=== PATIENT | male | born 1940 | race Caucasian/White ===

== ENCOUNTER → 2017-07-30 17:02 | Outpatient (CLI) | payer MEDICARE, OTHER, SELFPAY ==
--- NOTE | 2017-07-30 17:05 | RAD_ITS ---
STUDY: X-RAY CHEST REASON FOR EXAM: Male, 77 years old. Shortness of breath TECHNIQUE: Frontal and lateral views of the chest COMPARISON: None. FINDINGS: There are small bilateral pleural effusions with overlying atelectasis. There are no focal infiltrates. There are calcified granulomata noted in the left lower lobe. The heart is normal in size. The patient is status post sternotomy. RAD/Chest PA and Lateral IMPRESSION: Small bilateral pleural effusions with overlying atelectasis. Electronically Signed: Oj Frost, at 17:26 EDT Tel , Service support ,
== END ==
PROVIDERS: Family Provider Family Medicine; PCP Family Medicine; Visit Provider Physician Assistant Surgical
DX: R06.02 Shortness of breath (principal)
CPT/HCPCS: 71046

== ENCOUNTER → 2017-10-02 07:01 | Outpatient (CLI) | payer MEDICARE, OTHER, SELFPAY ==
[2017-10-02 07:55] LABS: Alanine Aminotransfer ALT/SGPT 25 U/L (16-61); Cholesterol 131 mg/dL (200); High Density Lipoprotein 37 mg/dL; Triglycerides 56 mg/dL; Very Low Density Lipoprotein 11 mg/dL (5-40)
== END ==
PROVIDERS: Family Provider Family Medicine; PCP Family Medicine; Visit Provider Family Medicine
DX: E78.00 Pure hypercholesterolemia, unspecified (principal)
CPT/HCPCS: 36415; 80061; 84460

== ENCOUNTER → 2018-03-17 13:54 | Outpatient (CLI) | payer MEDICARE, OTHER, SELFPAY ==
--- NOTE | 2018-03-17 14:00 | ECHOD_ITS ---
Reason For Study: Aortic Stenosis Procedure This was a 2D Doppler, Color Flow transthoracic echocardiogram. Exam performed in department. Left Ventricle Normal LV size. Left ventricular systolic function is normal. The estimated ejection fraction is 55 %. No regional wall motion abnormalities noted. Right Ventricle Normal RV size. Normal systolic function. Atria The left atrium is mildly enlarged. Normal right atrium. Mitral Valve Normal mitral valve. Tricuspid Valve Normal tricuspid valve. Mild (1+) tricuspid valve insufficiency. Mild pulmonary hypertension. Pulmonary artery systolic pressure is 44 mmHg. Aortic Valve Trisinus/trileaflet aortic valve. Moderate focal aortic valve calcification. Peak aortic valve gradient 47 mmHg. Mean aortic valve gradient 24 mmHg. Mild aortic stenosis. Calculated aortic valve area (continuity equation) is 1.5 cm2. Pulmonic Valve Normal pulmonic valve. Great Vessels Normal aortic root. The pulmonary artery is normal size. Normal inferior vena cava. Pericardium/Pleural No pericardial effusion. MMode/2D Measurements & Calculations LVIDd: 4.2 cm IVSd: 1.7 cm LVOT diam: 2.2 cm LVIDs: 2.4 cm LVPWd: 1.0 cm LVOT area: 3.7 cm2 RVDd: 3.7 cm FS: 42.7 % Ao root diam: 3.7 cm LAV(MOD-bp): 59.1 ml LA A4 area: 23.2 cm2 LAV(MOD-bp) Indexed: 31.4 ml/m2 LAV(MOD-sp2): 40.0 ml LAV(MOD-sp4): 78.4 ml LA dimension(2D): 4.3 cm RA A4 area: 13.3 cm2 Doppler Measurements & Calculations MV E max mick: 99.5 cm/sec Lat Peak E' Mick: 6.5 cm/sec Med Peak E' Mick: 5.0 cm/sec MV A max mick: 113.1 cm/sec E/E' lat: 15.2 E/E' med: 19.7 MV E/A: 0.88 Ao V2 max: 345.1 cm/sec LV V1 max: 136.9 cm/sec SV(LVOT): 109.1 ml Ao max P.6 mmHg LV V1 max P.5 mmHg Ao V2 mean: 233.8 cm/sec LV V1 mean P.3 mmHg Ao mean P.7 mmHg LV V1 mean: 98.2 cm/sec Ao V2 VTI: 71.4 cm LV V1 VTI: 29.1 cm AMIE(I,D): 1.5 cm2 AMIE(V,D): 1.5 cm2 PA V2 max: 152.8 cm/sec TR max mick: 316.5 cm/sec TR max P.1 mmHg Interpretation Summary Normal LV size. Left ventricular systolic function is normal. The estimated ejection fraction is 55 %. Moderate focal aortic valve calcification. Mild aortic stenosis. Calculated aortic valve area (continuity equation) is 1.5 cm2. Pulmonary artery systolic pressure is 44 mmHg. Mild pulmonary hypertension. Ordering Physician: ABHILASH Gomez Referring Physician: ABHILASH Gomez Performed By: Lizz Kaur RDCS
== END ==
PROVIDERS: Family Provider Family Medicine; PCP Family Medicine; Referring Provider Nurse Practitioner Family; Visit Provider Nurse Practitioner Family
DX: I35.0 Nonrheumatic aortic (valve) stenosis (principal); I25.10 Atherosclerotic heart disease of native coronary artery without angina pectoris; I10 Essential (primary) hypertension; G47.33 Obstructive sleep apnea (adult) (pediatric); Z95.1 Presence of aortocoronary bypass graft
CPT/HCPCS: 93306

== ENCOUNTER → 2018-04-05 07:13 | Outpatient (CLI) | payer MEDICARE, OTHER, SELFPAY ==
[2018-04-05 08:20] LABS: Glucose 98 mg/dL (74-106); PSA,Total - Annual Screen 1.89 ng/mL (0.00-4.00)
== END ==
PROVIDERS: Family Provider Family Medicine; PCP Family Medicine; Referring Provider Family Medicine; Visit Provider Family Medicine
DX: Z13.1 Encounter for screening for diabetes mellitus (principal); Z12.5 Encounter for screening for malignant neoplasm of prostate
CPT/HCPCS: 36415; 82947; 84153; G0103

== ENCOUNTER 2018-04-28 06:51 | Day surgery (SDC) | payer MEDICARE, OTHER, SELFPAY ==
[2018-04-17 14:13] VITALS: BMI 27.9
[2018-04-28] VITALS (7 sets, daily range): BP systolic 124–152; BP diastolic 65–75; PULSE 51–63; RESP 16; TEMP 36.3–36.7; O2SAT 96–99; BMI 27.3
--- NOTE | 2018-04-28 08:30 | COLBX_PTH ---
PATIENT: TRAVON BINGHAM LOC: EN U#:[id number] AGE/SX: 78/M ROOM: RE04/28/[address]: Dr. Abe Cabral MD : [id number] BED: DIS: 04/28/2018 SPEC #: [id number] RECD: 04/28/18 10:30 STATUS: JEAN PIERRE AMIE #: [id number] DEANNA: 04/28/18 08:[address]: Abe Cabral DEPT: SURGICAL PATHOLOGY RECD BY: Man Avalos ENTERED: 04/28/18 14:56 SP TYPE: COLON BX OTHR DR: Dr. Christiano Reich DO Tissues: A - COLON BIOPSY B - Descending colon C - Rectum, NOS Procedures: Surgery Specimen Level IV HEADER OPERATION: Colonoscopy (MAC) PRE-OP DIAGNOSIS: Diarrhea TISSUE SUBMITTED: A - Random colon biopsies, B - Descending colon polyp, C - Rectal polyp MICROSCOPIC DIAGNOSIS A. Colon, random biopsy: Fragments of colonic mucosa, no pathologic diagnosis. B. Descending colon polyp, biopsy: Tubular adenoma. C. Rectal polyp, biopsy: Fragments of tubular adenoma. MARIANO:lew 04/29/18 MICROSCOPIC DESCRIPTION Slides are reviewed. GROSS DESCRIPTION A - Received in fixative is one container labeled with the patient's name and designated random colon biopsy. The specimen consists of multiple irregular fragments of light khanna soft tissue that in aggregate measure 1 x 1 x 0.1 cm. The specimen is totally submitted in one cassette. B - Received in fixative is one container labeled with the patient's name and designated descending colon polyp. The specimen consists of a piece of khanna-pink polyp measuring 0.5 x 0.4 x 0.3 cm. The specimen is totally submitted in one cassette. C - Received in fixative is one container labeled with the patient's name and designated rectal polyp. The specimen consists of two irregular fragments of light khanna soft tissue that in aggregate measure 0.4 x 0.3 x 0.1 cm. The specimen is totally submitted in one cassette. / MARIANO:lew 04/28/18 TC:1 CPT: 45419 x3
--- NOTE | 2018-04-28 08:44 | OP.ENDO_ITS ---
04/28/2018 Christiano Reich [address] [place] [address] Re : Colonoscopy procedure for Jonathan Miles Dear Dr. Reich This procedure was performed on Saturday, April 28, 2018. My impressions and recommendations are as follows: Impressions : - Two 5 to 8 mm polyps in the rectum and in the descending colon, removed with a hot snare. Resected and retrieved. - Diverticulosis in the sigmoid colon. - The entire examined colon is normal. Biopsied. Recommendations : - Discharge patient to home. - Resume previous diet. - Continue present medications. - Await pathology results. - Repeat colonoscopy in 3 years for surveillance. - Return to my office in 1 week. My findings are described in the full procedure note, which is enclosed. If I can be of further assistance, please feel free to contact me at Doctor phone number(s): , Fax: [phone], Work: . Sincerely, MD Abe Paul MD 04/28/2018 8:43:47 AM This report has been signed electronically.
== END 2018-04-28 09:27 | disposition home or self-care (01) ==
LOC: EN 06:53 → AC 06:53
PROVIDERS: Family Provider Family Medicine; PCP Family Medicine; Referring Provider Surgery; Visit Provider Surgery
PROC: 0DJD8ZZ Inspection of Lower Intestinal Tract, Via Natural or Artificial Opening Endoscopic (ICD-10-PCS; CPT 45378; principal; 2018-04-28 08:25)
DX: D12.7 Benign neoplasm of rectosigmoid junction (principal); D12.4 Benign neoplasm of descending colon; K57.30 Diverticulosis of large intestine without perforation or abscess without bleeding; J44.9 Chronic obstructive pulmonary disease, unspecified; I10 Essential (primary) hypertension; E07.9 Disorder of thyroid, unspecified; E78.00 Pure hypercholesterolemia, unspecified; M10.9 Gout, unspecified; M19.90 Unspecified osteoarthritis, unspecified site; G47.33 Obstructive sleep apnea (adult) (pediatric); Z79.02 Long term (current) use of antithrombotics/antiplatelets; Z79.82 Long term (current) use of aspirin; Z79.899 Other long term (current) drug therapy; Z86.73 Personal history of transient ischemic attack (TIA), and cerebral infarction without residual deficits; Z95.1 Presence of aortocoronary bypass graft
CPT/HCPCS: 45385; 88305; J7120

== ENCOUNTER 2018-05-11 23:11 | Emergency (ER) | payer MEDICARE, OTHER, SELFPAY ==
[2018-05-05 09:16] VITALS: BMI 27.3
[2018-05-11 23:12] VITALS: BP 166/72; PULSE 80; RESP 32; TEMP 37.1; O2SAT 95; BMI 28.0
[2018-05-11 23:19] VITALS: O2SAT 92
--- NOTE | 2018-05-11 23:34 | EKG12_ITS ---
Test Reason : SOB Blood Pressure : / mmHG Vent. Rate : 077 BPM Atrial Rate : 077 BPM P-R Int : 246 ms QRS Dur : 170 ms QT Int : 422 ms P-R-T Axes : 043 -16 120 degrees QTc Int : 477 ms Sinus rhythm with 1st degree A-V block Left bundle branch block Abnormal ECG Confirmed by SHELDON OCHOA, MIGUEL ([id number]), production editor REGINA AHUMADA ([id number]) on 05/16/2018 9:21:17 AM Referred By: Christiano Reich Confirmed By:MIGUEL CHUNG MD
--- NOTE | 2018-05-11 23:37 | ED.DCSUM_ITS ---
- ER Visit Summary Date of Service: 05/11/18 Chief Complaint: Shortness of breath History of Present Illness: The patient is a 78 M who presents with shortness of breath that has gotten worse over the past 2 hours. Patient states it has been constant. Patient states is worse with laying flat. Patient states he is having a cough with some sputum production. Patient admits to a sore throat and rhinorrhea. Patient admits to some pain in his chest with coughing. Patient denies any fevers or chills. Patient denies any nausea or vomiting. Patient denies any diaphoresis. Physical Examination: Vital signs are stable except for tachypnea of 32. Patient is afebrile. Patient is in no acute distress. Oral mucosa is pink and moist. Neck is supple. Trachea is midline. Heart was regular rate and rhythm. Lung sounds were clear bilaterally. There is adequate respiratory effort noted. Abdomen is soft and nontender. Cranial nerves II through XII are intact. There are no focal motor or sensory deficits noted. The remaining physical exam is within normal limits. Test Results: EKG showed normal sinus rhythm with a first-degree AV block. There is a left bundle branch block pattern noted. There are no acute ST or T wave changes. This is unchanged compared to previous EKG dated 11/16/2010. PA and lateral chest x-ray shows a mild left pleural effusion. There is no acute infiltrate. CBC showed a mild leukocytosis of 15.5. Basic metabolic profile was essentially within normal limits. Emergency Department Course and Treatment: Patient was given a DuoNeb aerosol here. Patient felt better on reevaluation. Patient wants to go home. Patient was instructed to follow-up with his primary care physician in 5-7 days. Patient and family understood and were agreeable with the plan. All questions were answered. Disposition: Discharge home Impression: Dyspnea This note was generated with [employer] dictation software. It may contain incorrect words, spelling, and punctuation that were not noted in review of the chart prior to signing ED Disposition - Plan for ED Patient: Disposition: Home or Assisted Living Diagnosis: SOB (shortness of breath) Instructions: ED COPD Flare Referrals: Christiano Reich DO [Primary Care Provider] - 5-7 Days
[2018-05-11 23:40] VITALS: PULSE 86; RESP 20
[2018-05-11] MEDS: Ipratropium/Albuterol Sulfate 3 ML AMPUL.NEB INHALATION (23:40)
[2018-05-12] VITALS: BP 153/61; PULSE 86; RESP 16; O2SAT 93
--- NOTE | 2018-05-12 | RAD_ITS ---
STUDY: X-RAY CHEST REASON FOR EXAM: Male, 78 years old. Dyspnea TECHNIQUE: Frontal and lateral views of the chest. COMPARISON: 07/30/2017 FINDINGS: Subsegmental atelectases are noted in the right and left lung bases. There is a small left pleural effusion. Sternal cerclage wires and vascular clips are present from a prior sternotomy and coronary artery bypass graft procedure (CABG). Normal mediastinum and kacy. Normal visualized pulmonary arteries. Normal visualized aortic arch and descending thoracic aorta. Normal visualized thoracic spine. There is degenerative osteoarthritis of the bilateral shoulders. There is no demonstrated abnormality of the visualized soft tissue structures of the upper abdomen. RAD/Chest PA and Lateral IMPRESSION: Small left pleural effusion. Electronically Signed: Chinedu Riggins, at 0:45 EDT Tel , Service support ,
[2018-05-12 00:13] LABS: Absolute Lymphocyte Count 1.29 X10^3/ul (0.83-4.51); Absolute Neutrophil Count 12.8 X10^3/uL (2.0-7.7); Basophil# 0.04 X10^3/uL; Basophil% 0.3 % (0-1); Eosinophil# 0.22 X10^3/uL; Eosinophils% 1.4 % (0-5); Hematocrit 40.7 % (40-54); Hemoglobin 12.9 g/dl (13.0-16.5); Lymphocyte # 1.29 X10^3/ul (4.0); Lymphocyte % 8.3 % (19-41); Mean Corp Hgb Conc 31.7 g/gl (32-36); Mean Corpuscular Hgb 27.4 pg (27.0-32.0); Mean Corpuscular Volume 86.4 fL (80-94); Mean Platelet Vol. 9.8 fl (6.2-12.0); Monocyte% 7.1 % (0-10); Neutrophil # 12.83 X10^3/uL (2.7-7.7); Neutrophil % 82.7 % (47-70); POSITIVE COUNT NO; POSITIVE DIFFERENTIAL NO; POSITIVE MORPHOLOGY NO; Platelet Count 248 K/mm3 (150-450); RBC Distribution Width CV 15.2 % (11.6-14.6); RBC Distribution Width SD 46.9 fl (35.1-43.9); Red Blood Count 4.71 M/mm3 (4.6-6.2); White Blood Count 15.5 K/mm3 (4.4-11.0)
[2018-05-12 00:23] LABS: Anion Gap 5 (5-15); BUN 21 mg/dL (7-18); BUN/Creat Ratio 24.7 RATIO (10-20); Calcium,Total 8.3 mg/dL (8.5-10.1); Chloride 110 mmol/L (98-107); Creatinine, Serum 0.85 mg/dL (0.70-1.30); EST Glomerular Filtration Rate 93 mL/min (>60); Est Glom Filt Rate - Afr Amer 113 mL/min (>60); Estimated Creatinine Clearance 66.72 ml/min; Glucose 108 mg/dL (74-106); Potassium 4.1 mmol/L (3.5-5.1); Sodium Level 141 mmol/L (136-145)
[2018-05-12 00:57] VITALS: BP 158/67; PULSE 77; RESP 21; O2SAT 95
[2018-05-12 01:23] VITALS: BP 163/68; PULSE 77; RESP 18; O2SAT 95
== END 2018-05-12 01:24 | disposition home or self-care (01) ==
PROVIDERS: Emergency Provider Emergency Medicine; Family Provider Family Medicine; PCP Family Medicine
DX: R06.00 Dyspnea, unspecified (principal); J44.9 Chronic obstructive pulmonary disease, unspecified; I10 Essential (primary) hypertension; I44.0 Atrioventricular block, first degree; I44.7 Left bundle-branch block, unspecified; J90 Pleural effusion, not elsewhere classified; J02.9 Acute pharyngitis, unspecified; R07.9 Chest pain, unspecified; R51 Headache; Z79.02 Long term (current) use of antithrombotics/antiplatelets; Z79.899 Other long term (current) drug therapy; Z95.1 Presence of aortocoronary bypass graft
CPT/HCPCS: 71046; 80048; 85025; 93005; 94640; 99284; A4216

== ENCOUNTER 2018-05-14 13:05 | Inpatient (IN) | payer MEDICARE, OTHER, SELFPAY ==
[2018-05-14] VITALS (20 sets, daily range): BP systolic 85–137; BP diastolic 7–72; PULSE 65–121; RESP 12–30; TEMP 36.4–37.3; O2SAT 85–97; BMI 28.8; BMI 26.9
--- NOTE | 2018-05-14 13:18 | EKG12_ITS ---
Test Reason : Blood Pressure : / mmHG Vent. Rate : 092 BPM Atrial Rate : 133 BPM P-R Int : 000 ms QRS Dur : 164 ms QT Int : 390 ms P-R-T Axes : 000 -23 128 degrees QTc Int : 482 ms Atrial fibrillation Left bundle branch block Abnormal ECG Confirmed by SHELDON OCHOA, MIGUEL ([id number]), department editor LORETTA GREEN ([id number]) on 05/16/2018 8:03:10 AM Referred By: Christiano Reich Confirmed By:MIGUEL CHUNG MD
--- NOTE | 2018-05-14 13:21 | RAD_ITS ---
STUDY: X-RAY CHEST REASON FOR EXAM: Male, 78 years old. Wheezing and hypoxia. Respiratory failure. TECHNIQUE: Single AP portable view of the chest. COMPARISON: Comparison is made with prior study May 12, 2018. FINDINGS: EKG electrode are seen. Since prior study, there has been progressive atelectasis and/or infiltrates at the lung bases slightly worse on the left side. Blunting of both costophrenic angles. Sternal cerclage wires and vascular clips are present from a prior sternotomy and coronary artery bypass graft procedure (CABG). Normal mediastinum and kacy. Normal visualized pulmonary arteries. There is atherosclerotic calcification of the aortic arch with tortuosity. There are diffuse degenerative changes of the visualized thoracic spine. Normal visualized ribs, clavicles, and shoulders. There is no demonstrated abnormality of the visualized soft tissue structures of the upper abdomen. RAD/Chest 1 View (Portable) IMPRESSION: Increased atelectasis and/or infiltrates at the lung bases with small bilateral pleural effusions. This is worse on the left side. Electronically Signed: Chase Ruff, at 14:20 EDT , Service support ,
[2018-05-14 14:01] LABS: Absolute Lymphocyte Count 0.46 X10^3/ul (0.83-4.51); Absolute Neutrophil Count 5.9 X10^3/uL (2.0-7.7); Hematocrit 42.8 % (40-54); Hemoglobin 13.5 g/dl (13.0-16.5); Lymphocyte # 0.46 X10^3/ul (4.0); Lymphocyte % 6.4 % (19-41); Mean Corp Hgb Conc 31.5 g/gl (32-36); Mean Corpuscular Hgb 26.9 pg (27.0-32.0); Mean Corpuscular Volume 85.4 fL (80-94); Mean Platelet Vol. 10.6 fl (6.2-12.0); Monocyte% 11.2 % (0-10); Neutrophil # 5.89 X10^3/uL (2.7-7.7); Neutrophil % 82.3 % (47-70); Platelet Count 170 K/mm3 (150-450); RBC Distribution Width CV 15.4 % (11.6-14.6); RBC Distribution Width SD 48.2 fl (35.1-43.9); Red Blood Count 5.01 M/mm3 (4.6-6.2); White Blood Count 7.2 K/mm3 (4.4-11.0)
[2018-05-14 14:03] LABS: Anion Gap 9 (5-15); BUN 34 mg/dL (7-18); BUN/Creat Ratio 26.4 RATIO (10-20); Calcium,Total 8.3 mg/dL (8.5-10.1); Chloride 103 mmol/L (98-107); Creatinine, Serum 1.29 mg/dL (0.70-1.30); EST Glomerular Filtration Rate 58 mL/min (>60); Est Glom Filt Rate - Afr Amer 70 mL/min (>60); Estimated Creatinine Clearance 43.96 ml/min; Glucose 100 mg/dL (74-106); Potassium 3.5 mmol/L (3.5-5.1); Sodium Level 138 mmol/L (136-145)
[2018-05-14 14:04] LABS: Differential Indicated SCAN CRITERIA MET; POSITIVE COUNT NO; POSITIVE DIFFERENTIAL YES; POSITIVE MORPHOLOGY NO
[2018-05-14 14:05] LABS: Allen Test POS; Base Excess 0 mmol/L (-2 to +2); Bicarbonate 25.6 mmol/L (22-26); Blood Gas Specimen Type ART; O2 Delivery Device Nasal Can; PO2 59 mmHG (75-100); SITE L Radial; SO2 89 % (95-99); Time Given 1400; Total Carbon Dioxide 27 mmol/L; pCO2 45.3 mmHg (35-45); pH 7.36 (7.35-7.45)
[2018-05-14] MEDS: Ipratropium/Albuterol Sulfate 3 ML AMPUL.NEB INHALATION ×2 (14:05→20:00)
[2018-05-14] MEDS: Albuterol 2.5 MG/3 ML VIAL.NEB. INHALATION ×3 (14:13)
[2018-05-14 14:18] LABS: Lactic Acid 1.6 mmol/L (0.4-2.0)
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
--- NOTE | 2018-05-14 14:22 | ED.DCSUM_ITS ---
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 Onset possibly 2 days ago. Possible fever. Patient is not a good informant secondary to disorientation most likely secondary to hypoxia and combination of infectious encephalopathy. While driving car please helps her note he was driving erratically. He was stopped. Squad was called. Pulse ox was 85% room air. Apparently, he is not on chronic oxygen. 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 Denies: Sweats Eyes: Denies: Visual changes - bilaterally, Blurred Vision - bilaterally, Diplopia ENT: Denies: Bilateral ear pain, Rhinorrhea, Sore throat Cardiovascular: Reports: Palpitations. Denies: Chest pain Respiratory: Reports: Dyspnea, Cough, Sputum, Dyspnea on exertion Gastrointestinal: Denies: Abdominal pain, Nausea, Vomiting, Diarrhea, Melena, Hematochezia Genitourinary: Denies: Dysuria, Frequency Musculoskeletal: Reports: Myalgias, Arthralgias. Denies: Neck pain, Back pain, Extremity Pain Skin: Denies: Rash, Wounds Neurological: Reports: Weakness. Denies: Headache, Numbness Physical Exam Vital Signs/Narrative: Vital Signs Temp Pulse Resp BP Pulse Ox 05/14/18 14:13 101 H 24 H 05/14/18 14:08 95 29 H 114/64 93 05/14/18 14:05 93 24 H 05/14/18 13:51 98.6 F 87 28 H 116/66 90 05/14/18 13:09 98.6 F 92 30 H 104/61 85 Inital Vital Signs reviewed: Yes General: Well nourished, Well developed, Acute Distress Head: Normocephalic, Atraumatic Eyes: Perrl, EOMI. Negative for: Pale conjunctiva, Scleral icterus ENT: TM's clear, Dry mucous membranes, Nasal congestion Neck: Supple, Nontender, No lymphadenopathy, No JVD Cardiovascular: Regular rate, Regular rhythm, No murmurs, Normal S1, Normal S2 Respiratory: Chest nontender, Wheezing, Diminished, Decreased Air Movement, Retractions, - - Paradoxical breathing Abdomen: Soft, Nontender, Nondistended, Normal bowel sounds. Negative for: Hepatomegaly, Splenomegaly, Pulsatile mass Back: Nontender, Normal Inspection Extremities: Nontender, No edema. Negative for: Calf Tenderness Neurological: Cranial nerves II-XII grossly intact, Normal Strength, Normal Sensation, Normal DTR, Normal Gait - Gait was not tested. Negative for: Alert, Oriented x3 Psychological: Normal Mood Diagnostic/Tx/Re-eval Chest X-Ray - ED: 1 View, Read by ED Physician, Read by Radiologist, Normal, Heart, Mediastinum, Bony Structures, Left Infiltrate - Possible infiltrate on left compared to prior., - - Atelectasis noted right lower lobe, chronic. Impressions Chest X-Ray 05/14/18 13:21 IMPRESSION: Increased atelectasis and/or infiltrates at the lung bases with small bilateral pleural effusions. This is worse on the left side. Electronically Signed: Chase Ruff, at 14:20 EDT , Service support , 05/14/18 13:21 Chest 1 View (Portable) [RAD] Stat Laboratory Results 05/14/18 05/14/18 05/14/18 13:30 13:30 13:30 WBC 7.2 RBC 5.01 Hgb 13.5 Hct 42.8 MCV 85.4 MCH 26.9 L MCHC 31.5 L RDW 15.4 H RDW Differential 48.2 H Plt Count 170 MPV 10.6 Immature Gran % (Auto) 0.100 Neut % (Auto) 82.3 H Lymph % (Auto) 6.4 L [place] % (Auto) 11.2 H Eos % (Auto) 0.0 Baso % (Auto) 0.0 Absolute Neuts (auto) 5.9 Absolute Lymphs (auto) 0.46 L Total Counted Not Reportable Differential Comment COMMENT Specimen Type Sample Site pH Bicarbonate Actual POC Total CO2 Base Excess O2 Saturation ABG pCO2 ABG pO2 Diomedes Test O2 Delivery Device Liter Flow Blood Gas Notified Whom Blood Gas Notified Time Sodium 138 Potassium 3.5 Chloride 103 Carbon Dioxide 26.0 Anion Gap 9 BUN 34 H Creatinine 1.29 Estim Creat Clear Calc 43.96 Est GFR (MDRD) Af Amer 70 Est GFR (MDRD) Non-Af 58 L BUN/Creatinine Ratio 26.4 H Glucose 100 Lactic Acid 1.6 Calcium 8.3 L Troponin I 0.510 H 05/14/18 14:01 WBC RBC Hgb Hct MCV MCH MCHC RDW RDW Differential Plt Count MPV Immature Gran % (Auto) Neut % (Auto) Lymph % (Auto) [place] % (Auto) Eos % (Auto) Baso % (Auto) Absolute Neuts (auto) Absolute Lymphs (auto) Total Counted Differential Comment Specimen Type ART Sample Site L Radial pH 7.36 Bicarbonate Actual 25.6 POC Total CO2 27 Base Excess 0 O2 Saturation 89 L ABG pCO2 45.3 H ABG pO2 59 L Diomedes Test POS O2 Delivery Device Nasal Can Liter Flow 3.0 Blood Gas Notified Whom ED MD Blood Gas Notified Time 1400 Sodium Potassium Chloride Carbon Dioxide Anion Gap BUN Creatinine Estim Creat Clear Calc Est GFR (MDRD) Af Amer Est GFR (MDRD) Non-Af BUN/Creatinine Ratio Glucose Lactic Acid Calcium Troponin I CT of the chest is suboptimal secondary to poor timing of the contrast injection. There is evidence of bilateral lower lobe pneumonia and pleural plaques. - Rhythm Strip Rhythm Strip: A-fib Rate: 103 - Wide-complex Ectopy: None - EKG Initial EKG Interpretation: Atrial Fibrillation - Ventricular rate 92. QRS duration 164 ms. QT intervals 42. [place] to the left., LBBB - Medical Decision Making Patient feels warm. With disorientation and history of cough hypoxia need to evaluate for pneumonia, exacerbation COPD with CO2 retention, pulmonary embolus. Sepsis workup was initiated. ABG was obtained which reveals increased AA gradient. CO2 is elevated for respiratory rate. Since there appears to be an infiltrate left lower lobe levofloxacin was ordered. Since he is still wheezing after aerosol treatments he received Solu- Medrol. Troponins elevated at 0.51. BNP was ordered since rales noted right base. This may be secondary to the atelectasis. Since there is no significant abnormality on the chest x-ray to explain his hypoxia and the troponin is elevated will perform CTA to evaluate for pulmonary embolus. - Critical Care Time Critical care time (excluding procedures): 30-74 minutes, 75-104 minutes, Discussing w/Patient &/or Family/Access Developer, Discussing w/Consultants, Arranging Admission or Transfer ED Disposition - Plan for ED Patient: Disposition: Acute Care Hospital [facility] Diagnosis: Acute respiratory failure with hypoxia, Aspiration pneumonia of both lower lobes, Elevated troponin I level, Infectious encephalopathy, COPD (chronic obstructive pulmonary disease), Coronary atherosclerosis of wiyot coronary vessel, Personal history of transient ischemic attack (TIA) and cerebral infarction without residual deficit, Status post aorto-coronary artery bypass graft Referrals: Christiano Reich DO [Primary Care Provider] -
--- NOTE | 2018-05-14 14:30 | CT_ITS ---
STUDY: CTA CHEST REASON FOR EXAM: Male, 78 years old. Hypoxia. Confusion and shortness of breath. RADIATION DOSAGE (If Supplied By Facility): CTDIvol = ( 10.91 ) mGy, DLP = ( 394.49 ) mGycm TECHNIQUE: The examination was performed with the intravenous administration of Isovue 370 100mL IV. Post-processing of the angiographic images was performed, with multiplanar reformation and 3D reconstruction. Individualized dose optimization techniques were used for this CT. COMPARISON: None. FINDINGS: Small bilateral axillary lymph nodes. Normal enhancement of the main pulmonary artery and right and left pulmonary arteries. Normal enhancement of the bilateral peripheral pulmonary arteries. There is no demonstrated pulmonary embolism. There is atherosclerotic calcification of the aortic arch with tortuosity. There is no demonstrated aortic dissection. There are calcifications of the coronary arteries. Cardiomegaly. Prior CABG. There is evidence of enlarged subcarinal lymph node measuring 1.7 cm x 3.8 cm. Several smaller mediastinal nodes are seen. Calcified right hilar and right infrahilar lymph nodes. Normal visualized trachea and bronchi. The lungs are well expanded. Patchy airspace disease in both lower lobes worse on the left side superimposed on scarring. Left calcified pleural plaques. Normal chest wall structures. There are degenerative changes of thoracic spine. Multiple calcified splenic granulomas. There is a 2.9 cm x 3.1 cm hypodense nodule in the right adrenal gland. This may represent an adrenal adenoma. The patient is status post cholecystectomy. CT/CTA Chest W/WO Contrast IMPRESSION: No evidence of pulmonary embolism. Patchy bibasilar infiltrates slightly worse on the left side with the calcified pleural plaques on the left side. Mildly enlarged subcarinal lymph nodes. Right adrenal hypodense nodule. Electronically Signed: Chase Ruff, at 15:44 EDT , Service support ,
[2018-05-14] MEDS: levoFLOXacin IV 750 MG/150 ML BAG 100 MG IV (14:46)
[2018-05-14] MEDS: MethylPREDNISolone 125 MG/2 ML Vial 60 MG IV (14:46)
[2018-05-14 15:25] LABS: BNP,B-Type NATRIURETIC PEPTIDE 217.2 pg/mL (0-100)
--- NOTE | 2018-05-14 15:28 | NURSING ---
DR ROSEMARIE PAVON
--- NOTE | 2018-05-14 15:31 | NURSING ---
PCU RESP FAILURE WITH HYPOXIA, HERMES PNEUMONIA, ELEVATED TROP ROSEMARIE
--- NOTE | 2018-05-14 16:18 | HP.PCM_ITS ---
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 He was pulled over driving erratically and was found to be confused and hypoxic, brought to the ER by squad. He has been progressively more SOB for at least a week. He has a nonproductive cough. He has felt chills at home. He normally does not use O2 - was 85% on RA on arrival here. He underwent a CTA that showed BL pna. He was in the ER about 5 days ago with the same, was given an albuterol treatment and sent home, he worsened at home. He has no hx of afib. EKG here shows Afib with RVR. He has conversational dyspnea and frequent coughing. He is agreeable to bipap and, if needed, intubation. He never smoked. [] Past Medical History Past Medical History (Chronic Problems): Chronic Problems (Last Reviewed 05/05/18 @ 09:56 by Abe Cabral MD) Acute respiratory failure with hypoxia (Chronic) CAD (coronary artery disease) (Chronic) Hypothyroidism (Chronic) 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) History of peptic ulcer disease (Chronic) Mixed hyperlipidemia (Chronic) Hypertension (Chronic) Hyperlipidemia (Chronic) Coronary atherosclerosis of [place] coronary vessel (Chronic) Benign hypertension (Chronic) Status post aorto-coronary artery bypass graft (Chronic) Medical History: Medical History (Last Reviewed 05/05/18 @ 09:56 by Abe Cabral MD) Cancer C80.1 Diarrhea R19.7 Heart disease I51.9 Hemorrhoids K64.9 Stroke I63.9 Thyroid disease E07.9 HTN (hypertension) I10 Allergies caffeine Allergy (Mild, Verified 05/14/18 13:07) Unknown bee venom protein (honey bee) Allergy (Verified 05/14/18 13:07) Swelling Penicillins Allergy (Verified 05/14/18 13:07) Hives Home Medications: Ambulatory Orders Medication Instructions Recorded amlodipine 5 mg-valsartan 160 mg 1 tab PO DAILY 90 Days #90 05/13/17 tablet atenolol 50 mg tablet 50 mg PO BID 90 Days #180 05/13/17 doxazosin 4 mg tablet 2 mg PO BID 90 Days #90 05/13/17 levothyroxine 175 mcg tablet 175 mcg PO DAILY 90 Days #90 05/13/17 nitroglycerin 0.4 mg sublingual 0.4 mg SUBLINGUAL PRN PRN 8 Days 05/13/17 tablet #25 pravastatin 40 mg tablet 40 mg PO DAILY 90 Days #90 05/13/17 isosorbide mononitrate ER 60 mg 60 mg PO DAILY 04/17/18 tablet,extended release 24 hr Acetaminophen [Tylenol Extra 1,000 mg PO Q4H PRN PRN 05/14/18 Strength] Albuterol IH (ProAir) [Proair Hfa] 1 puff INHALATION Q4H PRN PRN 05/14/18 Cholecalciferol (VIT D3) [Vitamin 1,000 unit PO DAILY 05/14/18 D] Clopidogrel Bisulfate [Clopidogrel] 75 mg PO DAILY 05/14/18 Guaifenesin/Dextromethorphan 20 ml PO Q6H PRN PRN 05/14/18 [Tussin Dm Liquid] Surgical History: Surgical History (Last Reviewed 05/05/18 @ 09:56 by Abe Cabral MD) H/O heart bypass surgery Z95.1 History of cholecystectomy Z90.49 History of colonoscopy Onset Date: ~04/2018 Z98.890 History of thyroidectomy E89.0 Surgical History: coronary bypass surgery Psychiatric History: No pertinent psych hx Lives: Alone Smoking Status: Never smoker Alcohol: None Drugs: None - *Family History Maternal Family History: Family History (Last Reviewed 05/05/18 @ 09:56 by Abe Cabral MD) Other Heart disease History Items: No pertinent history Paternal Family History: Family History (Last Reviewed 05/05/18 @ 09:56 by Abe Cabral MD) Other Heart disease History Items: No pertinent history Review of Systems Constitutional: Reports: Chills, Malaise. Denies: Fever, Weight Change HEENT: Denies: Head Aches, Sinus Congestion, Sinus Drainage Cardiovascular: Denies: Chest Pain, Edema, Palpitations, Syncope Respiratory: Reports: Cough, Shortness of Breath, Shortness of breath at rest, Shortness of breath upon exertion, Wheezing. Denies: Sputum production Gastrointestinal: Denies: Abdominal Pain, Diarrhea, Nausea, Vomiting Genitourinary: Denies: Dysuria Musculoskeletal: Denies: Joint Pain, Joint Tenderness Skin: Denies: Rash, Wounds Neurological: Denies: Numbness, Tingling, Focal weakness Psychiatric: Denies: Anxiety, Depression, Homicidal Ideations, Suicidal Ideations Hematologic/ Lymphatic: Denies: Easy Bruising, Easy Bleeding VTE Information - Inpt Only VTE Present on Admission: No VTE Mechan Device Prophylaxis: None VTE Pharm Prophylaxis ordered?: Yes Patient Problems: Active and Suspected Problems (Last Reviewed 05/05/18 @ 09:56 by Abe Cabral MD) COPD (chronic obstructive pulmonary disease) (Acute) Aspiration pneumonia of both lower lobes (Acute) Elevated troponin I level (Acute) Infectious encephalopathy (Acute) Atrial fibrillation with RVR (Acute) Sepsis (Acute) Pneumonia (Acute) COPD exacerbation (Acute) - Physical Exam General: Alert, Oriented x3, Cooperative HEENT: Atraumatic, PERRLA, EOMI, Normocephalic Neck: Supple, No JVD, Negative Carotid Bruits Lungs: Rales, Rhonchi, Wheezes Cardiovascular: Irregular Rate, Tachycardic Abdomen: Bowel Sounds Present, Soft, Non Tender Extremities: No edema, Capillary Refill Less than 3 Seconds Skin: No rashes, No breakdown Musculoskeletal: No Tenderness to Palpation of Joints or Extremities Neurological: Cranial nerves II-XII grossly intact Psych/Mental Status: Normal Affect, Appropriate, Alert and oriented to time, place, person, mood and affect Vital Signs Temp Pulse Resp BP Pulse Ox 99.1 F 121 H 26 H 137/57 H 92 05/14/18 15:19 05/14/18 15:19 05/14/18 15:19 05/14/18 15:19 05/14/18 15:19 Oxygen Flow Rate (L/min) 4 Oxygen Delivery Method Nasal Cannula Weight: 178 lb 5.663 oz Body Mass Index (BMI) 28.8 Laboratory Tests Past 24 Hrs 05/14/18 05/14/18 05/14/18 13:30 13:30 13:30 WBC 7.2 RBC 5.01 Hgb 13.5 Hct 42.8 MCV 85.4 MCH 26.9 L MCHC 31.5 L RDW 15.4 H RDW Differential 48.2 H Plt Count 170 MPV 10.6 Immature Gran % (Auto) 0.100 Neut % (Auto) 82.3 H Lymph % (Auto) 6.4 L Victoria % (Auto) 11.2 H Eos % (Auto) 0.0 Baso % (Auto) 0.0 Absolute Neuts (auto) 5.9 Absolute Lymphs (auto) 0.46 L Total Counted Not Reportable Differential Comment COMMENT Specimen Type Sample Site pH Bicarbonate Actual POC Total CO2 Base Excess O2 Saturation ABG pCO2 ABG pO2 Diomedes Test O2 Delivery Device Liter Flow Blood Gas Notified Whom Blood Gas Notified Time Sodium 138 Potassium 3.5 Chloride 103 Carbon Dioxide 26.0 Anion Gap 9 BUN 34 H Creatinine 1.29 Estim Creat Clear Calc 43.96 Est GFR (MDRD) Af Amer 70 Est GFR (MDRD) Non-Af 58 L BUN/Creatinine Ratio 26.4 H Glucose 100 Lactic Acid 1.6 Calcium 8.3 L Troponin I 0.510 H B-Natriuretic Peptide 05/14/18 05/14/18 13:30 14:01 WBC RBC Hgb Hct MCV MCH MCHC RDW RDW Differential Plt Count MPV Immature Gran % (Auto) Neut % (Auto) Lymph % (Auto) Victoria % (Auto) Eos % (Auto) Baso % (Auto) Absolute Neuts (auto) Absolute Lymphs (auto) Total Counted Differential Comment Specimen Type ART Sample Site L Radial pH 7.36 Bicarbonate Actual 25.6 POC Total CO2 27 Base Excess 0 O2 Saturation 89 L ABG pCO2 45.3 H ABG pO2 59 L Diomedes Test POS O2 Delivery Device Nasal Can Liter Flow 3.0 Blood Gas Notified Whom ED MD Blood Gas Notified Time 1400 Sodium Potassium Chloride Carbon Dioxide Anion Gap BUN Creatinine Estim Creat Clear Calc Est GFR (MDRD) Af Amer Est GFR (MDRD) Non-Af BUN/Creatinine Ratio Glucose Lactic Acid Calcium Troponin I B-Natriuretic Peptide 217.2 H Assessment/Plan All Active Problems (Last Reviewed 05/05/18 @ 09:56 by Abe Cabral MD) COPD (chronic obstructive pulmonary disease) (Acute) Aspiration pneumonia of both lower lobes (Acute) Elevated troponin I level (Acute) Infectious encephalopathy (Acute) Atrial fibrillation with RVR (Acute) Sepsis (Acute) Pneumonia (Acute) COPD exacerbation (Acute) Acute bronchitis (Resolved) Atelectasis of both lungs (Acute) SOB (shortness of breath) (Acute) Sinusitis, acute (Acute) 1. Acute sepsis with acute hypoxic respiratory failure 2/2 COPD exacerbation and BL community acquired pnuemonia - Given aerosols, O2, levaquin, steroids in ER. Will continue with solumedrol, azithromycin, rocephin, duonebs. Start Bipap now. Check urine antigens, obtain viral penal, blood cultures, sputum cultures. IS/PEP therapy. Flu screen neg. CTA no PE, BL infiltrates, enlarged subcarinal lymph nodes, adrenal nodule, calcified plaques ABG with pCO2 45, pO259, pH 7.36 BNP somewhat elevated 2. Afib with RVR - new onset likely 2/2 sepsis - IV fluids, recheck with treatm ent of the above. Repeat EKG in AM. start eliquis. Recent echocardiogram in March, preserved EF, mild pulmonary hypertension, mild aortic stenosis. 3. Elevated troponin - possibly demand ischemia given sepsis, respiratory failure and afib, will cycle. Consider cardiology consult. Repeat EKG. Maintain tele. 4. Hx CAD - prior cabg >10 years ago. continue asa/statin/plavix, atenolol, imdur 5. Hypothyroidism - check tsh, continue synthroid 6. HLD - statin DVT ppx: eliquis This patient was seen by Yo Hewitt PA-C under the supervision of Dr. Stokes <Jong Stokes - Last Filed: 05/14/18 17:35> History of Present Illness The patient is a 78 year old M with multiple comorbidities including COPD, coronary artery disease status post CABG came to ED with progressive shortness of breath, cough, chills. [] Patient was in the ER on 06/01/2018 for shortness of breath probably COPD exacerbation and was sent home. In ED, patient was found hypoxic, 85% on room air tachypneic, A. fib with RVR and objectively very short of breath. CT chest was done which shows no evidence of pulmonary embolism but bilateral infiltrate consistent with bilateral lower lobes pneumonia. Past Medical History Medical History: Medical History (Last Reviewed 05/05/18 @ 09:56 by Abe Cabral MD) Cancer C80.1 Diarrhea R19.7 Heart disease I51.9 Hemorrhoids K64.9 Stroke I63.9 Thyroid disease E07.9 HTN (hypertension) I10 Allergies caffeine Allergy (Mild, Verified 05/14/18 13:07) Unknown bee venom protein (honey bee) Allergy (Verified 05/14/18 13:07) Swelling Penicillins Allergy (Verified 05/14/18 13:07) Hives Surgical History: Surgical History (Last Reviewed 05/05/18 @ 09:56 by Abe Cabral MD) H/O heart bypass surgery Z95.1 History of cholecystectomy Z90.49 History of colonoscopy Onset Date: ~04/2018 Z98.890 History of thyroidectomy E89.0 - *Family History Maternal Family History: Family History (Last Reviewed 05/05/18 @ 09:56 by Abe Cabral MD) Other Heart disease Paternal Family History: Family History (Last Reviewed 05/05/18 @ 09:56 by Abe Cabral MD) Other Heart disease - Physical Exam Vital Signs Temp Pulse Resp BP Pulse Ox 97.6 F L 93 26 H 101/59 L 95 05/14/18 17:00 05/14/18 17:00 05/14/18 17:00 05/14/18 17:00 05/14/18 17:00 Oxygen Flow Rate (L/min) 4 Oxygen Delivery Method Bi-pap Weight: 167 lb 5.294 oz Body Mass Index (BMI) 26.9 Laboratory Tests Past 24 Hrs 05/14/18 05/14/18 05/14/18 13:30 13:30 13:30 WBC 7.2 RBC 5.01 Hgb 13.5 Hct 42.8 MCV 85.4 MCH 26.9 L MCHC 31.5 L RDW 15.4 H RDW Differential 48.2 H Plt Count 170 MPV 10.6 Immature Gran % (Auto) 0.100 Neut % (Auto) 82.3 H Lymph % (Auto) 6.4 L Victoria % (Auto) 11.2 H Eos % (Auto) 0.0 Baso % (Auto) 0.0 Absolute Neuts (auto) 5.9 Absolute Lymphs (auto) 0.46 L Total Counted Not Reportable Differential Comment COMMENT Specimen Type Sample Site pH Bicarbonate Actual POC Total CO2 Base Excess O2 Saturation ABG pCO2 ABG pO2 Diomedes Test O2 Delivery Device Liter Flow Blood Gas Notified Whom Blood Gas Notified Time Sodium 138 Potassium 3.5 Chloride 103 Carbon Dioxide 26.0 Anion Gap 9 BUN 34 H Creatinine 1.29 Estim Creat Clear Calc 43.96 Est GFR (MDRD) Af Amer 70 Est GFR (MDRD) Non-Af 58 L BUN/Creatinine Ratio 26.4 H Glucose 100 Lactic Acid 1.6 Calcium 8.3 L Troponin I 0.510 H B-Natriuretic Peptide 05/14/18 05/14/18 13:30 14:01 WBC RBC Hgb Hct MCV MCH MCHC RDW RDW Differential Plt Count MPV Immature Gran % (Auto) Neut % (Auto) Lymph % (Auto) Victoria % (Auto) Eos % (Auto) Baso % (Auto) Absolute Neuts (auto) Absolute Lymphs (auto) Total Counted Differential Comment Specimen Type ART Sample Site L Radial pH 7.36 Bicarbonate Actual 25.6 POC Total CO2 27 Base Excess 0 O2 Saturation 89 L ABG pCO2 45.3 H ABG pO2 59 L Diomedes Test POS O2 Delivery Device Nasal Can Liter Flow 3.0 Blood Gas Notified Whom ED MD Blood Gas Notified Time 1400 Sodium Potassium Chloride Carbon Dioxide Anion Gap BUN Creatinine Estim Creat Clear Calc Est GFR (MDRD) Af Amer Est GFR (MDRD) Non-Af BUN/Creatinine Ratio Glucose Lactic Acid Calcium Troponin I B-Natriuretic Peptide 217.2 H Assessment/Plan The patient is a 78 year old M with multiple comorbidities including COPD, coronary artery disease status post CABG came to ED with This patient was seen in conjunction with Yo WILLARD. I have independently interviewed and examined the patient and reviewed pertinent history, examination findings, laboratory and plan of management. I have reviewed the note and agree with the documented findings with the few additional points. In brief, patient is admitted for progressive shortness of breath, cough, chills, Severe hypoxia 85% on room air, tachypneic and A. fib with RVR. EKG shows A. fib with left bundle branch block at 92 bpm. Previous EKG showed normal sinus rhythm [address] chest was done which shows no evidence of pulmonary embolism but bilateral infiltrate consistent with bilateral lower lobes pneumonia. Patient is being admitted to stepdown unit on BiPAP support. ABG shows 7.36/40 5/59 on 3 L of oxygen. Troponin mildly elevated. Lactic acid normal cycle troponins. Patient denies chest pain. Troponin probably secondary to hypoxic respiratory failure and pneumonia. Overall diagnosis consistent with acute hypoxic failure secondary to bilateral lower lobes community-acquired pneumonia along with COPD exacerbation. A. fib new onset probably preceded by sepsis. Started on apixaban and continue atenolol, beta-chris for rate control I have discussed my assessment with Yo WILLARD and orders have been reviewed. Clinical Impression(s) from Imaging Studies Chest X-Ray 05/14/18 13:21 IMPRESSION: Increased atelectasis and/or infiltrates at the lung bases with small bilateral pleural effusions. This is worse on the left side. Chest CTA 05/14/18 14:30 IMPRESSION: No evidence of pulmonary embolism. Patchy bibasilar infiltrates slightly worse on the left side with the calcified pleural plaques on the left side. Mildly enlarged subcarinal lymph nodes. Right adrenal hypodense nodule. Code Visit Inpatient E&M: 28692 Init Hosp L3
[2018-05-14] MEDS: Ceftriaxone 1 GM/50 ML BAG IV ×2 (17:30→21:01)
[2018-05-14] MEDS: 0.9% Normal Saline 1,000 ML 100 ML IV (17:30)
[2018-05-14] MEDS: Azithromycin 250 MG Tablet 500 MG PO (17:55)
[2018-05-14] MEDS: APIXABAN 5 MG TABLET PO (17:55)
[2018-05-14] MEDS: 0.9% NaCl Peripheral Flush Adult/Peds IV ×4 (21:59→22:06)
[2018-05-14] MEDS: Furosemide 40 MG/4 ML Vial IV (21:59)
[2018-05-14] MEDS: Doxazosin 1 MG Tablet 2 MG PO (22:01)
[2018-05-14] MEDS: guaiFENesin 1,200 MG Tablet 1200 MG PO (22:01)
[2018-05-14] MEDS: Pravastatin 40 MG Tablet PO (22:01)
[2018-05-14] MEDS: Atenolol 50 MG Tablet PO (22:02)
[2018-05-15] VITALS (22 sets, daily range): BP systolic 87–138; BP diastolic 54–85; PULSE 55–81; RESP 12–24; TEMP 35.9–37; O2SAT 92–98
[2018-05-15 05:26] LABS: Absolute Lymphocyte Count 0.29 X10^3/ul (0.83-4.51); Absolute Neutrophil Count 5.1 X10^3/uL (2.0-7.7); Differential Indicated SCAN CRITERIA MET; Hematocrit 39.7 % (40-54); Hemoglobin 12.5 g/dl (13.0-16.5); International Normalized Ratio 1.1; Lymphocyte # 0.29 X10^3/ul (4.0); Lymphocyte % 5.2 % (19-41); Mean Corp Hgb Conc 31.5 g/gl (32-36); Mean Corpuscular Hgb 27.2 pg (27.0-32.0); Mean Corpuscular Volume 86.3 fL (80-94); Mean Platelet Vol. 10.7 fl (6.2-12.0); Monocyte# 0.25 X10^3/uL; Monocyte% 4.4 % (0-10); Neutrophil # 5.08 X10^3/uL (2.7-7.7); Neutrophil % 90.2 % (47-70); POSITIVE COUNT NO; POSITIVE DIFFERENTIAL YES; POSITIVE MORPHOLOGY NO; Partial Thromboplast Time 33.7 Seconds (24.1-36.2); Platelet Count 154 K/mm3 (150-450); Prothrombin Time (Protime)PT. 13.8 SECONDS (11.7-14.9); RBC Distribution Width CV 15.6 % (11.6-14.6); RBC Distribution Width SD 48.8 fl (35.1-43.9); White Blood Count 5.6 K/mm3 (4.4-11.0)
[2018-05-15 05:51] LABS: Anion Gap 7 (5-15); BUN 39 mg/dL (7-18); BUN/Creat Ratio 29.8 RATIO (10-20); Calcium,Total 8.1 mg/dL (8.5-10.1); Chloride 107 mmol/L (98-107); Cholesterol 105 mg/dL (200); Creatinine, Serum 1.31 mg/dL (0.70-1.30); EST Glomerular Filtration Rate 57 mL/min (>60); Est Glom Filt Rate - Afr Amer 68 mL/min (>60); Estimated Creatinine Clearance 43.29 ml/min; Glucose 146 mg/dL (74-106); High Density Lipoprotein 38 mg/dL; Potassium 3.9 mmol/L (3.5-5.1); Sodium Level 141 mmol/L (136-145); Thyroid Stim Hormone (TSH) 0.68 uIU/mL (0.358-3.74); Triglycerides 75 mg/dL; Very Low Density Lipoprotein 15 mg/dL (5-40)
--- NOTE | 2018-05-15 05:55 | EKG12_ITS ---
Test Reason : AM EKG Blood Pressure : / mmHG Vent. Rate : 063 BPM Atrial Rate : 043 BPM P-R Int : 000 ms QRS Dur : 168 ms QT Int : 444 ms P-R-T Axes : 000 -20 141 degrees QTc Int : 454 ms Atrial fibrillation Left bundle branch block Abnormal ECG When compared with ECG of 14-MAY-2018 13:27, MANUAL COMPARISON REQUIRED, DATA IS UNCONFIRMED Confirmed by ELENA GUTIERREZ ([id number]), supervising film or videotape editor TYRONE OATES ([id number]) on 05/19/2018 5:15:29 PM Referred By: DR HOUSTON Confirmed By:ELENA GUTIERREZ
[2018-05-15] MEDS: Ipratropium/Albuterol Sulfate 3 ML AMPUL.NEB INHALATION ×4 (07:29→20:09)
[2018-05-15] MEDS: Levothyroxine 175 MCG Tablet PO (07:31)
[2018-05-15] MEDS: 0.9% NaCl Peripheral Flush Adult/Peds IV ×4 (07:32→22:36)
[2018-05-15] MEDS: Azithromycin 250 MG Tablet 500 MG PO (09:02)
[2018-05-15] MEDS: APIXABAN 5 MG TABLET PO (09:02)
[2018-05-15] MEDS: Doxazosin 1 MG Tablet 2 MG PO ×2 (09:03→22:36)
[2018-05-15] MEDS: Losartan Potassium 50 MG Tablet PO (09:03)
[2018-05-15] MEDS: Atenolol 50 MG Tablet PO ×2 (09:03→22:35)
[2018-05-15] MEDS: Clopidogrel Bisulfate 75 MG Tablet PO (09:03)
[2018-05-15] MEDS: amLODIPine 5 MG Tablet PO (09:03)
[2018-05-15] MEDS: Isosorbide Mononitrate 60 MG Tablet PO (09:03)
[2018-05-15] MEDS: guaiFENesin 1,200 MG Tablet 1200 MG PO ×2 (09:03→22:35)
--- NOTE | 2018-05-15 12:06 | PCM.PROGNOTE ---
Patient Problems: Active and Suspected Problems (Last Reviewed 05/05/18 @ 09:56 by Abe Cabral MD) COPD (chronic obstructive pulmonary disease) (Acute) Aspiration pneumonia of both lower lobes (Acute) Elevated troponin I level (Acute) Infectious encephalopathy (Acute) Atrial fibrillation with RVR (Acute) Sepsis (Acute) Pneumonia (Acute) COPD exacerbation (Acute) Subjective: Patient seen and examined. Reports improvement in breathing. Complains of productive cough. Denies fever, chills overnight. - Physical Exam General: Alert, Oriented x3, Cooperative HEENT: Atraumatic, PERRLA, EOMI, Normocephalic Neck: Supple, No JVD, Negative Carotid Bruits Lungs: Normal air movement, Rhonchi, Wheezes Cardiovascular: Regular rate, Regular Rhythm, Normal S1, Normal S2, No murmurs Abdomen: Bowel Sounds Present, Soft, Non Tender, Non-Distended Extremities: No clubbing, No cyanosis, No edema, Capillary Refill Less than 3 Seconds Skin: No rashes, No breakdown Musculoskeletal: No Tenderness to Palpation of Joints or Extremities Neurological: Cranial nerves II-XII grossly intact, Neuro grossly intact Psych/Mental Status: Normal Affect, Appropriate Vital Signs Temp Pulse Resp BP Pulse Ox 97.9 F 67 20 H 126/62 H 94 05/15/18 09:00 05/15/18 11:01 05/15/18 09:00 05/15/18 09:00 05/15/18 09:00 Oxygen Flow Rate (L/min) 2 Oxygen Delivery Method Nasal Cannula Weight: 167 lb 5.294 oz Body Mass Index (BMI) 26.9 Intake and Output for Last 24 Hours 05/13/18 05/14/18 05/15/18 23:59 23:59 23:59 Intake Total 1160.4 / 1160.4 360 / 360 Output Total 275 / 275 Balance 1160.4 / 1160.4 85 / 85 Microbiology Past 72 Hours 05/14/18 13:42 Respiratory Panel (PCR) - Final Mucosa - Nose Influenza A (Subtype H1) 05/14/18 19:58 Legionella Antigen - Final Urine, Clean Catch 05/14/18 19:58 Streptococcus pneumoniae Antigen (M - Final Urine, Clean Catch Laboratory Tests Past 24 Hrs 05/14/18 05/14/18 05/14/18 13:30 13:30 13:30 WBC 7.2 RBC 5.01 Hgb 13.5 Hct 42.8 MCV 85.4 MCH 26.9 L MCHC 31.5 L RDW 15.4 H RDW Differential 48.2 H Plt Count 170 MPV 10.6 Immature Gran % (Auto) 0.100 Neut % (Auto) 82.3 H Lymph % (Auto) 6.4 L [place] % (Auto) 11.2 H Eos % (Auto) 0.0 Baso % (Auto) 0.0 Absolute Neuts (auto) 5.9 Absolute Lymphs (auto) 0.46 L Total Counted Not Reportable Differential Comment COMMENT PT INR APTT Specimen Type Sample Site pH Bicarbonate Actual POC Total CO2 Base Excess O2 Saturation ABG pCO2 ABG pO2 Diomedes Test O2 Delivery Device Liter Flow Blood Gas Notified Whom Blood Gas Notified Time Sodium 138 Potassium 3.5 Chloride 103 Carbon Dioxide 26.0 Anion Gap 9 BUN 34 H Creatinine 1.29 Estim Creat Clear Calc 43.96 Est GFR (MDRD) Af Amer 70 Est GFR (MDRD) Non-Af 58 L BUN/Creatinine Ratio 26.4 H Glucose 100 Lactic Acid 1.6 Calcium 8.3 L Magnesium Troponin I 0.510 H B-Natriuretic Peptide Triglycerides Cholesterol LDL Cholesterol VLDL Cholesterol HDL Cholesterol TSH 05/14/18 05/14/18 05/14/18 13:30 14:01 17:08 WBC RBC Hgb Hct MCV MCH MCHC RDW RDW Differential Plt Count MPV Immature Gran % (Auto) Neut % (Auto) Lymph % (Auto) [place] % (Auto) Eos % (Auto) Baso % (Auto) Absolute Neuts (auto) Absolute Lymphs (auto) Total Counted Differential Comment PT INR APTT Specimen Type ART Sample Site L Radial pH 7.36 Bicarbonate Actual 25.6 POC Total CO2 27 Base Excess 0 O2 Saturation 89 L ABG pCO2 45.3 H ABG pO2 59 L Diomedes Test POS O2 Delivery Device Nasal Can Liter Flow 3.0 Blood Gas Notified Whom ED Blood Gas Notified Time 1400 Sodium Potassium Chloride Carbon Dioxide Anion Gap BUN Creatinine Estim Creat Clear Calc Est GFR (MDRD) Af Amer Est GFR (MDRD) Non-Af BUN/Creatinine Ratio Glucose Lactic Acid Calcium Magnesium Troponin I 0.534 H B-Natriuretic Peptide 217.2 H Triglycerides Cholesterol LDL Cholesterol VLDL Cholesterol HDL Cholesterol TSH 05/14/18 05/14/18 05/14/18 17:08 19:40 23:10 WBC RBC Hgb Hct MCV MCH MCHC RDW RDW Differential Plt Count MPV Immature Gran % (Auto) Neut % (Auto) Lymph % (Auto) [place] % (Auto) Eos % (Auto) Baso % (Auto) Absolute Neuts (auto) Absolute Lymphs (auto) Total Counted Differential Comment PT INR APTT Specimen Type Sample Site pH Bicarbonate Actual POC Total CO2 Base Excess O2 Saturation ABG pCO2 ABG pO2 Diomedes Test O2 Delivery Device Liter Flow Blood Gas Notified Whom Blood Gas Notified Time Sodium Potassium Chloride Carbon Dioxide Anion Gap BUN Creatinine Estim Creat Clear Calc Est GFR (MDRD) Af Amer Est GFR (MDRD) Non-Af BUN/Creatinine Ratio Glucose Lactic Acid Calcium Magnesium 2.0 Troponin I 0.704 H* 1.130 H* B-Natriuretic Peptide Triglycerides Cholesterol LDL Cholesterol VLDL Cholesterol HDL Cholesterol TSH 05/15/18 05/15/18 05/15/18 01:36 05:04 05:04 WBC 5.6 RBC 4.60 Hgb 12.5 L Hct 39.7 L MCV 86.3 MCH 27.2 MCHC 31.5 L RDW 15.6 H RDW Differential 48.8 H Plt Count 154 MPV 10.7 Immature Gran % (Auto) 0.200 Neut % (Auto) 90.2 H Lymph % (Auto) 5.2 L [place] % (Auto) 4.4 Eos % (Auto) 0.0 Baso % (Auto) 0.0 Absolute Neuts (auto) 5.1 Absolute Lymphs (auto) 0.29 L Total Counted Not Reportable Differential Comment PT INR APTT Specimen Type Sample Site pH Bicarbonate Actual POC Total CO2 Base Excess O2 Saturation ABG pCO2 ABG pO2 Diomedes Test O2 Delivery Device Liter Flow Blood Gas Notified Whom Blood Gas Notified Time Sodium Potassium Chloride Carbon Dioxide Anion Gap BUN Creatinine Estim Creat Clear Calc Est GFR (MDRD) Af Amer Est GFR (MDRD) Non-Af BUN/Creatinine Ratio Glucose Lactic Acid Calcium Magnesium Troponin I 1.480 H* 1.330 H* B-Natriuretic Peptide Triglycerides Cholesterol LDL Cholesterol VLDL Cholesterol HDL Cholesterol TSH 05/15/18 05/15/18 05:04 05:05 WBC RBC Hgb Hct MCV MCH MCHC RDW RDW Differential Plt Count MPV Immature Gran % (Auto) Neut % (Auto) Lymph % (Auto) [place] % (Auto) Eos % (Auto) Baso % (Auto) Absolute Neuts (auto) Absolute Lymphs (auto) Total Counted Differential Comment PT 13.8 INR 1.1 APTT 33.7 Specimen Type Sample Site pH Bicarbonate Actual POC Total CO2 Base Excess O2 Saturation ABG pCO2 ABG pO2 Diomedes Test O2 Delivery Device Liter Flow Blood Gas Notified Whom Blood Gas Notified Time Sodium 141 Potassium 3.9 Chloride 107 Carbon Dioxide 27.0 Anion Gap 7 BUN 39 H Creatinine 1.31 H Estim Creat Clear Calc 43.29 Est GFR (MDRD) Af Amer 68 Est GFR (MDRD) Non-Af 57 L BUN/Creatinine Ratio 29.8 H Glucose 146 H Lactic Acid Calcium 8.1 L Magnesium Troponin I B-Natriuretic Peptide Triglycerides 75 Cholesterol 105 LDL Cholesterol 52 VLDL Cholesterol 15 HDL Cholesterol 38 L TSH 0.68 Medical Necessity - Tobacco Use Smoking Status: Never smoker Tobacco Use: Non-smoker Assessment/Plan All Active Problems (Last Reviewed 05/05/18 @ 09:56 by Abe Cabral MD) COPD (chronic obstructive pulmonary disease) (Acute) Aspiration pneumonia of both lower lobes (Acute) Elevated troponin I level (Acute) Infectious encephalopathy (Acute) Atrial fibrillation with RVR (Acute) Sepsis (Acute) Pneumonia (Acute) COPD exacerbation (Acute) Acute bronchitis (Resolved) Atelectasis of both lungs (Acute) SOB (shortness of breath) (Acute) Sinusitis, acute (Acute) 1. Acute sepsis with acute hypoxic respiratory failure secondary to COPD exacerbation as a result of acute influenza A and bilateral community-acquired pneumonia-CTA on admission with bilateral infiltrates. Continue IV azithromycin/IV Rocephin, IV Solu-Medrol and renal dose Tamiflu regimen 30 mg p.o. twice daily times 5 days. Albuterol and DuoNeb aerosols. BiPAP nightly and as needed. Viral panel positive for influenza A. Continue supplement oxygen to maintain O2 at or above 90%. IS/PEP. Walking pulse ox prior to discharge. 2. New onset atrial fibrillation with RVR-suspect secondary to #1. Initiated on Eliquis. Remains in atrial fibrillation, rate controlled. Continue atenolol regimen. Echocardiogram March 2018 with EF 55%, mild aortic stenosis, mild pulmonary hypertension. Patient follows with Dr. Galindo as outpatient. 3. NSTEMI-possibly demand ischemia secondary to #1. However, given hx CAD/CABG, cardiology consult placed. 4. CAD status post CABG-continue statin, Plavix, beta-chris, Imdur. Initiated on Eliquis due to atrial fibrillation. 5. Hypothyroidism-continue Synthroid regimen. TSH WNL. 6. Hyperlipidemia-continue statin. 7. Hypertension-stable, continue home amlodipine, atenolol, isosorbide. DVT prophylaxis- eiquis. This patient was seen by ABHILASH Green under the supervision of Dr. Bynum.
--- NOTE | 2018-05-15 12:10 | CPS ---
PT WILL DO PEP AND SMI ON OWN LATER THIS AFTERNOON
--- NOTE | 2018-05-15 12:26 | CASEMGMT ---
MIKEY ANNE assessment: Face to Face with patient for initial transition planning/care coordination assessment. MIKEY ANNE introduced self and role at [facility], pt voices understanding and consents to assessment at this time. Pt is sitting up in bed in no distress at this time. Pt is A/Ox4 at this time and answers all questions appropriately at this time. Care providers, pharmacy, and demographics verified at this time. PCP: Rachana Specialists: Shyla Ash, cardiology [facility] [employer] [facility] in [place] Preferred [facility]acy: [facility]: [facility] Prescription Benefit: [facility] Living Will/HPOA: Pt states does not have LW/HPOA but is interested in info on AD's at this time. LNOK: Kelly Miles, ; Ness Quevedo, daughter Living Arrangements: Pt states lives with in 1 story home with 3 steps in and states no concerns at home at this time. Pt states is normally independent with ADL's. Transportation: Pt states drives self and states no transportation concerns at this time. DME/HHC: Pt states no current DME or need for any at this time. Pt states no hx of HHC or SNF in the past. Pt states no concerns with going home at time of discharge. 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 Pt states that she does not smoke but does drink wine occasionally. Pt states no further concerns/needs at this time. Advised pt to ask for CM if any further questions/concerns/needs arise, voices understanding. Plan: [place] MIKEY ANNE
[2018-05-15] MEDS: Oseltamivir Phosphate 30 MG Capsule PO ×2 (13:03→22:59)
--- NOTE | 2018-05-15 15:46 | CHAPLAIN ---
Type of Pastoral Visit _x__ Initial Visit ___ Follow-up Visit ___ On-call Visit ___ General Patient Visit ___ Spiritual Assessment ___ Family Conference ___ Bereavement ___ Rapid Response ___ Code Blue ___ Other (describe below) Pastoral Care Referral From _x__ Patient ___ Family ___ Nurse ___ Physician ___ Provider Scribe ___ Clerical Transcriber ___ Other (describe below) Sacrament/Intervention _x__ Active listening ___ Anointing ___ Taoism ___ Bereavement ___ Communion _x__ Jessy exploration ___ _x__ Life review _x__ Prayer ___ Reconciliation ___ Sacrament of Sick _x__ Supportive presence ___ Wedding ___ Other (describe below) Pastoral Comments
--- NOTE | 2018-05-15 17:37 | PCM.CONS.C ---
Reason for Consult Date of Consultation: 05/15/18 History of Present Illness: The patient is a 78 year old M with a history of coronary artery disease status post coronary artery bypass surgery, hypertension, obstructive lung disease who presented to the emergency room because he was confused and while driving had to be pulled over. He denied any chest pain or palpitations or paroxysmal nocturnal dyspnea but he was noted to be markedly short of breath. In the emergency room he was evaluated he had a CAT scan done which demonstrated evidence of bilateral pneumonia. He was wheezing significantly. His EKG did not demonstrate any acute changes and he was admitted to the telemetry unit. Serial cardiac enzymes demonstrated elevation of the above to the abnormal range denoting a non-ST elevation myocardial infarction. Cardiology was called to evaluate. At this time he denies any chest pain but he remains short of breath with wheezing. [] Past Medical History Allergies/Adverse Reactions: Allergies caffeine Allergy (Mild, Verified 05/14/18 13:07) Unknown bee venom protein (honey bee) Allergy (Verified 05/14/18 13:07) Swelling Penicillins Allergy (Verified 05/14/18 13:07) Hives Home Medications: Ambulatory Orders Medication Instructions Recorded amlodipine 5 mg-valsartan 160 mg 1 tab PO DAILY 90 Days #90 05/13/17 tablet atenolol 50 mg tablet 50 mg PO BID 90 Days #180 05/13/17 doxazosin 4 mg tablet 2 mg PO BID 90 Days #90 05/13/17 levothyroxine 175 mcg tablet 175 mcg PO DAILY 90 Days #90 05/13/17 nitroglycerin 0.4 mg sublingual 0.4 mg SUBLINGUAL PRN PRN 8 Days 05/13/17 tablet #25 pravastatin 40 mg tablet 40 mg PO DAILY 90 Days #90 05/13/17 isosorbide mononitrate ER 60 mg 60 mg PO DAILY 04/17/18 tablet,extended release 24 hr Acetaminophen [Tylenol Extra 1,000 mg PO Q4H PRN PRN 05/14/18 Strength] Albuterol IH (ProAir) [Proair Hfa] 1 puff INHALATION Q4H PRN PRN 05/14/18 Cholecalciferol (VIT D3) [Vitamin 1,000 unit PO DAILY 05/14/18 D] Clopidogrel Bisulfate [Clopidogrel] 75 mg PO DAILY 05/14/18 Guaifenesin/Dextromethorphan 20 ml PO Q6H PRN PRN 05/14/18 [Tussin Dm Liquid] Past Medical History (Chronic Problems): Chronic Problems (Last Reviewed 05/05/18 @ 09:56 by Abe Cabral MD) Acute respiratory failure with hypoxia (Chronic) CAD (coronary artery disease) (Chronic) Hypothyroidism (Chronic) 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) History of peptic ulcer disease (Chronic) Mixed hyperlipidemia (Chronic) Hypertension (Chronic) Hyperlipidemia (Chronic) Coronary atherosclerosis of [place] coronary vessel (Chronic) Benign hypertension (Chronic) Status post aorto-coronary artery bypass graft (Chronic) Surgical History: coronary bypass surgery Psychiatric History: No pertinent psych hx - *Family History Maternal Family History: Family History (Last Reviewed 05/05/18 @ 09:56 by Abe Cabral MD) Other Heart disease History Items: No pertinent history Paternal Family History: Family History (Last Reviewed 05/05/18 @ 09:56 by Abe Cabral MD) Other Heart disease History Items: No pertinent history Lives: Alone Smoking Status: Never smoker Tobacco Use: Non-smoker Alcohol: None Drugs: None Review of Systems - Review of Systems General: Denies: Fever, Night Sweats, Fatigue HEENT: Denies: Vision Change Cardiovascular: Reports: Shortness of Breath, Shortness of Breath at Rest. Denies: Chest Discomfort, Orthopnea, PND, Peripheral Edema, Palpitations, Lightheadedness, Dizziness, Near Syncope, Syncope Respiratory: Denies: Cough, Sputum Production, Hemoptysis Gastrointestinal: Denies: Hematemesis, Hematochezia, Melena Genitourinary: Denies: Dysuria, Hematuria Muscoloskeletal: Denies: Myalgias Skin: Denies: Rash Neurological: Denies: Dizziness Psychiatric: Denies: Anxiety Endocrine: Denies: Unexplained Weight Loss Hematologic/ Lymphatic: Denies: Anemia Subjectve: Pleasant gentleman in no apparent distress on the BiPAP mask Objective: Vital Signs Temp Pulse Resp BP Pulse Ox 97.8 F 75 18 113/60 92 05/15/18 15:00 05/15/18 15:19 05/15/18 15:19 05/15/18 15:00 05/15/18 15:00 Oxygen Flow Rate (L/min) 2 Oxygen Delivery Method Nasal Cannula Weight: 167 lb 5.294 oz Body Mass Index (BMI) 26.9 Intake and Output for Last 24 Hours 05/13/18 05/14/18 05/15/18 23:59 23:59 23:59 Intake Total 1160.4 / 1160.4 360 / 360 Output Total 275 / 275 Balance 1160.4 / 1160.4 85 / 85 General: Awake, Alert, Oriented x 3 HEENT: PERRL, EOMI, Sclera Non Icteric Neck: Supple, Good ROM, No Lymph Node Enlargement Lungs: Expiratory Wheezes-Charly Cardiovascular: Regular Rhythm, Normal S1, Normal S2, No Rubs, No Gallops Murmur Murmur: Grade 2/6, Early Systolic, LLSB Vascular: No Carotid Bruits, Normal Femoral Pulses, Normal Radial Pulses, Normal Dorsalis Pedal Pulse, Normal Posterior Tibial Pulses Abdomen: Bowel Sounds Present, Soft, Non Tender, No HSM, No Organomegaly Extremities: No Cyanosis, No Clubbing, No edema Musculoskeletal: No Erythema Skin: No Rashes Lymphatic: No Lymph Node Enlargement Neurological: No Focal Motor or Sensory Deficit Psych/Mental Status: Appropriate 05/14/18 17:08: Troponin I 0.534 H 05/14/18 17:08: Magnesium 2.0 05/14/18 19:40: Troponin I 0.704 H* 05/14/18 23:10: Troponin I 1.130 H* 05/15/18 01:36: Troponin I 1.480 H* 05/15/18 05:04: WBC 5.6, RBC 4.60, Hgb 12.5 L, Hct 39.7 L, MCV 86.3, MCH 27.2, MCHC 31.5 L, RDW 15.6 H, RDW Differential 48.8 H, Plt Count 154, MPV 10.7, Immature Gran % (Auto) 0.200, Neut % (Auto) 90.2 H, Lymph % (Auto) 5.2 L, [place] % (Auto) 4.4, Eos % (Auto) 0.0, Baso % (Auto) 0.0, Absolute Neuts (auto) 5.1, Total Counted Not Reportable 05/15/18 05:04: Troponin I 1.330 H* 05/15/18 05:04: PT 13.8, INR 1.1, APTT 33.7 05/15/18 05:05: Sodium 141, Potassium 3.9, Chloride 107, Carbon Dioxide 27.0, Anion Gap 7, BUN 39 H, Creatinine 1.31 H, Est GFR (MDRD) Af Amer 68, Est GFR (MDRD) Non-Af 57 L, BUN/Creatinine Ratio 29.8 H, Glucose 146 H, Calcium 8.1 L, Triglycerides 75, Cholesterol 105, LDL Cholesterol 52, VLDL Cholesterol 15, HDL Cholesterol 38 L Rhythm: EKG: ECHO: Stress Test: Cardiac Cath: PCI: CT Surgery: Holter monitor: EPS: PPM: CXR: Chest CT Scan: Assessment/Plan 1. Non-ST elevation myocardial infarction Patient presents with confusion and is noted to have an acute infectious etiology with a pneumonia and has a non-ST elevation myocardial infarction. Recommendation at this time would be to institute beta-chris Continue aspirin Echocardiogram to assess left ventricular function Clopidogrel loading and maintenance He will eventually need a left heart catheterization after his pneumonia process is improved. 2. Atrial fibrillation The duration of the above is unclear at this particular time. It is likely secondary to his acute illness. I would recommend that he be treated with Lovenox at this time and hold off on Eliquis as he may need an invasive procedure. Rate control at this particular time. 3. Hypertension To new current medical therapy without making any changes 4. Coronary artery bypass surgery He has a record of previous coronary artery bypass surgery and the plan will be to continue his medications and obtain his surgical records with a view to possibly pursuing a left heart catheterization 5. Valvular heart disease He does have a murmur suggestive of aortic valve disease which appears to be moderate. It was previously documented to have a mean gradient of 24 mmHg and a peak gradient of 47 mmHg with a valve area of 1.5 cm?. His echocardiogram does not need to be repeated at this time. Thank you for allowing me to participate in the care of your patient. Please don't hesitate to call if any issues arise
--- NOTE | 2018-05-15 17:42 | CON.PCM_ITS ---
Reason for Consult Date of Consultation: 05/15/18 History of Present Illness: The patient is a 78 year old M with a history of coronary artery disease status post coronary artery bypass surgery, hypertension, obstructive lung disease who presented to the emergency room because he was confused and while driving had to be pulled over. He denied any chest pain or palpitations or paroxysmal nocturnal dyspnea but he was noted to be markedly short of breath. In the emergency room he was evaluated he had a CAT scan done which demonstrated evidence of bilateral pneumonia. He was wheezing significantly. His EKG did not demonstrate any acute changes and he was admitted to the telemetry unit. Serial cardiac enzymes demonstrated elevation of the above to the abnormal range denoting a non-ST elevation myocardial infarction. Cardiology was called to evaluate. At this time he denies any chest pain but he remains short of breath with wheezing. [] Past Medical History Allergies/Adverse Reactions: Allergies caffeine Allergy (Mild, Verified 05/14/18 13:07) Unknown bee venom protein (honey bee) Allergy (Verified 05/14/18 13:07) Swelling Penicillins Allergy (Verified 05/14/18 13:07) Hives Home Medications: Ambulatory Orders Medication Instructions Recorded amlodipine 5 mg-valsartan 160 mg 1 tab PO DAILY 90 Days #90 05/13/17 tablet atenolol 50 mg tablet 50 mg PO BID 90 Days #180 05/13/17 doxazosin 4 mg tablet 2 mg PO BID 90 Days #90 05/13/17 levothyroxine 175 mcg tablet 175 mcg PO DAILY 90 Days #90 05/13/17 nitroglycerin 0.4 mg sublingual 0.4 mg SUBLINGUAL PRN PRN 8 Days 05/13/17 tablet #25 pravastatin 40 mg tablet 40 mg PO DAILY 90 Days #90 05/13/17 isosorbide mononitrate ER 60 mg 60 mg PO DAILY 04/17/18 tablet,extended release 24 hr Acetaminophen [Tylenol Extra 1,000 mg PO Q4H PRN PRN 05/14/18 Strength] Albuterol IH (ProAir) [Proair Hfa] 1 puff INHALATION Q4H PRN PRN 05/14/18 Cholecalciferol (VIT D3) [Vitamin 1,000 unit PO DAILY 05/14/18 D] Clopidogrel Bisulfate [Clopidogrel] 75 mg PO DAILY 05/14/18 Guaifenesin/Dextromethorphan 20 ml PO Q6H PRN PRN 05/14/18 [Tussin Dm Liquid] Past Medical History (Chronic Problems): Chronic Problems (Last Reviewed 05/05/18 @ 09:56 by Abe Cabral MD) Acute respiratory failure with hypoxia (Chronic) CAD (coronary artery disease) (Chronic) Hypothyroidism (Chronic) 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) History of peptic ulcer disease (Chronic) Mixed hyperlipidemia (Chronic) Hypertension (Chronic) Hyperlipidemia (Chronic) Coronary atherosclerosis of [place] coronary vessel (Chronic) Benign hypertension (Chronic) Status post aorto-coronary artery bypass graft (Chronic) Surgical History: coronary bypass surgery Psychiatric History: No pertinent psych hx - *Family History Maternal Family History: Family History (Last Reviewed 05/05/18 @ 09:56 by Abe Cabral MD) Other Heart disease History Items: No pertinent history Paternal Family History: Family History (Last Reviewed 05/05/18 @ 09:56 by Abe Cabral MD) Other Heart disease History Items: No pertinent history Lives: Alone Smoking Status: Never smoker Tobacco Use: Non-smoker Alcohol: None Drugs: None Review of Systems - Review of Systems General: Denies: Fever, Night Sweats, Fatigue HEENT: Denies: Vision Change Cardiovascular: Reports: Shortness of Breath, Shortness of Breath at Rest. Denies: Chest Discomfort, Orthopnea, PND, Peripheral Edema, Palpitations, Lightheadedness, Dizziness, Near Syncope, Syncope Respiratory: Denies: Cough, Sputum Production, Hemoptysis Gastrointestinal: Denies: Hematemesis, Hematochezia, Melena Genitourinary: Denies: Dysuria, Hematuria Muscoloskeletal: Denies: Myalgias Skin: Denies: Rash Neurological: Denies: Dizziness Psychiatric: Denies: Anxiety Endocrine: Denies: Unexplained Weight Loss Hematologic/ Lymphatic: Denies: Anemia Subjectve: Pleasant gentleman in no apparent distress on the BiPAP mask Objective: Vital Signs Temp Pulse Resp BP Pulse Ox 97.8 F 75 18 113/60 92 05/15/18 15:00 05/15/18 15:19 05/15/18 15:19 05/15/18 15:00 05/15/18 15:00 Oxygen Flow Rate (L/min) 2 Oxygen Delivery Method Nasal Cannula Weight: 167 lb 5.294 oz Body Mass Index (BMI) 26.9 Intake and Output for Last 24 Hours 05/13/18 05/14/18 05/15/18 23:59 23:59 23:59 Intake Total 1160.4 / 1160.4 360 / 360 Output Total 275 / 275 Balance 1160.4 / 1160.4 85 / 85 General: Awake, Alert, Oriented x 3 HEENT: PERRL, EOMI, Sclera Non Icteric Neck: Supple, Good ROM, No Lymph Node Enlargement Lungs: Expiratory Wheezes-Charly Cardiovascular: Regular Rhythm, Normal S1, Normal S2, No Rubs, No Gallops Murmur Murmur: Grade 2/6, Early Systolic, LLSB Vascular: No Carotid Bruits, Normal Femoral Pulses, Normal Radial Pulses, Normal Dorsalis Pedal Pulse, Normal Posterior Tibial Pulses Abdomen: Bowel Sounds Present, Soft, Non Tender, No HSM, No Organomegaly Extremities: No Cyanosis, No Clubbing, No edema Musculoskeletal: No Erythema Skin: No Rashes Lymphatic: No Lymph Node Enlargement Neurological: No Focal Motor or Sensory Deficit Psych/Mental Status: Appropriate 05/14/18 17:08: Troponin I 0.534 H 05/14/18 17:08: Magnesium 2.0 05/14/18 19:40: Troponin I 0.704 H* 05/14/18 23:10: Troponin I 1.130 H* 05/15/18 01:36: Troponin I 1.480 H* 05/15/18 05:04: WBC 5.6, RBC 4.60, Hgb 12.5 L, Hct 39.7 L, MCV 86.3, MCH 27.2, MCHC 31.5 L, RDW 15.6 H, RDW Differential 48.8 H, Plt Count 154, MPV 10.7, Immature Gran % (Auto) 0.200, Neut % (Auto) 90.2 H, Lymph % (Auto) 5.2 L, [place] % (Auto) 4.4, Eos % (Auto) 0.0, Baso % (Auto) 0.0, Absolute Neuts (auto) 5.1, Total Counted Not Reportable 05/15/18 05:04: Troponin I 1.330 H* 05/15/18 05:04: PT 13.8, INR 1.1, APTT 33.7 05/15/18 05:05: Sodium 141, Potassium 3.9, Chloride 107, Carbon Dioxide 27.0, Anion Gap 7, BUN 39 H, Creatinine 1.31 H, Est GFR (MDRD) Af Amer 68, Est GFR (MDRD) Non-Af 57 L, BUN/Creatinine Ratio 29.8 H, Glucose 146 H, Calcium 8.1 L, Triglycerides 75, Cholesterol 105, LDL Cholesterol 52, VLDL Cholesterol 15, HDL Cholesterol 38 L Rhythm: EKG: ECHO: Stress Test: Cardiac Cath: PCI: CT Surgery: Holter monitor: EPS: PPM: CXR: Chest CT Scan: Assessment/Plan 1. Non-ST elevation myocardial infarction * Patient presents with confusion and is noted to have an acute infectious etiology with a pneumonia and has a non-ST elevation myocardial infarction. * Recommendation at this time would be to institute beta-chris * Continue aspirin * Echocardiogram to assess left ventricular function * Clopidogrel loading and maintenance * He will eventually need a left heart catheterization after his pneumonia process is improved. * 2. Atrial fibrillation * The duration of the above is unclear at this particular time. * It is likely secondary to his acute illness. I would recommend that he be treated with Lovenox at this time and hold off on Eliquis as he may need an invasive procedure. * Rate control at this particular time. * 3. Hypertension * To new current medical therapy without making any changes * 4. Coronary artery bypass surgery * He has a record of previous coronary artery bypass surgery and the plan will be to continue his medications and obtain his surgical records with a view to possibly pursuing a left heart catheterization * * 5. Valvular heart disease * He does have a murmur suggestive of aortic valve disease which appears to be moderate. It was previously documented to have a mean gradient of 24 mmHg and a peak gradient of 47 mmHg with a valve area of 1.5 cm?. His echocardiogram does not need to be repeated at this time. * Thank you for allowing me to participate in the care of your patient. Please don't hesitate to call if any issues arise
[2018-05-15] MEDS: Enoxaparin 80 MG/0.8 ML Syringe SC (18:25)
[2018-05-15] MEDS: Pravastatin 40 MG Tablet PO (22:35)
[2018-05-16] VITALS (16 sets, daily range): BP systolic 110–125; BP diastolic 58–77; PULSE 60–81; RESP 12–24; TEMP 36.1–36.6; O2SAT 92–96
--- NOTE | 2018-05-16 05:55 | RAD_ITS ---
STUDY: X-RAY CHEST REASON FOR EXAM: Male, 78 years old. Shortness of breath/dyspnea. TECHNIQUE: Single AP portable view of the chest. COMPARISON: Comparison is made with prior study dated May 14, 2018. FINDINGS: EKG electrodes are seen. Stable elevation of the right hemidiaphragm. Since prior study, there has been improved aeration of both lung bases. Residual blunting of both costophrenic angles. Sternal cerclage wires and vascular clips are present from a prior sternotomy and coronary artery bypass graft procedure (CABG). Normal mediastinum and kacy. Normal visualized pulmonary arteries. There is atherosclerotic calcification of the aortic arch with tortuosity. There are diffuse degenerative changes of the visualized thoracic spine. Normal visualized ribs, clavicles, and shoulders. There is no demonstrated abnormality of the visualized soft tissue structures of the upper abdomen. RAD/Chest 1 View (Portable) IMPRESSION: Since prior study, there has been improved aeration of both lung bases. Residual blunting of both costophrenic angles. Electronically Signed: Chase Ruff, at 10:15 EDT , Service support ,
[2018-05-16] MEDS: Enoxaparin 80 MG/0.8 ML Syringe SC ×2 (06:16→17:29)
[2018-05-16] MEDS: Levothyroxine 175 MCG Tablet PO (06:16)
[2018-05-16 06:23] LABS: Hematocrit 40.5 % (40-54); Hemoglobin 13.1 g/dl (13.0-16.5); Mean Corp Hgb Conc 32.3 g/gl (32-36); Mean Corpuscular Hgb 27.5 pg (27.0-32.0); Mean Corpuscular Volume 85.1 fL (80-94); Mean Platelet Vol. 11.1 fl (6.2-12.0); Platelet Count 195 K/mm3 (150-450); RBC Distribution Width CV 15.6 % (11.6-14.6); RBC Distribution Width SD 48.2 fl (35.1-43.9); Red Blood Count 4.76 M/mm3 (4.6-6.2); White Blood Count 15.1 K/mm3 (4.4-11.0)
[2018-05-16] MEDS: 0.9% NaCl Peripheral Flush Adult/Peds IV ×2 (06:23→13:05)
[2018-05-16 06:24] LABS: Anion Gap 8 (5-15); BUN 55 mg/dL (7-18); BUN/Creat Ratio 40.1 RATIO (10-20); Calcium,Total 8.2 mg/dL (8.5-10.1); Chloride 107 mmol/L (98-107); Creatinine, Serum 1.37 mg/dL (0.70-1.30); EST Glomerular Filtration Rate 54 mL/min (>60); Est Glom Filt Rate - Afr Amer 65 mL/min (>60); Estimated Creatinine Clearance 41.39 ml/min; Glucose 129 mg/dL (74-106); Potassium 3.8 mmol/L (3.5-5.1); Sodium Level 141 mmol/L (136-145)
[2018-05-16 06:25] LABS: Scan Indicated on CBC? Y/N NO
[2018-05-16] MEDS: Ipratropium/Albuterol Sulfate 3 ML AMPUL.NEB INHALATION ×3 (07:09→20:00)
--- NOTE | 2018-05-16 07:12 | PCM.PN.CARD ---
Subjectve: Patient seen and evaluated. Appears to be breathing better at this time. Still using BiPAP at night Objective: Vital Signs Temp Pulse Resp BP Pulse Ox 97.0 F L 68 20 H 110/77 96 05/16/18 03:00 05/16/18 03:09 05/16/18 03:00 05/16/18 03:00 05/16/18 04:05 Oxygen Flow Rate (L/min) 3 Oxygen Delivery Method Bi-pap Weight: 167 lb 5.294 oz Body Mass Index (BMI) 26.9 Intake and Output for Last 24 Hours 05/14/18 05/15/18 05/16/18 23:59 23:59 23:59 Intake Total 1160.4 / 1160.4 960 / 960 120 / 120 Output Total 275 / 275 Balance 1160.4 / 1160.4 685 / 685 120 / 120 General: Awake, Alert, Oriented x 3 HEENT: PERRL, EOMI, Sclera Non Icteric Neck: Supple, Good ROM, No Lymph Node Enlargement Lungs: Clear to auscultation Cardiovascular: Regular Rhythm, Normal S1, Normal S2, No Murmurs, No Rubs, No Gallops Murmur Murmur: Grade 2/6, Early Systolic, LLSB Vascular: No Carotid Bruits, Normal Femoral Pulses, Normal Radial Pulses, Normal Dorsalis Pedal Pulse, Normal Posterior Tibial Pulses Abdomen: Bowel Sounds Present, Soft, Non Tender, No HSM, No Organomegaly Extremities: No Cyanosis, No Clubbing, No edema Neurological: No Focal Motor or Sensory Deficit Psych/Mental Status: Appropriate 05/16/18 05:40: WBC 15.1 H, RBC 4.76, Hgb 13.1, Hct 40.5, MCV 85.1, MCH 27.5, MCHC 32.3, RDW 15.6 H, RDW Differential 48.2 H, Plt Count 195, MPV 11.1 05/16/18 05:40: Sodium 141, Potassium 3.8, Chloride 107, Carbon Dioxide 26.0, Anion Gap 8, BUN 55 H, Creatinine 1.37 H, Est GFR (MDRD) Af Amer 65, Est GFR (MDRD) Non-Af 54 L, BUN/Creatinine Ratio 40.1 H, Glucose 129 H, Calcium 8.2 L Rhythm: EKG: ECHO: Stress Test: Cardiac Cath: PCI: CT Surgery: Holter monitor: EPS: PPM: CXR: Chest CT Scan: Medical Necessity - Tobacco Use Smoking Status: Never smoker Tobacco Use: Non-smoker Assessment/Plan 1. Non-ST elevation myocardial infarction Patient presents with confusion and is noted to have an acute infectious etiology with a pneumonia and has a non-ST elevation myocardial infarction. Recommendation at this time would be to institute beta-chris Continue aspirin Echocardiogram to assess left ventricular function Clopidogrel loading and maintenance He will eventually need a left heart catheterization after his pneumonia process is improved. This will probably be performed he Saturday. I have discussed the above with him the risk benefits alternatives he understands and agrees to proceed. 2. Atrial fibrillation The duration of the above is unclear at this particular time. It is likely secondary to his acute illness. I would recommend that he be treated with Lovenox at this time and hold off on Eliquis as he may need an invasive procedure. Rate control at this particular time. 3. Hypertension To new current medical therapy without making any changes 4. Coronary artery bypass surgery He has a record of previous coronary artery bypass surgery and the plan will be to continue his medications and obtain his surgical records with a view to possibly pursuing a left heart catheterization 5. Valvular heart disease He does have a murmur suggestive of aortic valve disease which appears to be moderate. It was previously documented to have a mean gradient of 24 mmHg and a peak gradient of 47 mmHg with a valve area of 1.5 cm?. His echocardiogram does not need to be repeated at this time. Thank you for allowing me to participate in the care of your patient. Please don't hesitate to call if any issues arise
--- NOTE | 2018-05-16 07:23 | PN.CARD_ITS ---
Subjectve: Patient seen and evaluated. Appears to be breathing better at this time. Still using BiPAP at night Objective: Vital Signs Temp Pulse Resp BP Pulse Ox 97.0 F L 68 20 H 110/77 96 05/16/18 03:00 05/16/18 03:09 05/16/18 03:00 05/16/18 03:00 05/16/18 04:05 Oxygen Flow Rate (L/min) 3 Oxygen Delivery Method Bi-pap Weight: 167 lb 5.294 oz Body Mass Index (BMI) 26.9 Intake and Output for Last 24 Hours 05/14/18 05/15/18 05/16/18 23:59 23:59 23:59 Intake Total 1160.4 / 1160.4 960 / 960 120 / 120 Output Total 275 / 275 Balance 1160.4 / 1160.4 685 / 685 120 / 120 General: Awake, Alert, Oriented x 3 HEENT: PERRL, EOMI, Sclera Non Icteric Neck: Supple, Good ROM, No Lymph Node Enlargement Lungs: Clear to auscultation Cardiovascular: Regular Rhythm, Normal S1, Normal S2, No Murmurs, No Rubs, No Gallops Murmur Murmur: Grade 2/6, Early Systolic, LLSB Vascular: No Carotid Bruits, Normal Femoral Pulses, Normal Radial Pulses, Normal Dorsalis Pedal Pulse, Normal Posterior Tibial Pulses Abdomen: Bowel Sounds Present, Soft, Non Tender, No HSM, No Organomegaly Extremities: No Cyanosis, No Clubbing, No edema Neurological: No Focal Motor or Sensory Deficit Psych/Mental Status: Appropriate 05/16/18 05:40: WBC 15.1 H, RBC 4.76, Hgb 13.1, Hct 40.5, MCV 85.1, MCH 27.5, MCHC 32.3, RDW 15.6 H, RDW Differential 48.2 H, Plt Count 195, MPV 11.1 05/16/18 05:40: Sodium 141, Potassium 3.8, Chloride 107, Carbon Dioxide 26.0, Anion Gap 8, BUN 55 H, Creatinine 1.37 H, Est GFR (MDRD) Af Amer 65, Est GFR (MDRD) Non-Af 54 L, BUN/Creatinine Ratio 40.1 H, Glucose 129 H, Calcium 8.2 L Rhythm: EKG: ECHO: Stress Test: Cardiac Cath: PCI: CT Surgery: Holter monitor: EPS: PPM: CXR: Chest CT Scan: Medical Necessity - Tobacco Use Smoking Status: Never smoker Tobacco Use: Non-smoker Assessment/Plan 1. Non-ST elevation myocardial infarction * Patient presents with confusion and is noted to have an acute infectious etiology with a pneumonia and has a non-ST elevation myocardial infarction. * Recommendation at this time would be to institute beta-chris * Continue aspirin * Echocardiogram to assess left ventricular function * Clopidogrel loading and maintenance * He will eventually need a left heart catheterization after his pneumonia process is improved. This will probably be performed he Saturday. I have discussed the above with him the risk benefits alternatives he understands and agrees to proceed. * 2. Atrial fibrillation * The duration of the above is unclear at this particular time. * It is likely secondary to his acute illness. I would recommend that he be treated with Lovenox at this time and hold off on Eliquis as he may need an invasive procedure. * Rate control at this particular time. * 3. Hypertension * To new current medical therapy without making any changes * 4. Coronary artery bypass surgery * He has a record of previous coronary artery bypass surgery and the plan will be to continue his medications and obtain his surgical records with a view to possibly pursuing a left heart catheterization * * 5. Valvular heart disease * He does have a murmur suggestive of aortic valve disease which appears to be moderate. It was previously documented to have a mean gradient of 24 mmHg and a peak gradient of 47 mmHg with a valve area of 1.5 cm?. His echocardiogram does not need to be repeated at this time. * Thank you for allowing me to participate in the care of your patient. Please don't hesitate to call if any issues arise
[2018-05-16] MEDS: Ceftriaxone 1 GM/50 ML BAG IV (09:05)
[2018-05-16] MEDS: Clopidogrel Bisulfate 75 MG Tablet PO (09:08)
[2018-05-16] MEDS: Losartan Potassium 50 MG Tablet PO (09:08)
[2018-05-16] MEDS: amLODIPine 5 MG Tablet PO (09:08)
[2018-05-16] MEDS: Isosorbide Mononitrate 60 MG Tablet PO (09:08)
[2018-05-16] MEDS: Doxazosin 1 MG Tablet 2 MG PO ×2 (09:08→22:16)
[2018-05-16] MEDS: Atenolol 50 MG Tablet PO ×2 (09:08→22:16)
[2018-05-16] MEDS: Azithromycin 250 MG Tablet 500 MG PO (09:08)
[2018-05-16] MEDS: guaiFENesin 1,200 MG Tablet 1200 MG PO ×2 (09:08→22:15)
[2018-05-16] MEDS: Oseltamivir Phosphate 30 MG Capsule PO ×2 (09:08→22:16)
[2018-05-16] MEDS: Acetaminophen 325 MG Tablet 650 MG PO (11:45)
--- NOTE | 2018-05-16 14:03 | PN_ITS ---
Patient Problems: Active and Suspected Problems (Last Reviewed 05/05/18 @ 09:56 by Abe Cabral MD) COPD (chronic obstructive pulmonary disease) (Acute) Aspiration pneumonia of both lower lobes (Acute) Elevated troponin I level (Acute) Infectious encephalopathy (Acute) Atrial fibrillation with RVR (Acute) Sepsis (Acute) Pneumonia (Acute) COPD exacerbation (Acute) Subjective: Patient seen and examined. Shortness of breath improved. Denies chest pain. - Physical Exam General: Alert, Oriented x3, Cooperative HEENT: Atraumatic, PERRLA, EOMI, Normocephalic Neck: Supple, No JVD, Negative Carotid Bruits Lungs: Normal air movement, Rhonchi Cardiovascular: Regular rate, Regular Rhythm, Normal S1, Normal S2, No murmurs Abdomen: Bowel Sounds Present, Soft, Non Tender, Non-Distended Extremities: No clubbing, No cyanosis, No edema, Capillary Refill Less than 3 Seconds Skin: No rashes, No breakdown Musculoskeletal: No Tenderness to Palpation of Joints or Extremities Neurological: Cranial nerves II-XII grossly intact, Neuro grossly intact Psych/Mental Status: Normal Affect, Appropriate Vital Signs Temp Pulse Resp BP Pulse Ox 97.8 F 73 20 H 111/63 92 05/16/18 09:02 05/16/18 11:07 05/16/18 11:07 05/16/18 09:02 05/16/18 09:02 Oxygen Flow Rate (L/min) 3 Oxygen Delivery Method Nasal Cannula Weight: 167 lb 5.294 oz Body Mass Index (BMI) 26.9 Intake and Output for Last 24 Hours 05/14/18 05/15/18 05/16/18 23:59 23:59 23:59 Intake Total 1160.4 / 1160.4 960 / 960 510 / 510 Output Total 275 / 275 Balance 1160.4 / 1160.4 685 / 685 510 / 510 Microbiology Past 72 Hours 05/15/18 11:30 Gram Stain - Final Sputum, Expectorated/Coughed Respiratory Culture - Preliminary Appears to be normal respiratory bandar. Further studies to follow. 05/14/18 13:42 Respiratory Panel (PCR) - Final Mucosa - Nose Influenza A (Subtype H1) 05/14/18 19:58 Legionella Antigen - Final Urine, Clean Catch 05/14/18 19:58 Streptococcus pneumoniae Antigen (M - Final Urine, Clean Catch Laboratory Tests Past 24 Hrs 05/16/18 05/16/18 05:40 05:40 WBC 15.1 H RBC 4.76 Hgb 13.1 Hct 40.5 MCV 85.1 MCH 27.5 MCHC 32.3 RDW 15.6 H RDW Differential 48.2 H Plt Count 195 MPV 11.1 Sodium 141 Potassium 3.8 Chloride 107 Carbon Dioxide 26.0 Anion Gap 8 BUN 55 H Creatinine 1.37 H Estim Creat Clear Calc 41.39 Est GFR (MDRD) Af Amer 65 Est GFR (MDRD) Non-Af 54 L BUN/Creatinine Ratio 40.1 H Glucose 129 H Calcium 8.2 L Medical Necessity - Tobacco Use Smoking Status: Never smoker Tobacco Use: Non-smoker Assessment/Plan All Active Problems (Last Reviewed 05/05/18 @ 09:56 by Abe Cabral MD) COPD (chronic obstructive pulmonary disease) (Acute) Aspiration pneumonia of both lower lobes (Acute) Elevated troponin I level (Acute) Infectious encephalopathy (Acute) Atrial fibrillation with RVR (Acute) Sepsis (Acute) Pneumonia (Acute) COPD exacerbation (Acute) Acute bronchitis (Resolved) Atelectasis of both lungs (Acute) SOB (shortness of breath) (Acute) Sinusitis, acute (Acute) 1. Acute sepsis with acute hypoxic respiratory failure secondary to COPD exacerbation as a result of acute influenza A and bilateral community-acquired pneumonia-CTA on admission with bilateral infiltrates. Continue IV azithromycin/IV Rocephin, IV Solu-Medrol and renal dose Tamiflu regimen 30 mg p.o. twice daily times 5 days. Albuterol and DuoNeb aerosols. BiPAP nightly and as needed. Viral panel positive for influenza A. Continue supplement oxygen to maintain O2 at or above 90%. IS/PEP. Walking pulse ox prior to discharge. Repeat chest x-ray this morning shows improved aeration of both lung bases compared to prior study with residual blunting of both costophrenic angles . 2. New onset atrial fibrillation with RVR-suspect secondary to #1. Remains in atrial fibrillation, rate controlled. Continue atenolol regimen. Echocardiogram March 2018 with EF 55%, mild aortic stenosis, mild pulmonary hypertension. Patient follows with Dr. Galindo as outpatient. Initially started on Eliquis which will be held pending plan for cath. Therapeutic Lovenox. 3. NSTEMI-possibly demand ischemia secondary to #1. However, given hx CAD/CABG, cardiology consult placed. Plan for cardiac catheterization on Saturday. 4. CAD status post CABG-continue statin, Plavix, beta-chris, Imdur. 5. Hypothyroidism-continue Synthroid regimen. TSH WNL. 6. Hyperlipidemia-continue statin. 7. Hypertension-stable, continue home amlodipine, atenolol, isosorbide. DVT prophylaxis-therapeutic Lovenox. This patient was seen by ABHILASH Green under the supervision of Dr. Bynum.
--- NOTE | 2018-05-16 15:04 | CASEMGMT ---
AD paperwork provided to pt at this time as well as social service rac card at this time. Pt voices no further questions/concerns/needs at this time. SStcodie JENSEN CM
[2018-05-16] MEDS: Pravastatin 40 MG Tablet PO (22:17)
[2018-05-17] VITALS (22 sets, daily range): BP systolic 101–125; BP diastolic 53–78; PULSE 59–88; RESP 12–32; TEMP 35.8–36.9; O2SAT 92–97
[2018-05-17] MEDS: Ipratropium/Albuterol Sulfate 3 ML AMPUL.NEB INHALATION ×3 (01:12→19:15)
[2018-05-17] MEDS: Levothyroxine 175 MCG Tablet PO (05:18)
[2018-05-17] MEDS: Enoxaparin 80 MG/0.8 ML Syringe SC ×2 (05:18→19:01)
[2018-05-17 06:48] LABS: BUN 60 mg/dL (7-18); Creatinine, Serum 1.28 mg/dL (0.70-1.30); EST Glomerular Filtration Rate 58 mL/min (>60); Estimated Creatinine Clearance 44.31 ml/min; Glucose 112 mg/dL (74-106)
[2018-05-17 06:49] LABS: Anion Gap 5 (5-15); BUN/Creat Ratio 46.9 RATIO (10-20); Calcium,Total 8.4 mg/dL (8.5-10.1); Chloride 108 mmol/L (98-107); Est Glom Filt Rate - Afr Amer 70 mL/min (>60); Potassium 4.4 mmol/L (3.5-5.1); Sodium Level 143 mmol/L (136-145)
[2018-05-17] MEDS: Isosorbide Mononitrate 60 MG Tablet PO (10:38)
[2018-05-17] MEDS: Losartan Potassium 50 MG Tablet PO (10:38)
[2018-05-17] MEDS: Doxazosin 1 MG Tablet 2 MG PO ×2 (10:38→20:54)
[2018-05-17] MEDS: Oseltamivir Phosphate 30 MG Capsule PO ×2 (10:39→20:55)
[2018-05-17] MEDS: amLODIPine 5 MG Tablet PO (10:39)
[2018-05-17] MEDS: Clopidogrel Bisulfate 75 MG Tablet PO (10:39)
[2018-05-17] MEDS: Atenolol 50 MG Tablet PO ×2 (10:39→20:55)
[2018-05-17] MEDS: guaiFENesin 1,200 MG Tablet 1200 MG PO ×2 (10:39→20:55)
[2018-05-17] MEDS: 0.9% NaCl Peripheral Flush Adult/Peds IV (10:40)
--- NOTE | 2018-05-17 10:50 | PCM.PN.CARD ---
Subjectve: Patient appears to be slowly improving. Sitting on the edge of the bed. Still with productive cough. No fevers or chills. No chest pain. Telemetry showed atrial fibrillation with controlled ventricular response. Objective: Vital Signs Temp Pulse Resp BP Pulse Ox 97.6 F L 73 16 119/64 94 05/17/18 10:35 05/17/18 10:35 05/17/18 10:35 05/17/18 10:35 05/17/18 10:35 Oxygen Flow Rate (L/min) 3 Oxygen Delivery Method Nasal Cannula Weight: 167 lb 5.294 oz Body Mass Index (BMI) 26.9 Intake and Output for Last 24 Hours 05/15/18 05/16/18 05/17/18 23:59 23:59 23:59 Intake Total 960 / 960 1380 / 1380 100 / 100 Output Total 275 / 275 Balance 685 / 685 1380 / 1380 100 / 100 General: Awake, Alert, Oriented x 3 HEENT: PERRL, EOMI, Sclera Non Icteric Neck: Supple, Good ROM, No Lymph Node Enlargement Lungs: Rales - Charly Bases Cardiovascular: Irregular Rhythm, Normal S2, No Rubs, No Gallops Murmur Murmur: Grade 2/6, Early Systolic, LLSB Vascular: No Carotid Bruits, Normal Femoral Pulses, Normal Radial Pulses, Normal Dorsalis Pedal Pulse, Normal Posterior Tibial Pulses Abdomen: Bowel Sounds Present, Soft, Non Tender, No HSM, No Organomegaly Extremities: No Cyanosis, No Clubbing, No edema Neurological: No Focal Motor or Sensory Deficit 05/17/18 05:55: Sodium 143, Potassium 4.4, Chloride 108 H, Carbon Dioxide 30.0, Anion Gap 5, BUN 60 H, Creatinine 1.28, Est GFR (MDRD) Af Amer 70, Est GFR (MDRD) Non-Af 58 L, BUN/Creatinine Ratio 46.9 H, Glucose 112 H, Calcium 8.4 L Rhythm: EKG: ECHO: Stress Test: Cardiac Cath: PCI: CT Surgery: Holter monitor: EPS: PPM: CXR: Chest CT Scan: Medical Necessity - Tobacco Use Smoking Status: Never smoker Tobacco Use: Non-smoker Assessment/Plan 1. Non-ST elevation myocardial infarction Patient presents with confusion and is noted to have an acute infectious etiology with a pneumonia and has a non-ST elevation myocardial infarction with a peak troponin of 1.4, now trending down to 1.3. Recommendation at this time would be to institute beta-chris with atenolol 50 mg p.o. twice daily Continue aspirin Echocardiogram done in March 2018 showed the following: Interpretation Summary Normal LV size. Left ventricular systolic function is normal. The estimated ejection fraction is 55 %. Moderate focal aortic valve calcification. Mild aortic stenosis. Calculated aortic valve area (continuity equation) is 1.5 cm2. Pulmonary artery systolic pressure is 44 mmHg. Mild pulmonary hypertension. Clopidogrel loading and maintenance He will eventually need a left heart catheterization after his pneumonia process is improved, probably on Saturday. 2. Atrial fibrillation The duration of the above is unclear at this particular time. It is likely secondary to his acute illness. I would recommend that he be treated with Lovenox at this time and hold off on Eliquis as he may need an invasive procedure. Rate control at this particular time is in effect. 3. Hypertension To new current medical therapy without making any changes 4. Coronary artery bypass surgery He has a record of previous coronary artery bypass surgery and the plan will be to continue his medications and obtain his surgical records with a view to possibly pursuing a left heart catheterization 5. Valvular heart disease He does have a murmur suggestive of aortic valve disease which appears to be moderate. It was previously documented to have a mean gradient of 24 mmHg and a peak gradient of 47 mmHg with a valve area of 1.5 cm?. His echocardiogram does not need to be repeated at this time. 6. Hyperlipidemia: His LDL is 52 and his HDL is 38. Continue Pravachol. 7. Thank you very much for the opportunity to participate in the cardiac care of your patient. Code Visit Inpatient E&M: 02064 Subs Hosp L2
--- NOTE | 2018-05-17 10:55 | PN.CARD_ITS ---
Subjectve: Patient appears to be slowly improving. Sitting on the edge of the bed. Still with productive cough. No fevers or chills. No chest pain. Telemetry showed atrial fibrillation with controlled ventricular response. Objective: Vital Signs Temp Pulse Resp BP Pulse Ox 97.6 F L 73 16 119/64 94 05/17/18 10:35 05/17/18 10:35 05/17/18 10:35 05/17/18 10:35 05/17/18 10:35 Oxygen Flow Rate (L/min) 3 Oxygen Delivery Method Nasal Cannula Weight: 167 lb 5.294 oz Body Mass Index (BMI) 26.9 Intake and Output for Last 24 Hours 05/15/18 05/16/18 05/17/18 23:59 23:59 23:59 Intake Total 960 / 960 1380 / 1380 100 / 100 Output Total 275 / 275 Balance 685 / 685 1380 / 1380 100 / 100 General: Awake, Alert, Oriented x 3 HEENT: PERRL, EOMI, Sclera Non Icteric Neck: Supple, Good ROM, No Lymph Node Enlargement Lungs: Rales - Charly Bases Cardiovascular: Irregular Rhythm, Normal S2, No Rubs, No Gallops Murmur Murmur: Grade 2/6, Early Systolic, LLSB Vascular: No Carotid Bruits, Normal Femoral Pulses, Normal Radial Pulses, Normal Dorsalis Pedal Pulse, Normal Posterior Tibial Pulses Abdomen: Bowel Sounds Present, Soft, Non Tender, No HSM, No Organomegaly Extremities: No Cyanosis, No Clubbing, No edema Neurological: No Focal Motor or Sensory Deficit 05/17/18 05:55: Sodium 143, Potassium 4.4, Chloride 108 H, Carbon Dioxide 30.0, Anion Gap 5, BUN 60 H, Creatinine 1.28, Est GFR (MDRD) Af Amer 70, Est GFR (MDRD) Non-Af 58 L, BUN/Creatinine Ratio 46.9 H, Glucose 112 H, Calcium 8.4 L Rhythm: EKG: ECHO: Stress Test: Cardiac Cath: PCI: CT Surgery: Holter monitor: EPS: PPM: CXR: Chest CT Scan: Medical Necessity - Tobacco Use Smoking Status: Never smoker Tobacco Use: Non-smoker Assessment/Plan 1. Non-ST elevation myocardial infarction * Patient presents with confusion and is noted to have an acute infectious etiology with a pneumonia and has a non-ST elevation myocardial infarction with a peak troponin of 1.4, now trending down to 1.3. * Recommendation at this time would be to institute beta-chris with atenolol 50 mg p.o. twice daily * Continue aspirin * Echocardiogram done in March 2018 showed the following: * Interpretation Summary Normal LV size. Left ventricular systolic function is normal. The estimated ejection fraction is 55 %. Moderate focal aortic valve calcification. Mild aortic stenosis. Calculated aortic valve area (continuity equation) is 1.5 cm2. Pulmonary artery systolic pressure is 44 mmHg. Mild pulmonary hypertension. * Clopidogrel loading and maintenance * He will eventually need a left heart catheterization after his pneumonia process is improved, probably on Saturday. 2. Atrial fibrillation * The duration of the above is unclear at this particular time. * It is likely secondary to his acute illness. I would recommend that he be treated with Lovenox at this time and hold off on Eliquis as he may need an invasive procedure. * Rate control at this particular time is in effect. * 3. Hypertension * To new current medical therapy without making any changes * 4. Coronary artery bypass surgery * He has a record of previous coronary artery bypass surgery and the plan will be to continue his medications and obtain his surgical records with a view to possibly pursuing a left heart catheterization 5. Valvular heart disease * He does have a murmur suggestive of aortic valve disease which appears to be moderate. It was previously documented to have a mean gradient of 24 mmHg and a peak gradient of 47 mmHg with a valve area of 1.5 cm?. His echocardiogram does not need to be repeated at this time. 6. Hyperlipidemia: His LDL is 52 and his HDL is 38. Continue Pravachol. 7. Thank you very much for the opportunity to participate in the cardiac care of your patient. Code Visit Inpatient E&M: 33233 Subs Hosp L2
--- NOTE | 2018-05-17 12:34 | PN_ITS ---
<Rosalind Billingsley - Last Filed: 05/17/18 12:41> Patient Problems: Active and Suspected Problems (Last Reviewed 05/05/18 @ 09:56 by Abe Cabral MD) COPD (chronic obstructive pulmonary disease) (Acute) Aspiration pneumonia of both lower lobes (Acute) Elevated troponin I level (Acute) Infectious encephalopathy (Acute) Atrial fibrillation with RVR (Acute) Sepsis (Acute) Pneumonia (Acute) COPD exacerbation (Acute) Subjective: Patient seen and examined. Reading improved. Denies current complaints. Plan for cardiac catheterization on Saturday. - Physical Exam General: Alert, Oriented x3, Cooperative HEENT: Atraumatic, PERRLA, EOMI, Normocephalic Neck: Supple, No JVD, Negative Carotid Bruits Lungs: Diminished, Rhonchi Cardiovascular: Regular rate, Regular Rhythm, Normal S1, Normal S2, Murmur Abdomen: Bowel Sounds Present, Soft, Non Tender, Non-Distended Extremities: No clubbing, No cyanosis, No edema, Capillary Refill Less than 3 Seconds Skin: No rashes, No breakdown Musculoskeletal: No Tenderness to Palpation of Joints or Extremities Neurological: Cranial nerves II-XII grossly intact, Neuro grossly intact Psych/Mental Status: Normal Affect, Appropriate Vital Signs Temp Pulse Resp BP Pulse Ox 97.6 F L 78 16 119/64 94 05/17/18 10:35 05/17/18 10:59 05/17/18 10:35 05/17/18 10:35 05/17/18 10:35 Oxygen Flow Rate (L/min) 3 Oxygen Delivery Method Nasal Cannula Weight: 167 lb 5.294 oz Body Mass Index (BMI) 26.9 Intake and Output for Last 24 Hours 05/15/18 05/16/18 05/17/18 23:59 23:59 23:59 Intake Total 960 / 960 1380 / 1380 100 / 100 Output Total 275 / 275 Balance 685 / 685 1380 / 1380 100 / 100 Microbiology Past 72 Hours 05/15/18 11:30 Gram Stain - Final Sputum, Expectorated/Coughed Respiratory Culture - Final Mixed normal respiratory bandar. No Haemophilus, Streptococcus pneumoniae, beta-hemolytic Streptococcus or Staphylococcus aureus isolated. 05/14/18 13:42 Respiratory Panel (PCR) - Final Mucosa - Nose Influenza A (Subtype H1) 05/14/18 19:58 Legionella Antigen - Final Urine, Clean Catch 05/14/18 19:58 Streptococcus pneumoniae Antigen (M - Final Urine, Clean Catch Laboratory Tests Past 24 Hrs 05/17/18 05:55 Sodium 143 Potassium 4.4 Chloride 108 H Carbon Dioxide 30.0 Anion Gap 5 BUN 60 H Creatinine 1.28 Estim Creat Clear Calc 44.31 Est GFR (MDRD) Af Amer 70 Est GFR (MDRD) Non-Af 58 L BUN/Creatinine Ratio 46.9 H Glucose 112 H Calcium 8.4 L Medical Necessity - Tobacco Use Smoking Status: Never smoker Tobacco Use: Non-smoker Assessment/Plan All Active Problems (Last Reviewed 05/05/18 @ 09:56 by Abe Cabral MD) COPD (chronic obstructive pulmonary disease) (Acute) Aspiration pneumonia of both lower lobes (Acute) Elevated troponin I level (Acute) Infectious encephalopathy (Acute) Atrial fibrillation with RVR (Acute) Sepsis (Acute) Pneumonia (Acute) COPD exacerbation (Acute) Acute bronchitis (Resolved) Atelectasis of both lungs (Acute) SOB (shortness of breath) (Acute) Sinusitis, acute (Acute) 1. Acute sepsis with acute hypoxic respiratory failure secondary to COPD exacerbation as a result of acute influenza A and bilateral community-acquired pneumonia-CTA on admission with bilateral infiltrates. Patient received IV azithromycin/IV Rocephin which has since been discontinued. Transition IV Solu- Medrol to prednisone taper. Renal dose Tamiflu regimen 30 mg p.o. twice daily times 5 days. Albuterol and DuoNeb aerosols. BiPAP nightly and as needed. Viral panel positive for influenza A. Continue supplement oxygen to maintain O2 at or above 90%. IS/PEP. Walking pulse ox prior to discharge. Repeat chest x- ray this morning shows improved aeration of both lung bases compared to prior study with residual blunting of both costophrenic angles. 2. New onset atrial fibrillation with RVR-suspect secondary to #1. Remains in atrial fibrillation, rate controlled. Continue atenolol regimen. Echocardiogram March 2018 with EF 55%, mild aortic stenosis, mild pulmonary hypertension. Patient follows with Dr. Galindo as outpatient. Initially started on Eliquis which will be held pending plan for cath. Therapeutic Lovenox. 3. NSTEMI-possibly demand ischemia secondary to #1. However, given hx CAD/CABG, cardiology consult placed. Plan for cardiac catheterization on Saturday. 4. CAD status post CABG-continue statin, Plavix, beta-chris, Imdur. 5. Hypothyroidism-continue Synthroid regimen. TSH WNL. 6. Hyperlipidemia-continue statin. 7. Hypertension-stable, continue home amlodipine, atenolol, isosorbide. DVT prophylaxis-therapeutic Lovenox. This patient was seen by [facility] under the supervision of Dr. Atkinson. <Gladis Atkinson - Last Filed: 05/17/18 17:01> - Physical Exam Vital Signs Temp Pulse Resp BP Pulse Ox 98.1 F 60 16 101/53 L 92 05/17/18 15:38 05/17/18 15:38 05/17/18 15:38 05/17/18 15:38 05/17/18 15:38 Oxygen Flow Rate (L/min) 3 Oxygen Delivery Method Nasal Cannula Weight: 75.9 kg Body Mass Index (BMI) 26.9 Intake and Output for Last 24 Hours 05/15/18 05/16/18 05/17/18 23:59 23:59 23:59 Intake Total 960 / 960 1380 / 1380 500 / 500 Output Total 275 / 275 Balance 685 / 685 1380 / 1380 500 / 500 Microbiology Past 72 Hours 05/15/18 11:30 Gram Stain - Final Sputum, Expectorated/Coughed Respiratory Culture - Final Mixed normal respiratory bandar. No Haemophilus, Streptococcus pneumoniae, beta-hemolytic Streptococcus or Staphylococcus aureus isolated. 05/14/18 13:42 Respiratory Panel (PCR) - Final Mucosa - Nose Influenza A (Subtype H1) 05/14/18 19:58 Legionella Antigen - Final Urine, Clean Catch 05/14/18 19:58 Streptococcus pneumoniae Antigen (M - Final Urine, Clean Catch Laboratory Tests Past 24 Hrs 05/17/18 05:55 Sodium 143 Potassium 4.4 Chloride 108 H Carbon Dioxide 30.0 Anion Gap 5 BUN 60 H Creatinine 1.28 Estim Creat Clear Calc 44.31 Est GFR (MDRD) Af Amer 70 Est GFR (MDRD) Non-Af 58 L BUN/Creatinine Ratio 46.9 H Glucose 112 H Calcium 8.4 L Assessment/Plan This patient was seen in conjunction with Rosalind Billingsley NP. I have independently interviewed and examined the patient and reviewed pertinent historical, laboratory, and other data. Please refer to her note for patient's presentation, findings, and recommendations. Patient was seen and examined. He denied any new complaints. He feels much improved. Going for cardiac cath on Saturday morning. Vitals were reviewed -stable Physical Exam: Gen: Comfortable, not pale, not jaundiced, alert oriented x3 CVS:HS I +II, regular, no murmurs RESP: Diminished at lung bases GI: Soft, BS present and normal, nontender, no ballotable organs EXT:No edema Labs reviewed ASSESSMENT: 1. Sepsis secondary to acute influenza A bronchitis 2. Acute hypoxic respiratory failure second to COPD exacerbation/CAP 3. Acute influenza A 4. Bilateral community-acquired pneumonia, suspected gram-positive and negative 5. NSTEMI 6. CAD s/p CABG 7. Hypothyroidism 8. Hypertension 9. Hyperlipidemia Meds reviewed Plan: Labs in am Follow-up on cardiology recommendations Code Visit Inpatient E&M: 86179 Subs Hosp L2
--- NOTE | 2018-05-17 13:24 | NURSING ---
student nurse charting reviewed
[2018-05-17] MEDS: Acetaminophen 325 MG Tablet 650 MG PO (20:55)
[2018-05-17] MEDS: Pravastatin 40 MG Tablet PO (20:55)
[2018-05-18] VITALS (18 sets, daily range): BP systolic 113–159; BP diastolic 57–74; PULSE 40–84; RESP 16–24; TEMP 35.9–36.1; O2SAT 82–96
[2018-05-18] MEDS: Ipratropium/Albuterol Sulfate 3 ML AMPUL.NEB INHALATION ×4 (01:55→20:16)
[2018-05-18] MEDS: Levothyroxine 175 MCG Tablet PO (06:27)
[2018-05-18] MEDS: Enoxaparin 80 MG/0.8 ML Syringe SC ×2 (06:27→18:04)
[2018-05-18] MEDS: amLODIPine 5 MG Tablet PO (09:28)
[2018-05-18] MEDS: Clopidogrel Bisulfate 75 MG Tablet PO (09:28)
[2018-05-18] MEDS: predniSONE 10 MG Tablet 40 MG PO (09:28)
[2018-05-18] MEDS: Isosorbide Mononitrate 60 MG Tablet PO (09:28)
[2018-05-18] MEDS: Atenolol 50 MG Tablet PO ×2 (09:28→22:31)
[2018-05-18] MEDS: Doxazosin 1 MG Tablet 2 MG PO ×2 (09:29→22:31)
[2018-05-18] MEDS: guaiFENesin 1,200 MG Tablet 1200 MG PO ×2 (09:29→22:31)
[2018-05-18] MEDS: Losartan Potassium 50 MG Tablet PO (09:29)
[2018-05-18] MEDS: Oseltamivir Phosphate 30 MG Capsule PO ×2 (09:29→22:31)
--- NOTE | 2018-05-18 09:43 | PCM.PN.CARD ---
Subjectve: Patient doing much better today, continues to improve. No chest pain. Lungs sound clear today. Awaiting left heart catheterization tomorrow morning. Objective: Vital Signs Temp Pulse Resp BP Pulse Ox 96.7 F L 84 18 113/60 95 05/18/18 09:20 05/18/18 09:20 05/18/18 09:20 05/18/18 09:20 05/18/18 09:20 Oxygen Flow Rate (L/min) 3 Oxygen Delivery Method Nasal Cannula Weight: 167 lb 5.294 oz Body Mass Index (BMI) 26.9 Intake and Output for Last 24 Hours 05/16/18 05/17/18 05/18/18 23:59 23:59 23:59 Intake Total 1380 / 1380 800 / 800 240 / 240 Balance 1380 / 1380 800 / 800 240 / 240 General: Awake, Alert, Oriented x 3 HEENT: PERRL, EOMI, Sclera Non Icteric Neck: Supple, Good ROM, No Lymph Node Enlargement Lungs: Clear to auscultation Cardiovascular: Regular Rhythm, Normal S2, No Rubs, No Gallops Murmur Murmur: Grade 2/6, Early Systolic, LLSB Vascular: No Carotid Bruits, Normal Femoral Pulses, Normal Radial Pulses, Normal Dorsalis Pedal Pulse, Normal Posterior Tibial Pulses Abdomen: Bowel Sounds Present, Soft, Non Tender, No HSM, No Organomegaly Extremities: No Cyanosis, No Clubbing, No edema Neurological: No Focal Motor or Sensory Deficit Rhythm: EKG: ECHO: Stress Test: Cardiac Cath: PCI: CT Surgery: Holter monitor: EPS: PPM: CXR: Chest CT Scan: Medical Necessity - Tobacco Use Smoking Status: Never smoker Tobacco Use: Non-smoker Assessment/Plan 1. Non-ST elevation myocardial infarction Patient presents with confusion and is noted to have an acute infectious etiology with a pneumonia and has a non-ST elevation myocardial infarction with a peak troponin of 1.4, now trending down to 1.3. Recommendation at this time would be to institute beta-chris with atenolol 50 mg p.o. twice daily Continue aspirin and Plavix in case the patient requires intervention. Continue his Plavix and continue anticoagulation therapy for his paroxysmal atrial fibrillation. Echocardiogram done in March 2018 showed the following: Interpretation Summary Normal LV size. Left ventricular systolic function is normal. The estimated ejection fraction is 55 %. Moderate focal aortic valve calcification. Mild aortic stenosis. Calculated aortic valve area (continuity equation) is 1.5 cm2. Pulmonary artery systolic pressure is 44 mmHg. Mild pulmonary hypertension. Clopidogrel loading and maintenance He will eventually need a left heart catheterization after his pneumonia process is improved, probably on Saturday. 2. Atrial fibrillation The duration of the above is unclear at this particular time. It is likely secondary to his acute illness. I would recommend that he be treated with Lovenox at this time and hold off on Eliquis as he will need an invasive procedure. Rate control at this particular time is in effect. 3. Hypertension To new current medical therapy without making any changes 4. Coronary artery bypass surgery He has a record of previous coronary artery bypass surgery and the plan will be to continue his medications and obtain his surgical records with a view to possibly pursuing a left heart catheterization 5. Valvular heart disease He does have a murmur suggestive of aortic valve disease which appears to be moderate. It was previously documented to have a mean gradient of 24 mmHg and a peak gradient of 47 mmHg with a valve area of 1.5 cm?. His echocardiogram does not need to be repeated at this time. 6. Hyperlipidemia: His LDL is 52 and his HDL is 38. Continue Pravachol. 7. Thank you very much for the opportunity to participate in the cardiac care of your patient. Left heart catheterization to follow tomorrow morning. Code Visit Inpatient E&M: 44293 Subs Hosp L2
--- NOTE | 2018-05-18 09:46 | PN.CARD_ITS ---
Subjectve: Patient doing much better today, continues to improve. No chest pain. Lungs sound clear today. Awaiting left heart catheterization tomorrow morning. Objective: Vital Signs Temp Pulse Resp BP Pulse Ox 96.7 F L 84 18 113/60 95 05/18/18 09:20 05/18/18 09:20 05/18/18 09:20 05/18/18 09:20 05/18/18 09:20 Oxygen Flow Rate (L/min) 3 Oxygen Delivery Method Nasal Cannula Weight: 167 lb 5.294 oz Body Mass Index (BMI) 26.9 Intake and Output for Last 24 Hours 05/16/18 05/17/18 05/18/18 23:59 23:59 23:59 Intake Total 1380 / 1380 800 / 800 240 / 240 Balance 1380 / 1380 800 / 800 240 / 240 General: Awake, Alert, Oriented x 3 HEENT: PERRL, EOMI, Sclera Non Icteric Neck: Supple, Good ROM, No Lymph Node Enlargement Lungs: Clear to auscultation Cardiovascular: Regular Rhythm, Normal S2, No Rubs, No Gallops Murmur Murmur: Grade 2/6, Early Systolic, LLSB Vascular: No Carotid Bruits, Normal Femoral Pulses, Normal Radial Pulses, Normal Dorsalis Pedal Pulse, Normal Posterior Tibial Pulses Abdomen: Bowel Sounds Present, Soft, Non Tender, No HSM, No Organomegaly Extremities: No Cyanosis, No Clubbing, No edema Neurological: No Focal Motor or Sensory Deficit Rhythm: EKG: ECHO: Stress Test: Cardiac Cath: PCI: CT Surgery: Holter monitor: EPS: PPM: CXR: Chest CT Scan: Medical Necessity - Tobacco Use Smoking Status: Never smoker Tobacco Use: Non-smoker Assessment/Plan 1. Non-ST elevation myocardial infarction * Patient presents with confusion and is noted to have an acute infectious etiology with a pneumonia and has a non-ST elevation myocardial infarction with a peak troponin of 1.4, now trending down to 1.3. * Recommendation at this time would be to institute beta-chris with atenolol 50 mg p.o. twice daily * Continue aspirin and Plavix in case the patient requires intervention. Continue his Plavix and continue anticoagulation therapy for his paroxysmal atrial fibrillation. * Echocardiogram done in March 2018 showed the following: * Interpretation Summary Normal LV size. Left ventricular systolic function is normal. The estimated ejection fraction is 55 %. Moderate focal aortic valve calcification. Mild aortic stenosis. Calculated aortic valve area (continuity equation) is 1.5 cm2. Pulmonary artery systolic pressure is 44 mmHg. Mild pulmonary hypertension. * Clopidogrel loading and maintenance * He will eventually need a left heart catheterization after his pneumonia process is improved, probably on Saturday. 2. Atrial fibrillation * The duration of the above is unclear at this particular time. * It is likely secondary to his acute illness. I would recommend that he be treated with Lovenox at this time and hold off on Eliquis as he will need an invasive procedure. * Rate control at this particular time is in effect. * 3. Hypertension * To new current medical therapy without making any changes * 4. Coronary artery bypass surgery * He has a record of previous coronary artery bypass surgery and the plan will be to continue his medications and obtain his surgical records with a view to possibly pursuing a left heart catheterization 5. Valvular heart disease * He does have a murmur suggestive of aortic valve disease which appears to be moderate. It was previously documented to have a mean gradient of 24 mmHg and a peak gradient of 47 mmHg with a valve area of 1.5 cm?. His echocardiogram does not need to be repeated at this time. 6. Hyperlipidemia: His LDL is 52 and his HDL is 38. Continue Pravachol. 7. Thank you very much for the opportunity to participate in the cardiac care of your patient. Left heart catheterization to follow tomorrow morning. Code Visit Inpatient E&M: 44957 Subs Hosp L2
--- NOTE | 2018-05-18 11:29 | PCM.PROGNOTE ---
<Rosalind Billingsley - Last Filed: 05/18/18 11:42> Patient Problems: Active and Suspected Problems (Last Reviewed 05/05/18 @ 09:56 by Abe Cabral MD) COPD (chronic obstructive pulmonary disease) (Acute) Aspiration pneumonia of both lower lobes (Acute) Elevated troponin I level (Acute) Infectious encephalopathy (Acute) Atrial fibrillation with RVR (Acute) Sepsis (Acute) Pneumonia (Acute) COPD exacerbation (Acute) Subjective: Patient seen and examined. Reports continued improvement in breathing. He was taken off of supplemental oxygen this morning and O2 dropped to 82%. Anticipate patient may need supplemental oxygen at discharge. - Physical Exam General: Alert, Oriented x3, Cooperative HEENT: Atraumatic, PERRLA, EOMI, Normocephalic Neck: Supple, No JVD, Negative Carotid Bruits Lungs: Clear to auscultation, Diminished Cardiovascular: Regular rate, Regular Rhythm, Normal S1, Normal S2, Murmur Abdomen: Bowel Sounds Present, Soft, Non Tender, Non-Distended Extremities: No clubbing, No cyanosis, No edema, Capillary Refill Less than 3 Seconds Skin: No rashes, No breakdown Musculoskeletal: No Tenderness to Palpation of Joints or Extremities Neurological: Cranial nerves II-XII grossly intact, Neuro grossly intact Psych/Mental Status: Normal Affect, Appropriate Vital Signs Temp Pulse Resp BP Pulse Ox 96.7 F L 84 18 113/60 95 05/18/18 09:20 05/18/18 09:20 05/18/18 09:20 05/18/18 09:20 05/18/18 09:20 Oxygen Flow Rate (L/min) 3 Oxygen Delivery Method Nasal Cannula Weight: 167 lb 5.294 oz Body Mass Index (BMI) 26.9 Intake and Output for Last 24 Hours 05/16/18 05/17/18 05/18/18 23:59 23:59 23:59 Intake Total 1380 / 1380 800 / 800 240 / 240 Balance 1380 / 1380 800 / 800 240 / 240 Microbiology Past 72 Hours 05/15/18 11:30 Gram Stain - Final Sputum, Expectorated/Coughed Respiratory Culture - Final Mixed normal respiratory bandar. No Haemophilus, Streptococcus pneumoniae, beta-hemolytic Streptococcus or Staphylococcus aureus isolated. Medical Necessity - Tobacco Use Smoking Status: Never smoker Tobacco Use: Non-smoker Assessment/Plan All Active Problems (Last Reviewed 05/05/18 @ 09:56 by Abe Cabral MD) COPD (chronic obstructive pulmonary disease) (Acute) Aspiration pneumonia of both lower lobes (Acute) Elevated troponin I level (Acute) Infectious encephalopathy (Acute) Atrial fibrillation with RVR (Acute) Sepsis (Acute) Pneumonia (Acute) COPD exacerbation (Acute) Acute bronchitis (Resolved) Atelectasis of both lungs (Acute) SOB (shortness of breath) (Acute) Sinusitis, acute (Acute) 1. Acute sepsis with acute hypoxic respiratory failure secondary to COPD exacerbation as a result of acute influenza A and bilateral community-acquired pneumonia-CTA on admission with bilateral infiltrates. Patient received IV azithromycin/IV Rocephin which has since been discontinued. Transitioned IV Solu-Medrol to prednisone taper. Renal dose Tamiflu regimen 30 mg p.o. twice daily times 5 days. Albuterol and DuoNeb aerosols. BiPAP nightly and as needed. Viral panel positive for influenza A. Continue supplement oxygen to maintain O2 at or above 90%. IS/PEP. Walking pulse ox prior to discharge. Repeat chest x-ray showed improved aeration of both lung bases compared to prior study with residual blunting of both costophrenic angles. 2. New onset atrial fibrillation with RVR-suspect secondary to #1. Remains in atrial fibrillation, rate controlled. Continue atenolol regimen. Echocardiogram March 2018 with EF 55%, mild aortic stenosis, mild pulmonary hypertension. Patient follows with Dr. Galindo as outpatient. Initially started on Eliquis which will be held pending plan for cath. Therapeutic Lovenox. 3. NSTEMI-possibly demand ischemia secondary to #1. However, given hx CAD/CABG, cardiology consult placed. Plan for cardiac catheterization on Saturday. 4. CAD status post CABG-continue statin, Plavix, beta-chris, Imdur. 5. Hypothyroidism-continue Synthroid regimen. TSH WNL. 6. Hyperlipidemia-continue statin. 7. Hypertension-stable, continue home amlodipine, atenolol, isosorbide. DVT prophylaxis-therapeutic Lovenox. This patient was seen by ABHILASH Green under the supervision of Dr. Atkinson. <Gladis Atkinson - Last Filed: 05/18/18 17:13> - Physical Exam Vital Signs Temp Pulse Resp BP Pulse Ox 97.0 F L 62 16 114/57 L 94 05/18/18 15:20 05/18/18 15:20 05/18/18 15:20 05/18/18 15:20 05/18/18 15:20 Oxygen Flow Rate (L/min) 3 Oxygen Delivery Method Nasal Cannula Weight: 75.9 kg Body Mass Index (BMI) 26.9 Intake and Output for Last 24 Hours 05/16/18 05/17/18 05/18/18 23:59 23:59 23:59 Intake Total 1380 / 1380 800 / 800 640 / 640 Balance 1380 / 1380 800 / 800 640 / 640 Microbiology Past 72 Hours 05/15/18 11:30 Gram Stain - Final Sputum, Expectorated/Coughed Respiratory Culture - Final Mixed normal respiratory bandar. No Haemophilus, Streptococcus pneumoniae, beta-hemolytic Streptococcus or Staphylococcus aureus isolated. Assessment/Plan This patient was seen in conjunction with Rosalind Billingsley NP. I have independently interviewed and examined the patient and reviewed pertinent historical, laboratory, and other data. Please refer to her note for patient's presentation, findings, and recommendations. Patient was seen and examined. He denied any new complaints. He feels much improved. Had an episode of severe hypoxia was been taking of his oxygen. Denies any chest pain.Going for cardiac cath on Saturday morning. Vitals were reviewed -stable Physical Exam: Gen: Comfortable, not pale, not jaundiced, alert oriented x3 CVS:HS I +II, regular, no murmurs RESP: Diminished at lung bases GI: Soft, BS present and normal, nontender, no ballotable organs EXT:No edema Labs reviewed ASSESSMENT: 1. Sepsis secondary to acute influenza A bronchitis 2. Acute hypoxic respiratory failure second to COPD exacerbation/CAP 3. Acute influenza A 4. Bilateral community-acquired pneumonia, suspected gram-positive and negative 5. NSTEMI 6. CAD s/p CABG 7. Hypothyroidism 8. Hypertension 9. Hyperlipidemia Meds reviewed Plan: Labs in am Follow-up on cardiology recommendations Code Visit Inpatient E&M: [id number] Subs Hosp L2
--- NOTE | 2018-05-18 16:00 | NURSING ---
JOAN rosario placed on the patient
[2018-05-18 21:27] LABS: Bacteria 0 SEEN /hpf (None Seen); Mucous, Urine 0 SEEN /hpf (<or=2+); Red Blood Cells-Urine 0 SEEN /hpf (0-5); Squamous Epithelial Cells - UA 0 SEEN /hpf (0-5)
[2018-05-18 21:32] LABS: Color, Urine Yellow (Yellow); Glucose, Dipstick Normal (Normal); Ketone-Dipstick Negative (Negative); Leukocyte Esterase-Dipstick 25 /ul (Negative); Nitrite-Dipstick Negative (Negative); Occult Blood-Urine 10 /ul (Negative); Protein-Dipstick 30 mg/dl (Negative); Urine Bilirubin Dipstick Negative (Negative); Urine Clarity Clear (Clear); Urine Urobilinogen Normal (Normal)
[2018-05-18 21:40] LABS: White Blood Cells 0-5 SEEN /hpf (0-5)
[2018-05-18] MEDS: Pravastatin 40 MG Tablet PO (22:31)
[2018-05-19] VITALS (22 sets, daily range): BP systolic 102–154; BP diastolic 59–82; PULSE 52–70; RESP 14–24; TEMP 36.7–36.9; O2SAT 87–99
[2018-05-19] MEDS: Ipratropium/Albuterol Sulfate 3 ML AMPUL.NEB INHALATION ×2 (01:28→13:22)
--- NOTE | 2018-05-19 05:00 | EKG12_ITS ---
Test Reason : AM EKG Blood Pressure : / mmHG Vent. Rate : 056 BPM Atrial Rate : 258 BPM P-R Int : 000 ms QRS Dur : 172 ms QT Int : 448 ms P-R-T Axes : 000 -31 104 degrees QTc Int : 432 ms Atrial fibrillation with slow ventricular response with premature ventricular or aberrantly conducted complexes Left axis deviation Left bundle branch block Abnormal ECG Confirmed by SHELDON OCHOA, MIGUEL ([id number]), department editor TYRONE OATES ([id number] on 05/21/2018 1:18:02 PM Referred By: DR RAMIREZ Confirmed By:MIGUEL CHUNG MD
[2018-05-19] MEDS: Atenolol 50 MG Tablet PO (05:21)
[2018-05-19] MEDS: Clopidogrel Bisulfate 75 MG Tablet PO (05:21)
[2018-05-19] MEDS: Losartan Potassium 50 MG Tablet PO (05:21)
[2018-05-19] MEDS: Levothyroxine 175 MCG Tablet PO (05:21)
[2018-05-19] MEDS: amLODIPine 5 MG Tablet PO (05:21)
[2018-05-19] MEDS: Isosorbide Mononitrate 60 MG Tablet PO (05:21)
[2018-05-19 06:02] LABS: Anion Gap 3 (5-15); BUN 34 mg/dL (7-18); BUN/Creat Ratio 38.5 RATIO (10-20); Chloride 111 mmol/L (98-107); Creatinine, Serum 0.88 mg/dL (0.70-1.30); EST Glomerular Filtration Rate 89 mL/min (>60); Est Glom Filt Rate - Afr Amer 108 mL/min (>60); Estimated Creatinine Clearance 64.44 ml/min; Glucose 102 mg/dL (74-106); Sodium Level 145 mmol/L (136-145)
[2018-05-19 06:12] LABS: Prothrombin Time (Protime)PT. 12.5 SECONDS (11.7-14.9)
[2018-05-19 06:13] LABS: Partial Thromboplast Time 31.2 Seconds (24.1-36.2)
[2018-05-19 06:26] LABS: Hematocrit 37.6 % (40-54); Hemoglobin 11.7 g/dl (13.0-16.5); Mean Corp Hgb Conc 31.1 g/gl (32-36); Mean Corpuscular Hgb 26.9 pg (27.0-32.0); Mean Corpuscular Volume 86.4 fL (80-94); Mean Platelet Vol. 11.1 fl (6.2-12.0); Platelet Count 155 K/mm3 (150-450); RBC Distribution Width CV 15.5 % (11.6-14.6); RBC Distribution Width SD 48.6 fl (35.1-43.9); Red Blood Count 4.35 M/mm3 (4.6-6.2); White Blood Count 8.5 K/mm3 (4.4-11.0)
[2018-05-19 06:29] LABS: Scan Indicated on CBC? Y/N NO
[2018-05-19] MEDS: DiphenhydrAMINE 25 MG Capsule 50 MG PO (07:03)
[2018-05-19] MEDS: Aspirin 325 MG Tablet PO (07:15)
--- NOTE | 2018-05-19 09:10 | PCM.PN.CARD ---
Subjectve: Patient seen and evaluated. Cardiac catheterization today Objective: Vital Signs Temp Pulse Resp BP Pulse Ox 98.1 F 61 20 H 154/82 H 95 05/19/18 05:24 05/19/18 07:00 05/19/18 05:24 05/19/18 05:24 05/19/18 05:24 Oxygen Flow Rate (L/min) 3 Oxygen Delivery Method Nasal Cannula Weight: 167 lb 5.294 oz Body Mass Index (BMI) 26.9 Intake and Output for Last 24 Hours 05/17/18 05/18/18 05/19/18 23:59 23:59 23:59 Intake Total 800 / 800 1840 / 1840 360 / 360 Balance 800 / 800 1840 / 1840 360 / 360 General: Awake, Alert, Oriented x 3 HEENT: PERRL, EOMI, Sclera Non Icteric Neck: Supple, Good ROM, No Lymph Node Enlargement Lungs: Clear to auscultation Cardiovascular: Regular Rhythm, Normal S1, Normal S2, No Murmurs, No Rubs, No Gallops Vascular: No Carotid Bruits, Normal Femoral Pulses, Normal Radial Pulses, Normal Dorsalis Pedal Pulse, Normal Posterior Tibial Pulses Abdomen: Bowel Sounds Present, Soft, Non Tender, No HSM, No Organomegaly Extremities: No Cyanosis, No Clubbing, No edema Lymphatic: No Lymph Node Enlargement Neurological: No Focal Motor or Sensory Deficit Psych/Mental Status: Appropriate 05/18/18 21:10: Urine Color Yellow, Urine Clarity Clear, Urine pH 6.0, Ur Specific [place] 1.020, Urine Protein 30 H, Urine Glucose (UA) Normal, Urine Ketones Negative, Urine Occult Blood 10 H, Urine Nitrite Negative, Urine Bilirubin Negative, Urine Urobilinogen Normal, Ur Leukocyte Esterase 25 H, Urine RBC 0 SEEN, Urine WBC 0-5 SEEN 05/19/18 05:30: WBC 8.5, RBC 4.35 L, Hgb 11.7 L, Hct 37.6 L, MCV 86.4, MCH 26.9 L, MCHC 31.1 L, RDW 15.5 H, RDW Differential 48.6 H, Plt Count 155, MPV 11.1 05/19/18 05:30: PT 12.5, INR 1.0, APTT 31.2 05/19/18 05:30: Sodium 145, Potassium 4.0, Chloride 111 H, Carbon Dioxide 31.0, Anion Gap 3 L, BUN 34 H, Creatinine 0.88, Est GFR (MDRD) Af Amer 108, Est GFR (MDRD) Non-Af 89, BUN/Creatinine Ratio 38.5 H, Glucose 102, Calcium 8.0 L Rhythm: EKG: ECHO: Stress Test: Cardiac Cath: PCI: CT Surgery: Holter monitor: EPS: PPM: CXR: Chest CT Scan: Medical Necessity - Tobacco Use Smoking Status: Never smoker Tobacco Use: Non-smoker Assessment/Plan 1. Non-ST elevation myocardial infarction Patient presents with confusion and is noted to have an acute infectious etiology with a pneumonia and has a non-ST elevation myocardial infarction. Recommendation at this time would be to institute beta-chris Continue aspirin Echocardiogram to assess left ventricular function His cardiac catheterization today demonstrated the following: Moderately diseased left main coronary artery. Left anterior descending artery totally occluded. Left circumflex artery which is totally occluded proximally. Right coronary artery which is dominant with acute marginal branch with 80% stenosis. Saphenous vein graft to the distal right coronary artery which is patent. Free right internal mammary artery graft to the circumflex artery which is patent with proximal 70% stenosis. Left internal mammary artery to the left anterior descending artery which is patent. Preserved left ventricular systolic function with mild aortic stenosis and moderate mitral regurgitation This was reviewed with interventionalist and it was felt at this time that medical therapy should be pursued. 2. Atrial fibrillation The duration of the above is unclear at this particular time. It is likely secondary to his acute illness. I would recommend that he be treated with Lovenox at this time and hold off on Eliquis as he may need an invasive procedure. Rate control at this particular time. 3. Hypertension To new current medical therapy without making any changes 4. Coronary artery bypass surgery He has a record of previous coronary artery bypass surgery 5. Valvular heart disease He does have a murmur suggestive of aortic valve disease which appears to be moderate. It was previously documented to have a mean gradient of 24 mmHg and a peak gradient of 47 mmHg with a valve area of 1.5 cm?. Will recommend a transesophageal echocardiogram as an outpatient to assess his aortic valve as well as his mitral valve Would recommend outpatient follow-up.
--- NOTE | 2018-05-19 09:15 | PN.CARD_ITS ---
Subjectve: Patient seen and evaluated. Cardiac catheterization today Objective: Vital Signs Temp Pulse Resp BP Pulse Ox 98.1 F 61 20 H 154/82 H 95 05/19/18 05:24 05/19/18 07:00 05/19/18 05:24 05/19/18 05:24 05/19/18 05:24 Oxygen Flow Rate (L/min) 3 Oxygen Delivery Method Nasal Cannula Weight: 167 lb 5.294 oz Body Mass Index (BMI) 26.9 Intake and Output for Last 24 Hours 05/17/18 05/18/18 05/19/18 23:59 23:59 23:59 Intake Total 800 / 800 1840 / 1840 360 / 360 Balance 800 / 800 1840 / 1840 360 / 360 General: Awake, Alert, Oriented x 3 HEENT: PERRL, EOMI, Sclera Non Icteric Neck: Supple, Good ROM, No Lymph Node Enlargement Lungs: Clear to auscultation Cardiovascular: Regular Rhythm, Normal S1, Normal S2, No Murmurs, No Rubs, No Gallops Vascular: No Carotid Bruits, Normal Femoral Pulses, Normal Radial Pulses, Normal Dorsalis Pedal Pulse, Normal Posterior Tibial Pulses Abdomen: Bowel Sounds Present, Soft, Non Tender, No HSM, No Organomegaly Extremities: No Cyanosis, No Clubbing, No edema Lymphatic: No Lymph Node Enlargement Neurological: No Focal Motor or Sensory Deficit Psych/Mental Status: Appropriate 05/18/18 21:10: Urine Color Yellow, Urine Clarity Clear, Urine pH 6.0, Ur Specific [place] 1.020, Urine Protein 30 H, Urine Glucose (UA) Normal, Urine Ketones Negative, Urine Occult Blood 10 H, Urine Nitrite Negative, Urine Bilirubin Negative, Urine Urobilinogen Normal, Ur Leukocyte Esterase 25 H, Urine RBC 0 SEEN, Urine WBC 0-5 SEEN 05/19/18 05:30: WBC 8.5, RBC 4.35 L, Hgb 11.7 L, Hct 37.6 L, MCV 86.4, MCH 26.9 L, MCHC 31.1 L, RDW 15.5 H, RDW Differential 48.6 H, Plt Count 155, MPV 11.1 05/19/18 05:30: PT 12.5, INR 1.0, APTT 31.2 05/19/18 05:30: Sodium 145, Potassium 4.0, Chloride 111 H, Carbon Dioxide 31.0, Anion Gap 3 L, BUN 34 H, Creatinine 0.88, Est GFR (MDRD) Af Amer 108, Est GFR (MDRD) Non-Af 89, BUN/Creatinine Ratio 38.5 H, Glucose 102, Calcium 8.0 L Rhythm: EKG: ECHO: Stress Test: Cardiac Cath: PCI: CT Surgery: Holter monitor: EPS: PPM: CXR: Chest CT Scan: Medical Necessity - Tobacco Use Smoking Status: Never smoker Tobacco Use: Non-smoker Assessment/Plan 1. Non-ST elevation myocardial infarction * Patient presents with confusion and is noted to have an acute infectious etiology with a pneumonia and has a non-ST elevation myocardial infarction. * Recommendation at this time would be to institute beta-chris * Continue aspirin * Echocardiogram to assess left ventricular function * His cardiac catheterization today demonstrated the following: Moderately diseased left main coronary artery. Left anterior descending artery totally occluded. Left circumflex artery which is totally occluded proximally. Right coronary artery which is dominant with acute marginal branch with 80% stenosis. Saphenous vein graft to the distal right coronary artery which is patent. Free right internal mammary artery graft to the circumflex artery which is patent with proximal 70% stenosis. Left internal mammary artery to the left anterior descending artery which is patent. Preserved left ventricular systolic function with mild aortic stenosis and moderate mitral regurgitation This was reviewed with interventionalist and it was felt at this time that medical therapy should be pursued. 2. Atrial fibrillation * The duration of the above is unclear at this particular time. * It is likely secondary to his acute illness. I would recommend that he be treated with Lovenox at this time and hold off on Eliquis as he may need an invasive procedure. * Rate control at this particular time. * 3. Hypertension * To new current medical therapy without making any changes * 4. Coronary artery bypass surgery * He has a record of previous coronary artery bypass surgery * * 5. Valvular heart disease * He does have a murmur suggestive of aortic valve disease which appears to be moderate. It was previously documented to have a mean gradient of 24 mmHg and a peak gradient of 47 mmHg with a valve area of 1.5 cm?. * Will recommend a transesophageal echocardiogram as an outpatient to assess his aortic valve as well as his mitral valve * * Would recommend outpatient follow-up.
--- NOTE | 2018-05-19 09:23 | CL.D_ITS ---
Patient Name: TRAVON BINGHAM Study Date: 05/19/2018 Performing: Abhishek Galindo MD Ht: 66 inches 168 cm : 1940 Wt: 167.8 lbs 76 kg Age: 78 Gender: male BSA: 1.86 PROCEDURE(S) PERFORMED LL31-AOS/COR/LV/CABG CLINICAL PROFILE AND INDICATIONS Indications: Suspected CAD Heart Failure: NYHA Class: 2, Newly Diagnosed: Yes, Heart Failure Type: Diastolic Stress/Imaging Stress/Image Study Performed: No CONCLUSIONS Patient appears to have coronary artery disease primarily involving the free right internal mammary a rtery to the obtuse marginal branch. In addition there is valvular heart disease with mild aortic st enosis and mild to moderate mitral regurgitation. RECOMMENDATIONS Due to the above findings would recommend outpatient stress testing as well as a ELIZABET to assess the si gnificance of the aortic valve as well as the mitral valve. Depending on the findings further recomm endations will be made. DESCRIPTION OF PROCEDURE The patient arrived to the procedure lab. The risks and benefits of the procedure as well as a full d escription of our services here and current unavailability of surgical backup were fully explained to the patient and/or their significant other prior to the catheterization. The Timeout was completed, verifying the correct patient and procedure. The patient's procedural site was prepped and draped in the usual fashion. Local anesthetic was given subcutaneously to right groin region with Lidocaine 2%. Using a modified Seldinger technique, arterial access was obtained via the right femoral artery, a 5 Fr sheath was inserted. Left Coronary Artery selective angiography was performed in multiple views u sing a 5 Fr. JL4 catheter. Right Coronary Artery selective angiography was then performed in multiple views using a 5 Fr. 3DRC (Celestine) catheter. Free Right internal mammary artery graft to the Obtuse Marginal selective angiography was performed in multiple views using a 5 Fr. 3DRC (Celestine) catheter. Saphenous Vein graft to the Distal Circumflex with a sequental to the Diag 1 frances ective angiography was performed in multiple views using a 5 Fr. 3DRC (Celestine) catheter. Left inter nal mammary artery graft to the LAD selective angiography was performed in multiple views using a 5 F r. 3DRC (Celestine) catheter. Left Ventriculography was performed in ROUSE projection using a 5 Fr. Pigt ail catheter. LV to AO pullback pressures were then recorded.Contrast was injected through the sheath and the Right Iliac and Femoral artery were assessed for possible closure device.The arterial sheath was pulled and a Mynx closure device was deployed for hemostasis CORONARY ANGIOGRAPHY DOMINANCE: Right Dominant LEFT HEART ASSESSMENT Left Ventricular Ejection Fraction: by LV Gram 55 % Normal Left Ventricular systolic function LEFT MAIN: Moderate disease LEFT ANTERIOR DECENDING ARTERY: PROX LAD: is occluded CIRCUMFLEX ARTERY: PROX CIRC: is occluded RIGHT CORONARY ARTERY: Proximal right coronary artery is patent and a small vessel with an acute jimmy inal branch which has a 70-80% stenosis noted GRAFTS: SPARKS graft to the Mid LAD is patent Saphenous Vein graft to the RPDA is patent ANAY graft to the Acute Marginal has a proximal lesion of 70 % VALVE FINDINGS: Aortic Valve Stenosis - mild Mitral Valve Insufficiency - Grade 2 COMPLICATIONS No Complications PROCEDURE MEDICATIONS Oxygen: 4 L/min via nasal cannula Lasix 40 mg IV 05/19/2018 09:00:38 SUMMARY OF HEMODYNAMIC DATA Time AIR REST ECG 08:04:20 AO 126/63 (88) SA 08:25:43 LV 131/6, 16 08:40:43 LV 130/7, 15 08:40:49 LV 129/4, 18 08:42:00 LV 130/2, 17 08:42:06 LVp 130/2, 18 08:42:10 AOp 115/52 (74) 08:42:15 Signed By Abhishek Galindo MD On 05/19/2018 09:22:43 Abhishek Galindo MD
[2018-05-19] MEDS: predniSONE 10 MG Tablet 40 MG PO (13:21)
[2018-05-19] MEDS: Furosemide 40 MG Tablet PO (13:21)
[2018-05-19] MEDS: guaiFENesin 1,200 MG Tablet 1200 MG PO (13:21)
[2018-05-19] MEDS: Doxazosin 1 MG Tablet 2 MG PO (13:21)
[2018-05-19] MEDS: Oseltamivir Phosphate 30 MG Capsule PO ×2 (13:22→17:09)
--- NOTE | 2018-05-19 15:48 | DCINST_ITS ---
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 Call your doctor if you observe: Fever of 101 or Higher, Shortness of breath, Dizziness, Fainting spells, Chest pain Allergies/Adverse Reactions: Allergies caffeine Allergy (Mild, Verified 05/14/18 13:07) Unknown bee venom protein (honey bee) Allergy (Verified 05/14/18 13:07) Swelling Penicillins Allergy (Verified 05/14/18 13:07) Hives Medications to take at Discharge amlodipine 5 mg-valsartan 160 mg tablet 1 tab PO DAILY 90 Days #90 05/13/17 atenolol 50 mg tablet 50 mg PO BID 90 Days #180 05/13/17 doxazosin 4 mg tablet 2 mg PO BID 90 Days #90 05/13/17 levothyroxine 175 mcg tablet 175 mcg PO DAILY 90 Days #90 05/13/17 nitroglycerin 0.4 mg sublingual tablet 0.4 mg SUBLINGUAL PRN PRN 8 Days #25 05/13/17 pravastatin 40 mg tablet 40 mg PO DAILY 90 Days #90 05/13/17 isosorbide mononitrate ER 60 mg tablet,extended release 24 hr 60 mg PO DAILY 04/17/18 Acetaminophen [Tylenol] 1,000 mg PO Q4H PRN PRN 05/14/18 Albuterol IH (ProAir) [Proair Hfa] 1 puff INHALATION Q4H PRN PRN 05/14/18 Cholecalciferol (VIT D3) [Vitamin D3] 1,000 unit PO DAILY 05/14/18 Guaifenesin/Dextromethorphan [Tussin Dm Liquid] 20 ml PO Q6H PRN PRN 05/14/18 Apixaban [Eliquis] 5 mg PO BID #60 tablet 05/19/18 Aspirin E.C. [Ecotrin] 81 mg PO DAILY@0800 #30 tablet 05/19/18 Furosemide [Lasix] 40 mg PO DAILY #30 tablet 05/19/18 Prednisone See Taper PO DAILY #30 tablet 05/19/18 The following prescriptions were given: Aspirin E.C. [Ecotrin] 81 mg PO DAILY@0800 #30 tablet Furosemide [Lasix] 40 mg PO DAILY #30 tablet Prednisone See Taper PO DAILY #30 tablet Apixaban [Eliquis] 5 mg PO BID #60 tablet Primary Care Physician: Christiano Reich DO [Primary Care Provider] - Please follow up with your Primary Care Physician in: 1 Week Test Results: Test results from this visit will be discussed in further detail at your follow- up appointment, if applicable. Please Follow Up With: Abhishek Galindo MD When: 1 Week Proposed Discharge Date: 05/19/18
--- NOTE | 2018-05-19 15:49 | PCM.DC.SUM ---
<Rosalind Billingsley - Last Filed: 05/19/18 16:07> Discharge Date and Diagnosis Date of Admission: 05/14/18 Date of Discharge: 05/19/18 - Primary Discharge Diagnosis Active and Suspected Problems (Last Reviewed 05/05/18 @ 09:56 by Abe Cabral MD) 1. Acute sepsis with acute hypoxic respiratory failure secondary to COPD exacerbation as a result of acute influenza A- Pneumonia ruled out 2. New onset atrial fibrillation with RVR 3. NSTEMI 4. CAD status post CABG 5. Hypothyroidism 6. Hyperlipidemia 7. 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 Patchy bibasilar infiltrates slightly worse on the left side with the calcified pleural plaques on the left side. Mildly enlarged subcarinal lymph nodes. Right adrenal hypodense nodule. Electronically Signed: Chsae Ruff, at 15:44 EDT , Service support , Chest X-Ray 05/16/18 05:55 IMPRESSION: Since prior study, there has been improved aeration of both lung bases. Residual blunting of both costophrenic angles. Electronically Signed: Chase Ruff, at 10:15 EDT , Service support , Dr. Lyon/Dr. Galindo- Cardiology Operations: None Procedures: Cardiac catheterization Summary of Care Provided: The patient is a 78 year old M admitted 05/14/2018 due to shortness of breath. 1. Acute sepsis with acute hypoxic respiratory failure secondary to COPD exacerbation as a result of acute influenza A-CTA on admission with bilateral infiltrates. Patient received IV azithromycin/IV Rocephin which has since been discontinued. Pneumonia ruled out. Prednisone taper at discharge. Renal dose Tamiflu regimen 30 mg p.o. twice daily times 5 days. Viral panel positive for influenza A. Patient's oxygen 87% on room air. Patient will require continuous supplemental oxygen at discharge to maintain O2 at or above 90%. He is ambulatory in the home. Repeat chest x-ray showed improved aeration of both lung bases compared to prior study with residual blunting of both costophrenic angles. 2. New onset atrial fibrillation with RVR-suspect secondary to #1. Remains in atrial fibrillation, rate controlled. Continue atenolol regimen. Echocardiogram March 2018 with EF 55%, mild aortic stenosis, mild pulmonary hypertension. Patient follows with Dr. Galindo as outpatient. Eliquis 5 mg p.o. twice daily at discharge. Follow-up with cardiology in 1 week. 3. NSTEMI-possibly demand ischemia secondary to #1. However, given hx CAD/CABG, cardiology consult placed. Patient underwent cardiac catheterization 05/19/2018, no intervention was pursued. Continue medical therapy with aspirin, statin, Eliquis, atenolol, arb. Plan for outpatient ELIZABET to assess aortic valve and mitral valve. Follow-up with cardiology in 1 week. 4. CAD status post CABG-continue statin, beta-chris, Imdur. 5. Hypothyroidism-continue Synthroid regimen. TSH WNL. 6. Hyperlipidemia-continue statin. 7. Hypertension-stable, continue home amlodipine/losartan, atenolol, isosorbide. General: Alert, Oriented x3, Cooperative HEENT: Atraumatic, PERRLA, EOMI, Normocephalic Neck: Supple, No JVD, Negative Carotid Bruits Lungs: Clear to auscultation, Diminished Cardiovascular: Regular rate, Regular Rhythm, Normal S1, Normal S2, Murmur Abdomen: Bowel Sounds Present, Soft, Non Tender, Non-Distended Extremities: No clubbing, No cyanosis, No edema, Capillary Refill Less than 3 Seconds Skin: No rashes, No breakdown Musculoskeletal: No Tenderness to Palpation of Joints or Extremities Neurological: Cranial nerves II-XII grossly intact, Neuro grossly intact Psych/Mental Status: Normal Affect, Appropriate Patient seen and examined prior to discharge. Physical assessment as noted above. Patient is stable for discharge with follow up recommendations as noted above. This patient was seen by ABHILASH Green under the supervision of Dr. Atkinson. - Physical Exam Vital Signs Temp Pulse Resp BP Pulse Ox 98.2 F 52 L 16 108/66 94 05/19/18 14:15 05/19/18 15:00 05/19/18 14:15 05/19/18 14:15 05/19/18 14:15 Oxygen Flow Rate (L/min) 3 Oxygen Delivery Method Nasal Cannula Weight: 167 lb 5.294 oz Body Mass Index (BMI) 26.9 Intake and Output for Last 24 Hours 05/17/18 05/18/18 05/19/18 23:59 23:59 23:59 Intake Total 800 / 800 1840 / 1840 360 / 360 Output Total 1225 / 1225 Balance 800 / 800 1840 / 1840 -865 / -865 Microbiology Past 72 Hours 05/14/18 13:48 Blood Culture - Final Blood Culture (Wb) - Right Hand No growth in 5 days. 05/14/18 13:30 Blood Culture - Final Blood Culture (Wb) - Anticubital Left No growth in 5 days. 05/15/18 11:30 Gram Stain - Final Sputum, Expectorated/Coughed Respiratory Culture - Final Mixed normal respiratory bandar. No Haemophilus, Streptococcus pneumoniae, beta-hemolytic Streptococcus or Staphylococcus aureus isolated. Laboratory Tests Past 24 Hrs 05/18/18 05/19/18 05/19/18 21:10 05:30 05:30 WBC 8.5 RBC 4.35 L Hgb 11.7 L Hct 37.6 L MCV 86.4 MCH 26.9 L MCHC 31.1 L RDW 15.5 H RDW Differential 48.6 H Plt Count 155 MPV 11.1 PT 12.5 INR 1.0 APTT 31.2 Sodium Potassium Chloride Carbon Dioxide Anion Gap BUN Creatinine Estim Creat Clear Calc Est GFR (MDRD) Af Amer Est GFR (MDRD) Non-Af BUN/Creatinine Ratio Glucose Calcium Urine Color Yellow Urine Clarity Clear Urine pH 6.0 Ur Specific [place] 1.020 Urine Protein 30 H Urine Glucose (UA) Normal Urine Ketones Negative Urine Occult Blood 10 H Urine Nitrite Negative Urine Bilirubin Negative Urine Urobilinogen Normal Ur Leukocyte Esterase 25 H Urine RBC 0 SEEN Urine WBC 0-5 SEEN Ur Squamous Epith Cells 0 SEEN Urine Bacteria 0 SEEN Urine Mucus 0 SEEN 05/19/18 05:30 WBC RBC Hgb Hct MCV MCH MCHC RDW RDW Differential Plt Count MPV PT INR APTT Sodium 145 Potassium 4.0 Chloride 111 H Carbon Dioxide 31.0 Anion Gap 3 L BUN 34 H Creatinine 0.88 Estim Creat Clear Calc 64.44 Est GFR (MDRD) Af Amer 108 Est GFR (MDRD) Non-Af 89 BUN/Creatinine Ratio 38.5 H Glucose 102 Calcium 8.0 L Urine Color Urine Clarity Urine pH Ur Specific [place] Urine Protein Urine Glucose (UA) Urine Ketones Urine Occult Blood Urine Nitrite Urine Bilirubin Urine Urobilinogen Ur Leukocyte Esterase Urine RBC Urine WBC Ur Squamous Epith Cells Urine Bacteria Urine Mucus Discharge Diet: Low fat/ Low Cholesterol Discharge Activity: Return to Normal Activity, - - Follow post op cath instructions. Call your doctor if you observe: Fever of 101 or Higher, Shortness of breath, Dizziness, Fainting spells, Chest pain Home Medications: Medications to take at Discharge amlodipine 5 mg-valsartan 160 mg tablet 1 tab PO DAILY 90 Days #90 05/13/17 atenolol 50 mg tablet 50 mg PO BID 90 Days #180 05/13/17 doxazosin 4 mg tablet 2 mg PO BID 90 Days #90 05/13/17 levothyroxine 175 mcg tablet 175 mcg PO DAILY 90 Days #90 05/13/17 nitroglycerin 0.4 mg sublingual tablet 0.4 mg SUBLINGUAL PRN PRN 8 Days #25 05/13/17 pravastatin 40 mg tablet 40 mg PO DAILY 90 Days #90 05/13/17 isosorbide mononitrate ER 60 mg tablet,extended release 24 hr 60 mg PO DAILY 04/17/18 Acetaminophen [Tylenol] 1,000 mg PO Q4H PRN PRN 05/14/18 Albuterol IH (ProAir) [Proair Hfa] 1 puff INHALATION Q4H PRN PRN 05/14/18 Cholecalciferol (VIT D3) [Vitamin D3] 1,000 unit PO DAILY 05/14/18 Guaifenesin/Dextromethorphan [Tussin Dm Liquid] 20 ml PO Q6H PRN PRN 05/14/18 Apixaban [Eliquis] 5 mg PO BID #60 tablet 05/19/18 Aspirin E.C. [Ecotrin] 81 mg PO DAILY@0800 #30 tablet 05/19/18 Furosemide [Lasix] 40 mg PO DAILY #30 tablet 05/19/18 Prednisone See Taper PO DAILY #30 tablet 05/19/18 Following Prescrptions Were Given to Patient: Aspirin E.C. [Ecotrin] 81 mg PO DAILY@0800 #30 tablet Furosemide [Lasix] 40 mg PO DAILY #30 tablet Prednisone See Taper PO DAILY #30 tablet Apixaban [Eliquis] 5 mg PO BID #60 tablet Primary Care Physician: Christiano Reich DO [Primary Care Provider] - Please follow up with your Primary Care Physician in: 1 Week Please Follow Up With: Abhishek Galindo MD When: 1 Week Disposition: Home Minutes spent on discharge:: 35 Patient Condition:: Stable Medical Necessity - Tobacco Use Smoking Status: Never smoker Tobacco Use: Non-smoker Meaningful Use Info Meaningful Use Diagnoses (Choose all that apply): None applicable <Miketsdanika,Ackerman - Last Filed: 05/21/18 08:28> Discharge Date and Diagnosis - Secondary Discharge Diagnosis Chronic Problems (Last Reviewed 05/05/18 @ 09:56 by Abe Cabral MD) Acute respiratory failure with hypoxia (Chronic) CAD (coronary artery disease) (Chronic) Hypothyroidism (Chronic) 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 I have independently interviewed and examined the patient and reviewed pertinent historical, laboratory, and other data. Please refer to her note for patient's presentation, findings, and recommendations. 78-year-old male with past medical history of CAD status post CABG, hypothyroidism, hypertension, hyperlipidemia who was admitted with shortness of breath and managed as acute sepsis secondary to acute influenza A bronchitis. Patient also had acute hypoxic respiratory failure secondary to acute COPD exacerbation. He was found to have elevated troponins. Managed as non-STEMI. Cardiology was consulted. Managed on aspirin, statin, Eliquis, atenolol. He underwent cardiac catheterization with no intervention pursued. He was recommended to have an outpatient ELIZABET to assess his aortic and mitral valve. Patient was found to require oxygen at discharge. He was discharged home with oxygen Subjective: Discharge, patient was seen and examined. He appeared tired. He said he did not sleep well the night before. Denies chest pain or shortness of breath. Objective: Physical Exam General: Alert, Oriented x3, Cooperative HEENT: Atraumatic, PERRLA, EOMI, Normocephalic Neck: Supple, No JVD, Negative Carotid Bruits Lungs: Clear to auscultation, Diminished Cardiovascular: Regular rate, Regular Rhythm, Normal S1, Normal S2, Murmur Abdomen: Bowel Sounds Present, Soft, Non Tender, Non-Distended Extremities: No clubbing, No cyanosis, No edema, Capillary Refill Less than 3 Seconds Skin: No rashes, No breakdown Musculoskeletal: No Tenderness to Palpation of Joints or Extremities Neurological: Cranial nerves II-XII grossly intact, Neuro grossly intact Psych/Mental Status: Normal Affect, Appropriate - Physical Exam Vital Signs Temp Pulse Resp BP Pulse Ox 98.2 F 52 L 16 108/66 87 05/19/18 14:15 05/19/18 15:00 05/19/18 14:15 05/19/18 14:15 05/19/18 15:50 Oxygen Flow Rate (L/min) [At 0 REST on Room Air] Oxygen Flow Rate (L/min) 3 Oxygen Delivery Method Nasal Cannula Weight: 75.9 kg Body Mass Index (BMI) 26.9 Intake and Output for Last 24 Hours 05/19/18 05/20/18 05/21/18 23:59 23:59 23:59 Intake Total 360 / 360 Output Total 1225 / 1225 Balance -865 / -865 Microbiology Past 72 Hours 05/14/18 13:48 Blood Culture - Final Blood Culture (Wb) - Right Hand No growth in 5 days. 05/14/18 13:30 Blood Culture - Final Blood Culture (Wb) - Anticubital Left No growth in 5 days. Code Visit Inpatient E&M: 21548 Disch Hosp
--- NOTE | 2018-05-19 15:59 | CASEMGMT ---
Addendum entered by Malini Aguillon 05/19/18 16:53: Call to [facility] and per pharmacist, pt's co-pay is $200 at this time but she is unable to tell this RN CM if this will be co-pay or if it is deductible at this time. This RN CM did apply a 30 day free trial card for pt at this time and card provided to pt's at this time. Pt/ updated on all at this time, voice understanding. Pt/ do state that they have an 'old concentrator' from pt's father in law and pt states he would like to try and use that. Advised pt that there is no way to know if that concentrator still works properly and advised pt that he is dropping to 87% RA just with sitting, pt/ voice understanding and agree to [employer] set up at this time. Pt is concerned about the co-pay for Eliquis at this time and advised pt/ to discuss with Dr. Galindo at f/u on 05/28/18, voice understanding. This RN CM will place call to Dr. Galindo's office tomorrow am to notify of pt concern and to f/u on Eliquis for pt. Starr RN DAYANA Original Note: Per Tremaine JENSEN, pt does qualify for home oxygen at rest at 87% at this time. Pt states no preference for home oxygen at this time and referral faxed to [facility] and call placed to [facility] at [facility] at this time as well to notify of referral. Eliquis also e-scribed to [facility] and this RN CM will place call to check coverage/co-pay. Pt updated on all at this time and voices understanding. Starr RN CM
--- NOTE | 2018-05-20 14:30 | CASEMGMT ---
This MIKEY ANNE spoke with Carole at Dr. Galindo's office and updated her on Eliquis co-pay, pt home oxygen and financial concerns at this time, voices understanding. Starr JENSEN CM
--- NOTE | 2018-05-20 15:51 | CASEMGMT ---
MIKEY ANNE F/U Phone Call LACE: 13 Strata: 4 Discharge date: 05/19/18 Call date: 05/20/18 Call time: [id number] Druation: 3 minutes Admission dx: Respiratory failure w/ hypoxia, bilat pna Pt states has been doing 'real good' since discharge yesterday. Pt states oxygen is all set up and pt states no concerns regarding same. Pt states that picked up prescriptions and he states that he is planning on keeping all f/u appt's as scheduled. Pt states no further questions/concerns/needs at this time. Pt states 'no complaints' with [facility] and 'Everybody was fantastic.' [place] MIKEY ANNE
== END 2018-05-19 17:45 | disposition home or self-care (01) | DRG 871 ==
LOC: ED 15:18 → PCU 15:44
PROVIDERS: Family Medicine; Internal Medicine Cardiovascular Disease; Nurse Practitioner Family; Physician Assistant; Admitting Provider Internal Medicine; Emergency Provider Emergency Medicine; Family Provider Family Medicine; PCP Family Medicine; Visit Provider Internal Medicine
DX: A41.9 Sepsis, unspecified organism (principal); J96.01 Acute respiratory failure with hypoxia; I21.4 Non-ST elevation (NSTEMI) myocardial infarction; I25.810 Atherosclerosis of coronary artery bypass graft(s) without angina pectoris; J44.1 Chronic obstructive pulmonary disease with (acute) exacerbation; J90 Pleural effusion, not elsewhere classified; I48.91 Unspecified atrial fibrillation; E89.0 Postprocedural hypothyroidism; I25.10 Atherosclerotic heart disease of native coronary artery without angina pectoris; I35.0 Nonrheumatic aortic (valve) stenosis; I34.0 Nonrheumatic mitral (valve) insufficiency; J10.1 Influenza due to other identified influenza virus with other respiratory manifestations; I10 Essential (primary) hypertension; E78.2 Mixed hyperlipidemia; Z87.11 Personal history of peptic ulcer disease; Z95.1 Presence of aortocoronary bypass graft; Z86.73 Personal history of transient ischemic attack (TIA), and cerebral infarction without residual deficits; Z79.02 Long term (current) use of antithrombotics/antiplatelets; Z79.899 Other long term (current) drug therapy
CPT/HCPCS: 36415; 36600; 71045; 71046; 71275; 80048; 80061; 81001; 82803; 83605; 83735; 83880; 84443; 84484; 85025; 85027; 85610; 85730; 87040; 87070; 87205; 87449; 87633; 93005; 93459; 94002; 94003; 94640; 94667; 94668; 99284; 99285; C1760; J7030; Q9967; A4216; C1769; C1894; J1940

== ENCOUNTER → 2018-06-04 06:23 | Outpatient (CLI) | payer MEDICARE, OTHER, SELFPAY ==
[2018-05-28 08:24] VITALS: BMI 29.0
--- NOTE | 2018-06-04 09:10 | STRESSREP ---
Stress Test Report Pharmacologic myocardial perfusion stress test. 78-year-old man with a history of chest pain. Stress protocol: Resting EKG demonstrates sinus bradycardia with a rate of 56 bpm normal intervals are noted resting blood pressure is 120/64 mmHg. Left bundle branch block pattern was noted. 0.4 mg of regadenoson was infused per usual protocol followed by rapid intravenous saline flush injection continuous EKG monitoring was performed. The maximum heart rate attained was 80 bpm which was 55% of maximum predicted heart rate the maximum workload was 1 metabolic equivalent. The patient maintained sinus rhythm throughout the recording. At rest there were no ST or T wave changes noted suggest abnormal flow reserve at peak infusion nonspecific ST-T wave changes were noted with normally the criteria for ischemia. The resting blood pressure 120/64 with a final blood pressure 102/54. Myocardial perfusion protocol. 11.8 mCi of technetium 99m sestamibi was injected at rest. 0.4 mg of regadenoson was infused per usual protocol peak infusion 33.4 mCi of technetium 99m sestamibi was injected stress images were obtained stress and rest images were reconstructed and compared in the short axis vertical long horizontal long axis. Gated images were also obtained next Perfusion SPECT analysis: Review of the stress images demonstrate normal uptake of tracer noted in all areas of myocardium. The rest images similarly demonstrate normal uptake of tracer noted in all areas of the myocardium. No areas of reversibility are noted suggest ischemia. Gated SPECT analysis: The gated ejection fraction is noted to be 61%. Conclusion: Normal pharmacologic myocardial perfusion stress test. Preserved ejection fraction.
== END ==
PROVIDERS: Family Provider Family Medicine; PCP Family Medicine; Referring Provider Internal Medicine Cardiovascular Disease; Visit Provider Internal Medicine Cardiovascular Disease
DX: I25.10 Atherosclerotic heart disease of native coronary artery without angina pectoris (principal); Z95.1 Presence of aortocoronary bypass graft
CPT/HCPCS: 78452; 93017; A9500; A4216; J2785

== ENCOUNTER 2018-06-09 09:44 | Outpatient (CLI) | payer MEDICARE, OTHER, SELFPAY ==
[2018-05-28 08:24] VITALS: BMI 29.0
--- NOTE | 2018-06-09 09:47 | ECHOTEE_ITS ---
Reason For Study: MURMUR Medication ELIZABET probe passed with minimal difficulty. No complications were noted. Versed 1 mg given slow IVP. Fentanyl 25 mcg given slow IVP. Performed a rapid injection of agitated mix of 9 cc saline and 1cc air to assess for atrial septal defect. Cetacaine Topical [place] given X3 orally. Left Ventricle Normal LV size. Left ventricular systolic function is normal. The estimated ejection fraction is 65 %. No regional wall motion abnormalities noted. Right Ventricle Normal RV size. Normal systolic function. Atria Intact atrial septum. The left atrium is mildly enlarged. No thrombus is detected in the left atrial appendage. Normal right atrium. Mitral Valve Normal mitral valve. Mild-Moderate (1-2+) anteriorly directed mitral valve insufficiency. Tricuspid Valve Normal tricuspid valve. Mild (1+) tricuspid valve insufficiency. Aortic Valve Trisinus/trileaflet aortic valve. Moderate restriction of the aortic valve. Mild (1+) aortic valve insufficiency. Pulmonic Valve Normal pulmonic valve. Vessels Mild atherosclerosis of the ascending aorta. Mild atherosclerosis of the aortic arch. The pulmonary artery is normal size. Pulmonary venous flow normal. Pericardium No pericardial effusion. MMode/2D Measurements & Calculations Aortic Valve Planimetry: 1.4 cm2 Interpretation Summary Normal LV size. Left ventricular systolic function is normal. The estimated ejection fraction is 65 %. Mild-Moderate (1-2+) anteriorly directed mitral valve insufficiency. Mild (1+) tricuspid valve insufficiency. Moderate restriction of the aortic valve. Mild (1+) aortic valve insufficiency. Ordering Physician: Abhishek Galindo Referring Physician: Abhishek Galindo Performed By: Ann Mcarthur RDCS
[2018-06-09 10:30] VITALS: BMI 29.0
== END 2018-06-09 13:50 | disposition home or self-care (01) ==
LOC: CVS 09:45
PROVIDERS: Family Provider Family Medicine; PCP Family Medicine; Referring Provider Internal Medicine Cardiovascular Disease; Visit Provider Internal Medicine Cardiovascular Disease
DX: R01.1 Cardiac murmur, unspecified (principal); I34.0 Nonrheumatic mitral (valve) insufficiency; I35.9 Nonrheumatic aortic valve disorder, unspecified
CPT/HCPCS: 93312; 93320; 93325; 99152; 99153; A4216

== ENCOUNTER → 2018-06-17 10:13 | Outpatient (CLI) | payer MEDICARE, OTHER, SELFPAY ==
[2018-06-09 10:30] VITALS: BMI 29.0
== END ==
PROVIDERS: Family Provider Family Medicine; PCP Family Medicine; Referring Provider Dermatology; Visit Provider Dermatology
DX: L02.01 Cutaneous abscess of face (principal)
CPT/HCPCS: 87070; 87186; 87205

== ENCOUNTER → 2018-07-04 13:20 | Outpatient (CLI) | payer MEDICARE, OTHER, SELFPAY ==
[2018-06-09 10:30] VITALS: BMI 29.0
[2018-07-04 14:12] LABS: Anion Gap 4 (5-15); BUN 16 mg/dL (7-18); BUN/Creat Ratio 17.6 RATIO (10-20); Chloride 107 mmol/L (98-107); Creatinine, Serum 0.91 mg/dL (0.70-1.30); EST Glomerular Filtration Rate 86 mL/min (>60); Est Glom Filt Rate - Afr Amer 104 mL/min (>60); Glucose 138 mg/dL (74-106); Potassium 3.5 mmol/L (3.5-5.1); Sodium Level 145 mmol/L (136-145)
[2018-07-04 14:20] LABS: BNP,B-Type NATRIURETIC PEPTIDE 394.7 pg/mL (0-100)
== END ==
PROVIDERS: Family Provider Family Medicine; PCP Family Medicine; Referring Provider Nurse Practitioner Family; Visit Provider Nurse Practitioner Family
DX: I10 Essential (primary) hypertension (principal); R06.02 Shortness of breath
CPT/HCPCS: 36415; 80048; 83880

== ENCOUNTER → 2018-07-05 07:05 | Outpatient (CLI) | payer MEDICARE, OTHER, SELFPAY ==
[2018-06-09 10:30] VITALS: BMI 29.0
[2018-07-05 09:09] LABS: Thyroid Stim Hormone (TSH) 2.42 uIU/mL (0.358-3.74)
== END ==
PROVIDERS: Family Provider Family Medicine; PCP Family Medicine; Referring Provider Family Medicine; Visit Provider Family Medicine
DX: E03.9 Hypothyroidism, unspecified (principal)
CPT/HCPCS: 36415; 84443

== ENCOUNTER → 2019-09-10 12:44 | Outpatient (CLI) | payer MEDICARE, OTHER, SELFPAY ==
--- NOTE | 2019-09-10 12:47 | ECHOD_ITS ---
Reason For Study: AORTIC STENOSIS Left Ventricle Normal LV size. Sigmoid septum. Moderate concentric left ventricular hypertrophy. Left ventricular systolic function is normal. The estimated ejection fraction is 55 %. No regional wall motion abnormalities noted. Right Ventricle Normal RV size. Normal systolic function. Atria Normal left atrium. Normal right atrium. Mitral Valve There is mild mitral annular calcification. Tricuspid Valve Normal tricuspid valve. Mild (1+) tricuspid valve insufficiency. Pulmonary artery systolic pressure is 38 mmHg. Aortic Valve Trisinus/trileaflet aortic valve. Moderate focal aortic valve calcification. Peak aortic valve gradient 57 mmHg. Mean aortic valve gradient 36 mmHg. Calculated aortic valve area (continuity equation) is 1.3 cm2. Moderate aortic stenosis. Mild (1+) eccentric aortic valve insufficiency. Pulmonic Valve Normal pulmonic valve. Great Vessels Mildly dilated aortic root. The pulmonary artery is normal size. Normal inferior vena cava. Pericardium/Pleural No pericardial effusion. MMode/2D Measurements & Calculations LVIDd: 4.7 cm IVSd: 1.4 cm LVOT diam: 2.2 cm LVIDs: 3.6 cm LVPWd: 1.4 cm LVOT area: 3.9 cm2 RVDd: 3.9 cm FS: 23.5 % Ao root diam: 4.0 cm LAV(MOD-bp): 62.3 ml LVAd ap4: 47.7 cm2 LAV(MOD-bp) Indexed: 34.0 ml/m2 EDV(MOD-sp4): 167.6 ml LAV(MOD-sp2): 54.0 ml EDV(sp4-el): 185.8 ml LAV(MOD-sp4): 71.2 ml LVAs ap4: 27.3 cm2 ESV(MOD-sp4): 73.9 ml ESV(sp4-el): 76.9 ml EF(MOD-sp4): 55.9 % EF(sp4-el): 58.6 % SV(MOD-sp4): 93.6 ml SV(sp4-el): 108.8 ml Aortic Valve Planimetry: 1.3 cm2 LA A4 area: 22.5 cm2 LA dimension(2D): 4.4 cm RA A4 area: 14.8 cm2 Time Measurements MV dec time: 0.35 sec Doppler Measurements & Calculations MV E max mick: 98.1 cm/sec Lat Peak E' Mick: 6.8 cm/sec Med Peak E' Mick: 4.3 cm/sec MV A max mick: 127.1 cm/sec E/E' lat: 14.3 E/E' med: 23.0 MV E/A: 0.77 MV V2 max: 129.6 cm/sec Ao V2 max: 378.9 cm/sec AI max mick: 361.8 cm/sec MV max P.7 mmHg Ao max P.5 mmHg AI max P.4 mmHg MV V2 mean: 93.1 cm/sec Ao V2 mean: 289.9 cm/sec MV mean P.7 mmHg Ao mean P.1 mmHg AI dec slope: 274.2 cm/sec2 MV V2 VTI: 40.4 cm Ao V2 VTI: 88.5 cm AI P1/2t: 386.5 msec MVA(VTI): 2.7 cm2 AMIE(I,D): 1.2 cm2 AMIE(V,D): 1.3 cm2 LV V1 max: 129.2 cm/sec SV(LVOT): 108.5 ml PA V2 max: 132.6 cm/sec LV V1 max P.7 mmHg LV V1 mean P.2 mmHg LV V1 mean: 97.3 cm/sec LV V1 VTI: 27.8 cm PI end-d mick: 110.5 cm/sec TR max mick: 292.6 cm/sec MV P1/2t-pr_phl: 80.8 msec TR max P.3 mmHg Interpretation Summary Normal LV size. Left ventricular systolic function is normal. Mean aortic valve gradient 36 mmHg. Moderate concentric left ventricular hypertrophy. Moderate focal aortic valve calcification. Calculated aortic valve area (continuity equation) is 1.3 cm2. Moderate aortic stenosis. Pulmonary artery systolic pressure is 38 mmHg. Ordering Physician: Shyla Ash Referring Physician: LAUREN JACKSON Performed By: Genet Quiroz RDCS, RVT
== END ==
PROVIDERS: PCP Student in an Organized Health Care Education/Training Program; Referring Provider Nurse Practitioner Family; Visit Provider Nurse Practitioner Family
DX: I35.0 Nonrheumatic aortic (valve) stenosis (principal)
CPT/HCPCS: 93306

== ENCOUNTER 2019-11-22 11:07 | Emergency (ER) | payer MEDICARE, OTHER, SELFPAY ==
[2019-11-22 11:11] VITALS: BP 89/50; PULSE 56; RESP 16; TEMP 36.3; O2SAT 97; BMI 27.6
--- NOTE | 2019-11-22 11:30 | EKG12_ITS ---
Test Reason : SYNCOPE Blood Pressure : / mmHG Vent. Rate : 055 BPM Atrial Rate : 055 BPM P-R Int : 284 ms QRS Dur : 168 ms QT Int : 472 ms P-R-T Axes : 018 -34 126 degrees QTc Int : 451 ms Sinus bradycardia with 1st degree A-V block Left axis deviation Left bundle branch block Abnormal ECG Confirmed by SHELDON OCHOA, MIGUEL ([id number]), subeditor JUSTIN BRIONES ([id number]) on 11/24/2019 1:24:53 PM Referred By: BLANKA Confirmed By:MIGUEL CHUNG MD
--- NOTE | 2019-11-22 11:44 | ED.DCSUM_ITS ---
History of Present Illness Chief Complaint: Syncope Informant: Patient Onset: Today Narrative: 79-year-old male with past medical history of HTN, HLD, CABG, aortic stenosis, hypothyroidism, TIA, vertigo presents with syncopal episode. 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 states he briefly lost consciousness. People next to him caught him and lowered him to the seat. No fall or head injury. He was awake after seconds and states he had vertigo described as room spinning. Denies fevers, chills, chest pain, dyspnea, nausea, vomiting, vision changes, speech changes, or focal motor or sensory changes. No tongue bite, incontinence, or convulsions. Past Medical History - Allergies and Home Meds Allergies/Adverse Reactions: Allergies caffeine Allergy (Mild, Verified 11/22/19 11:09) Unknown bee venom protein (honey bee) Allergy (Verified 11/22/19 11:09) Swelling Penicillins Allergy (Verified 11/22/19 11:09) Hives Primary Care Physician: Renato Coyle DO [Primary Care Provider] - Past Medical History: - - Hypertension, hyperlipidemia, CABG, aortic stenosis, TIA, vertigo Surgical History: coronary bypass surgery Smoking Status: Former smoker - Family History Maternal Family History: Family History (Last Reviewed 05/28/18 @ 15:[address] Abhishek Galindo MD) Other Heart disease Family History: Reports: No pertinent history Paternal Family History: Family History (Last Reviewed 05/28/18 @ 15:[address] Abhishek Galindo MD) Other Heart disease Family History: Reports: No pertinent history Review of Systems General: Denies: Chills, Fever, Sweats Eyes: Denies: Visual changes - bilaterally, Diplopia ENT: Denies: Rhinorrhea, Sore throat Cardiovascular: Denies: Chest pain, Palpitations Respiratory: Denies: Dyspnea, Cough, Dyspnea on exertion Gastrointestinal: Denies: Abdominal pain, Nausea, Vomiting, Diarrhea, Melena, Hematochezia Genitourinary: Denies: Dysuria, Hematuria, Frequency Musculoskeletal: Denies: Back pain, Extremity Pain Skin: Denies: Rash, Wounds Neurological: Reports: - - syncope. Denies: Headache, Weakness, Numbness Physical Exam Vital Signs/Narrative: Vital Signs Temp Pulse Resp BP Pulse Ox 11/22/19 11:11 97.4 F L 56 L 16 89/50 L 97 Inital Vital Signs reviewed: Yes General: Well nourished, Well developed, No Acute Distress Head: Normocephalic, Atraumatic Eyes: Perrl, EOMI ENT: Moist mucous membranes, No rhinorrhea Neck: Supple, Nontender Cardiovascular: Regular rate, Regular rhythm, Murmur, - - aortic stenosis murmur Respiratory: No distress, CTA bilaterally, Chest nontender Abdomen: Soft, Nontender, Nondistended, Normal bowel sounds Back: Nontender, Normal Inspection Extremities: Nontender, No edema Skin: Normal color, No rash Neurological: Alert, Oriented x3, Cranial nerves II-XII grossly intact, Normal Strength, Normal Sensation Psychological: Normal affect, Normal Mood Diagnostic/Tx/Re-eval Clinical Impression(s) from Imaging Studies Chest X-Ray 11/22/19 12:00 IMPRESSION: Stable, nonacute portable x-ray examination of the chest. Electronically Signed: Jose A Bautista MD ([place]) at 12:20 EDT , Service support , Laboratory Data 11/22/19 11/22/19 11:32 11:32 WBC 7.1 RBC 4.41 L Hgb 12.3 L Hct 38.8 L MCV 88.0 MCH 27.9 MCHC 31.7 L RDW Std Deviation 46.3 H RDW Coeff of Dominic 14.5 Plt Count 262 MPV 10.0 Immature Gran % (Auto) 0.300 Neut % (Auto) 73.7 H Lymph % (Auto) 14.0 L Walsh % (Auto) 9.4 Eos % (Auto) 2.0 Baso % (Auto) 0.6 Absolute Neuts (auto) 5.3 Absolute Lymphs (auto) 1.00 Nucleated RBC % 0 Sodium 141 Potassium 4.3 Chloride 105 Carbon Dioxide 32.0 Anion Gap 4 L BUN 16 Creatinine 1.18 Estim Creat Clear Calc 47.31 Est GFR (MDRD) Af Amer 77 Est GFR (MDRD) Non-Af 64 BUN/Creatinine Ratio 13.6 Glucose 103 Calcium 8.5 Troponin I < 0.015 - Rhythm Strip Rhythm Strip: Sinus bradycardia with 1st degree AV block Rate: 55 - Medical Decision Making Patient appears well and nontoxic. Vital signs remarkable for BP of 89/50, HR 55, otherwise normal. He has a normal neurological exam. Labs and troponin are negative. After IV fluids BP improved to 140s/50s. Patient states his heart rate is always in the 50s to 60s and he is on a beta-chris. Orthostatic vital signs were obtained after fluids and are negative. Chest x-ray showed no acute process. Laron-Hallpike manuever reproduced vertigo and he was treated with mecli zine and phenergan. He is feeling significantly improved with resolution of vertigo. With a normal neurological exam and episode consistent with his history of BPPV I have no concern for stroke. His records were reviewed and he had an Echo on 09/2019 which showed normal EF and moderate aortic stenosis but no critical stenosis. Patient's history and work-up were consistent with an orthostatic cause of his symptoms and I believe he is safe for outpatient follow-up. He was agreeable with this plan and discharged home in stable condition. ED Disposition - Plan for ED Patient: Disposition: Home or Assisted Living Diagnosis: Dehydration, Syncope Instructions: ED Dehydration Adult, ED Hypotension Orthostatic Referrals: Renato Coyle DO [Primary Care Provider] -
[2019-11-22 11:45] LABS: Absolute Neutrophil Count 5.3 X10^3/uL (2.0-7.7); Basophil# 0.04 X10^3/uL; Basophil% 0.6 % (0-1); Eosinophil# 0.14 X10^3/uL; Hematocrit 38.8 % (40-54); Hemoglobin 12.3 g/dL (13.0-16.5); Mean Corp Hgb Conc 31.7 g/dL (32-36); Mean Corpuscular Hgb 27.9 pg (27.0-32.0); Monocyte# 0.67 X10^3/uL; Monocyte% 9.4 % (0-10); NRBC Flagged by Analyzer 0 % (0-5); Neutrophil # 5.25 X10^3/uL (2.7-7.7); Neutrophil % 73.7 % (47-70); Platelet Count 262 K/mm3 (150-450); RBC Distribution Width CV 14.5 % (11.6-14.6); RBC Distribution Width SD 46.3 fl (35.1-43.9); Red Blood Count 4.41 M/mm3 (4.6-6.2); White Blood Count 7.1 K/mm3 (4.4-11.0)
[2019-11-22] MEDS: 0.9% Normal Saline 1,000 ML 999 ML IV (12:00)
--- NOTE | 2019-11-22 12:00 | RAD_ITS ---
STUDY: X-RAY CHEST REASON FOR EXAM: Male, 79 years old. patient passed out this morning TECHNIQUE: AP COMPARISON: 05/16/2018 FINDINGS: EKG leads project over the chest. Right hemidiaphragm remains elevated. Sternal wires and mediastinal surgical clips compatible with prior CABG. There is atelectasis in the lung bases. There is no demonstrated pleural abnormality. Stable size heart. Normal mediastinum and kacy. Normal visualized pulmonary arteries. Normal visualized aortic arch and descending thoracic aorta. No acute bony process. There is no demonstrated abnormality of the visualized soft tissue structures of the upper abdomen. RAD/Chest 1 View (Portable) IMPRESSION: Stable, nonacute portable x-ray examination of the chest. Electronically Signed: Jose A Bautista MD ([place]) at 12:20 EDT , Service support ,
[2019-11-22 12:03] LABS: Anion Gap 4 (5-15); BUN 16 mg/dL (7-18); BUN/Creat Ratio 13.6 RATIO (10-20); Calcium,Total 8.5 mg/dL (8.5-10.1); Chloride 105 mmol/L (98-107); Creatinine, Serum 1.18 mg/dL (0.70-1.30); EST Glomerular Filtration Rate 64 mL/min (>60); Est Glom Filt Rate - Afr Amer 77 mL/min (>60); Estimated Creatinine Clearance 47.31 ml/min; Glucose 103 mg/dL (74-106); Potassium 4.3 mmol/L (3.5-5.1); Sodium Level 141 mmol/L (136-145)
[2019-11-22 13:12] VITALS: BP 122/53; PULSE 53; RESP 17; O2SAT 96
[2019-11-22 14:31] VITALS: BP 126/56; BP 140/62; BP 143/62; PULSE 57; PULSE 60
[2019-11-22] MEDS: Meclizine HCl 25 MG Tablet PO (14:39)
[2019-11-22] MEDS: proMETHazine 25 MG/ML Syringe 12.5 MG IM (14:40)
== END 2019-11-22 15:08 | disposition home or self-care (01) ==
PROVIDERS: Emergency Provider Physician Assistant; PCP Student in an Organized Health Care Education/Training Program
DX: R55 Syncope and collapse (principal); E86.0 Dehydration; I35.0 Nonrheumatic aortic (valve) stenosis; I10 Essential (primary) hypertension; E03.9 Hypothyroidism, unspecified; E78.5 Hyperlipidemia, unspecified; Z79.01 Long term (current) use of anticoagulants; Z79.899 Other long term (current) drug therapy; Z95.1 Presence of aortocoronary bypass graft; Z86.73 Personal history of transient ischemic attack (TIA), and cerebral infarction without residual deficits; Z87.891 Personal history of nicotine dependence
CPT/HCPCS: 71045; 80048; 84484; 85025; 93005; 96360; 96361; 96372; 99285; J7030; A4216

== ENCOUNTER → 2019-12-03 06:44 | Outpatient (CLI) | payer MEDICARE, OTHER, SELFPAY ==
[2019-11-22 11:11] VITALS: BMI 27.6
--- NOTE | 2019-12-03 14:49 | STRESSREP_ITS ---
Stress Test Report Date: 12/03/2019 Procedure: Pharmacologic stress nuclear imaging study Indications: Syncope Consent: Per the patient Procedure: The patient underwent pharmacologic (Regadenoson) evaluation with a peak heart rate of 80 beats per minute (55% predicted maximal heart rate) and a peak blood pressure of 180/74 mmHg. The baseline ECG demonstrated sinus rhythm with nonspecific intraventricular conduction delay. EKG during lexiscan infusion revealed no significant change from baseline. EKG post infusion revealed no significant change from baseline [There were no cardiac dysrhythmias pretest, during pharmacologic infusion, or recovery]. [There was no complaint of chest discomfort during pharmacologic infusion or recovery]. The examination was discontinued secondary to completion of protocol. Impression: 1. Lexiscan stress test test is negative for Lexiscan infusion induced EKG changes of ischemia. 2. Lexiscan stress test test is negative for Lexiscan infusion induced chest pain. 3. Results of the nuclear portion of the test is as below Myocardial perfusion imaging study: Technique: The patient was injected with 10 millicuries of technetium 99m Cardiolite and subsequently rest SPECT Cardiolite nuclear imaging was obtained in the horizontal long, vertical long, and short axis views. The patient underwent pharmacologic (Regadenoson) evaluation. Please see above for details. The patient was injected with 36 millicuries of technetium 99m Cardiolite and subsequently stress SPECT Cardiolite nuclear imaging was obtained in the horizontal long, vertical long, and short axis views. A gated Cardiolite study at peak stress was obtained. Interpretation: Rest and stress SPECT Cardiolite nuclear imaging status post realignment, normalization, and attenuation correction demonstrate mildly decreased radioisotope uptake in the inferior wall on both the rest and stress images. After attenuation correction there is normal uptake in the inferior wall. This is suggestive of diaphragmatic attenuation artifact. There are no large reversible defect suggestive of ischemia. Gated images reveal septal hypokinesis that is likely related to prior CABG. The reported LVEF is 47%. Impression: 1. There is no evidence of significant ischemia. 2. Estimated ejection fraction is 47%. This note was generated with [employer] software. It may contain incorrect words, spelling, and punctuation that were not noted in checking the note before signing.
== END ==
PROVIDERS: PCP Student in an Organized Health Care Education/Training Program; Referring Provider Nurse Practitioner Family; Visit Provider Nurse Practitioner Family
DX: R55 Syncope and collapse (principal); I45.89 Other specified conduction disorders; R06.00 Dyspnea, unspecified
CPT/HCPCS: 78452; 93017; A9500; A4216; J2785

== ENCOUNTER 2019-12-28 04:30 | Inpatient (IN) | payer MEDICARE, OTHER, SELFPAY ==
[2019-12-28] VITALS (29 sets, daily range): BP systolic 90–196; BP diastolic 35–128; PULSE 54–122; RESP 19–32; TEMP 35.7–38.7; O2SAT 90–99; BMI 28.3; BMI 26.9; BMI 27.0
--- NOTE | 2019-12-28 05:05 | EKG12_ITS ---
Test Reason : SOB Blood Pressure : / mmHG Vent. Rate : 105 BPM Atrial Rate : 105 BPM P-R Int : 184 ms QRS Dur : 172 ms QT Int : 376 ms P-R-T Axes : 035 -19 117 degrees QTc Int : 496 ms Sinus tachycardia Left bundle branch block Abnormal ECG Confirmed by SHELDON OCHOA, MIGUEL ([id number]), assistant film editor REGINA AHUMADA ([id number]) on 12/29/2019 10:37:18 AM Referred By: MONICA Confirmed By:MIGUEL CHUNG MD
[2019-12-28] MEDS: Acetaminophen 500 MG Tablet 1000 MG PO (05:11)
[2019-12-28 05:22] LABS: Absolute Neutrophil Count 6.6 X10^3/uL (2.0-7.7); Basophil# 0.03 X10^3/uL; Basophil% 0.3 % (0-1); Eosinophil# 0.05 X10^3/uL; Eosinophils% 0.6 % (0-5); Hematocrit 47.3 % (40-54); Hemoglobin 14.7 g/dL (13.0-16.5); Lymphocyte % 10.5 % (19-41); Mean Corp Hgb Conc 31.1 g/dL (32-36); Mean Corpuscular Hgb 27.5 pg (27.0-32.0); Mean Corpuscular Volume 88.6 fL (80-94); Mean Platelet Vol. 9.9 fl (6.2-12.0); Monocyte# 1.01 X10^3/uL; Monocyte% 11.7 % (0-10); NRBC Flagged by Analyzer 0 % (0-5); Neutrophil # 6.59 X10^3/uL (2.7-7.7); Neutrophil % 76.7 % (47-70); Platelet Count 210 K/mm3 (150-450); RBC Distribution Width CV 14.2 % (11.6-14.6); RBC Distribution Width SD 45.3 fl (35.1-43.9); Red Blood Count 5.34 M/mm3 (4.6-6.2); White Blood Count 8.6 K/mm3 (4.4-11.0)
[2019-12-28 05:27] LABS: Prothrombin Time (Protime)PT. 12.4 SECONDS (11.7-14.9)
[2019-12-28 05:28] LABS: Partial Thromboplast Time 31.2 Seconds (24.1-36.2)
[2019-12-28 05:39] LABS: Bacteria 0 SEEN /hpf (None Seen); Mucous, Urine 0 SEEN /hpf (<or=2+); Squamous Epithelial Cells - UA 0 SEEN /hpf (0-5)
--- NOTE | 2019-12-28 05:41 | ED.VISSUMM ---
- ER Visit Summary Date of Service: 12/28/19 Chief Complaint: Shortness of breath History of Present Illness: The patient is a 79 M who presents with shortness of breath that began today. Patient states he feels heaviness in his chest. Patient states this feels similar to prior episodes of pneumonia. Patient states nothing makes his breathing better or worse. Patient admits to fevers and chills. Patient states his temperature is up to 101 at home. Patient admits to some rhinorrhea. Patient denies any loss of taste or smell. Patient admits to some pain in his chest. Patient admits to a cough but is unable to produce any sputum. Patient denies any nausea or vomiting. Physical Examination: Vital signs are stable except for a tachypnea of 27 and an elevated blood pressure of 196/87. Patient also has a mild tachycardia of 107. Patient has a temperature of 101.6 here. Oral mucosa is pink and moist. Neck is supple. Trachea is midline. There is no JVD. Heart was regular rate and rhythm. Lungs showed expiratory wheezes and rhonchi. There is adequate respiratory effort noted. There are no retractions noted. Abdomen is soft. Bowel sounds are normal. There is no tenderness. Cranial nerves II through XII are intact. There are no focal motor or sensory deficits. Test Results: EKG showed sinus tachycardia with a rate of 105. There is a left bundle branch block pattern noted. There were no acute changes noted. This was unchanged compared to previous EKG dated 11/22/2019. Portable chest x-ray was obtained. There is no acute cardiopulmonary process. This was interpreted by the radiologist and reviewed by myself. CBC and comprehensive metabolic profile were essentially within normal limits. PT with INR and PTT were normal. Urinalysis showed occult blood of 250 but there were 0 red blood cells. There were 10-25 white blood cells. COVID-19 test was ordered and is pending. Emergency Department Course and Treatment: Patient was given albuterol inhaler here. Because of the hypoxia and normal chest x-ray, CTA of the chest was added. This is pending. Care of the patient was turned over to the oncoming physician pending results of CTA. Disposition: Likely admission to the hospital Impression: 1. Hypoxia This note was generated with [employer] software. It may contain incorrect words, spelling, and punctuation that were not noted in review of the chart prior to signing ED Disposition - Plan for ED Patient: Referrals: Renato Coyle DO [Primary Care Provider] -
[2019-12-28 05:42] LABS: Color, Urine Yellow (Yellow); Glucose, Dipstick Normal (Normal); Ketone-Dipstick 5 mg/dl (Negative); Leukocyte Esterase-Dipstick Negative /ul (Negative); Nitrite-Dipstick Negative (Negative); Occult Blood-Urine 250 /ul (Negative); Protein-Dipstick 100 mg/dl (Negative); Specific Gravity, Urine 1.025 (1.002-1.030); Urine Bilirubin Dipstick Negative (Negative); Urine Clarity Clear (Clear); Urine Urobilinogen Normal (Normal)
[2019-12-28 05:44] LABS: ALB/GLOB Ratio 0.9 RATIO (0.9-2.4); AST(SGOT) 34 U/L (15-37); Alanine Aminotransfer ALT/SGPT 40 U/L (16-61); Alkaline Phosphatase 150 U/L (45-117); Anion Gap 5 (5-15); BUN 14 mg/dL (7-18); BUN/Creat Ratio 13.6 RATIO (10-20); Calcium,Total 8.9 mg/dL (8.5-10.1); Chloride 105 mmol/L (98-107); Creatinine, Serum 1.03 mg/dL (0.70-1.30); EST Glomerular Filtration Rate 74 mL/min (>60); Est Glom Filt Rate - Afr Amer 90 mL/min (>60); Globulin 4.7 g/dL (2.2-4.2); Glucose 100 mg/dL (74-106); Lactic Acid 1.2 mmol/L (0.4-1.9); Potassium 3.8 mmol/L (3.5-5.1); Protein, Total 8.7 g/dL (6.4-8.2); Sodium Level 140 mmol/L (136-145)
--- NOTE | 2019-12-28 05:58 | RAD_ITS ---
STUDY: X-RAY CHEST REASON FOR EXAM: Male, 79 years old. FEVER AND COUGH TECHNIQUE: Single AP portable view of the chest. COMPARISON: November 22, 2019 chest x-ray FINDINGS: The lungs are stable when compared to prior study. There is elevation of the right hemidiaphragm. There is linear scarring or fibrotic change in the left lower lobe. There is no demonstrated pleural abnormality. Sternal cerclage wires are present from a prior sternotomy. Normal mediastinum and kacy. Normal visualized pulmonary arteries. Normal visualized aortic arch and descending thoracic aorta. Normal visualized thoracic spine. Normal visualized ribs, clavicles, and shoulders. There is no demonstrated abnormality of the visualized soft tissue structures of the upper abdomen. RAD/Chest 1 View (Portable) IMPRESSION: Status post CABG. Stable chest. No significant change since prior study. Electronically Signed: Carolyn Martinez MD at 6:34 EDT Tel , Service support ,
[2019-12-28 06:26] LABS: Red Blood Cells-Urine 0-5 SEEN /hpf (0-5); White Blood Cells 10-25 SEEN /hpf (0-5)
--- NOTE | 2019-12-28 07:12 | CT_ITS ---
STUDY: CTA CHEST REASON FOR EXAM: Male, 79 years old. SOB/COUGH/FEVER -- PENDING COVID TEST -- HX-TIA,AFIB,CABG,COPD,HTN RADIATION DOSAGE (If Supplied By Facility): CTDIvol = ( 12.52 ) mGy, DLP = ( 371.28 ) mGycm TECHNIQUE: The examination was performed with the intravenous administration of IV 100mL [id number]-300. Post-processing of the angiographic images was performed, with multiplanar reformation and 3D reconstruction. Individualized dose optimization techniques were used for this CT. COMPARISON: Comparison is made with prior examination dated 05/14/2018. FINDINGS: Normal enhancement of the main pulmonary artery and right and left pulmonary arteries. Normal enhancement of the bilateral peripheral pulmonary arteries. There is no demonstrated pulmonary embolism. There is atherosclerotic calcification of the aortic arch with tortuosity. There is no demonstrated aortic dissection. Sternal cerclage wires and vascular clips are present from a prior sternotomy and coronary artery bypass graft procedure (CABG). There are visualized mediastinal lymph nodes, which are within normal size limits, and with normal morphology. Calcified right hilar lymph nodes. Normal visualized trachea and bronchi. The lungs are well expanded. Increased markings at the lung bases with areas of confluence. These have improved as compared to prior study. This most likely represents chronic fibrosis. A calcified granuloma is seen in the right lower lobe. Calcified pleural plaques at the left lung base. Normal chest wall structures. There are degenerative changes of thoracic spine. Stable 2.7 cm x 2.9 cm fat-containing nodule in the right adrenal gland most likely representing an adrenal adenoma. Scattered splenic granulomas. Scattered hepatic granulomas. CT/CTA Chest W/WO Contrast IMPRESSION: No evidence of pulmonary emboli. Findings suggestive scarring at the lung bases. Calcified pleural plaques on the left side. Stable fat-containing nodule in the right adrenal gland as well as calcified hepatic and splenic granulomas. Electronically Signed: Chase Ruff, at 9:09 EDT , Service support ,
[2019-12-28] MEDS: Aspirin 81 MG TAB.CHEW 324 MG PO (10:48)
[2019-12-28] MEDS: Ceftriaxone 1 GM/50 ML BAG IV (10:48)
[2019-12-28 11:23] LABS: D-Dimer Quantitative (DVT/PE) 0.88 FEU/ug/m (0.27-0.49)
--- NOTE | 2019-12-28 13:03 | NURSING ---
ICU 5
--- NOTE | 2019-12-28 13:11 | PCM.HP.STD ---
History of Present Illness Date of Admission: 12/28/19 Chief Complaint: Shortness of breath The patient is a 79 year old M with PMH as below who presents to the hospital with shortness of breath. He says that his illness first started yesterday with an elevated temperature and some rhinorrhea with a little bit of a cough. He said today that his shortness of breath became even worse which is why he presented to the hospital. In the ER he was hypoxic and placed on oxygen, he is currently requiring 6 L via nasal cannula. He had a CTA of his chest which was unremarkable, and he was also complaining of some chest heaviness with troponin of 0.133. He does have a cardiac history and he is on Eliquis already. Lactic acid was unremarkable, and respiratory panel was normal, however he did test positive for COVID-19. He denies any sick contacts at home says he has not gone to congregational or any mass gatherings. Denies going shopping, but states that he has had interactions with his grandchildren and his daughter. Past Medical History Past Medical History (Chronic Problems): Chronic Problems (Last Updated 06/09/18 @ 17:20 by Tori Lujan) Left bundle branch block (Chronic) Paroxysmal atrial fibrillation (Chronic) Nonrheumatic mitral (valve) insufficiency (Chronic) Non-rheumatic aortic stenosis (Chronic) H/O coronary artery bypass surgery (Chronic) CABG x 3: SPARKS-LAD, SVG-RPDA, ANAY-Acute [place] Essential (primary) hypertension (Chronic) Atherosclerosis of coronary artery of [place] heart without angina pectoris (Chronic) CABG x 3: SPARKS-LAD, SVG-RPDA, ANAY-Acute [place] SOB (shortness of breath) (Chronic) 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) Hyperlipidemia (Chronic) Medical History: Medical History (Last Updated 06/09/18 @ 17:20 by Tori Lujan) Left bundle branch block (Chronic) I44.7 Paroxysmal atrial fibrillation (Chronic) I48.0 Nonrheumatic mitral (valve) insufficiency (Chronic) I34.0 Non-rheumatic aortic stenosis (Chronic) I35.0 Essential (primary) hypertension (Chronic) I10 Atherosclerosis of coronary artery of [place] heart without angina pectoris (Chronic) I25.10 CABG x 3: SPARKS-LAD, SVG-RPDA, ANAY-Acute [place] 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) Z86.73 Hyperlipidemia (Chronic) E78.5 COPD (chronic obstructive pulmonary disease) J44.9 Hypothyroidism E03.9 PUD (peptic ulcer disease) K27.9 Cancer (Resolved) C80.1 Hemorrhoids (Resolved) K64.9 Thyroid cancer C73 Allergies caffeine Allergy (Mild, Verified 12/28/19 04:35) Unknown bee venom protein (honey bee) Allergy (Verified 12/28/19 04:35) Swelling Penicillins Allergy (Verified 12/28/19 04:35) Hives Home Medications: Ambulatory Orders Medication Instructions Recorded amlodipine 5 mg-valsartan 160 mg 1 tab PO DAILY 90 Days #90 05/13/17 tablet levothyroxine 175 mcg tablet 175 mcg PO DAILY 90 Days #90 05/13/17 nitroglycerin 0.4 mg sublingual 0.4 mg SUBLINGUAL PRN PRN 8 Days 05/13/17 tablet #25 pravastatin 40 mg tablet 40 mg PO QHS 90 Days #90 05/13/17 isosorbide mononitrate 60 mg 60 mg PO DAILY 04/17/18 tablet,extended release 24 hr Acetaminophen [Tylenol] 1,000 mg PO Q4H PRN PRN 05/14/18 Albuterol IH (ProAir) [Proair Hfa] 1 puff INHALATION Q4H PRN PRN 05/14/18 Cholecalciferol (VIT D3) [Vitamin 1,000 unit PO DAILY 05/14/18 D3] Guaifenesin/Dextromethorphan 20 ml PO Q6H PRN PRN 05/14/18 [Tussin Dm Liquid] Apixaban [Eliquis] 5 mg PO BID #60 tab 05/19/18 doxazosin 4 mg tablet 4 mg PO QHS #90 tab 05/28/18 Atenolol [Tenormin (beta chris)] 50 mg PO BID 11/22/19 Furosemide [Lasix] 40 mg PO DAILY 12/28/19 Surgical History: Surgical History (Last Updated 06/09/18 @ 17:20 by Tori Lujan) H/O coronary artery bypass surgery (Chronic) Z95.1 CABG x 3: SPARKS-LAD, SVG-RPDA, ANAY-Acute [place] History of colonoscopy (Resolved) Onset Date: ~04/2018 Z98.890 History of left heart catheterization Onset Date: 05/19/18 Z98.890 History of thyroidectomy Z98.890 Hx of cholecystectomy Z90.49 Surgical History: coronary bypass surgery Psychiatric History: No pertinent psych hx Smoking Status: Former smoker Tobacco Use: Cigarettes Alcohol: None Drugs: None - *Family History Maternal Family History: Family History (Last Reviewed 05/28/18 @ 15:[address] Abhishek Galindo MD) Other Heart disease History Items: No pertinent history Paternal Family History: Family History (Last Reviewed 05/28/18 @ 15:[address] Abhishek Galindo MD) Other Heart disease History Items: No pertinent history Review of Systems Constitutional: Reports: Chills, Fever, Malaise HEENT: Denies: Head Aches, Sinus Congestion, Sinus Drainage Cardiovascular: Reports: Heaviness. Denies: Chest Pain, Palpitations Respiratory: Reports: Cough, Shortness of Breath. Denies: Shortness of breath at rest, Sputum production Gastrointestinal: Denies: Abdominal Pain, Nausea, Vomiting Genitourinary: Denies: Dysuria Musculoskeletal: Denies: Joint Pain, Joint Tenderness Skin: Denies: Rash, Wounds Neurological: Denies: Numbness, Tingling, Focal weakness Psychiatric: Denies: Anxiety, Depression Hematologic/ Lymphatic: Denies: Easy Bruising, Easy Bleeding VTE Information - Inpt Only VTE Present on Admission: No - Physical Exam Vitals/I&O's: Vital Signs Temp Pulse Resp BP Pulse Ox 100 F H 87 22 H 140/59 H 98 12/28/19 13:00 12/28/19 13:00 12/28/19 13:00 12/28/19 13:00 12/28/19 13:00 Oxygen Flow Rate (L/min) 6 Oxygen Delivery Method Nasal Cannula Weight: 175 lb 4.28 oz Body Mass Index (BMI) 28.3 Finger Stick Blood Glucose 103 General: Alert, Oriented x3, Cooperative HEENT: Atraumatic, PERRLA, EOMI, Normocephalic Oral: Dry Mucosa Neck: Supple, No JVD Lungs: Normal air movement, No rhonchi, No wheeze, No rales, Diminished, Tachypneic Cardiovascular: Regular Rhythm, Normal S1, Normal S2, No murmurs, Tachycardic Abdomen: Soft, Non Tender, Non-Distended, No Hepato-splenomegaly Extremities: No edema, Capillary Refill Less than 3 Seconds Skin: No rashes, No breakdown Neurological: Neuro grossly intact, Sensory exam intact to light touch and pain Psych/Mental Status: Normal Affect, Appropriate Microbiology Past 72 Hours 12/28/19 05:25 Mucosa - Nose Respiratory Panel (PCR) - Final Laboratory Results 12/28/19 04:40: Troponin I 0.133 H 12/28/19 04:50: WBC 8.6, RBC 5.34, Hgb 14.7, Hct 47.3, MCV 88.6, MCH 27.5, MCHC 31.1 L, RDW Std Deviation 45.3 H, RDW Coeff of Dominic 14.2, Plt Count 210, MPV 9.9, Immature Gran % (Auto) 0.200, Neut % (Auto) 76.7 H, Lymph % (Auto) 10.5 L, [place] % (Auto) 11.7 H, Eos % (Auto) 0.6, Baso % (Auto) 0.3, Absolute Neuts (auto) 6.6, Absolute Lymphs (auto) 0.90, Nucleated RBC % 0 12/28/19 04:50: PT 12.4, INR 1.0, APTT 31.2 12/28/19 04:50: Sodium 140, Potassium 3.8, Chloride 105, Carbon Dioxide 30.0, Anion Gap 5, BUN 14, Creatinine 1.03, Estim Creat Clear Calc 54.20, Est GFR (MDRD) Af Amer 90, Est GFR (MDRD) Non-Af 74, BUN/Creatinine Ratio 13.6, Glucose 100, Calcium 8.9, Total Bilirubin 0.40, AST 34, ALT 40, Alkaline Phosphatase 150 H, Total Protein 8.7 H, Albumin 4.0, Globulin 4.7 H, Albumin/Globulin Ratio 0.9 12/28/19 04:50: Lactic Acid 1.2 12/28/19 04:50: D-Dimer Quant (PE/DVT) 0.88 H* 12/28/19 05:20: Urine Color Yellow, Urine Clarity Clear, Urine pH 5.0, Ur Specific [facility] 1.025, Urine Protein 100 H, Urine Glucose (UA) Normal, Urine Ketones 5 H, Urine Occult Blood 250 H, Urine Nitrite Negative, Urine Bilirubin Negative, Urine Urobilinogen Normal, Ur Leukocyte Esterase Negative, Urine RBC 0-5 SEEN, Urine WBC 10-25 SEEN, Ur Squamous Epith Cells 0 SEEN, Urine Bacteria 0 SEEN, Urine Mucus 0 SEEN 12/28/19 05:25: COVID-19 (DEMETRIUS) Detected Assessment/Plan All Active Problems (Last Updated 06/09/18 @ 17:20 by Tori Lujan) Acute bronchitis (Resolved) Acute respiratory failure with hypoxia (Resolved) Aspiration pneumonia of both lower lobes (Resolved) Atelectasis of both lungs (Resolved) Atrial fibrillation with RVR (Resolved) COPD exacerbation (Resolved) Cancer (Resolved) Elevated troponin I level (Resolved) Hemorrhoids (Resolved) History of colonoscopy (Resolved ~04/2018) Infectious encephalopathy (Resolved) Pneumonia (Resolved) Sepsis (Resolved) Sinusitis, acute (Resolved) 1. Sepsis and acute hypoxic respiratory failure secondary to COVID-19/COPD not in exacerbation/elevated troponins -He is unsure as to where he contracted Covid, however he does meet sepsis criteria based on tachycardia, tachypnea, and temperature greater than 100.4 with a source with a positive Covid test -Is currently on 6 L nasal cannula and he will be sent to the ICU as he is discussing how tired he is -I did have a 20-minute discussion with him on CODE STATUS he would like to be a full code and would like to be intubated if necessary -We will continue with his Eliquis, D-dimer is elevated -Also place him on duo nebs and recommend incentive spirometer -Elevation in his troponin is likely secondary to his known cardiac disease as well as his tachycardia and hypoxia, will continue to monitor, but likely secondary to demand ischemia 2. CAD status post CABG/A. fib/HTN/HLD -EKG with a left bundle branch block which is chronic -We will continue with his home blood pressure and rate control medications as well as his Eliquis. We will hold his Lasix for right now -We will obtain serial troponins -Continue with his statin 3. Hypothyroidism -Stable -Continue with Synthroid DVT: Eliquis Inpatient E&M: [id number] Init Hosp L3
[2019-12-28] MEDS: amLODIPine 5 MG Tablet PO (15:56)
[2019-12-28] MEDS: Isosorbide Mononitrate 60 MG Tablet PO (15:56)
[2019-12-28] MEDS: Atenolol 50 MG Tablet PO ×2 (15:56→23:54)
[2019-12-28] MEDS: APIXABAN 5 MG TABLET PO ×2 (15:56→23:54)
[2019-12-28] MEDS: Levothyroxine 175 MCG Tablet PO (15:56)
[2019-12-28] MEDS: Losartan Potassium 50 MG Tablet PO (15:56)
[2019-12-28] MEDS: dexAMETHasone 10 MG/ML Vial 6 MG IV (15:57)
[2019-12-28] MEDS: Acetaminophen 325 MG Tablet 650 MG PO (16:03)
--- NOTE | 2019-12-28 16:10 | PCM.HP.ID ---
Problem List (1) COVID-19 Status: Acute Reason for Consult: covid Consulted by: Dr. Garduno History of Present Illness: The patient is a 79 year old M who presented with sx starting 12/25 with fatigue, then started to have progressive headache, fever, cough, dyspnea. No sputum, no n/v/d, no change in taste or smell. Lives with and son who are feeling fine. No known sick contacts. Feeling a little better since admission. Given dose of ceftriaxone, dex. Full ROS performed and neg except as noted above. - Medical History Past Medical History (Chronic Problems): Chronic Problems (Last Updated 06/09/18 @ 17:20 by Tori Lujan) Left bundle branch block (Chronic) Paroxysmal atrial fibrillation (Chronic) Nonrheumatic mitral (valve) insufficiency (Chronic) Non-rheumatic aortic stenosis (Chronic) H/O coronary artery bypass surgery (Chronic) CABG x 3: SPARKS-LAD, SVG-RPDA, ANAY-Acute [place] Essential (primary) hypertension (Chronic) Atherosclerosis of coronary artery of [place] heart without angina pectoris (Chronic) CABG x 3: SPARKS-LAD, SVG-RPDA, ANAY-Acute [place] SOB (shortness of breath) (Chronic) 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) Hyperlipidemia (Chronic) Allergies/Adverse Reactions: Allergies caffeine Allergy (Mild, Verified 12/28/19 04:35) Unknown bee venom protein (honey bee) Allergy (Verified 12/28/19 04:35) Swelling Penicillins Allergy (Verified 12/28/19 04:35) Hives Home Medications: Ambulatory Orders Medication Instructions Recorded amlodipine 5 mg-valsartan 160 mg 1 tab PO DAILY 90 Days #05/13/17 tablet levothyroxine 175 mcg tablet 175 mcg PO DAILY 90 Days #05/13/17 nitroglycerin 0.4 mg sublingual 0.4 mg SUBLINGUAL PRN PRN 8 Days 05/13/17 tablet #25 pravastatin 40 mg tablet 40 mg PO QHS 90 Days #05/13/17 isosorbide mononitrate 60 mg 60 mg PO DAILY 04/17/18 tablet,extended release 24 hr Acetaminophen [Tylenol] 1,000 mg PO Q4H PRN PRN 05/14/18 Albuterol IH (ProAir) [Proair Hfa] 1 puff INHALATION Q4H PRN PRN 05/14/18 Cholecalciferol (VIT D3) [Vitamin 1,000 unit PO DAILY 05/14/18 D3] Guaifenesin/Dextromethorphan 20 ml PO Q6H PRN PRN 05/14/18 [Tussin Dm Liquid] Apixaban [Eliquis] 5 mg PO BID #60 tab 05/19/18 doxazosin 4 mg tablet 4 mg PO QHS #90 tab 05/28/18 Atenolol [Tenormin (beta chris)] 50 mg PO BID 11/22/19 Furosemide [Lasix] 40 mg PO DAILY 12/28/19 - Social History SMOKING STATUS:: Former smoker Vital Signs Temp Pulse Resp BP Pulse Ox 101.3 F H 91 28 H 166/75 H 93 12/28/19 16:00 12/28/19 16:00 12/28/19 16:00 12/28/19 16:00 12/28/19 16:00 Oxygen Flow Rate (L/min) 1 Oxygen Delivery Method Nasal Cannula Weight: 75.8 kg Body Mass Index (BMI) 26.9 Finger Stick Blood Glucose 103 Microbiology Past 72 Hours 12/28/19 05:25 Respiratory Panel (PCR) - Final Mucosa - Nose Laboratory Tests Past 24 Hrs 12/28/19 12/28/19 12/28/19 04:40 04:50 04:50 WBC 8.6 RBC 5.34 Hgb 14.7 Hct 47.3 MCV 88.6 MCH 27.5 MCHC 31.1 L RDW Std Deviation 45.3 H RDW Coeff of Dominic 14.2 Plt Count 210 MPV 9.9 Immature Gran % (Auto) 0.200 Neut % (Auto) 76.7 H Lymph % (Auto) 10.5 L [facility] % (Auto) 11.7 H Eos % (Auto) 0.6 Baso % (Auto) 0.3 Absolute Neuts (auto) 6.6 Absolute Lymphs (auto) 0.90 Nucleated RBC % 0 PT 12.4 INR 1.0 APTT 31.2 D-Dimer Quant (PE/DVT) Sodium Potassium Chloride Carbon Dioxide Anion Gap BUN Creatinine Estim Creat Clear Calc Est GFR (MDRD) Af Amer Est GFR (MDRD) Non-Af BUN/Creatinine Ratio Glucose Lactic Acid Calcium Total Bilirubin AST ALT Alkaline Phosphatase Troponin I 0.133 H Total Protein Albumin Globulin Albumin/Globulin Ratio Urine Color Urine Clarity Urine pH Ur Specific [place] Urine Protein Urine Glucose (UA) Urine Ketones Urine Occult Blood Urine Nitrite Urine Bilirubin Urine Urobilinogen Ur Leukocyte Esterase Urine RBC Urine WBC Ur Squamous Epith Cells Urine Bacteria Urine Mucus COVID-19 (DEMETRIUS) Blood Type 12/28/19 12/28/19 12/28/19 04:50 04:50 04:50 WBC RBC Hgb Hct MCV MCH MCHC RDW Std Deviation RDW Coeff of Dominic Plt Count MPV Immature Gran % (Auto) Neut % (Auto) Lymph % (Auto) [facility] % (Auto) Eos % (Auto) Baso % (Auto) Absolute Neuts (auto) Absolute Lymphs (auto) Nucleated RBC % PT INR APTT D-Dimer Quant (PE/DVT) 0.88 H* Sodium 140 Potassium 3.8 Chloride 105 Carbon Dioxide 30.0 Anion Gap 5 BUN 14 Creatinine 1.03 Estim Creat Clear Calc 54.20 Est GFR (MDRD) Af Amer 90 Est GFR (MDRD) Non-Af 74 BUN/Creatinine Ratio 13.6 Glucose 100 Lactic Acid 1.2 Calcium 8.9 Total Bilirubin 0.40 AST 34 ALT 40 Alkaline Phosphatase 150 H Troponin I Total Protein 8.7 H Albumin 4.0 Globulin 4.7 H Albumin/Globulin Ratio 0.9 Urine Color Urine Clarity Urine pH Ur Specific [place] Urine Protein Urine Glucose (UA) Urine Ketones Urine Occult Blood Urine Nitrite Urine Bilirubin Urine Urobilinogen Ur Leukocyte Esterase Urine RBC Urine WBC Ur Squamous Epith Cells Urine Bacteria Urine Mucus COVID-19 (DEMETRIUS) Blood Type 12/28/19 12/28/19 12/28/19 05:20 05:25 14:20 WBC RBC Hgb Hct MCV MCH MCHC RDW Std Deviation RDW Coeff of Dominic Plt Count MPV Immature Gran % (Auto) Neut % (Auto) Lymph % (Auto) [facility] % (Auto) Eos % (Auto) Baso % (Auto) Absolute Neuts (auto) Absolute Lymphs (auto) Nucleated RBC % PT INR APTT D-Dimer Quant (PE/DVT) Sodium Potassium Chloride Carbon Dioxide Anion Gap BUN Creatinine Estim Creat Clear Calc Est GFR (MDRD) Af Amer Est GFR (MDRD) Non-Af BUN/Creatinine Ratio Glucose Lactic Acid Calcium Total Bilirubin AST ALT Alkaline Phosphatase Troponin I Total Protein Albumin Globulin Albumin/Globulin Ratio Urine Color Yellow Urine Clarity Clear Urine pH 5.0 Ur Specific [place] 1.025 Urine Protein 100 H Urine Glucose (UA) Normal Urine Ketones 5 H Urine Occult Blood 250 H Urine Nitrite Negative Urine Bilirubin Negative Urine Urobilinogen Normal Ur Leukocyte Esterase Negative Urine RBC 0-5 SEEN Urine WBC 10-25 SEEN Ur Squamous Epith Cells 0 SEEN Urine Bacteria 0 SEEN Urine Mucus 0 SEEN COVID-19 (DEMETRIUS) Detected Blood Type Pending 12/28/19 14:20 WBC RBC Hgb Hct MCV MCH MCHC RDW Std Deviation RDW Coeff of Dominic Plt Count MPV Immature Gran % (Auto) Neut % (Auto) Lymph % (Auto) [facility] % (Auto) Eos % (Auto) Baso % (Auto) Absolute Neuts (auto) Absolute Lymphs (auto) Nucleated RBC % PT INR APTT D-Dimer Quant (PE/DVT) Sodium Potassium Chloride Carbon Dioxide Anion Gap BUN Creatinine Estim Creat Clear Calc Est GFR (MDRD) Af Amer Est GFR (MDRD) Non-Af BUN/Creatinine Ratio Glucose Lactic Acid Calcium Total Bilirubin AST ALT Alkaline Phosphatase Troponin I 1.790 H* Total Protein Albumin Globulin Albumin/Globulin Ratio Urine Color Urine Clarity Urine pH Ur Specific [place] Urine Protein Urine Glucose (UA) Urine Ketones Urine Occult Blood Urine Nitrite Urine Bilirubin Urine Urobilinogen Ur Leukocyte Esterase Urine RBC Urine WBC Ur Squamous Epith Cells Urine Bacteria Urine Mucus COVID-19 (DEMETRIUS) Blood Type - Other Studies Radiology: [] reviewed Other Studies: [] Route of nutrition/ use of supplements: [] Nutritional Intake: [] IV Site: [] Clark Catheter: [] - Physical Exam General: Alert, Oriented x3, Cooperative HEENT: Atraumatic, PERRLA Neck: Supple, No Nodes Lungs: Diminished Cardiovascular: Regular rate, Regular Rhythm, Murmur Abdomen: Soft, Non Tender, Non-Distended Extremities: No edema Skin: No rashes IV Site: Peripheral, without redness Musculoskeletal: No Tenderness to Palpation of Joints or Extremities Neurological: Cranial nerves II-XII grossly intact - Assessment/Plan Antibiotics: [] Assessment/Plan: [] covid with acute hypoxic resp failure - admitted with fever and needing 6L O2. On dex. CT neg for PE. D-dimer mild elevation. Reviewed EUA and risk/benefits of plasma and remdesivir, he gave consent, will order. Recommended family get tested and quarantine for 2 weeks. Will follow, thank you
--- NOTE | 2019-12-28 16:21 | PCM.CONS.PUL ---
Problem List (1) COPD (chronic obstructive pulmonary disease) Status: Chronic Qualifiers: COPD type: chronic bronchitis Chronic bronchitis type: mucopurulent Qualified Code(s): J41.1 - Mucopurulent chronic bronchitis (2) COVID-19 Status: Acute (3) Left bundle branch block Status: Chronic (4) Paroxysmal atrial fibrillation Status: Chronic (5) Nonrheumatic mitral (valve) insufficiency Status: Chronic (6) Non-rheumatic aortic stenosis Status: Chronic (7) H/O coronary artery bypass surgery Status: Chronic Comment: CABG x 3: SPARKS-LAD, SVG-RPDA, ANAY-Acute Marginal Branch (8) Essential (primary) hypertension Status: Chronic (9) Atherosclerosis of coronary artery of wiyot heart without angina pectoris Status: Chronic Comment: CABG x 3: SPARKS-LAD, SVG-RPDA, ANAY-Acute Marginal Branch (10) 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 Patient states that he started to become short of breath on Saturday and this became progressively worse. Patient stated that he felt a heaviness in his chest that were similar to previous episodes of pneumonia. Patient was unable to do anything to make him feel better or worse. Patient does have subjective fevers and chills and states his temperature was over 101 ?F at home. Patient has had some rhinorrhea, but denied any loss of taste or smell. Patient has had a dry cough, but denies any nausea, vomiting or diarrhea. In the ER, patient was tachypneic at 27 breaths/min. Patient was also hypertensive at 196/87. Patient was noted to be febrile at 101.6 ?F on presentation. Patient had bilateral wheezes and rhonchi noted by the ER physician. EKG showed sinus tachycardia with a rate of [address] changes noted. Laboratory work-up was relatively unremarkable. CTA of the chest was obtained showing no acute PE, calcified pleural plaques on the left side and scarring at the lung bases. There was some concern because the patient had reported in the ER that he was getting tired of breathing and was willing to be intubated, so the patient was admitted to the intensive care unit for close monitoring. On arrival to the intensive care unit, patient's fever had broke. Patient's respiratory status significantly improved and he was able to be weaned from 6 L/min down to 1 L/min. Patient reports he does have a history of COPD, but is unaware of his last pulmonary function test results. Patient states he sees Dr. Coyle. Patient does report being in the for an extended period of time and believes he may have been exposed to asbestos. Patient does have an extensive cardiovascular history and is on Eliquis at baseline. Patient states he has been compliant with this therapy. Patient does not use any controller inhalers for his COPD, but did attempt using albuterol recently. Patient states he works at a [employer] with [employer]. Patient is unclear on when he would have been exposed to COVID-19. Review of systems otherwise negative from a constitutional, HEENT, respiratory, cardiovascular, GI, genitourinary, musculoskeletal, skin, neurologic, psychiatric and hematologic system unless stated above. Past Medical History Past Medical History (Chronic Problems): Chronic Problems (Last Updated 06/09/18 @ 17:20 by Tori Lujan) COPD (chronic obstructive pulmonary disease) (Chronic) Left bundle branch block (Chronic) Paroxysmal atrial fibrillation (Chronic) Nonrheumatic mitral (valve) insufficiency (Chronic) Non-rheumatic aortic stenosis (Chronic) H/O coronary artery bypass surgery (Chronic) CABG x 3: SPARKS-LAD, SVG-RPDA, ANAY-Acute Marginal Branch Essential (primary) hypertension (Chronic) Atherosclerosis of coronary artery of wiyot heart without angina pectoris (Chronic) CABG x 3: SPARKS-LAD, SVG-RPDA, ANAY-Acute Marginal Branch SOB (shortness of breath) (Chronic) 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) Hyperlipidemia (Chronic) Medical History: Medical History (Last Updated 06/09/18 @ 17:20 by Tori Lujan) Left bundle branch block (Chronic) I44.7 Paroxysmal atrial fibrillation (Chronic) I48.0 Nonrheumatic mitral (valve) insufficiency (Chronic) I34.0 Non-rheumatic aortic stenosis (Chronic) I35.0 Essential (primary) hypertension (Chronic) I10 Atherosclerosis of coronary artery of wiyot heart without angina pectoris (Chronic) I25.10 CABG x 3: SPARKS-LAD, SVG-RPDA, ANAY-Acute Marginal Branch 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) Z86.73 Hyperlipidemia (Chronic) E78.5 COPD (chronic obstructive pulmonary disease) J44.9 Hypothyroidism E03.9 PUD (peptic ulcer disease) K27.9 Cancer (Resolved) C80.1 Hemorrhoids (Resolved) K64.9 Thyroid cancer C73 Allergies caffeine Allergy (Mild, Verified 12/28/19 04:35) Unknown bee venom protein (honey bee) Allergy (Verified 12/28/19 04:35) Swelling Penicillins Allergy (Verified 12/28/19 04:35) Hives Home Medications: Ambulatory Orders Medication Instructions Recorded amlodipine 5 mg-valsartan 160 mg 1 tab PO DAILY 90 Days #90 05/13/17 tablet levothyroxine 175 mcg tablet 175 mcg PO DAILY 90 Days #90 05/13/17 nitroglycerin 0.4 mg sublingual 0.4 mg SUBLINGUAL PRN PRN 8 Days 05/13/17 tablet #25 pravastatin 40 mg tablet 40 mg PO QHS 90 Days #90 05/13/17 isosorbide mononitrate 60 mg 60 mg PO DAILY 04/17/18 tablet,extended release 24 hr Acetaminophen [Tylenol] 1,000 mg PO Q4H PRN PRN 05/14/18 Albuterol IH (ProAir) [Proair Hfa] 1 puff INHALATION Q4H PRN PRN 05/14/18 Cholecalciferol (VIT D3) [Vitamin 1,000 unit PO DAILY 05/14/18 D3] Guaifenesin/Dextromethorphan 20 ml PO Q6H PRN PRN 05/14/18 [Tussin Dm Liquid] Apixaban [Eliquis] 5 mg PO BID #60 tab 05/19/18 doxazosin 4 mg tablet 4 mg PO QHS #90 tab 05/28/18 Atenolol [Tenormin (beta chris)] 50 mg PO BID 11/22/19 Furosemide [Lasix] 40 mg PO DAILY 12/28/19 Surgical History: Surgical History (Last Updated 04/08/19 @ 17:20 by Tori Lujan) H/O coronary artery bypass surgery (Chronic) Z95.1 CABG x 3: SPARKS-LAD, SVG-RPDA, ANAY-Acute Marginal Branch History of colonoscopy (Resolved) Onset Date: ~04/2018 Z98.890 History of left heart catheterization Onset Date: 05/19/18 Z98.890 History of thyroidectomy Z98.890 Hx of cholecystectomy Z90.49 Surgical History: coronary bypass surgery Psychiatric History: No pertinent psych hx Smoking Status: Former smoker Tobacco Use: Cigarettes Alcohol: None Drugs: None - *Family History Maternal Family History: Family History (Last Reviewed 05/28/18 @ 15:[address] Abhishek Galindo MD) Other Heart disease History Items: No pertinent history Paternal Family History: Family History (Last Reviewed 05/28/18 @ 15:[address] Abhishek Galindo MD) Other Heart disease History Items: No pertinent history Review of Systems Comment: See HPI Objective: CT of the chest was personally reviewed. Patient does have a dilated trachea in addition to other reported findings. Patient does not appear to have significant groundglass opacities or emphysematous changes. Patient does have a recent stress report that was within normal limits. No pulmonary function tests are available for review. - Physical Exam Vitals/I&O's: Vital Signs Temp Pulse Resp BP Pulse Ox 38.5 C H 91 28 H 166/75 H 93 12/28/19 16:00 12/28/19 16:00 12/28/19 16:00 12/28/19 16:00 12/28/19 16:00 Oxygen Flow Rate (L/min) 1 Oxygen Delivery Method Nasal Cannula Weight: 75.8 kg Body Mass Index (BMI) 26.9 Finger Stick Blood Glucose 103 Intake and Output for Last 24 Hours 12/26/19 12/27/19 12/28/19 23:59 23:59 23:59 Intake Total 230 / 230 Balance 230 / 230 General: Alert, Oriented x3, Cooperative, No apparent distress, - - Mild conversational dyspnea. HEENT: Atraumatic, PERRLA, EOMI, Normocephalic, - - Slight scleral injection without icterus Oral: Moist Mucosa, No Gingival or Mucosal Lesions/ Ulcerations Neck: Supple, No JVD, No Nodes, Trachea Midline Lungs: No rales, Diminished, Rhonchi - Right base, Wheezes - Bilateral Cardiovascular: Regular rate, Regular Rhythm, Normal S1, Normal S2, No murmurs, No rub noted, No Gallop Abdomen: Bowel Sounds Present, Soft, Non Tender, Non-Distended Extremities: No clubbing, No cyanosis, No edema, Capillary Refill Less than 3 Seconds Skin: No rashes, No breakdown Musculoskeletal: No Tenderness to Palpation of Joints or Extremities Lymphatic: No Cervical, Supraclavicular, or Inguinal Adenopathy Neurological: Cranial nerves II-XII grossly intact, Neuro grossly intact, Motor Exam 5/5 strength throughout Psych/Mental Status: Alert and oriented to time, place, person, mood and affect Microbiology Past 72 Hours 12/28/19 05:25 Mucosa - Nose Respiratory Panel (PCR) - Final Laboratory Results 12/28/19 04:40: Troponin I 0.133 H 12/28/19 04:50: WBC 8.6, RBC 5.34, Hgb 14.7, Hct 47.3, MCV 88.6, MCH 27.5, MCHC 31.1 L, RDW Std Deviation 45.3 H, RDW Coeff of Dominic 14.2, Plt Count 210, MPV 9.9, Immature Gran % (Auto) 0.200, Neut % (Auto) 76.7 H, Lymph % (Auto) 10.5 L, [place] % (Auto) 11.7 H, Eos % (Auto) 0.6, Baso % (Auto) 0.3, Absolute Neuts (auto) 6.6, Absolute Lymphs (auto) 0.90, Nucleated RBC % 0 12/28/19 04:50: PT 12.4, INR 1.0, APTT 31.2 12/28/19 04:50: Sodium 140, Potassium 3.8, Chloride 105, Carbon Dioxide 30.0, Anion Gap 5, BUN 14, Creatinine 1.03, Estim Creat Clear Calc 54.20, Est GFR (MDRD) Af Amer 90, Est GFR (MDRD) Non-Af 74, BUN/Creatinine Ratio 13.6, Glucose 100, Calcium 8.9, Total Bilirubin 0.40, AST 34, ALT 40, Alkaline Phosphatase 150 H, Total Protein 8.7 H, Albumin 4.0, Globulin 4.7 H, Albumin/Globulin Ratio 0.9 12/28/19 04:50: Lactic Acid 1.2 12/28/19 04:50: D-Dimer Quant (PE/DVT) 0.88 H* 12/28/19 05:20: Urine Color Yellow, Urine Clarity Clear, Urine pH 5.0, Ur Specific [place] 1.025, Urine Protein 100 H, Urine Glucose (UA) Normal, Urine Ketones 5 H, Urine Occult Blood 250 H, Urine Nitrite Negative, Urine Bilirubin Negative, Urine Urobilinogen Normal, Ur Leukocyte Esterase Negative, Urine RBC 0-5 SEEN, Urine WBC 10-25 SEEN, Ur Squamous Epith Cells 0 SEEN, Urine Bacteria 0 SEEN, Urine Mucus 0 SEEN 12/28/19 05:25: COVID-19 (DEMETRIUS) Detected 12/28/19 14:20: Blood Type A POSITIVE 12/28/19 14:20: Troponin I 1.790 H* Current Medications Acetaminophen (Acetaminophen 325 Mg Tablet) 650 mg PO Q6H PRN PRN PRN Reason: Pain 1-10 or Fever Last Admin: 12/28/19 16:03 Dose: 650 mg Documented by: Albuterol/Ipratropium (Ipratropium/Albuterol Sulfate 3 Ml Ampul.Neb) 3 ml INHALATION Q4HWA.RT [facility] Amlodipine Besylate (Amlodipine 5 Mg Tablet) 5 mg PO DAILY [facility] Last Admin: 12/28/19 15:56 Dose: 5 mg Documented by: Apixaban (Apixaban 5 Mg Tablet) 5 mg PO BID [facility] Last Admin: 12/28/19 15:56 Dose: 5 mg Documented by: Atenolol (Atenolol 50 Mg Tablet) 50 mg PO BID [facility] Last Admin: 12/28/19 15:56 Dose: 50 mg Documented by: Dexamethasone Sodium Phosphate (Dexamethasone 10 Mg/Ml Vial) 6 mg IV DAILY [facility] Last Admin: 12/28/19 15:57 Dose: 6 mg Documented by: Doxazosin Mesylate (Doxazosin 4 Mg Tablet) 4 mg PO QHS [facility] Sodium Chloride () 250 mls @ 15 mls/hr IV .[id number] PRN PRN Reason: Saline Flush Sodium Chloride () 250 mls @ 15 mls/hr IV .[id number] PRN PRN Reason: Additional IVPB Infusion Remdesivir (Investigational) (100 mg/ Sodium Chloride) 250 mls @ 125 mls/hr IV DAILY [facility]; Protocol Stop: 01/01/20 11:59 Remdesivir (Investigational) (200 mg/ Sodium Chloride) 250 mls @ 125 mls/hr IV X1 ONE; Protocol Stop: 12/28/19 18:07 Isosorbide Mononitrate (Isosorbide Mononitrate 60 Mg Tablet) 60 mg PO DAILY [facility] Last Admin: 12/28/19 15:56 Dose: 60 mg Documented by: Levothyroxine Sodium (Levothyroxine 175 Mcg Tablet) 175 mcg PO DAILY@0600 [facility] Last Admin: 12/28/19 15:56 Dose: 175 mcg Documented by: Losartan Potassium (Losartan Potassium 50 Mg Tablet) 50 mg PO DAILY [facility] Last Admin: 12/28/19 15:56 Dose: 50 mg Documented by: Melatonin (Melatonin 3 Mg Tablet) 3 mg PO QHS PRN PRN PRN Reason: INSOMNIA Ondansetron HCl (Ondansetron 4 Mg/2 Ml Vial) 4 mg IV Q8H PRN PRN PRN Reason: NAUSEA/VOMITING Pravastatin Sodium (Pravastatin 40 Mg Tablet) 40 mg PO QHS [facility] Sodium Chloride (0.9% Saline Lock 10 Ml Syringe) 10 - 40 ml IV UD PRN PRN Reason: SALINE FLUSH Clinical Impression(s) from Imaging Studies Chest X-Ray 12/28/19 05:58 IMPRESSION: Status post CABG. Stable chest. No significant change since prior study. Electronically Signed: Carolyn Martinez MD at 6:34 EDT Tel , Service support , Chest CTA 12/28/19 07:12 IMPRESSION: No evidence of pulmonary emboli. Findings suggestive scarring at the lung bases. Calcified pleural plaques on the left side. Stable fat-containing nodule in the right adrenal gland as well as calcified hepatic and splenic granulomas. Electronically Signed: Chase Ruff at 9:09 EDT , Service support , Assessment/Plan All Active Problems (Last Updated 06/09/18 @ 17:20 by Tori Lujan) COVID-19 (Acute) Acute bronchitis (Resolved) Acute respiratory failure with hypoxia (Resolved) Aspiration pneumonia of both lower lobes (Resolved) Atelectasis of both lungs (Resolved) Atrial fibrillation with RVR (Resolved) COPD exacerbation (Resolved) Cancer (Resolved) Elevated troponin I level (Resolved) Hemorrhoids (Resolved) History of colonoscopy (Resolved ~04/2018) Infectious encephalopathy (Resolved) Pneumonia (Resolved) Sepsis (Resolved) Sinusitis, acute (Resolved) RECOMMENDATIONS: 1. Continue Eliquis and initiate 10 days of Decadron 2. Aggressive control of fever 3. Convalescent serum and remdesivir per infectious disease 4. Consider bronchodilators as needed 5. Monitor oxygen closely, especially with development of fever IMPRESSIONS: 1. Sepsis with acute hypoxic respiratory insufficiency in the setting of COVID-19 and COPD Echo suspicion for significant hypoxia on presentation secondary to increased space ventilation. Patient reportedly has COPD, but does not use supplemental oxygen at home. Patient is on Eliquis therapy at baseline and this can be continued. Would recommend initiation of Decadron therapy. Defer to infectious disease on convalescent serum and remdesivir. Patient appears to be relatively early in his disease course with reported fourth day of symptoms. Patient may progress moving forward. Aggressive control of fever with increased metabolic demand will likely help his respiratory status. Patient does not use bronchodilators routinely at home, but these could be used as needed. Patient does not have a significant leukocytosis at this time, so it is likely not necessary to cover with empiric antibiotics for superinfection in my opinion. 2. Paroxysmal A. fib/aortic stenosis/MVR/hyperlipidemia/advanced age Complicates care, management, recovery and prognosis. Patient appears to be stable from a cardiovascular standpoint. Troponins are slightly elevated, but this may be secondary to supply demand mismatch. Continue to monitor troponins. Likely not necessary to involve cardiology. Patient did have a recent stress test that was normal along with a cardiac catheterization approximately a year ago. Inpatient E&M: [id number] Init Hosp L3
[2019-12-28] MEDS: guaiFENesin 10 ML UDC (200MG/10ML) PO (18:23)
--- NOTE | 2019-12-28 18:24 | EKG12_ITS ---
Test Reason : CP Blood Pressure : / mmHG Vent. Rate : 072 BPM Atrial Rate : 072 BPM P-R Int : 262 ms QRS Dur : 170 ms QT Int : 432 ms P-R-T Axes : -11 -30 157 degrees QTc Int : 473 ms Sinus rhythm with 1st degree A-V block Left axis deviation Left bundle branch block Abnormal ECG When compared with ECG of 28-DEC-2019 05:34, MANUAL COMPARISON REQUIRED, DATA IS UNCONFIRMED Confirmed by SHELDON OCHOA, MIGUEL ([id number]), editor greeting card REGINA AHUMADA ([id number]) on 12/30/2019 2:02:41 PM Referred By: CORA Confirmed By:MIGUEL CHUNG MD
[2019-12-28] MEDS: Doxazosin 4 MG Tablet PO (23:54)
[2019-12-28] MEDS: Pravastatin 40 MG Tablet PO (23:54)
[2019-12-29] VITALS (26 sets, daily range): BP systolic 93–158; BP diastolic 22–67; PULSE 53–74; RESP 15–29; TEMP 36.1–37.1; O2SAT 90–98
--- NOTE | 2019-12-29 03:08 | NURSING ---
convalescent plasma hung.
[2019-12-29] MEDS: 0.9% Saline Lock 10 ML Syringe IV ×2 (05:31→21:16)
[2019-12-29] MEDS: Levothyroxine 175 MCG Tablet PO (05:35)
[2019-12-29 05:40] LABS: Absolute Neutrophil Count 7.1 X10^3/uL (2.0-7.7); Hematocrit 36.5 % (40-54); Hemoglobin 11.4 g/dL (13.0-16.5); Lymphocyte % 6.1 % (19-41); Mean Corp Hgb Conc 31.2 g/dL (32-36); Mean Corpuscular Hgb 27.7 pg (27.0-32.0); Mean Corpuscular Volume 88.8 fL (80-94); Mean Platelet Vol. 10.2 fl (6.2-12.0); Monocyte# 0.62 X10^3/uL; Monocyte% 7.5 % (0-10); NRBC Flagged by Analyzer 0 % (0-5); Neutrophil # 7.08 X10^3/uL (2.7-7.7); Neutrophil % 85.9 % (47-70); POSITIVE DIFFERENTIAL YES; Platelet Count 175 K/mm3 (150-450); RBC Distribution Width CV 14.5 % (11.6-14.6); RBC Distribution Width SD 46.8 fl (35.1-43.9); Red Blood Count 4.11 M/mm3 (4.6-6.2); White Blood Count 8.2 K/mm3 (4.4-11.0)
[2019-12-29 05:42] LABS: Differential Indicated SCAN CRITERIA MET
[2019-12-29 05:57] LABS: ALB/GLOB Ratio 0.8 RATIO (0.9-2.4); AST(SGOT) 31 U/L (15-37); Alanine Aminotransfer ALT/SGPT 27 U/L (16-61); Albumin, Serum 2.7 g/dL (3.2-5.0); Alkaline Phosphatase 95 U/L (45-117); Anion Gap 4 (5-15); BUN 31 mg/dL (7-18); BUN/Creat Ratio 29.5 RATIO (10-20); Calcium,Total 7.7 mg/dL (8.5-10.1); Chloride 106 mmol/L (98-107); Creatinine, Serum 1.05 mg/dL (0.70-1.30); EST Glomerular Filtration Rate 73 mL/min (>60); Est Glom Filt Rate - Afr Amer 88 mL/min (>60); Estimated Creatinine Clearance 53.17 ml/min; Globulin 3.5 g/dL (2.2-4.2); Glucose 109 mg/dL (74-106); Potassium 4.3 mmol/L (3.5-5.1); Protein, Total 6.2 g/dL (6.4-8.2); Sodium Level 139 mmol/L (136-145)
[2019-12-29 06:32] LABS: Differential Comment SCANNED; Ovalocyte RARE
--- NOTE | 2019-12-29 08:46 | PN_ITS ---
Patient Problems: Active and Suspected Problems (Last Updated 06/09/18 @ 17:20 by Tori Lujan) COVID-19 (Acute) Subjective: Patient did well overnight. Patient's fever has been relatively controlled since admission. Patient was able to be weaned to room air. Patient is not reporting any chest pain. Patient did get initiated and received plasma and remdesivir overnight. Patient feels subjectively improved. Patient is having a cough productive of clear to pale yellow sputum. - Physical Exam Vitals/I&O's: Vital Signs Temp Pulse Resp BP Pulse Ox 36.1 C L 65 22 H 146/50 H 93 12/29/19 04:15 12/29/19 07:00 12/29/19 07:00 12/29/19 07:00 12/29/19 07:14 Oxygen Flow Rate (L/min) 1 Oxygen Delivery Method Room Air Weight: 75.3 kg Body Mass Index (BMI) 26.9 Finger Stick Blood Glucose 103 Intake and Output for Last 24 Hours 12/27/19 12/28/19 12/29/19 23:59 23:59 23:59 Intake Total 600 / 700 550 / 550 Output Total 300 / 300 200 / 200 Balance 300 / 400 350 / 350 General: Alert, Oriented x3, Cooperative, No apparent distress HEENT: Atraumatic, PERRLA, EOMI, Normocephalic, - - Slight scleral injection without icterus Oral: Moist Mucosa, No Gingival or Mucosal Lesions/ Ulcerations Neck: Supple, No JVD, No Nodes, Trachea Midline Lungs: Clear to auscultation, Normal air movement, No rhonchi, No wheeze, No rales Cardiovascular: Normal S1, Normal S2, No murmurs, Bradycardic, No rub noted, No Gallop Abdomen: Bowel Sounds Present, Soft, Non Tender, Non-Distended Extremities: No clubbing, No cyanosis, Edema - Trace lower extremity Skin: No rashes, No breakdown Musculoskeletal: No Tenderness to Palpation of Joints or Extremities Lymphatic: No Cervical, Supraclavicular, or Inguinal Adenopathy Neurological: Cranial nerves II-XII grossly intact, Neuro grossly intact, Motor Exam 5/5 strength throughout Psych/Mental Status: Alert and oriented to time, place, person, mood and affect Microbiology Past 72 Hours 12/28/19 05:25 Mucosa - Nose Respiratory Panel (PCR) - Final Laboratory Results 12/28/19 04:40: Troponin I 0.133 H 12/28/19 04:50: D-Dimer Quant (PE/DVT) 0.88 H* 12/28/19 05:25: COVID-19 (DEMETRIUS) Detected 12/28/19 14:20: Blood Type A POSITIVE 12/28/19 14:20: Troponin I 1.790 H* 12/28/19 17:17: Troponin I 2.240 H* 12/28/19 20:00: Troponin I 2.230 H* 12/29/19 05:25: WBC 8.2, RBC 4.11 L, Hgb 11.4 L, Hct 36.5 L, MCV 88.8, MCH 27.7, MCHC 31.2 L, RDW Std Deviation 46.8 H, RDW Coeff of Dominic 14.5, Plt Count 175, MPV 10.2, Immature Gran % (Auto) 0.500, Neut % (Auto) 85.9 H, Lymph % (Auto) 6.1 L, [place] % (Auto) 7.5, Eos % (Auto) 0.0, Baso % (Auto) 0.0, Absolute Neuts (auto) 7.1, Absolute Lymphs (auto) 0.50 L, Nucleated RBC % 0, Differential Comment SCANNED, Ovalocytes RARE 12/29/19 05:25: Sodium 139, Potassium 4.3, Chloride 106, Carbon Dioxide 29.0, Anion Gap 4 L, BUN 31 H, Creatinine 1.05, Estim Creat Clear Calc 53.17, Est GFR (MDRD) Af Amer 88, Est GFR (MDRD) Non-Af 73, BUN/Creatinine Ratio 29.5 H, Glucose 109 H, Calcium 7.7 L, Total Bilirubin 0.30, AST 31, ALT 27, Alkaline Phosphatase 95, Total Protein 6.2 L, Albumin 2.7 L, Globulin 3.5, Albumin/Globulin Ratio 0.8 L Current Medications Acetaminophen (Acetaminophen 325 Mg Tablet) 650 mg PO Q6H PRN PRN PRN Reason: Pain 1-10 or Fever Last Admin: 12/28/19 16:03 Dose: 650 mg Documented by: Amlodipine Besylate (Amlodipine 5 Mg Tablet) 5 mg PO DAILY [facility] Last Admin: 12/28/19 15:56 Dose: 5 mg Documented by: Apixaban (Apixaban 5 Mg Tablet) 5 mg PO BID [facility] Last Admin: 12/28/19 23:54 Dose: 5 mg Documented by: Atenolol (Atenolol 50 Mg Tablet) 50 mg PO BID [facility] Last Admin: 12/28/19 23:54 Dose: 50 mg Documented by: Dexamethasone Sodium Phosphate (Dexamethasone 10 Mg/Ml Vial) 6 mg IV DAILY [facility] Last Admin: 12/28/19 15:57 Dose: 6 mg Documented by: Doxazosin Mesylate (Doxazosin 4 Mg Tablet) 4 mg PO QHS [facility] Last Admin: 12/28/19 23:54 Dose: 4 mg Documented by: Guaifenesin (Guaifenesin 10 Ml Udc (200mg/10ml)) 10 ml PO Q4H PRN PRN PRN Reason: COUGH Last Admin: 12/28/19 18:23 Dose: 10 ml Documented by: Sodium Chloride () 250 mls @ 15 mls/hr IV .[id number] PRN PRN Reason: Saline Flush Sodium Chloride () 250 mls @ 15 mls/hr IV .[id number] PRN PRN Reason: Additional IVPB Infusion Remdesivir (Investigational) (100 mg/ Sodium Chloride) 250 mls @ 125 mls/hr IV DAILY [facility]; Protocol Stop: 01/01/20 11:59 Isosorbide Mononitrate (Isosorbide Mononitrate 60 Mg Tablet) 60 mg PO DAILY [facility] Last Admin: 12/28/19 15:56 Dose: 60 mg Documented by: Levothyroxine Sodium (Levothyroxine 175 Mcg Tablet) 175 mcg PO DAILY@0600 [facility] Last Admin: 12/29/19 05:35 Dose: 175 mcg Documented by: Losartan Potassium (Losartan Potassium 50 Mg Tablet) 50 mg PO DAILY [facility] Last Admin: 12/28/19 15:56 Dose: 50 mg Documented by: Melatonin (Melatonin 3 Mg Tablet) 3 mg PO QHS PRN PRN PRN Reason: INSOMNIA Ondansetron HCl (Ondansetron 4 Mg/2 Ml Vial) 4 mg IV Q8H PRN PRN PRN Reason: NAUSEA/VOMITING Pravastatin Sodium (Pravastatin 40 Mg Tablet) 40 mg PO QHS [facility] Last Admin: 12/28/19 23:54 Dose: 40 mg Documented by: Sodium Chloride (0.9% Saline Lock 10 Ml Syringe) 10 - 40 ml IV UD PRN PRN Reason: SALINE FLUSH Last Admin: 12/29/19 05:31 Dose: 10 ml Documented by: Clinical Impression(s) from Imaging Studies Chest CTA 12/28/19 07:12 IMPRESSION: No evidence of pulmonary emboli. Findings suggestive scarring at the lung bases. Calcified pleural plaques on the left side. Stable fat-containing nodule in the right adrenal gland as well as calcified hepatic and splenic granulomas. Electronically Signed: Chase Grullonrahul, at 9:09 EDT , Service support , Medical Necessity - Tobacco Use Smoking Status: Former smoker Tobacco Use: Cigarettes Assessment/Plan All Active Problems (Last Updated 06/09/18 @ 17:20 by Tori Lujan) COVID-19 (Acute) Acute bronchitis (Resolved) Acute respiratory failure with hypoxia (Resolved) Aspiration pneumonia of both lower lobes (Resolved) Atelectasis of both lungs (Resolved) Atrial fibrillation with RVR (Resolved) COPD exacerbation (Resolved) Cancer (Resolved) Elevated troponin I level (Resolved) Hemorrhoids (Resolved) History of colonoscopy (Resolved ~04/2018) Infectious encephalopathy (Resolved) Pneumonia (Resolved) Sepsis (Resolved) Sinusitis, acute (Resolved) RECOMMENDATIONS: 1. Continue Eliquis and initiate 10 days of Decadron 2. Aggressive control of fever 3. Convalescent serum and remdesivir per infectious disease 4. Consider bronchodilators as needed 5. Possible discharge in the next 24 to 48 hours if okay with infectious disease IMPRESSIONS: 1. Sepsis with acute hypoxic respiratory insufficiency in the setting of COVID-19 and COPD Clinical suspicion for significant hypoxia on presentation secondary to increased space ventilation. Patient reportedly has COPD, but does not use supplemental oxygen at home. Patient is on Eliquis therapy at baseline and this can be continued. Continue Decadron therapy. Patient has been initiated on convalescent serum and remdesivir. Patient appears to be relatively early in his disease course with reported fourth day of symptoms. Patient may progress moving forward. Aggressive control of fever with increased metabolic demand will likely help his respiratory status. Patient does not use bronchodilators routinely at home, but these could be used as needed. Patient does not have a significant leukocytosis at this time, so it is likely not necessary to cover w ith empiric antibiotics for superinfection in my opinion. 2. Paroxysmal A. fib/aortic stenosis/MVR/hyperlipidemia/advanced age Complicates care, management, recovery and prognosis. Patient appears to be stable from a cardiovascular standpoint. Troponins are slightly elevated, but this may be secondary to supply demand mismatch. Troponins peaked at 2.24, which is likely not clinically significant given his degree of underlying cardiac pathology. Likely not necessary to involve cardiology. Patient did have a recent stress test that was normal along with a cardiac catheterization approximately a year ago. Inpatient E&M: 03557 Subs Hosp L2
--- NOTE | 2019-12-29 09:37 | PCM.PN.HOSP ---
Patient Problems: Active and Suspected Problems (Last Updated 06/09/18 @ 17:20 by Tori Lujan) COVID-19 (Acute) Subjective: Breathing better, feeling better, no issues overnight. Vitals/I&O's: Vital Signs Temp Pulse Resp BP Pulse Ox 96.9 F L 65 22 H 146/50 H 93 12/29/19 04:15 12/29/19 07:00 12/29/19 07:00 12/29/19 07:00 12/29/19 07:14 Oxygen Flow Rate (L/min) 1 Oxygen Delivery Method Room Air Weight: 166 lb 0.129 oz Body Mass Index (BMI) 26.9 Finger Stick Blood Glucose 103 Intake and Output for Last 24 Hours 12/27/19 12/28/19 12/29/19 23:59 23:59 23:59 Intake Total 600 / 700 550 / 550 Output Total 300 / 300 200 / 200 Balance 300 / 400 350 / 350 General: Alert, Oriented x3, Cooperative HEENT: Atraumatic, PERRLA, EOMI, Normocephalic Oral: Dry Mucosa Neck: Supple, No JVD Lungs: Normal air movement, No rhonchi, No wheeze, No rales, Diminished, Cardiovascular: Regular rate and rhythm, Normal S1, Normal S2, No murmurs Abdomen: Soft, Non Tender, Non-Distended, No Hepato-splenomegaly Extremities: No edema, Capillary Refill Less than 3 Seconds Skin: No rashes, No breakdown Neurological: Neuro grossly intact, Sensory exam intact to light touch and pain Psych/Mental Status: Normal Affect, Appropriate Microbiology Past 72 Hours 12/28/19 05:25 Mucosa - Nose Respiratory Panel (PCR) - Final Laboratory Results 12/28/19 04:40: Troponin I 0.133 H 12/28/19 04:50: D-Dimer Quant (PE/DVT) 0.88 H* 12/28/19 05:25: COVID-19 (DEMETRIUS) Detected 12/28/19 14:20: Blood Type A POSITIVE 12/28/19 14:20: Troponin I 1.790 H* 12/28/19 17:17: Troponin I 2.240 H* 12/28/19 20:00: Troponin I 2.230 H* 12/29/19 05:25: WBC 8.2, RBC 4.11 L, Hgb 11.4 L, Hct 36.5 L, MCV 88.8, MCH 27.7, MCHC 31.2 L, RDW Std Deviation 46.8 H, RDW Coeff of Dominic 14.5, Plt Count 175, MPV 10.2, Immature Gran % (Auto) 0.500, Neut % (Auto) 85.9 H, Lymph % (Auto) 6.1 L, [place] % (Auto) 7.5, Eos % (Auto) 0.0, Baso % (Auto) 0.0, Absolute Neuts (auto) 7.1, Absolute Lymphs (auto) 0.50 L, Nucleated RBC % 0, Differential Comment SCANNED, Ovalocytes RARE 12/29/19 05:25: Sodium 139, Potassium 4.3, Chloride 106, Carbon Dioxide 29.0, Anion Gap 4 L, BUN 31 H, Creatinine 1.05, Estim Creat Clear Calc 53.17, Est GFR (MDRD) Af Amer 88, Est GFR (MDRD) Non-Af 73, BUN/Creatinine Ratio 29.5 H, Glucose 109 H, Calcium 7.7 L, Total Bilirubin 0.30, AST 31, ALT 27, Alkaline Phosphatase 95, Total Protein 6.2 L, Albumin 2.7 L, Globulin 3.5, Albumin/Globulin Ratio 0.8 L Current Medications Acetaminophen (Acetaminophen 325 Mg Tablet) 650 mg PO Q6H PRN PRN PRN Reason: Pain 1-10 or Fever Last Admin: 12/28/19 16:03 Dose: 650 mg Documented by: Amlodipine Besylate (Amlodipine 5 Mg Tablet) 5 mg PO DAILY [facility] Last Admin: 12/28/19 15:56 Dose: 5 mg Documented by: Apixaban (Apixaban 5 Mg Tablet) 5 mg PO BID [facility] Last Admin: 12/28/19 23:54 Dose: 5 mg Documented by: Atenolol (Atenolol 50 Mg Tablet) 50 mg PO BID [facility] Last Admin: 12/28/19 23:54 Dose: 50 mg Documented by: Dexamethasone Sodium Phosphate (Dexamethasone 10 Mg/Ml Vial) 6 mg IV DAILY [facility] Last Admin: 12/28/19 15:57 Dose: 6 mg Documented by: Doxazosin Mesylate (Doxazosin 4 Mg Tablet) 4 mg PO QHS [facility] Last Admin: 12/28/19 23:54 Dose: 4 mg Documented by: Guaifenesin (Guaifenesin 10 Ml Udc (200mg/10ml)) 10 ml PO Q4H PRN PRN PRN Reason: COUGH Last Admin: 12/28/19 18:23 Dose: 10 ml Documented by: Sodium Chloride () 250 mls @ 15 mls/hr IV .[id number] PRN PRN Reason: Saline Flush Sodium Chloride () 250 mls @ 15 mls/hr IV .[id number] PRN PRN Reason: Additional IVPB Infusion Remdesivir (Investigational) (100 mg/ Sodium Chloride) 250 mls @ 125 mls/hr IV DAILY [facility]; Protocol Stop: 01/01/20 11:59 Isosorbide Mononitrate (Isosorbide Mononitrate 60 Mg Tablet) 60 mg PO DAILY [facility] Last Admin: 12/28/19 15:56 Dose: 60 mg Documented by: Levothyroxine Sodium (Levothyroxine 175 Mcg Tablet) 175 mcg PO DAILY@0600 [facility] Last Admin: 12/29/19 05:35 Dose: 175 mcg Documented by: Losartan Potassium (Losartan Potassium 50 Mg Tablet) 50 mg PO DAILY [facility] Last Admin: 12/28/19 15:56 Dose: 50 mg Documented by: Melatonin (Melatonin 3 Mg Tablet) 3 mg PO QHS PRN PRN PRN Reason: INSOMNIA Ondansetron HCl (Ondansetron 4 Mg/2 Ml Vial) 4 mg IV Q8H PRN PRN PRN Reason: NAUSEA/VOMITING Pravastatin Sodium (Pravastatin 40 Mg Tablet) 40 mg PO QHS [facility] Last Admin: 12/28/19 23:54 Dose: 40 mg Documented by: Sodium Chloride (0.9% Saline Lock 10 Ml Syringe) 10 - 40 ml IV UD PRN PRN Reason: SALINE FLUSH Last Admin: 12/29/19 05:31 Dose: 10 ml Documented by: STROKE Vital Signs/Narrative: Vital Signs Pulse Resp BP Pulse Ox 12/29/19 07:14 93 12/29/19 07:00 65 22 H 146/50 H 91 12/29/19 06:00 59 L 21 H 158/52 H 94 Medical Necessity - Tobacco Use Smoking Status: Former smoker Tobacco Use: Cigarettes Assessment/Plan All Active Problems (Last Updated 06/09/18 @ 17:20 by Tori Lujan) COVID-19 (Acute) Acute bronchitis (Resolved) Acute respiratory failure with hypoxia (Resolved) Aspiration pneumonia of both lower lobes (Resolved) Atelectasis of both lungs (Resolved) Atrial fibrillation with RVR (Resolved) COPD exacerbation (Resolved) Cancer (Resolved) Elevated troponin I level (Resolved) Hemorrhoids (Resolved) History of colonoscopy (Resolved ~04/2018) Infectious encephalopathy (Resolved) Pneumonia (Resolved) Sepsis (Resolved) Sinusitis, acute (Resolved) 1. Sepsis and acute hypoxic respiratory failure secondary to COVID-19/COPD not in exacerbation/elevated troponins -He is unsure as to where he contracted Covid, however he does meet sepsis criteria based on tachycardia, tachypnea, and temperature greater than 100.4 with a source with a positive Covid test -Looking much better, he is on room air if necessary can move him out of the ICU once beds become available on [facility] to -We will continue with his Eliquis, D-dimer is elevated -Also place him on duo nebs and recommend incentive spirometer -Elevation in his troponin is likely secondary to his known cardiac disease as well as his tachycardia and hypoxia, will continue to monitor, but likely secondary to demand ischemia he peaked at 2.24, will continue to monitor but he is currently denying any chest pain -He did receive a dose of convalescent plasma and remdesivir. We will continue with Decadron 2. CAD status post CABG/A. fib/HTN/HLD -EKG with a left bundle branch block which is chronic -We will continue with his home blood pressure and rate control medications as well as his Eliquis. We will hold his Lasix for right now -We will obtain serial troponins -Continue with his statin 3. Hypothyroidism -Stable -Continue with Synthroid DVT: Eliquis Inpatient E&M: [id number] Subs Hosp L2
[2019-12-29] MEDS: APIXABAN 5 MG TABLET PO ×2 (10:44→21:16)
[2019-12-29] MEDS: Losartan Potassium 50 MG Tablet PO (10:44)
[2019-12-29] MEDS: dexAMETHasone 10 MG/ML Vial 6 MG IV (10:44)
[2019-12-29] MEDS: Isosorbide Mononitrate 60 MG Tablet PO (10:45)
[2019-12-29] MEDS: Atenolol 50 MG Tablet PO ×2 (10:45→21:16)
[2019-12-29] MEDS: amLODIPine 5 MG Tablet PO (10:45)
--- NOTE | 2019-12-29 14:17 | CASEMGMT ---
RN CM Assessment Note Introduced role of CM to patient in room via phone. Pt states he is independent, does not use DME. Plans to return home. He states he has family who can bring food, medications etc and he is aware he needs to isolate in home. His is attempted to get tested today. Pt is aware if she is negative, he will need to isolate from her in home also. Diagnosis: COVID PCP: Dr. Coyle Insurance: [facility] Preferred Pharmacy: [facility] Pharmacy Prescription Benefit: yes LNOK: Living Arrangements: Lives with independently. No care needs identified at this time. Tranportation: drives or family can drive DME: cpap. If home oxygen is needed, would prefer [facility] Patient DC Goals: Home DC Plan: Home on dc. Will need oxygen testing at rest and with ambulation prior to dc. CM available for discharge planning coordination. Contact CM for any concerns/needs that may arise. Jenelle HARDY RN ACM
--- NOTE | 2019-12-29 15:09 | PN.ID_ITS ---
Patient Problems: Active and Suspected Problems (Last Updated 06/09/18 @ 17:20 by Tori Lujan) COVID-19 (Acute) Subjective: Feeling much better today. breathing better, no fever, aches much improved - Physical Exam Vitals/I&O's: Vital Signs Temp Pulse Resp BP Pulse Ox 98.4 F 67 19 H 131/41 H 91 12/29/19 12:00 12/29/19 14:57 12/29/19 12:00 12/29/19 12:00 12/29/19 12:00 Oxygen Flow Rate (L/min) 1 Oxygen Delivery Method Room Air Weight: 75.3 kg Body Mass Index (BMI) 26.9 Finger Stick Blood Glucose 103 Intake and Output for Last 24 Hours 12/27/19 12/28/19 12/29/19 23:59 23:59 23:59 Intake Total 600 / 700 800 / 800 Output Total 300 / 300 200 / 200 Balance 300 / 400 600 / 600 General: Alert, Cooperative, No apparent distress Lungs: Clear to auscultation, Diminished Cardiovascular: Regular rate, Regular Rhythm Abdomen: Soft, Non Tender, Non-Distended Skin: No rashes Microbiology Past 72 Hours 12/28/19 05:20 Urine, Clean Catch Urine Culture - Final Mixed Gram Positive Organisms 12/28/19 05:25 Mucosa - Nose Respiratory Panel (PCR) - Final Laboratory Results 12/28/19 14:20: Blood Type A POSITIVE 12/28/19 14:20: Troponin I 1.790 H* 12/28/19 17:17: Troponin I 2.240 H* 12/28/19 20:00: Troponin I 2.230 H* 12/29/19 05:25: WBC 8.2, RBC 4.11 L, Hgb 11.4 L, Hct 36.5 L, MCV 88.8, MCH 27.7, MCHC 31.2 L, RDW Std Deviation 46.8 H, RDW Coeff of Dominic 14.5, Plt Count 175, MPV 10.2, Immature Gran % (Auto) 0.500, Neut % (Auto) 85.9 H, Lymph % (Auto) 6.1 L, [place] % (Auto) 7.5, Eos % (Auto) 0.0, Baso % (Auto) 0.0, Absolute Neuts (auto) 7.1, Absolute Lymphs (auto) 0.50 L, Nucleated RBC % 0, Differential Comment SCANNED, Ovalocytes RARE 12/29/19 05:25: Sodium 139, Potassium 4.3, Chloride 106, Carbon Dioxide 29.0, A nion Gap 4 L, BUN 31 H, Creatinine 1.05, Estim Creat Clear Calc 53.17, Est GFR (MDRD) Af Amer 88, Est GFR (MDRD) Non-Af 73, BUN/Creatinine Ratio 29.5 H, Glucose 109 H, Calcium 7.7 L, Total Bilirubin 0.30, AST 31, ALT 27, Alkaline Phosphatase 95, Total Protein 6.2 L, Albumin 2.7 L, Globulin 3.5, Albumin/Globulin Ratio 0.8 L Current Medications Acetaminophen (Acetaminophen 325 Mg Tablet) 650 mg PO Q6H PRN PRN PRN Reason: Pain 1-10 or Fever Last Admin: 12/28/19 16:03 Dose: 650 mg Documented by: Amlodipine Besylate (Amlodipine 5 Mg Tablet) 5 mg PO DAILY [facility] Last Admin: 12/29/19 10:45 Dose: 5 mg Documented by: Apixaban (Apixaban 5 Mg Tablet) 5 mg PO BID [facility] Last Admin: 12/29/19 10:44 Dose: 5 mg Documented by: Atenolol (Atenolol 50 Mg Tablet) 50 mg PO BID [facility] Last Admin: 12/29/19 10:45 Dose: 50 mg Documented by: Dexamethasone Sodium Phosphate (Dexamethasone 10 Mg/Ml Vial) 6 mg IV DAILY [facility] Last Admin: 12/29/19 10:44 Dose: 6 mg Documented by: Doxazosin Mesylate (Doxazosin 4 Mg Tablet) 4 mg PO QHS [facility] Last Admin: 12/28/19 23:54 Dose: 4 mg Documented by: Guaifenesin (Guaifenesin 10 Ml Udc (200mg/10ml)) 10 ml PO Q4H PRN PRN PRN Reason: COUGH Last Admin: 12/28/19 18:23 Dose: 10 ml Documented by: Sodium Chloride () 250 mls @ 15 mls/hr IV .[id number] PRN PRN Reason: Saline Flush Sodium Chloride () 250 mls @ 15 mls/hr IV .[id number] PRN PRN Reason: Additional IVPB Infusion Remdesivir (Investigational) (100 mg/ Sodium Chloride) 250 mls @ 125 mls/hr IV DAILY [facility]; Protocol Stop: 01/01/20 11:59 Last Infusion: 12/29/19 12:45 Dose: Infused Documented by: Isosorbide Mononitrate (Isosorbide Mononitrate 60 Mg Tablet) 60 mg PO DAILY [facility] Last Admin: 12/29/19 10:45 Dose: 60 mg Documented by: Levothyroxine Sodium (Levothyroxine 175 Mcg Tablet) 175 mcg PO DAILY@0600 [facility] Last Admin: 12/29/19 05:35 Dose: 175 mcg Documented by: Losartan Potassium (Losartan Potassium 50 Mg Tablet) 50 mg PO DAILY [facility] Last Admin: 12/29/19 10:44 Dose: 50 mg Documented by: Melatonin (Melatonin 3 Mg Tablet) 3 mg PO QHS PRN PRN PRN Reason: INSOMNIA Ondansetron HCl (Ondansetron 4 Mg/2 Ml Vial) 4 mg IV Q8H PRN PRN PRN Reason: NAUSEA/VOMITING Pravastatin Sodium (Pravastatin 40 Mg Tablet) 40 mg PO QHS [facility] Last Admin: 12/28/19 23:54 Dose: 40 mg Documented by: Sodium Chloride (0.9% Saline Lock 10 Ml Syringe) 10 - 40 ml IV UD PRN PRN Reason: SALINE FLUSH Last Admin: 12/29/19 05:31 Dose: 10 ml Documented by: Medical Necessity - Tobacco Use Smoking Status: Former smoker Tobacco Use: Cigarettes Route of nutrition/ use of supplements: [] Nutritional Intake: [] IV Site: [] Clark Catheter: [] - Assessment/Plan Antibiotics: [] Assessment/Plan: [] covid with acute hypoxic resp failure - admitted with fever and needing 6L O2. On dex. CT neg for PE. D-dimer mild elevation. Started on remdesivir and plasma 12/27, now dramatically improved symptoms and satting well on RA. Ok for d/c home to complete 10 days total of dex. On eliquis here. Would consider ASA at discharge given mildly elevated d-dimer. Will follow
[2019-12-29] MEDS: Doxazosin 4 MG Tablet PO (21:16)
[2019-12-29] MEDS: Pravastatin 40 MG Tablet PO (21:16)
[2019-12-30] VITALS (15 sets, daily range): BP systolic 129–187; BP diastolic 46–69; PULSE 48–63; RESP 16–25; TEMP 36.2–36.4; O2SAT 92–96
[2019-12-30 04:42] LABS: Hemoglobin 11.1 g/dL (13.0-16.5); Mean Corp Hgb Conc 31.7 g/dL (32-36); Mean Corpuscular Hgb 27.3 pg (27.0-32.0); Mean Corpuscular Volume 86.2 fL (80-94); Mean Platelet Vol. 10.2 fl (6.2-12.0); Platelet Count 155 K/mm3 (150-450); RBC Distribution Width CV 14.5 % (11.6-14.6); RBC Distribution Width SD 45.8 fl (35.1-43.9); Red Blood Count 4.06 M/mm3 (4.6-6.2); White Blood Count 7.7 K/mm3 (4.4-11.0)
[2019-12-30 04:56] LABS: ALB/GLOB Ratio 0.8 RATIO (0.9-2.4); AST(SGOT) 30 U/L (15-37); Alanine Aminotransfer ALT/SGPT 27 U/L (16-61); Albumin, Serum 2.6 g/dL (3.2-5.0); Alkaline Phosphatase 91 U/L (45-117); Anion Gap 4 (5-15); BUN 31 mg/dL (7-18); BUN/Creat Ratio 31.6 RATIO (10-20); Calcium,Total 7.8 mg/dL (8.5-10.1); Chloride 105 mmol/L (98-107); Creatinine, Serum 0.98 mg/dL (0.70-1.30); EST Glomerular Filtration Rate 79 mL/min (>60); Est Glom Filt Rate - Afr Amer 95 mL/min (>60); Estimated Creatinine Clearance 56.96 ml/min; Globulin 3.3 g/dL (2.2-4.2); Glucose 103 mg/dL (74-106); Potassium 3.8 mmol/L (3.5-5.1); Protein, Total 5.9 g/dL (6.4-8.2); Sodium Level 140 mmol/L (136-145)
[2019-12-30] MEDS: Levothyroxine 175 MCG Tablet PO (06:05)
--- NOTE | 2019-12-30 08:20 | PCM.PN.PUL ---
Patient Problems: Active and Suspected Problems (Last Updated 06/09/18 @ 17:20 by Tori Lujan) COVID-19 (Acute) Subjective: Patient did well overnight. Patient continues to have a dry cough, but overall feels he is doing well. Patient is not reporting any headache or focal neurologic deficits with hypertension. - Physical Exam Vitals/I&O's: Vital Signs Temp Pulse Resp BP Pulse Ox 36.4 C L 58 L 20 H 174/55 H 94 12/30/19 04:00 12/30/19 07:00 12/30/19 07:00 12/30/19 07:00 12/30/19 07:00 Oxygen Flow Rate (L/min) 3 Oxygen Delivery Method Room Air Weight: 74.7 kg Body Mass Index (BMI) 26.9 Finger Stick Blood Glucose 103 Intake and Output for Last 24 Hours 12/28/19 12/29/19 12/30/19 23:59 23:59 23:59 Intake Total 600 / 700 900 / 900 Output Total 300 / 300 200 / 350 400 / 400 Balance 300 / 400 700 / 550 -400 / -400 General: Alert, Oriented x3, Cooperative, No apparent distress, - - Speaking in full sentences. HEENT: Atraumatic, PERRLA, EOMI, Normocephalic, - - No scleral icterus or injection noted Oral: Moist Mucosa, No Gingival or Mucosal Lesions/ Ulcerations Neck: Supple, No JVD, No Nodes, Trachea Midline Lungs: No rhonchi, No wheeze, No rales, Diminished, - - Sporadic wheeze after cough only Cardiovascular: Regular rate, Regular Rhythm, Normal S1, Normal S2, No murmurs, No rub noted, No Gallop Abdomen: Bowel Sounds Present, Soft, Non Tender, Non-Distended Extremities: No clubbing, No cyanosis, No edema Skin: No rashes, No breakdown Musculoskeletal: No Tenderness to Palpation of Joints or Extremities Lymphatic: No Cervical, Supraclavicular, or Inguinal Adenopathy Neurological: Cranial nerves II-XII grossly intact, Neuro grossly intact, Motor Exam 5/5 strength throughout Psych/Mental Status: Alert and oriented to time, place, person, mood and affect Microbiology Past 72 Hours 12/28/19 04:40 Blood Culture (Wb) - Left Hand Blood Culture - Preliminary No growth in 48 hours. 12/28/19 04:40 Blood Culture (Wb) - Anticubital Left Blood Culture - Preliminary No growth in 48 hours. 12/28/19 05:20 Urine, Clean Catch Urine Culture - Final Mixed Gram Positive Organisms 12/28/19 05:25 Mucosa - Nose Respiratory Panel (PCR) - Final Laboratory Results 12/30/19 04:35: WBC 7.7, RBC 4.06 L, Hgb 11.1 L, Hct 35.0 L, MCV 86.2, MCH 27.3, MCHC 31.7 L, RDW Std Deviation 45.8 H, RDW Coeff of Dominic 14.5, Plt Count 155, MPV 10.2 12/30/19 04:35: Sodium 140, Potassium 3.8, Chloride 105, Carbon Dioxide 31.0, Anion Gap 4 L, BUN 31 H, Creatinine 0.98, Estim Creat Clear Calc 56.96, Est GFR (MDRD) Af Amer 95, Est GFR (MDRD) Non-Af 79, BUN/Creatinine Ratio 31.6 H, Glucose 103, Calcium 7.8 L, Total Bilirubin 0.30, AST 30, ALT 27, Alkaline Phosphatase 91, Total Protein 5.9 L, Albumin 2.6 L, Globulin 3.3, Albumin/Globulin Ratio 0.8 L Current Medications Acetaminophen (Acetaminophen 325 Mg Tablet) 650 mg PO Q6H PRN PRN PRN Reason: Pain 1-10 or Fever Last Admin: 12/28/19 16:03 Dose: 650 mg Documented by: Amlodipine Besylate (Amlodipine 5 Mg Tablet) 5 mg PO DAILY [facility] Last Admin: 12/29/19 10:45 Dose: 5 mg Documented by: Apixaban (Apixaban 5 Mg Tablet) 5 mg PO BID [facility] Last Admin: 12/29/19 21:16 Dose: 5 mg Documented by: Atenolol (Atenolol 50 Mg Tablet) 50 mg PO BID [facility] Last Admin: 12/29/19 21:16 Dose: 50 mg Documented by: Dexamethasone Sodium Phosphate (Dexamethasone 10 Mg/Ml Vial) 6 mg IV DAILY [facility] Last Admin: 12/29/19 10:44 Dose: 6 mg Documented by: Doxazosin Mesylate (Doxazosin 4 Mg Tablet) 4 mg PO QHS [facility] Last Admin: 12/29/19 21:16 Dose: 4 mg Documented by: Guaifenesin (Guaifenesin 10 Ml Udc (200mg/10ml)) 10 ml PO Q4H PRN PRN PRN Reason: COUGH Last Admin: 12/28/19 18:23 Dose: 10 ml Documented by: Sodium Chloride () 250 mls @ 15 mls/hr IV .[id number] PRN PRN Reason: Saline Flush Sodium Chloride () 250 mls @ 15 mls/hr IV .[id number] PRN PRN Reason: Additional IVPB Infusion Remdesivir (Investigational) (100 mg/ Sodium Chloride) 250 mls @ 125 mls/hr IV DAILY [facility]; Protocol Stop: 01/01/20 11:59 Last Infusion: 12/29/19 12:45 Dose: Infused Documented by: Isosorbide Mononitrate (Isosorbide Mononitrate 60 Mg Tablet) 60 mg PO DAILY [facility] Last Admin: 12/29/19 10:45 Dose: 60 mg Documented by: Levothyroxine Sodium (Levothyroxine 175 Mcg Tablet) 175 mcg PO DAILY@0600 [facility] Last Admin: 12/30/19 06:05 Dose: 175 mcg Documented by: Losartan Potassium (Losartan Potassium 50 Mg Tablet) 50 mg PO DAILY [facility] Last Admin: 12/29/19 10:44 Dose: 50 mg Documented by: Melatonin (Melatonin 3 Mg Tablet) 3 mg PO QHS PRN PRN PRN Reason: INSOMNIA Ondansetron HCl (Ondansetron 4 Mg/2 Ml Vial) 4 mg IV Q8H PRN PRN PRN Reason: NAUSEA/VOMITING Pravastatin Sodium (Pravastatin 40 Mg Tablet) 40 mg PO QHS [facility] Last Admin: 12/29/19 21:16 Dose: 40 mg Documented by: Sodium Chloride (0.9% Saline Lock 10 Ml Syringe) 10 - 40 ml IV UD PRN PRN Reason: SALINE FLUSH Last Admin: 12/29/19 21:16 Dose: 10 ml Documented by: Medical Necessity - Tobacco Use Smoking Status: Former smoker Tobacco Use: Cigarettes Assessment/Plan All Active Problems (Last Updated 06/09/18 @ 17:20 by Tori Lujan) COVID-19 (Acute) Acute bronchitis (Resolved) Acute respiratory failure with hypoxia (Resolved) Aspiration pneumonia of both lower lobes (Resolved) Atelectasis of both lungs (Resolved) Atrial fibrillation with RVR (Resolved) COPD exacerbation (Resolved) Cancer (Resolved) Elevated troponin I level (Resolved) Hemorrhoids (Resolved) History of colonoscopy (Resolved ~04/2018) Infectious encephalopathy (Resolved) Pneumonia (Resolved) Sepsis (Resolved) Sinusitis, acute (Resolved) RECOMMENDATIONS: 1. Continue Eliquis and initiate 10 days of Decadron 2. Aggressive control of fever 3. Remdesivir per infectious disease 4. Consider bronchodilators as needed 5. Possible discharge if okay with infectious disease IMPRESSIONS: 1. Sepsis with acute hypoxic respiratory insufficiency in the setting of COVID-19 and COPD Clinical suspicion for significant hypoxia on presentation secondary to increased space ventilation. Patient reportedly has COPD, but does not use supplemental oxygen at home. Patient is on Eliquis therapy at baseline and this can be continued. Continue Decadron therapy to complete 10 days. Patient has been initiated on convalescent serum and remdesivir. Patient appears to be relatively early in his disease course with reported fourth day of symptoms on day of admission. Aggressive control of fever with increased metabolic demand will likely help his respiratory status. Patient does not use bronchodilators routinely at home, but these could be used as needed. Patient does not have a significant leukocytosis at this time, so it is likely not necessary to cover with empiric antibiotics for superinfection in my opinion. 2. Paroxysmal A. fib/aortic stenosis/MVR/hyperlipidemia/advanced age Complicates care, management, recovery and prognosis. Patient appears to be stable from a cardiovascular standpoint. Troponins are slightly elevated, but this may be secondary to supply demand mismatch. Troponins peaked at 2.24, which is likely not clinically significant given his degree of underlying cardiac pathology. Likely not necessary to involve cardiology. Patient did have a recent stress test that was normal along with a cardiac catheterization approximately a year ago. Inpatient E&M: 52593 [facility] Hosp L2
--- NOTE | 2019-12-30 10:20 | DCINST_ITS ---
- Discharge Diagnoses Current Active Problems: Current Active and Chronic Problems (Last Updated 06/09/18 @ 17:20 by Tori Lujan) COVID-19 (Acute) COPD (chronic obstructive pulmonary disease) (Chronic) Left bundle branch block (Chronic) Paroxysmal atrial fibrillation (Chronic) Nonrheumatic mitral (valve) insufficiency (Chronic) Non-rheumatic aortic stenosis (Chronic) H/O coronary artery bypass surgery (Chronic) CABG x 3: SPARKS-LAD, SVG-RPDA, ANAY-Acute [place] Essential (primary) hypertension (Chronic) Atherosclerosis of coronary artery of [place] heart without angina pectoris (Chronic) CABG x 3: SPARKS-LAD, SVG-RPDA, ANAY-Acute [place] 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) Hyperlipidemia (Chronic) You will use the following diet at home:: Cardiac Your food should be the consistency of: Regular Your liquids should be the consistency of: Regular/Thin Discharge Activity: Return to Normal Activity Call your doctor if you observe: Fever of 101 or Higher, Shortness of breath, Dizziness, Fainting spells, Swelling in the ankles, Chest pain, Increased palpitations (irregular heartbeat) Allergies/Adverse Reactions: Allergies caffeine Allergy (Mild, Verified 12/28/19 04:35) Unknown bee venom protein (honey bee) Allergy (Verified 12/28/19 04:35) Swelling Penicillins Allergy (Verified 12/28/19 04:35) Hives Medications to take at Discharge amlodipine 5 mg-valsartan 160 mg tablet 1 tab PO DAILY 90 Days #90 05/13/17 levothyroxine 175 mcg tablet 175 mcg PO DAILY 90 Days #90 05/13/17 nitroglycerin 0.4 mg sublingual tablet 0.4 mg SUBLINGUAL PRN PRN 8 Days #25 05/13/17 pravastatin 40 mg tablet 40 mg PO QHS 90 Days #90 05/13/17 isosorbide mononitrate 60 mg tablet,extended release 24 hr 60 mg PO DAILY 04/17/18 Acetaminophen [Tylenol] 1,000 mg PO Q4H PRN PRN 05/14/18 Albuterol IH (ProAir) [Proair Hfa] 1 puff INHALATION Q4H PRN PRN 05/14/18 Cholecalciferol (VIT D3) [Vitamin D3] 1,000 unit PO DAILY 05/14/18 Guaifenesin/Dextromethorphan [Tussin Dm Liquid] 20 ml PO Q6H PRN PRN 05/14/18 Apixaban [Eliquis] 5 mg PO BID #60 tab 05/19/18 doxazosin 4 mg tablet 4 mg PO QHS #90 tab 05/28/18 Atenolol [Tenormin (beta chris)] 50 mg PO BID 11/22/19 Furosemide [Lasix] 40 mg PO DAILY 12/28/19 Dexamethasone [Decadron] 6 mg PO DAILY@0800 #12 tab 12/30/19 The following prescriptions were given: Dexamethasone [Decadron] 6 mg PO DAILY@0800 #12 tab Transmission Status: Pending to [facility] Primary Care Physician: Renato Coyle DO [Primary Care Provider] - Please follow up with your Primary Care Physician in: 3-5 days Test Results: Test results from this visit will be discussed in further detail at your follow- up appointment, if applicable. Please Follow Up With: Tenzin Garduno MD When: 2-4 weeks
[2019-12-30] MEDS: amLODIPine 5 MG Tablet PO (10:45)
[2019-12-30] MEDS: dexAMETHasone 10 MG/ML Vial 6 MG IV (10:45)
[2019-12-30] MEDS: Atenolol 50 MG Tablet PO (10:45)
[2019-12-30] MEDS: Isosorbide Mononitrate 60 MG Tablet PO (10:45)
[2019-12-30] MEDS: APIXABAN 5 MG TABLET PO (10:45)
[2019-12-30] MEDS: Losartan Potassium 50 MG Tablet PO (10:45)
--- NOTE | 2019-12-30 13:49 | DS.PCM_ITS ---
Discharge Date and Diagnosis - Problem List Patient Problems: Active and Suspected Problems (Last Updated 06/09/18 @ 17:20 by Tori Lujan) COVID-19 (Acute) Date of Admission: 12/28/19 Date of Discharge: 12/30/19 - Primary Discharge Diagnosis Acute Problems: Active Problems (Last Updated 06/09/18 @ 17:20 by Tori Lujan) COVID-19 (Acute) - Secondary Discharge Diagnosis Chronic Problems: Chronic Problems (Last Updated 06/09/18 @ 17:20 by Tori Lujan) COPD (chronic obstructive pulmonary disease) (Chronic) Left bundle branch block (Chronic) Paroxysmal atrial fibrillation (Chronic) Nonrheumatic mitral (valve) insufficiency (Chronic) Non-rheumatic aortic stenosis (Chronic) H/O coronary artery bypass surgery (Chronic) CABG x 3: SPARKS-LAD, SVG-RPDA, ANAY-Acute [place] Essential (primary) hypertension (Chronic) Atherosclerosis of coronary artery of [place] heart without angina pectoris (Chronic) CABG x 3: SPARKS-LAD, SVG-RPDA, ANAY-Acute [place] SOB (shortness of breath) (Chronic) 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 Stable chest. No significant change since prior study. Electronically Signed: Carolyn Martinez MD at 6:34 EDT Tel , Service support , Chest CTA 12/28/19 07:12 IMPRESSION: No evidence of pulmonary emboli. Findings suggestive scarring at the lung bases. Calcified pleural plaques on the left side. Stable fat-containing nodule in the right adrenal gland as well as calcified hepatic and splenic granulomas. Electronically Signed: Chase Ruff at 9:09 EDT , Service support , Consults: ID ICU Operations: None Procedures: None Summary of Care Provided: Per HPI: The patient is a 79 year old M with PMH as below who presents to the hospital with shortness of breath. He says that his illness first started yesterday with an elevated temperature and some rhinorrhea with a little bit of a cough. He said today that his shortness of breath became even worse which is why he presented to the hospital. In the ER he was hypoxic and placed on oxyge n, he is currently requiring 6 L via nasal cannula. He had a CTA of his chest which was unremarkable, and he was also complaining of some chest heaviness with troponin of 0.133. He does have a cardiac history and he is on Eliquis already. Lactic acid was unremarkable, and respiratory panel was normal, however he did test positive for COVID-19. He denies any sick contacts at home says he has not gone to [employer] or any mass gatherings. Denies going shopping, but states that he has had interactions with his grandchildren and his daughter. Hospital Course: 1. Sepsis and acute hypoxic respiratory failure secondary to COVID-19/COPD not in exacerbation/elevated troponins -He is unsure as to where he contracted Covid, however he does meet sepsis criteria based on tachycardia, tachypnea, and temperature greater than 100.4 with a source with a positive Covid test -Looking much better, he is on room air -We will continue with his Eliquis, D-dimer is elevated -Also place him on duo nebs and recommend incentive spirometer -Elevation in his troponin is likely secondary to his known cardiac disease as well as his tachycardia and hypoxia, will continue to monitor, but likely secondary to demand ischemia he peaked at 2.24 and went down to 2.23 -He did receive a dose of convalescent plasma and remdesivir. We will continue with Decadron on discharge for 8 more days to receive a total of 10 days -I discussed the plan for discharge today and he expressed understanding of the risks and benefits of going home and would like to go home today. He will need to follow-up with his primary care doctor and if necessary pulmonology 2. CAD status post CABG/A. fib/HTN/HLD -EKG with a left bundle branch block which is chronic -We will continue with his home blood pressure and rate control medications as well as his Eliquis. We will hold his Lasix for right now -We will obtain serial troponins -Continue with his statin 3. Hypothyroidism -Stable -Continue with Synthroid Patient Problems: Active and Suspected Problems (Last Updated 06/09/18 @ 17:20 by Tori Lujan) COVID-19 (Acute) - Physical Exam Vitals/I&O's: Vital Signs Temp Pulse Resp BP Pulse Ox 97.1 F L 57 L 20 H 136/62 H 93 12/30/19 08:00 12/30/19 12:00 12/30/19 12:00 12/30/19 12:00 12/30/19 12:00 Oxygen Flow Rate (L/min) 3 Oxygen Delivery Method Room Air Weight: 164 lb 10.965 oz Body Mass Index (BMI) 26.9 Finger Stick Blood Glucose 103 Intake and Output for Last 24 Hours 12/28/19 12/29/19 12/30/19 23:59 23:59 23:59 Intake Total 600 / 700 900 / 900 515 / 515 Output Total 300 / 300 200 / 350 400 / 400 Balance 300 / 400 700 / 550 115 / 115 General: Alert, Oriented x3, Cooperative HEENT: Atraumatic, PERRLA, EOMI, Normocephalic Oral: Dry Mucosa Neck: Supple, No JVD Lungs: Normal air movement, No rhonchi, No wheeze, No rales, Diminished, Cardiovascular: Regular rate and rhythm, Normal S1, Normal S2, No murmurs Abdomen: Soft, Non Tender, Non-Distended, No Hepato-splenomegaly Extremities: No edema, Capillary Refill Less than 3 Seconds Skin: No rashes, No breakdown Neurological: Neuro grossly intact, Sensory exam intact to light touch and pain Psych/Mental Status: Normal Affect, Appropriate Microbiology Past 72 Hours 12/28/19 04:40 Blood Culture (Wb) - Left Hand Blood Culture - Preliminary No growth in 48 hours. 12/28/19 04:40 Blood Culture (Wb) - Anticubital Left Blood Culture - Preliminary No growth in 48 hours. 12/28/19 05:20 Urine, Clean Catch Urine Culture - Final Mixed Gram Positive Organisms 12/28/19 05:25 Mucosa - Nose Respiratory Panel (PCR) - Final Laboratory Results 12/30/19 04:35: WBC 7.7, RBC 4.06 L, Hgb 11.1 L, Hct 35.0 L, MCV 86.2, MCH 27.3, MCHC 31.7 L, RDW Std Deviation 45.8 H, RDW Coeff of Dominic 14.5, Plt Count 155, MPV 10.2 12/30/19 04:35: Sodium 140, Potassium 3.8, Chloride 105, Carbon Dioxide 31.0, Anion Gap 4 L, BUN 31 H, Creatinine 0.98, Estim Creat Clear Calc 56.96, Est GFR (MDRD) Af Amer 95, Est GFR (MDRD) Non-Af 79, BUN/Creatinine Ratio 31.6 H, Glucose 103, Calcium 7.8 L, Total Bilirubin 0.30, AST 30, ALT 27, Alkaline Phosphatase 91, Total Protein 5.9 L, Albumin 2.6 L, Globulin 3.3, Albumin/Globulin Ratio 0.8 L Discharge Activity: Return to Normal Activity Call your doctor if you observe: Fever of 101 or Higher, Shortness of breath, Dizziness, Fainting spells, Swelling in the ankles, Chest pain, Increased palpitations (irregular heartbeat) Home Medications: Medications to take at Discharge amlodipine 5 mg-valsartan 160 mg tablet 1 tab PO DAILY 90 Days #90 05/13/17 levothyroxine 175 mcg tablet 175 mcg PO DAILY 90 Days #90 05/13/17 nitroglycerin 0.4 mg sublingual tablet 0.4 mg SUBLINGUAL PRN PRN 8 Days #25 05/13/17 pravastatin 40 mg tablet 40 mg PO QHS 90 Days #90 05/13/17 isosorbide mononitrate 60 mg tablet,extended release 24 hr 60 mg PO DAILY 04/17/18 Acetaminophen [Tylenol] 1,000 mg PO Q4H PRN PRN 05/14/18 Albuterol IH (ProAir) [Proair Hfa] 1 puff INHALATION Q4H PRN PRN 05/14/18 Cholecalciferol (VIT D3) [Vitamin D3] 1,000 unit PO DAILY 05/14/18 Guaifenesin/Dextromethorphan [Tussin Dm Liquid] 20 ml PO Q6H PRN PRN 05/14/18 Apixaban [Eliquis] 5 mg PO BID #60 tab 05/19/18 doxazosin 4 mg tablet 4 mg PO QHS #90 tab 05/28/18 Atenolol [Tenormin (beta chris)] 50 mg PO BID 11/22/19 Furosemide [Lasix] 40 mg PO DAILY 12/28/19 Dexamethasone [Decadron] 6 mg PO DAILY@0800 #12 tab 12/30/19 Following Prescriptions Were Given to Patient: Dexamethasone [Decadron] 6 mg PO DAILY@0800 #12 tab Transmission Status: Received by [facility] Primary Care Physician: Renato Coyle DO [Primary Care Provider] - Please follow up with your Primary Care Physician in: 3-5 days Please Follow Up With: Tenzin Garduno MD When: 2-4 weeks Disposition: Home Minutes spent on discharge:: 35 Patient Condition:: Stable Medical Necessity - Tobacco Use Smoking Status: Former smoker Tobacco Use: Cigarettes Meaningful Use Info Meaningful Use Diagnoses (Choose all that apply): None applicable Inpatient E&M: 33395 [facility] Hosp
--- NOTE | 2019-12-31 13:30 | CASEMGMT ---
MIKEY ANNE DC PHONE CALL DC DATE: 12/30/2019 DC DISPOSITION: Home DC DIAGNOSIS: covid-19 STRATA: 3 F/U APPTS MADE PRIOR TO DC: F/U with physician office- they have already called patient PRESCRIPTIONS ACQUIRED BY PT: yes Intro role of CM to patient in room. The patient states he is feeling better and has no questions re: instructions, medications or f/u. States the health department already called and reviewed isolation/quarantine with him. States he is isolating in the home and has someone who can bring supplies, groceries if needed. No further questions and states his care at [facility] was excellent. Jenelle WHITFIELDN RN ACM
== END 2019-12-30 13:45 | disposition home or self-care (01) | DRG 871 ==
LOC: ED 12:12 → ICU 12:52
PROVIDERS: Emergency Medicine; Internal Medicine Infectious Disease; Admitting Provider Family Medicine; Emergency Provider Emergency Medicine; PCP Student in an Organized Health Care Education/Training Program; Visit Provider Family Medicine
DX: A41.89 Other specified sepsis (principal); U07.1 COVID-19; J96.01 Acute respiratory failure with hypoxia; I24.8 Other forms of acute ischemic heart disease; J41.1 Mucopurulent chronic bronchitis; J44.9 Chronic obstructive pulmonary disease, unspecified; I48.0 Paroxysmal atrial fibrillation; I25.10 Atherosclerotic heart disease of native coronary artery without angina pectoris; I10 Essential (primary) hypertension; E78.5 Hyperlipidemia, unspecified; E89.0 Postprocedural hypothyroidism; Z79.01 Long term (current) use of anticoagulants; Z79.890 Hormone replacement therapy; Z79.899 Other long term (current) drug therapy; Z87.01 Personal history of pneumonia (recurrent); Z87.11 Personal history of peptic ulcer disease; Z85.850 Personal history of malignant neoplasm of thyroid; Z86.73 Personal history of transient ischemic attack (TIA), and cerebral infarction without residual deficits; Z87.891 Personal history of nicotine dependence; Z95.1 Presence of aortocoronary bypass graft
CPT/HCPCS: 36415; 71045; 71275; 80053; 81001; 83605; 84484; 85025; 85027; 85379; 85610; 85730; 86900; 86901; 87040; 87086; 87088; 87633; 87635; 93005; 99251; 99285; J7050; Q9967; A4216; G0463; U0002

== ENCOUNTER → 2020-02-02 08:10 | Outpatient (CLI) | payer MEDICARE, OTHER, SELFPAY ==
[2020-01-25 12:38] VITALS: BMI 27.6
[2020-02-02 09:35] VITALS: PULSE 63; PULSE 68; PULSE 69; PULSE 70; PULSE 73; PULSE 74; PULSE 85; O2SAT 88; O2SAT 91; O2SAT 92; O2SAT 93; O2SAT 94
--- NOTE | 2020-02-02 09:37 | CPS ---
Patient arrived on RA from home. Patient's pulse ox on RA was 88%, with mask on. Patient did say he felt SOB at that time. I had the patient remove mask and the SpO2 was 91% after 2 minutes. Patient started on 2L of O2 and remained on 2L for the entire test, and pulse ox stayed up above 90%.
--- NOTE | 2020-02-02 16:05 | PCM.PSN.6M ---
PSN 6 Minute Walk Test - 6 Minute Walk Test 6 Minute Walk Test: 6 Minute Walk Test PSN:6-Minute Walk Test Start: 02/02/20 09:34 Freq: Status: Active Protocol: [id number].6MINW Document 02/02/20 09:35 DAR (Rec: 02/02/20 09:42 DAR [id number]) 6 Minute Walk Test Date Performed 02/02/20 Time Performed 08:15 Height 5 ft 6 in Weight: 76.657 kg Weight in Pounds 169.[address]: [place] To [employer] Assistive device used: None Pre-test Oxygen Delivery Method Room Air Pulse Ox (%) 88 Pulse Rate (60-100 beats/min) 63 Dyspnea [place] Scale (0-10) 2 Exertion [place] Scale (6-20) 6 1st minute Oxygen Flow Rate (L/min) (L/min) 2 Oxygen Delivery Method Nasal Cannula Pulse Ox (%) 93 Pulse Rate (60-100 beats/min) 85 2nd minute Oxygen Flow Rate (L/min) (L/min) 2 Oxygen Delivery Method Nasal Cannula Pulse Ox (%) 92 Pulse Rate (60-100 beats/min) 70 3rd minute Oxygen Flow Rate (L/min) (L/min) 2 Oxygen Delivery Method Nasal Cannula Pulse Ox (%) 92 Pulse Rate (60-100 beats/min) 68 4th minute Oxygen Flow Rate (L/min) (L/min) 2 Oxygen Delivery Method Nasal Cannula Pulse Ox (%) 91 Pulse Rate (60-100 beats/min) 69 5th minute Oxygen Flow Rate (L/min) (L/min) 2 Oxygen Delivery Method Nasal Cannula Pulse Ox (%) 91 Pulse Rate (60-100 beats/min) 73 6th minute Oxygen Flow Rate (L/min) (L/min) 2 Oxygen Delivery Method Nasal Cannula Pulse Ox (%) 91 Pulse Rate (60-100 beats/min) 74 Dyspnea [place] Scale (0-10) 0 Exertion [place] Scale (6-20) 11 Post-test Oxygen Flow Rate (L/min) (L/min) 2 Oxygen Delivery Method Nasal Cannula Pulse Ox (%) 94 Pulse Rate (60-100 beats/min) 68 Full Laps Walked 11 Partial Lap, Number of Tiles Walked 30 Total Distance Walked (ft) 679 02/02/20 09:37 Cardiopulmonary Services by Rosalind Bull Patient arrived on RA from home. Patient's pulse ox on RA was 88%, with mask on. Patient did say he felt SOB at that time. I had the patient remove mask and the SpO2 was 91% after 2 minutes. Patient started on 2L of O2 and remained on 2L for the entire test, and pulse ox stayed up above 90%. Initialized on 02/02/20 09:37 - END OF NOTE - Interpretation Interpretation: The patient was noted to be 88% on room air and improved to 91% with 2 L nasal cannula. The patient then ambulated for 6 minutes traveling a total of 679 feet over the course of 6 minutes. These findings are consistent with a respiratory limitation exercise tolerance. - Recommendations Recommendations: The patient should be using 2 L nasal cannula at all times.
== END ==
PROVIDERS: PCP Student in an Organized Health Care Education/Training Program; Visit Provider Nurse Practitioner Acute Care
DX: R06.02 Shortness of breath (principal)
CPT/HCPCS: 94618

== ENCOUNTER → 2020-02-12 15:53 | Outpatient (CLI) | payer MEDICARE, OTHER, SELFPAY ==
[2020-02-08 13:03] VITALS: BMI 28.8
[2020-02-12 16:35] LABS: Anion Gap 1 (5-15); BUN 18 mg/dL (7-18); BUN/Creat Ratio 19.9 RATIO (10-20); Calcium,Total 8.4 mg/dL (8.5-10.1); Chloride 104 mmol/L (98-107); EST Glomerular Filtration Rate 86 mL/min (>60); Est Glom Filt Rate - Afr Amer 104 mL/min (>60); Glucose 100 mg/dL (74-106); Potassium 3.7 mmol/L (3.5-5.1); Sodium Level 142 mmol/L (136-145)
[2020-02-12 16:36] LABS: BNP,B-Type NATRIURETIC PEPTIDE 494.2 pg/mL (0-100)
== END ==
PROVIDERS: PCP Student in an Organized Health Care Education/Training Program; Visit Provider Nurse Practitioner Family
DX: R06.02 Shortness of breath (principal)
CPT/HCPCS: 36415; 80048; 83880

== ENCOUNTER 2020-02-17 07:48 | Inpatient (IN) | payer MEDICARE, OTHER, SELFPAY ==
[2020-02-08 13:03] VITALS: BMI 28.8
[2020-02-17] VITALS (40 sets, daily range): BP systolic 99–174; BP diastolic 52–129; PULSE 73–115; RESP 15–34; TEMP 36.4–38.8; O2SAT 79–100; BMI 29.7; BMI 29.0
--- NOTE | 2020-02-17 07:52 | RAD_ITS ---
STUDY: X-RAY CHEST REASON FOR EXAM: Male, 79 years old. FEVER, COUGH, HYPOXIA, COVID + 5-6 WKS AGO TECHNIQUE: Single AP portable view of the chest. COMPARISON: Comparison is made with prior examination dated 12/28/2019. FINDINGS: EKG electrodes are seen. Elevation of the right hemidiaphragm. Small bilateral pleural effusions greater on the right side with patchy congestion. There is evidence of bibasilar atelectasis and/or infiltrate. Findings are suggestive of the CHF. Sternal cerclage wires and vascular clips are present from a prior sternotomy and coronary artery bypass graft procedure (CABG). Normal mediastinum and kacy. Normal visualized pulmonary arteries. There is atherosclerotic tortuosity of the aortic arch and descending thoracic aorta. There are diffuse degenerative changes of the visualized thoracic spine. Normal visualized ribs, clavicles, and shoulders. There is no demonstrated abnormality of the visualized soft tissue structures of the upper abdomen. RAD/Chest 1 View (Portable) IMPRESSION: Findings suggestive of CHF with bibasilar atelectasis/infiltrates. Follow-up is recommended. Electronically Signed: Chase Ruff, at 8:51 EST , Service support ,
--- NOTE | 2020-02-17 07:52 | EKG12_ITS ---
Test Reason : CP Blood Pressure : / mmHG Vent. Rate : 094 BPM Atrial Rate : 094 BPM P-R Int : 228 ms QRS Dur : 140 ms QT Int : 400 ms P-R-T Axes : 068 010 158 degrees QTc Int : 500 ms Sinus rhythm with 1st degree A-V block Right atrial enlargement Left bundle branch block Abnormal ECG Confirmed by DANIS OCHOA, PAPITO ([id number]), fan mail editor REGINA AHUMADA ([id number]) on 02/24/2020 10:10:10 AM Referred By: LIBRADO Confirmed By:GEOVANNI MOSCOSO MD
[2020-02-17] MEDS: 0.9% Normal Saline 1,000 ML 150 ML IV (08:10)
[2020-02-17] MEDS: Acetaminophen 325 MG Tablet 650 MG PO (08:10)
--- NOTE | 2020-02-17 08:15 | ED.RN ---
PT COMPLAINS OF SEVERE LOWER BACK PAIN, AND INCREASED SHORTNESS OF BREATH. 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 DR. PAVON MADE AWARE.
[2020-02-17 08:18] LABS: Absolute Lymphocyte Count 0.92 X10^3/uL (0.83-4.51); Absolute Neutrophil Count 11.7 X10^3/uL (2.0-7.7); Basophil# 0.05 X10^3/uL; Basophil% 0.4 % (0-1); Eosinophil# 0.03 X10^3/uL; Eosinophils% 0.2 % (0-5); Hemoglobin 10.9 g/dL (13.0-16.5); Lymphocyte # 0.92 X10^3/ul (4.0); Lymphocyte % 6.6 % (19-41); Mean Corp Hgb Conc 29.5 g/dL (32-36); Mean Corpuscular Hgb 26.4 pg (27.0-32.0); Mean Corpuscular Volume 89.6 fL (80-94); Mean Platelet Vol. 9.9 fl (6.2-12.0); Monocyte# 1.16 X10^3/uL; Monocyte% 8.4 % (0-10); NRBC Flagged by Analyzer 0 % (0-5); Neutrophil # 11.66 X10^3/uL (2.7-7.7); Neutrophil % 83.9 % (47-70); Platelet Count 350 K/mm3 (150-450); RBC Distribution Width CV 15.9 % (11.6-14.6); RBC Distribution Width SD 51.7 fl (35.1-43.9); Red Blood Count 4.13 M/mm3 (4.6-6.2); White Blood Count 13.9 K/mm3 (4.4-11.0)
--- NOTE | 2020-02-17 08:18 | RAD_ITS ---
STUDY: X-RAY - ABDOMEN/PELVIS REASON FOR EXAM: Male, 79 years old. OG PLACEMENT TECHNIQUE: Single AP view of the abdomen / pelvis. COMPARISON: None. FINDINGS: The tip of the orogastric tube is in the distal body of the stomach. RAD/Abdomen Single View IMPRESSION: The tip of the orogastric tube is in the distal portion of the body of the stomach. Electronically Signed: Chase Ruff, at 9:29 EST , Service support ,
--- NOTE | 2020-02-17 08:18 | RAD_ITS ---
STUDY: X-RAY CHEST REASON FOR EXAM: Male, 79 years old. ETT PLACEMENT TECHNIQUE: Single AP portable view of the chest. COMPARISON: Comparison is made with prior study done earlier today. FINDINGS: An endotracheal tube is in situ. The tip is at 2.2 cm proximal to the mike. An orogastric tube is seen with the tip in the upper mid abdomen. EKG electrodes are seen. Elevation of the right hemidiaphragm. Small bilateral pleural effusions right greater than right with bibasilar infiltrates and/or atelectasis at the lung bases. Mild degree of vascular congestion. Sternal cerclage wires and vascular clips are present from a prior sternotomy and coronary artery bypass graft procedure (CABG). Normal mediastinum and kacy. Normal visualized pulmonary arteries. There is atherosclerotic tortuosity of the aortic arch and descending thoracic aorta. RAD/Chest 1 View (Portable) IMPRESSION: The tip of the endotracheal tube is at 2.2 cm proximal to the mike. An orogastric tube is seen with the tip in the upper midabdomen. Electronically Signed: Chase Ruff, at 9:27 EST , Service support ,
[2020-02-17 08:25] LABS: Allen Test Positive; Base Excess 11 mmol/L (-2 to +2); Bicarbonate 38.1 mmol/L (22-26); Blood Gas Specimen Type ART; FI02 100; O2 Delivery Device NRB; PO2 115 mmHG (75-100); SITE R Radial; SO2 97 % (95-99); Total Carbon Dioxide 41 mmol/L; pCO2 90.9 mmHg (35-45); pH 7.23 (7.35-7.45)
[2020-02-17] MEDS: Etomidate 20 MG/10 ML Vial 25 MG IV (08:27)
[2020-02-17] MEDS: Rocuronium Bromide 50 MG/5 ML Vial 64 MG IV (08:30)
[2020-02-17 08:35] LABS: ALB/GLOB Ratio 0.7 RATIO (0.9-2.4); AST(SGOT) 10 U/L (15-37); Alanine Aminotransfer ALT/SGPT 20 U/L (16-61); Alkaline Phosphatase 104 U/L (45-117); Anion Gap 3 (5-15); BUN 18 mg/dL (7-18); BUN/Creat Ratio 24.2 RATIO (10-20); Calcium,Total 8.7 mg/dL (8.5-10.1); Chloride 103 mmol/L (98-107); Creatinine, Serum 0.74 mg/dL (0.70-1.30); EST Glomerular Filtration Rate 108 mL/min (>60); Est Glom Filt Rate - Afr Amer 131 mL/min (>60); Estimated Creatinine Clearance 55.83 ml/min; Globulin 4.4 g/dL (2.2-4.2); Glucose 119 mg/dL (74-106); Potassium 3.4 mmol/L (3.5-5.1); Protein, Total 7.4 g/dL (6.4-8.2); Sodium Level 141 mmol/L (136-145)
--- NOTE | 2020-02-17 08:35 | ED.DCSUM_ITS ---
History of Present Illness Chief Complaint: Shortness of Breath Informant: Patient, Mds Nurse Onset: Today Context: Sudden Onset Timing: Continuous Quality: Report presented as cough shortness of breath with history of positive Covi Location: Awoke from sleep. Current Severity: Severe Maximum Severity: Severe Worsened by: Nothing Relieved by: Nothing Associated Symptoms: Cough now complaining of chest pressure Narrative: Patient is an elderly male with history of heart disease, COPD, hypertension, hyperlipidemia, valvular heart disease and self-reported history of TIA. Pulse ox was 80% per squad initially. He arrived on a nonrebreather mask. He was transitioned to BiPAP. History is limited because of respiratory distress. He reports malaise, fatigue, chest pain, shortness of breath and cough. He answered by nodding yes or no. He denied black or maroon stool. He reports chronic edema. Sleeps with only one pillow. Uncertain whether he has history of congestive heart failure. He does report port mild nasal congestion. 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 (10) Hyperlipidemia Status: Chronic Past Medical History - Allergies and Home Meds Allergies/Adverse Reactions: Allergies caffeine Allergy (Mild, Verified 02/17/20 08:14) Unknown bee venom protein (honey bee) Allergy (Verified 02/17/20 08:14) Swelling Penicillins Allergy (Verified 02/17/20 08:14) Hives Primary Care Physician: Renato Coyle DO [Primary Care Provider] - Prior records reviewed: Yes Surgical History: coronary bypass surgery Lives: Alone Smoking Status: Former smoker - Family History Maternal Family History: Family History (Last Reviewed 02/08/20 @ 13:31 by [place] To QUESTIONED DOCUMENTS EXAMINER, QUESTIONED DOCUMENTS EXAMINER-C) Other Heart disease Family History: Reports: No pertinent history Paternal Family History: Family History (Last Reviewed 02/08/20 @ 13:31 by Socorro To QUESTIONED DOCUMENTS EXAMINER, QUESTIONED DOCUMENTS EXAMINER-C) Other Heart disease Family History: Reports: No pertinent history Review of Systems ROS: Unable to Obtain - Street is limited due to respiratory distress. General: Reports: Malaise ENT: Reports: Rhinorrhea. Denies: Sore throat Cardiovascular: Reports: Chest pain. Denies: Palpitations, Heart racing Respiratory: Reports: Dyspnea, Cough, Paroxysmal nocturnal dyspnea. Denies: Orthopnea Gastrointestinal: Reports: Nausea, Vomiting Musculoskeletal: Denies: Myalgias, Arthralgias Neurological: Reports: Weakness Allergy: Denies: Uticaria Physical Exam Vital Signs/Narrative: Vital Signs Temp Pulse Resp BP Pulse Ox 02/17/20 08:03 97.5 F L 02/17/20 07:53 97.5 F L 97 34 H 174/86 H 97 02/17/20 07:50 97.5 F L 97 34 H 174/86 H 79 Inital Vital Signs reviewed: Yes General: Well nourished, Well developed, Acute Distress Head: Normocephalic, Atraumatic Eyes: Perrl, EOMI. Negative for: Pale conjunctiva, Scleral icterus ENT: Moist mucous membranes, TM's clear, Nasal congestion Neck: Supple, Nontender, No lymphadenopathy, No JVD Cardiovascular: Regular rate, Regular rhythm, No murmurs, Normal S1, Normal S2 Respiratory: Rales - Rales heard throughout.. Negative for: No distress, CTA bilaterally Abdomen: Soft, Nontender, Nondistended, Normal bowel sounds, No masses Rectal: Deferred Back: Nontender, Normal Inspection Extremities: Nontender, Edema - Pitting edema 6 mm bilaterally. Skin: No rash, No Trauma, Pallor. Negative for: Cyanosis, Diaphoresis, Jaundice Neurological: Cranial nerves II-XII grossly intact, Normal Strength, Normal Sensation. Negative for: Alert, Oriented x3 Psychological: Normal affect Diagnostic/Tx/Re-eval Chest X-Ray - ED: 1 View, Cardiomegaly, CHF, - - Single portable chest x-ray was interpreted by me at 0835. This led to intubation and placement of nitro drip for preload reduction. He also received Lasix since clinically he is fluid overloaded. 02/17/20 07:52 Chest 1 View (Portable) [RAD] Stat 02/17/20 08:18 Abdomen Single View [RAD] Stat Chest 1 View (Portable) [RAD] Stat 02/17/20 08:05 Mucosa - Nose Influenza Types A,B Direct FA (BRITTNEY) - Final Laboratory Results 02/17/20 02/17/20 02/17/20 07:55 07:55 07:55 WBC 13.9 H RBC 4.13 L Hgb 10.9 L Hct 37.0 L MCV 89.6 MCH 26.4 L MCHC 29.5 L RDW Std Deviation 51.7 H RDW Coeff of Dominic 15.9 H Plt Count 350 MPV 9.9 Immature Gran % (Auto) 0.500 Neut % (Auto) 83.9 H Lymph % (Auto) 6.6 L [place] % (Auto) 8.4 Eos % (Auto) 0.2 Baso % (Auto) 0.4 Absolute Neuts (auto) 11.7 H Absolute Lymphs (auto) 0.92 Nucleated RBC % 0 Specimen Type Sample Site pH Bicarbonate Actual Total CO2 Base Excess O2 Saturation O2 % ABG pCO2 ABG pO2 Diomedes Test O2 Delivery Device Sodium 141 Potassium 3.4 L Chloride 103 Carbon Dioxide 35.0 H Anion Gap 3 L BUN 18 Creatinine 0.74 Estim Creat Clear Calc 55.83 Est GFR (MDRD) Af Amer 131 Est GFR (MDRD) Non-Af 108 BUN/Creatinine Ratio 24.2 H Glucose 119 H Lactic Acid 1.0 Calcium 8.7 Total Bilirubin 0.70 AST 10 L ALT 20 Alkaline Phosphatase 104 Troponin I 0.037 Total Protein 7.4 Albumin 3.0 L Globulin 4.4 H Albumin/Globulin Ratio 0.7 L Urine Color Urine Clarity Urine pH Ur Specific Dexter Urine Protein Urine Glucose (UA) Urine Ketones Urine Occult Blood Urine Nitrite Urine Bilirubin Urine Urobilinogen Ur Leukocyte Esterase Urine RBC Urine WBC Ur Squamous Epith Cells Urine Bacteria Hyaline Casts Fine Granular Casts Urine Mucus 02/17/20 02/17/20 08:21 08:49 WBC RBC Hgb Hct MCV MCH MCHC RDW Std Deviation RDW Coeff of Dominic Plt Count MPV Immature Gran % (Auto) Neut % (Auto) Lymph % (Auto) [place] % (Auto) Eos % (Auto) Baso % (Auto) Absolute Neuts (auto) Absolute Lymphs (auto) Nucleated RBC % Specimen Type ART Sample Site R Radial pH 7.23 L Bicarbonate Actual 38.1 H Total CO2 41 Base Excess 11 H O2 Saturation 97 O2 % 100 ABG pCO2 90.9 H* ABG pO2 115 H Diomedes Test Positive O2 Delivery Device NRB Sodium Potassium Chloride Carbon Dioxide Anion Gap BUN Creatinine Estim Creat Clear Calc Est GFR (MDRD) Af Amer Est GFR (MDRD) Non-Af BUN/Creatinine Ratio Glucose Lactic Acid Calcium Total Bilirubin AST ALT Alkaline Phosphatase Troponin I Total Protein Albumin Globulin Albumin/Globulin Ratio Urine Color Yellow Urine Clarity Sl. Cloudy Urine pH 6.0 Ur Specific Dexter 1.025 Urine Protein 100 H Urine Glucose (UA) Normal Urine Ketones 50 H Urine Occult Blood 250 H Urine Nitrite Negative Urine Bilirubin Negative Urine Urobilinogen 1 H Ur Leukocyte Esterase Negative Urine RBC 0 SEEN Urine WBC 5-10 SEEN Ur Squamous Epith Cells 0-5 SEEN Urine Bacteria 1+ Hyaline Casts 0-5 SEEN Fine Granular Casts 0-5 SEEN Urine Mucus RARE ABG indicates acute on chronic CO2 retention with significant AA gradient consistent with pulmonary edema. Initial troponin is normal. Lactate is normal. Will call hospitalist for admission to ICU. Patient does not have a local student services rep. His student services rep practices at outside facility. - Rhythm Strip Rhythm Strip: Sinus Tach Rate: 101 - EKG Initial EKG Interpretation: Sinus Rhythm - Anus rhythm with a first-degree AV block. HI interval is 228 ms. Rate is 94. Cures duration 140 ms. Configuration is consistent with a left bundle branch block, which he has a history of. QT duration 400 ms. The EKG is abnormal. J-point is more prominent than prior EKG. - Medical Decision Making Because there was concern for infectious etiology prior to x-ray spoke with Dr. Jung Dunaway who is aware of patient. Agrees not repeating Covid test. Because there was concern for infectious cause respiratory panel was obtained as well as influenza. In light of chest x-ray findings he was treated with nitroglycerin drip and Lasix. He did require ventilation since he has acute on chronic respiratory failure with hypercapnia and hypoxia. - Critical Care Time Critical care time (excluding procedures): 30-74 minutes - Critical care time 42 minutes, Discussing w/Patient &/or Family/Filling Machine Set Up Mechanic, Discussing w/Consultants, Arranging Admission or Transfer ED Disposition - Plan for ED Patient: Disposition: Acute Care Hospital [facility] Diagnosis: Acute on chronic respiratory failure with hypoxia and hypercapnia, Pulmonary edema cardiac cause, Anemia, unspecified Referrals: Renato Coyle DO [Primary Care Provider] -
[2020-02-17] MEDS: fentaNYL drip 100 ML 2.5 MCG IV (08:41)
[2020-02-17] MEDS: Nitroglycerin Infusion 250 ML 6 MG CONT INF (08:50)
[2020-02-17 08:54] LABS: Red Blood Cells-Urine 0 SEEN /hpf (0-5)
[2020-02-17 08:57] LABS: Color, Urine Yellow (Yellow); Glucose, Dipstick Normal (Normal); Ketone-Dipstick 50 mg/dl (Negative); Leukocyte Esterase-Dipstick Negative /ul (Negative); Nitrite-Dipstick Negative (Negative); Occult Blood-Urine 250 /ul (Negative); Protein-Dipstick 100 mg/dl (Negative); Specific Gravity, Urine 1.025 (1.002-1.030); Urine Bilirubin Dipstick Negative (Negative); Urine Clarity Sl. Cloudy (Clear); Urine Urobilinogen 1 mg/dl (Normal)
[2020-02-17 09:03] LABS: Bacteria 1+ /hpf (None Seen); Fine Granular Cast- Urine 0-5 SEEN /lpf (0-5); Hyaline Cast 0-5 SEEN /lpf (0-5); Mucous, Urine RARE /hpf (<or=2+); Squamous Epithelial Cells - UA 0-5 SEEN /hpf (0-5); White Blood Cells 5-10 SEEN /hpf (0-5)
--- NOTE | 2020-02-17 09:11 | NURSING ---
DR MOSCOSO PAGED AND RESPONDED
--- NOTE | 2020-02-17 09:21 | CPS ---
Dr. James was notified about the critical values of ABG.
[2020-02-17 09:22] LABS: International Normalized Ratio 1.2; Prothrombin Time (Protime)PT. 14.4 SECONDS (11.7-14.9)
[2020-02-17 09:24] LABS: Partial Thromboplast Time 33.9 Seconds (24.1-36.2)
--- NOTE | 2020-02-17 09:35 | NURSING ---
DR ROSEMARIE PAVON
--- NOTE | 2020-02-17 09:38 | PCM.HP.STD ---
Problem List (1) COVID-19 Status: Inactive (2) COPD (chronic obstructive pulmonary disease) Status: Chronic Qualifiers: COPD type: chronic bronchitis Chronic bronchitis type: mucopurulent Qualified Code(s): J41.1 - Mucopurulent chronic bronchitis (3) Acute on chronic respiratory failure with hypoxia and hypercapnia Status: Acute (4) Pulmonary edema cardiac cause Status: Acute (5) Anemia, unspecified Status: Acute (6) Left bundle branch block Status: Chronic (7) Paroxysmal atrial fibrillation Status: Chronic (8) Nonrheumatic mitral (valve) insufficiency Status: Chronic (9) Non-rheumatic aortic stenosis Status: Chronic (10) H/O coronary artery bypass surgery Status: Chronic Comment: CABG x 3: SPARKS-LAD, SVG-RPDA, ANAY-Acute [place] (11) Essential (primary) hypertension Status: Chronic (12) Atherosclerosis of coronary artery of [place] heart without angina pectoris Status: Chronic Comment: CABG x 3: SPARKS-LAD, SVG-RPDA, ANAY-Acute [place] (13) SOB (shortness of breath) Status: Chronic (14) 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 fib on Eliquis was brought by EMS for increased shortness of breath in the morning. Patient had Covid 5 to 6 weeks ago. The pulse ox was 80% per squad was put on nonrebreather. Needed was transitioned to BiPAP. BP was high 174/86, heart rate 97 and RR 34/min. ABG showed 7.2 391/100 100% agree with there. Lasix 40 mg IV was given. Chest x-ray shows bibasilar atelectasis/infiltrate and subsequently patient was intubated with etomidate and rocuronium. Patient was put on nitro drip and admitted in ICU. In ICU, repeat ABG 7.4 3/43/60 on 40% FiO2/500/16/5. Blood pressure is 126 systolic and nitro drip is being tapered off. Patient is awake and responds to simple question by nodding head. He denies having any recent fever, cough, chest pain/pressure last 2 to 3 weeks but had sudden shortness of breath although ED physician note states patient had chest pain, and cough. EKG shows normal sinus rhythm at 94 bpm, QTC 500 ms with left bundle branch block. Previous EKG of 12/28/2019 similar sinus rhythm, LAD, LBBB. [] Past Medical History Past Medical History (Chronic Problems): Chronic Problems (Last Reviewed 02/08/20 @ 13:31 by [place] To WEB APPLICATIONS ADMINISTRATOR, WEB APPLICATIONS ADMINISTRATOR-C) COPD (chronic obstructive pulmonary disease) (Chronic) Left bundle branch block (Chronic) Paroxysmal atrial fibrillation (Chronic) Nonrheumatic mitral (valve) insufficiency (Chronic) Non-rheumatic aortic stenosis (Chronic) H/O coronary artery bypass surgery (Chronic) CABG x 3: SPARKS-LAD, SVG-RPDA, ANAY-Acute [place] Essential (primary) hypertension (Chronic) Atherosclerosis of coronary artery of [place] heart without angina pectoris (Chronic) CABG x 3: SPARKS-LAD, SVG-RPDA, ANAY-Acute [place] SOB (shortness of breath) (Chronic) 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) Hyperlipidemia (Chronic) Medical History: Medical History (Last Reviewed 02/08/20 @ 13:31 by [place] To WEB APPLICATIONS ADMINISTRATOR, WEB APPLICATIONS ADMINISTRATOR-C) Left bundle branch block (Chronic) I44.7 Paroxysmal atrial fibrillation (Chronic) I48.0 Nonrheumatic mitral (valve) insufficiency (Chronic) I34.0 Non-rheumatic aortic stenosis (Chronic) I35.0 Essential (primary) hypertension (Chronic) I10 Atherosclerosis of coronary artery of [place] heart without angina pectoris (Chronic) I25.10 CABG x 3: SPARKS-LAD, SVG-RPDA, ANAY-Acute [place] 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) Z86.73 Hyperlipidemia (Chronic) E78.5 COPD (chronic obstructive pulmonary disease) J44.9 Hypothyroidism E03.9 PUD (peptic ulcer disease) K27.9 Cancer (Resolved) C80.1 Hemorrhoids (Resolved) K64.9 Thyroid cancer C73 Allergies caffeine Allergy (Mild, Verified 02/17/20 08:14) Unknown bee venom protein (honey bee) Allergy (Verified 02/17/20 08:14) Swelling Penicillins Allergy (Verified 02/17/20 08:14) Hives Home Medications: Ambulatory Orders Medication Instructions Recorded amlodipine 5 mg-valsartan 160 mg 1 tab PO DAILY 90 Days #90 05/13/17 tablet levothyroxine 175 mcg tablet 175 mcg PO DAILY 90 Days #90 05/13/17 nitroglycerin 0.4 mg sublingual 0.4 mg SUBLINGUAL PRN PRN 8 Days 05/13/17 tablet #25 pravastatin 40 mg tablet 40 mg PO QHS 90 Days #90 05/13/17 isosorbide mononitrate 60 mg 60 mg PO DAILY 04/17/18 tablet,extended release 24 hr Acetaminophen [Tylenol] 1,000 mg PO Q4H PRN PRN 05/14/18 Albuterol IH (ProAir) [Proair Hfa] 1 puff INHALATION Q4H PRN PRN 05/14/18 Cholecalciferol (VIT D3) [Vitamin 1,000 unit PO DAILY 05/14/18 D3] Atenolol [Tenormin (beta chris)] 50 mg PO BID 11/22/19 Furosemide [Lasix] 40 mg PO DAILY 12/28/19 Apixaban [Eliquis] 5 mg PO BID 02/17/20 Doxazosin Mesylate [Cardura] 4 mg PO QHS 02/17/20 Fluticasone/Salmeterol [Advair HFA] 2 puff INHALATION BID 02/17/20 Surgical History: Surgical History (Last Reviewed 02/08/20 @ 13:31 by [place] To WEB APPLICATIONS ADMINISTRATOR, WEB APPLICATIONS ADMINISTRATOR-C) H/O coronary artery bypass surgery (Chronic) Z95.1 CABG x 3: SPARKS-LAD, SVG-RPDA, ANAY-Acute [place] History of colonoscopy (Resolved) Onset Date: ~04/2018 Z98.890 History of left heart catheterization Onset Date: 05/19/18 Z98.890 History of thyroidectomy Z98.890 Hx of cholecystectomy Z90.49 Surgical History: coronary bypass surgery Psychiatric History: No pertinent psych hx Lives: Alone Smoking Status: Former smoker - *Family History Maternal Family History: Family History (Last Reviewed 02/08/20 @ 13:31 by [place] To WEB APPLICATIONS ADMINISTRATOR, WEB APPLICATIONS ADMINISTRATOR-C) Other Heart disease History Items: No pertinent history Paternal Family History: Family History (Last Reviewed 02/08/20 @ 13:31 by [place] To WEB APPLICATIONS ADMINISTRATOR, WEB APPLICATIONS ADMINISTRATOR-C) Other Heart disease History Items: No pertinent history Review of Systems Unable to obtain accurate/complete ROS d/t: Intubated. On fentanyl drip VTE Information - Inpt Only VTE Present on Admission: No VTE Mechan Device Prophylaxis: None Reason prophylaxis not ordered:: Procedure Not Indicated - Already on Eliquis Patient Problems: Active and Suspected Problems (Last Reviewed 02/08/20 @ 13:31 by [place] To WEB APPLICATIONS ADMINISTRATOR, WEB APPLICATIONS ADMINISTRATOR-C) Acute on chronic respiratory failure with hypoxia and hypercapnia (Acute) Pulmonary edema cardiac cause (Acute) Anemia, unspecified (Acute) Objective: Physical exam General: Awake, on minimal fentanyl drip. Answer simple question. Cooperative HEENT: Atraumatic, PERRLA, EOMI, Normocephalic Oral: No Gingival or Mucosal Lesions/ Ulcerations Neck: Supple, No JVD, Negative Carotid Bruits Lungs: Air entry diminished in bilateral lung bases. Intubated on AC mode on ventilator. Bibasilar crackles Cardiovascular: Regular rate, Regular Rhythm, Normal S1, Normal S2, midsystolic murmur over cardiac apex and LLSB. PVCs. Abdomen: Bowel Sounds Present, Soft, Non Tender, Non-Distended : No renal angle tenderness. No suprapubic tenderness. Extremities: Minimal ankle edema, Capillary Refill Less than 3 Seconds Skin: No rashes, No breakdown Musculoskeletal: No Tenderness to Palpation of Joints or Extremities Neurological: Cranial nerves II-XII grossly intact, Deep Tendon Reflexes 2+/4 and Symmetrical, Neuro grossly intact Psych/Mental Status: Intubated. - Physical Exam Vitals/I&O's: Vital Signs Temp Pulse Resp BP Pulse Ox 97.5 F L 93 34 H 164/70 H 97 02/17/20 08:03 02/17/20 08:50 02/17/20 07:53 02/17/20 08:50 02/17/20 07:53 Oxygen Flow Rate (L/min) 15 Oxygen Delivery Method Non-Rebreather Weight: 184 lb 4.903 oz Body Mass Index (BMI) 29.7 Finger Stick Blood Glucose 103 Microbiology Past 72 Hours 02/17/20 08:05 Mucosa - Nose Influenza Types A,B Direct FA (BRITTNEY) - Final Laboratory Results 02/17/20 07:55: WBC 13.9 H, RBC 4.13 L, Hgb 10.9 L, Hct 37.0 L, MCV 89.6, MCH 26.4 L, MCHC 29.5 L, RDW Std Deviation 51.7 H, RDW Coeff of Dominic 15.9 H, Plt Count 350, MPV 9.9, Immature Gran % (Auto) 0.500, Neut % (Auto) 83.9 H, Lymph % (Auto) 6.6 L, Mcdowell % (Auto) 8.4, Eos % (Auto) 0.2, Baso % (Auto) 0.4, Absolute Neuts (auto) 11.7 H, Absolute Lymphs (auto) 0.92, Nucleated RBC % 0 02/17/20 07:55: PT 14.4, INR 1.2, APTT 33.9 02/17/20 07:55: Sodium 141, Potassium 3.4 L, Chloride 103, Carbon Dioxide 35.0 H, Anion Gap 3 L, BUN 18, Creatinine 0.74, Estim Creat Clear Calc 55.83, Est GFR (MDRD) Af Amer 131, Est GFR (MDRD) Non-Af 108, BUN/Creatinine Ratio 24.2 H, Glucose 119 H, Calcium 8.7, Total Bilirubin 0.70, AST 10 L, ALT 20, Alkaline Phosphatase 104, Troponin I 0.037, Total Protein 7.4, Albumin 3.0 L, Globulin 4.4 H, Albumin/Globulin Ratio 0.7 L 02/17/20 07:55: Lactic Acid 1.0 02/17/20 08:21: Specimen Type ART, Sample Site R Radial, pH 7.23 L, Bicarbonate Actual 38.1 H, Total CO2 41, Base Excess 11 H, O2 Saturation 97, O2 % 100, ABG pCO2 90.9 H*, ABG pO2 115 H, Diomedes Test Positive, O2 Delivery Device NRB 02/17/20 08:49: Urine Color Yellow, Urine Clarity Sl. Cloudy, Urine pH 6.0, Ur Specific [place] 1.025, Urine Protein 100 H, Urine Glucose (UA) Normal, Urine Ketones 50 H, Urine Occult Blood 250 H, Urine Nitrite Negative, Urine Bilirubin Negative, Urine Urobilinogen 1 H, Ur Leukocyte Esterase Negative, Urine RBC 0 SEEN, Urine WBC 5-10 SEEN, Ur Squamous Epith Cells 0-5 SEEN, Urine Bacteria 1+, Hyaline Casts 0-5 SEEN, Fine Granular Casts 0-5 SEEN, Urine Mucus RARE Current Medications Sodium Chloride () 1,000 mls @ 150 mls/hr IV .[id number] [facility] Last Admin: 02/17/20 08:10 Dose: 150 mls/hr Documented by: Fentanyl () 100 mls @ 2.5 mls/hr IV UD ADIA; Protocol Last Admin: 02/17/20 08:41 Dose: 25 mcg/hr, 2.5 mls/hr Documented by: Nitroglycerin/Dextrose () 250 mls @ 6 mls/hr CONT INF .[id number] [facility]; Protocol Last Admin: 02/17/20 08:50 Dose: 10 mcg/min, 6 mls/hr Documented by: Assessment/Plan All Active Problems (Last Reviewed 02/08/20 @ 13:31 by [place] To WEB APPLICATIONS ADMINISTRATOR, WEB APPLICATIONS ADMINISTRATOR-C) Acute on chronic respiratory failure with hypoxia and hypercapnia (Acute) Pulmonary edema cardiac cause (Acute) Anemia, unspecified (Acute) Acute bronchitis (Resolved) Acute respiratory failure with hypoxia (Resolved) Aspiration pneumonia of both lower lobes (Resolved) Atelectasis of both lungs (Resolved) Atrial fibrillation with RVR (Resolved) COPD exacerbation (Resolved) Cancer (Resolved) Elevated troponin I level (Resolved) Hemorrhoids (Resolved) History of colonoscopy (Resolved ~04/2018) Infectious encephalopathy (Resolved) Pneumonia (Resolved) Sepsis (Resolved) Sinusitis, acute (Resolved) The patient is a 79 year old M with multiple comorbidities was admitted with sudden onset of shortness of breath on the day of admission. ABG showed 7.2 / 100% agree with there. EKG shows normal sinus rhythm at 94 bpm, QTC 500 ms with left bundle branch block. Previous EKG of 12/28/2019 similar sinus rhythm, LAD, LBBB. 1. Acute combined hypoxic and hypercarbic respiratory failure mostly due to pulmonary edema: Patient is being admitted in ICU. Intubated on vent support. Print Line Tailer has been consulted. 2. Acute on chronic HFpEF, due to moderate aortic stenosis, hypertension and prolonged QTc interval: Patient had echo in September 2019 reported as moderate with mean valve gradient 36 mmHg, calculated area 1.3 cm?, mild eccentric AR. Mild TR, RVSP 30 mmHg. Moderate concentric LVH. EF 55% with no regional wall motion abnormality. Lasix 40 mg IV twice daily as permitted by hemodynamics parameters and renal function and electrolytes. Heart failure core measures, daily weight monitoring, renal function, electrolytes monitoring and fluid restriction. Repeat 2D echo is ordered. 3. Coronary artery disease status post CABG, paroxysmal A. fib on Eliquis, hypertension, hypothyroidism and dyslipidemia: check TSH, free T4. EKG shows QTC 500 ms probably due to left bundle branch block. Avoid QTC prolonging medication. 4. Recent COVID-19 infection with elevated troponins: Patient was admitted between 12/27 to 12/30/2019 for COVID-19 infection. At that time with mildly elevated troponins and mild chest heaviness.. CT of the chest was unremarkable. Troponin 0 0.133. He was treated with remdesivir, convalescent plasma and Decadron. Patient denies any cough or recent fever for last 2 to 3 weeks. VTE prophylaxis: On Eliquis 5 mg twice daily. Clinical Impression(s) from Imaging Studies Chest X-Ray 02/17/20 07:52 IMPRESSION: Findings suggestive of CHF with bibasilar atelectasis/infiltrates. Follow-up is recommended. Electronically Signed: Chase Ruff, at 8:51 EST , Service support , Chest X-Ray 02/17/20 08:18 IMPRESSION: The tip of the endotracheal tube is at 2.2 cm proximal to the mike. An orogastric tube is seen with the tip in the upper midabdomen. Electronically Signed: Chase Ruff, at 9:27 EST , Service support , KUB X-Ray 02/17/20 08:18 IMPRESSION: The tip of the orogastric tube is in the distal portion of the body of the stomach. Inpatient E&M: 33011 Init Hosp L3
--- NOTE | 2020-02-17 09:39 | NURSING ---
ICU [facility]SEM[facility]IE RESP FAILURE WITH HYPERCAPNIA AND HYPOXIA, FLASH PULMONARY EDEMA
--- NOTE | 2020-02-17 09:49 | NURSING ---
ICU 2
[2020-02-17] MEDS: Furosemide 40 MG/4 ML Vial IV ×2 (10:02→18:39)
[2020-02-17 10:11] LABS: Base Excess 7 mmol/L (-2 to +2); Bicarbonate 30.5 mmol/L (22-26); Blood Gas Specimen Type ART; FI02 40; Mode AC; O2 Delivery Device Adult Vent; PEEP 5; PO2 60 mmHG (75-100); RR 16; SITE R Brach; SO2 92 % (95-99); Total Carbon Dioxide 32 mmol/L; Vt 500; pCO2 42.9 mmHg (35-45); pH 7.46 (7.35-7.45)
--- NOTE | 2020-02-17 10:12 | CON.PCM_ITS ---
Reason for Consult Date of Consultation: 02/17/20 Reason for Consultation: Acute on chronic hypoxemic respiratory failure. History of Present Illness: The patient is a 79-year-old male, with a history as outlined below, who presented to the emergency department on February 16 with complaints of rather abrupt onset shortness of breath and hypoxemia. The patient was recently admitted to the hospital several days at the end of December with COVID-19 pneumonia. He did follow-up in the pulmonary medicine clinic, having last been seen on February 07, at which time, there was concern that the patient was experiencing an exacerbation of his COPD. A 6-minute walk test was also completed and revealed the need for 2 L/min of supplemental oxygen at all times. His medical history is also significant for coronary artery disease status post bypass surgery and paroxysmal atrial fibrillation. On presentation to the emergency department, the patient was noted to be afebrile but was hypertensive and tachypneic. Laboratory evaluation revealed a white blood cell count of 14,000. Coagulation profile was within normal limits. Chemistry profile was notable for a potassium of 3.4. Lactate was within normal limits. Troponin was negative. BNP was elevated to 818. Urine analysis was largely unremarkable. Initial arterial blood gas revealed a pH of 7.23 with a corresponding PCO2 of 91 and PO2 of 115. Following evaluation the emergency department, the patient was urgently intubated. Post intubation blood gas revealed improvement. The patient was initially treated with a nitro infusion and IV diuretics. He was subsequently admitted to the medical intensive care unit for further management. Surface echocardiogram dated September 2019 revealed an ejection fraction of 55%. Pulmonary artery systolic pressure was estimated to be 38 mmHg. Moderate aortic stenosis was noted. Past Medical History Past Medical History (Chronic Problems): Chronic Problems (Last Reviewed 02/08/20 @ 13:31 by [place] To CHILDCARE ADMINISTRATOR, CHILDCARE ADMINISTRATOR-C) COPD (chronic obstructive pulmonary disease) (Chronic) Left bundle branch block (Chronic) Paroxysmal atrial fibrillation (Chronic) Nonrheumatic mitral (valve) insufficiency (Chronic) Non-rheumatic aortic stenosis (Chronic) H/O coronary artery bypass surgery (Chronic) CABG x 3: SPARKS-LAD, SVG-RPDA, ANAY-Acute [place] Essential (primary) hypertension (Chronic) Atherosclerosis of coronary artery of [place] heart without angina pectoris (Chronic) CABG x 3: SPARKS-LAD, SVG-RPDA, ANAY-Acute [place] SOB (shortness of breath) (Chronic) 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) Hyperlipidemia (Chronic) Medical History: Medical History (Last Reviewed 02/08/20 @ 13:31 by [place] To CHILDCARE ADMINISTRATOR, CHILDCARE ADMINISTRATOR-C) Left bundle branch block (Chronic) I44.7 Paroxysmal atrial fibrillation (Chronic) I48.0 Nonrheumatic mitral (valve) insufficiency (Chronic) I34.0 Non-rheumatic aortic stenosis (Chronic) I35.0 Essential (primary) hypertension (Chronic) I10 Atherosclerosis of coronary artery of [place] heart without angina pectoris (Chronic) I25.10 CABG x 3: SPARKS-LAD, SVG-RPDA, ANAY-Acute [place] 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) Z86.73 Hyperlipidemia (Chronic) E78.5 COPD (chronic obstructive pulmonary disease) J44.9 Hypothyroidism E03.9 PUD (peptic ulcer disease) K27.9 Cancer (Resolved) C80.1 Hemorrhoids (Resolved) K64.9 Thyroid cancer C73 Allergies caffeine Allergy (Mild, Verified 02/17/20 08:14) Unknown bee venom protein (honey bee) Allergy (Verified 02/17/20 08:14) Swelling Penicillins Allergy (Verified 02/17/20 08:14) Hives Home Medications: Ambulatory Orders Medication Instructions Recorded amlodipine 5 mg-valsartan 160 mg 1 tab PO DAILY 90 Days #90 05/13/17 tablet levothyroxine 175 mcg tablet 175 mcg PO DAILY 90 Days #90 05/13/17 nitroglycerin 0.4 mg sublingual 0.4 mg SUBLINGUAL PRN PRN 8 Days 05/13/17 tablet #25 pravastatin 40 mg tablet 40 mg PO QHS 90 Days #90 05/13/17 isosorbide mononitrate 60 mg 60 mg PO DAILY 04/17/18 tablet,extended release 24 hr Acetaminophen [Tylenol] 1,000 mg PO Q4H PRN PRN 05/14/18 Albuterol IH (ProAir) [Proair Hfa] 1 puff INHALATION Q4H PRN PRN 05/14/18 Cholecalciferol (VIT D3) [Vitamin 1,000 unit PO DAILY 05/14/18 D3] Atenolol [Tenormin (beta chris)] 50 mg PO BID 11/22/19 Furosemide [Lasix] 40 mg PO DAILY 12/28/19 Apixaban [Eliquis] 5 mg PO BID 02/17/20 Doxazosin Mesylate [Cardura] 4 mg PO QHS 02/17/20 Fluticasone/Salmeterol [Advair HFA] 2 puff INHALATION BID 02/17/20 Surgical History: Surgical History (Last Reviewed 02/08/20 @ 13:31 by [place] To CHILDCARE ADMINISTRATOR, CHILDCARE ADMINISTRATOR-C) H/O coronary artery bypass surgery (Chronic) Z95.1 CABG x 3: SPARKS-LAD, SVG-RPDA, ANAY-Acute [place] History of colonoscopy (Resolved) Onset Date: ~04/2018 Z98.890 History of left heart catheterization Onset Date: 05/19/18 Z98.890 History of thyroidectomy Z98.890 Hx of cholecystectomy Z90.49 Surgical History: coronary bypass surgery Psychiatric History: No pertinent psych hx Lives: Alone Smoking Status: Former smoker - *Family History Maternal Family History: Family History (Last Reviewed 02/08/20 @ 13:31 by [place] To CHILDCARE ADMINISTRATOR, CHILDCARE ADMINISTRATOR-C) Other Heart disease History Items: No pertinent history Paternal Family History: Family History (Last Reviewed 02/08/20 @ 13:31 by [place] To CHILDCARE ADMINISTRATOR, CHILDCARE ADMINISTRATOR-C) Other Heart disease History Items: No pertinent history Review of Systems Unable to obtain accurate/complete ROS d/t: Due to current intubation and mechanical ventilation status. Patient Problems: Active and Suspected Problems (Last Reviewed 02/08/20 @ 13:31 by [place] To CHILDCARE ADMINISTRATOR, CHILDCARE ADMINISTRATOR-C) Acute on chronic respiratory failure with hypoxia and hypercapnia (Acute) Pulmonary edema cardiac cause (Acute) Anemia, unspecified (Acute) Objective: The patient's most recent lab work, culture data and imaging studies have all been personally reviewed. - Physical Exam Vitals/I&O's: Vital Signs Temp Pulse Resp BP Pulse Ox 98.0 F 74 16 115/57 L 93 02/17/20 10:10 02/17/20 10:10 02/17/20 10:10 02/17/20 10:10 02/17/20 10:10 Oxygen Flow Rate (L/min) 15 Oxygen Delivery Method Mechanical Ventilator Weight: 184 lb 4.903 oz Body Mass Index (BMI) 29.7 Finger Stick Blood Glucose 103 Intake and Output for Last 24 Hours 02/15/20 02/16/20 02/17/20 23:59 23:59 23:59 Intake Total 2.5 / 2.5 Balance 2.5 / 2.5 General: - - Intubated, sedated and mechanically ventilated. No ventilator to synchrony noted. HEENT: Atraumatic, PERRLA, Normocephalic Oral: No Gingival or Mucosal Lesions/ Ulcerations, - - Endotracheal and OG tubes in place Neck: Supple, No Nodes, Trachea Midline Lungs: Diminished, - - Faint dependent basilar rales. Cardiovascular: Regular rate, Regular Rhythm, Murmur Abdomen: Bowel Sounds Present, Soft, Non Tender Extremities: No clubbing, No cyanosis, Edema Skin: No breakdown Musculoskeletal: No Tenderness to Palpation of Joints or Extremities Lymphatic: No Cervical, Supraclavicular, or Inguinal Adenopathy Neurological: - - No focal neurological deficits. Currently sedated on the ventilator. Labs (Last 48 Hours) 02/17/20 02/17/20 02/17/20 07:55 07:55 07:55 WBC 13.9 H RBC 4.13 L Hgb 10.9 L Hct 37.0 L MCV 89.6 MCH 26.4 L MCHC 29.5 L RDW Std Deviation 51.7 H RDW Coeff of Dominic 15.9 H Plt Count 350 MPV 9.9 Immature Gran % (Auto) 0.500 Neut % (Auto) 83.9 H Lymph % (Auto) 6.6 L [place] % (Auto) 8.4 Eos % (Auto) 0.2 Baso % (Auto) 0.4 Absolute Neuts (auto) 11.7 H Absolute Lymphs (auto) 0.92 Nucleated RBC % 0 PT 14.4 INR 1.2 APTT 33.9 Specimen Type Sample Site pH Bicarbonate Actual Total CO2 Base Excess O2 Saturation O2 % ABG pCO2 ABG pO2 Diomedes Test Respiration Rate O2 Delivery Device Vent Mode Tidal Volume POC PEEP Sodium 141 Potassium 3.4 L Chloride 103 Carbon Dioxide 35.0 H Anion Gap 3 L BUN 18 Creatinine 0.74 Estim Creat Clear Calc 55.83 Est GFR (MDRD) Af Amer 131 Est GFR (MDRD) Non-Af 108 BUN/Creatinine Ratio 24.2 H Glucose 119 H Lactic Acid Calcium 8.7 Total Bilirubin 0.70 AST 10 L ALT 20 Alkaline Phosphatase 104 Troponin I 0.037 Total Protein 7.4 Albumin 3.0 L Globulin 4.4 H Albumin/Globulin Ratio 0.7 L Urine Color Urine Clarity Urine pH Ur Specific [place] Urine Protein Urine Glucose (UA) Urine Ketones Urine Occult Blood Urine Nitrite Urine Bilirubin Urine Urobilinogen Ur Leukocyte Esterase Urine RBC Urine WBC Ur Squamous Epith Cells Urine Bacteria Hyaline Casts Fine Granular Casts Urine Mucus 02/17/20 02/17/20 02/17/20 07:55 08:21 08:49 WBC RBC Hgb Hct MCV MCH MCHC RDW Std Deviation RDW Coeff of Dominic Plt Count MPV Immature Gran % (Auto) Neut % (Auto) Lymph % (Auto) [place] % (Auto) Eos % (Auto) Baso % (Auto) Absolute Neuts (auto) Absolute Lymphs (auto) Nucleated RBC % PT INR APTT Specimen Type ART Sample Site R Radial pH 7.23 L Bicarbonate Actual 38.1 H Total CO2 41 Base Excess 11 H O2 Saturation 97 O2 % 100 ABG pCO2 90.9 H* ABG pO2 115 H Diomedes Test Positive Respiration Rate O2 Delivery Device NRB Vent Mode Tidal Volume POC PEEP Sodium Potassium Chloride Carbon Dioxide Anion Gap BUN Creatinine Estim Creat Clear Calc Est GFR (MDRD) Af Amer Est GFR (MDRD) Non-Af BUN/Creatinine Ratio Glucose Lactic Acid 1.0 Calcium Total Bilirubin AST ALT Alkaline Phosphatase Troponin I Total Protein Albumin Globulin Albumin/Globulin Ratio Urine Color Yellow Urine Clarity Sl. Cloudy Urine pH 6.0 Ur Specific [place] 1.025 Urine Protein 100 H Urine Glucose (UA) Normal Urine Ketones 50 H Urine Occult Blood 250 H Urine Nitrite Negative Urine Bilirubin Negative Urine Urobilinogen 1 H Ur Leukocyte Esterase Negative Urine RBC 0 SEEN Urine WBC 5-10 SEEN Ur Squamous Epith Cells 0-5 SEEN Urine Bacteria 1+ Hyaline Casts 0-5 SEEN Fine Granular Casts 0-5 SEEN Urine Mucus RARE 02/17/20 10:02 WBC RBC Hgb Hct MCV MCH MCHC RDW Std Deviation RDW Coeff of Dominic Plt Count MPV Immature Gran % (Auto) Neut % (Auto) Lymph % (Auto) [place] % (Auto) Eos % (Auto) Baso % (Auto) Absolute Neuts (auto) Absolute Lymphs (auto) Nucleated RBC % PT INR APTT Specimen Type ART Sample Site R Brach pH 7.46 H Bicarbonate Actual 30.5 H Total CO2 32 Base Excess 7 H O2 Saturation 92 L O2 % 40 ABG pCO2 42.9 ABG pO2 60 L Diomedes Test Respiration Rate 16 O2 Delivery Device Adult Vent Vent Mode AC Tidal Volume 500 POC PEEP 5 Sodium Potassium Chloride Carbon Dioxide Anion Gap BUN Creatinine Estim Creat Clear Calc Est GFR (MDRD) Af Amer Est GFR (MDRD) Non-Af BUN/Creatinine Ratio Glucose Lactic Acid Calcium Total Bilirubin AST ALT Alkaline Phosphatase Troponin I Total Protein Albumin Globulin Albumin/Globulin Ratio Urine Color Urine Clarity Urine pH Ur Specific [place] Urine Protein Urine Glucose (UA) Urine Ketones Urine Occult Blood Urine Nitrite Urine Bilirubin Urine Urobilinogen Ur Leukocyte Esterase Urine RBC Urine WBC Ur Squamous Epith Cells Urine Bacteria Hyaline Casts Fine Granular Casts Urine Mucus Microbiology 02/17/20 08:05 Mucosa - Nose Influenza Types A,B Direct FA ([facility]) - Final Clinical Impression(s) from Imaging Studies Chest X-Ray 02/17/20 07:52 IMPRESSION: Findings suggestive of CHF with bibasilar atelectasis/infiltrates. Follow-up is recommended. Electronically Signed: Chase Ruff, at 8:51 EST , Service support , Chest X-Ray 02/17/20 08:18 IMPRESSION: The tip of the endotracheal tube is at 2.2 cm proximal to the mike. An orogastric tube is seen with the tip in the upper midabdomen. Electronically Signed: Chase Ruff, at 9:27 EST , Service support , KUB X-Ray 02/17/20 08:18 IMPRESSION: The tip of the orogastric tube is in the distal portion of the body of the stomach. Electronically Signed: Chase Ruff, at 9:29 EST , Service support , Current Medications Sodium Chloride () 1,000 mls @ 150 mls/hr IV .[id number] ADIA Last Admin: 02/17/20 08:10 Dose: 150 mls/hr Documented by: Fentanyl () 100 mls @ 2.5 mls/hr IV UD ADIA; Protocol Last Titration: 02/17/20 09:41 Dose: 50 mcg/hr, 5 mls/hr Documented by: Nitroglycerin/Dextrose () 250 mls @ 6 mls/hr CONT INF .[id number] ADIA; Protocol Last Admin: 02/17/20 08:50 Dose: 10 mcg/min, 6 mls/hr Documented by: Assessment/Plan Active and Suspected Problems (Last Reviewed 02/08/20 @ 13:31 by [place] To CHILDCARE ADMINISTRATOR, CHILDCARE ADMINISTRATOR-C) Acute on chronic respiratory failure with hypoxia and hypercapnia (Acute) Pulmonary edema cardiac cause (Acute) Anemia, unspecified (Acute) RECOMMENDATIONS: 1. Wean and eventually discontinue nitro drip. 2. Start scheduled bronchodilator therapy along with twice daily budesonide. 3. Wean FiO2 and PEEP to maintain oxygen saturations at or above 90%. 4. Obtain echocardiogram. 5. Continue systemic anticoagulation with Eliquis. 6. Continue appropriate GI prophylaxis. 7. IV Lasix twice daily. IMPRESSIONS: 1. Acute on chronic combined respiratory failure Suspect related to flash pulmonary edema in the setting of valvular heart disease and poorly controlled hypertension noted on arrival. The patient is improving from an oxygenation standpoint with invasive mechanical ventilatory support, aggressive blood pressure control and administration of diuretics. Plan to continue the aforementioned as tolerated by hemodynamics. Continue to wean FiO2 to maintain oxygen saturations at or above 90%. 2. Valvular heart disease/coronary artery disease status post bypass/paroxysmal atrial fibrillation The patient does have known aortic valve stenosis and is currently followed in the cardiology clinic. Plan to continue supportive measures noted above. Repeat echocardiogram will be obtained. 3. History of COPD Start scheduled bronchodilator therapy along with budesonide twice daily. 4. Advanced age/hyperlipidemia/hypertension/hypothyroidism Complicates care, management, recovery and prognosis. Continue home medications with slow reintroduction of antihypertensives. TIME: 40 minutes of critical care time, independent of procedures, was spent addressing the patient's acute on chronic combined respiratory failure, valvular heart disease, paroxysmal atrial fibrillation, COPD, review of all data and collaboration with the care team. [phone]) [phone] [id number] Critical care first hour
[2020-02-17 11:25] LABS: BNP,B-Type NATRIURETIC PEPTIDE 818.5 pg/mL (0-100)
[2020-02-17] MEDS: TITRATION PARAMETER CHANGE 1 EACH IV (11:36)
--- NOTE | 2020-02-17 12:15 | ECHOCS_ITS ---
Reason For Study: Dyspnea/SOB Procedure This was a 2D Doppler, Color Flow transthoracic echocardiogram. The study was technically difficult. Contrast injection was performed. Patient Covid Positive 5-6 weeks prior. Patient currently on a Vent. Exam performed portable in ICU/CCU. Left Ventricle Normal LV size. The estimated ejection fraction is 60 %. No evidence for diastolic dysfunction. No regional wall motion abnormalities noted. Right Ventricle Normal RV size. Normal systolic function. Atria The left atrium is mildly enlarged. Normal right atrium. No doppler evidence for ASD. Mitral Valve There is no mitral valve stenosis. Mild (1+) mitral valve insufficiency. Tricuspid Valve There is no tricuspid stenosis. Trivial tricuspid valve insufficiency. Pulmonary artery systolic pressure is 35-40 mmHg. Aortic Valve Moderate focal aortic valve thickening. Moderate aortic stenosis. Mild (1+) aortic valve insufficiency. Pulmonic Valve There is no pulmonic valvular stenosis. No pulmonic valve insufficiency. Great Vessels Normal aortic root. Pericardium/Pleural No pericardial effusion. Medication Diluted definity 2ml given slow IV push to enhance endocardial definition. MMode/2D Measurements & Calculations LVIDd: 4.6 cm IVSd: 1.4 cm LVOT diam: 2.2 cm LVIDs: 2.9 cm LVPWd: 1.3 cm FS: 36.2 % LVOT area: 3.9 cm2 Ao root diam: 4.0 cm LAV(MOD-bp): 71.2 ml LA A4 area: 22.4 cm2 LA dimension: 4.5 cm LAV(MOD-bp) Indexed: 37.3 ml/m2 LAV(MOD-sp2): 68.5 ml LAV(MOD-sp4): 73.0 ml RA A4 area: 15.0 cm2 Time Measurements MV dec time: 0.21 sec Doppler Measurements & Calculations MV E max mick: 140.1 cm/sec Lat Peak E' Mick: 4.8 cm/sec Med Peak E' Mick: 4.6 cm/sec MV A max mick: 145.8 cm/sec E/E' lat: 28.9 E/E' med: 30.6 MV E/A: 0.96 MV V2 max: 157.9 cm/sec MV P1/2t max mick: 145.4 cm/sec Ao V2 max: 341.4 cm/sec MV max P.0 mmHg MV P1/2t: 71.6 msec Ao max P.6 mmHg MV V2 mean: 95.5 cm/sec MV dec slope: 594.9 cm/sec2 Ao V2 mean: 230.8 cm/sec MV mean P.4 mmHg Ao mean P.8 mmHg MV V2 VTI: 39.8 cm MVA(P1/2t): 3.1 cm2 Ao V2 VTI: 65.8 cm MVA(VTI): 2.4 cm2 AMIE(I,D): 1.4 cm2 AMIE(V,D): 1.3 cm2 AI max mick: 366.6 cm/sec LV V1 max: 117.1 cm/sec SV(LVOT): 94.8 ml AI max P.8 mmHg LV V1 max P.5 mmHg AI dec slope: 358.1 cm/sec2 LV V1 mean P.1 mmHg AI P1/2t: 299.9 msec LV V1 mean: 82.0 cm/sec LV V1 VTI: 24.6 cm PA V2 max: 168.5 cm/sec TR max mick: 293.4 cm/sec TR max P.4 mmHg Interpretation Summary The estimated ejection fraction is 60 %. No evidence for diastolic dysfunction. Mild (1+) mitral valve insufficiency. Moderate focal aortic valve thickening. Moderate aortic stenosis. Mild (1+) aortic valve insufficiency. Contrast injection was performed. Ordering Physician: Jong Stokes Referring Physician: Renato Coyle Performed By: Pio Turner RCS
[2020-02-17 12:29] LABS: Magnesium 2.3 mg/dL (1.6-2.6)
[2020-02-17] MEDS: amLODIPine 5 MG Tablet PO (13:56)
[2020-02-17] MEDS: Losartan Potassium 50 MG Tablet PO (13:56)
[2020-02-17] MEDS: APIXABAN 5 MG TABLET NG ×2 (13:57→22:54)
[2020-02-17 16:07] LABS: M R Staph aureus DNA By PCR Negative (Negative); Probe Check PASS; Specimen Processing Control PASS
[2020-02-17] MEDS: Budesonide Respules 0.5 MG/2 ML AMPUL.NEB. INHALATION (18:30)
[2020-02-17] MEDS: Ipratropium/Albuterol Sulfate 3 ML AMPUL.NEB INHALATION (18:30)
[2020-02-17] MEDS: Famotidine 20 MG Tablet NG (22:55)
[2020-02-17] MEDS: fentaNYL drip 100 ML 7.5 MCG IV (22:56)
[2020-02-17] MEDS: Acetaminophen 650 MG/20 ML UDC GT (23:08)
[2020-02-18] VITALS (30 sets, daily range): BP systolic 113–167; BP diastolic 51–117; PULSE 73–147; RESP 16–35; TEMP 37.3–38.5; O2SAT 90–100
[2020-02-18] MEDS: Ipratropium/Albuterol Sulfate 3 ML AMPUL.NEB INHALATION ×4 (02:35→18:52)
--- NOTE | 2020-02-18 03:03 | EKG12_ITS ---
Test Reason : TACHY Blood Pressure : / mmHG Vent. Rate : 145 BPM Atrial Rate : 145 BPM P-R Int : 136 ms QRS Dur : 164 ms QT Int : 306 ms P-R-T Axes : 000 -26 152 degrees QTc Int : 475 ms Sinus tachycardia with Fusion complexes Left bundle branch block Abnormal ECG Confirmed by FERNANDO OCHOA, DAYANNA ([id number]), editorial clerk LORETTA GREEN ([id number]) on 02/25/2020 12:02:14 PM Referred By: Confirmed By:DAYANNA KING MD
[2020-02-18 03:50] LABS: Absolute Lymphocyte Count 1.01 X10^3/uL (0.83-4.51); Absolute Neutrophil Count 7.1 X10^3/uL (2.0-7.7); Basophil# 0.02 X10^3/uL; Basophil% 0.2 % (0-1); Eosinophil# 0.03 X10^3/uL; Eosinophils% 0.3 % (0-5); Hematocrit 28.5 % (40-54); Hemoglobin 9.1 g/dL (13.0-16.5); Lymphocyte # 1.01 X10^3/ul (4.0); Lymphocyte % 11.1 % (19-41); Mean Corp Hgb Conc 31.9 g/dL (32-36); Mean Corpuscular Volume 84.6 fL (80-94); Mean Platelet Vol. 9.5 fl (6.2-12.0); Monocyte% 9.9 % (0-10); NRBC Flagged by Analyzer 0 % (0-5); Neutrophil # 7.11 X10^3/uL (2.7-7.7); Neutrophil % 78.1 % (47-70); Platelet Count 277 K/mm3 (150-450); RBC Distribution Width CV 15.7 % (11.6-14.6); RBC Distribution Width SD 48.3 fl (35.1-43.9); Red Blood Count 3.37 M/mm3 (4.6-6.2); White Blood Count 9.1 K/mm3 (4.4-11.0)
[2020-02-18 04:23] LABS: Anion Gap 8 (5-15); BUN 18 mg/dL (7-18); Calcium,Total 7.9 mg/dL (8.5-10.1); Chloride 101 mmol/L (98-107); Cholesterol 123 mg/dL (200); Creatinine, Serum 0.95 mg/dL (0.70-1.30); EST Glomerular Filtration Rate 82 mL/min (>60); Est Glom Filt Rate - Afr Amer 99 mL/min (>60); Estimated Creatinine Clearance 58.76 ml/min; Glucose 85 mg/dL (74-106); High Density Lipoprotein 36 mg/dL; Potassium 2.4 mmol/L (3.5-5.1); Sodium Level 141 mmol/L (136-145); Thyroid Stim Hormone (TSH) 3.19 uIU/mL (0.358-3.74); Triglycerides 68 mg/dL; Very Low Density Lipoprotein 14 mg/dL (5-40)
[2020-02-18] MEDS: Potassium Chloride 10mEq/100mL 10 MEQ/100 ML IV.SOLN. 100 MEQ IV BOLUS ×4 (05:20→12:15)
--- NOTE | 2020-02-18 06:43 | PN_ITS ---
Subjective: The patient was seen and examined at the bedside this morning. Events from the last 24 hours have been reviewed. The patient is currently afebrile, hemodynamically stable and maintaining appropriate oxygen saturations on spontaneous mode of mechanical ventilation with an FiO2 requirement of 25%. The patient has done well thus far this morning on his spontaneous breathing trial. Potassium was low at 2.4. The patient is currently documented to be overall net -3.1 L for the hospital admission. He remains on twice daily IV Lasix. Objective: The patient's most recent lab work, culture data and imaging studies have all been personally reviewed. Surface echocardiogram revealed normal LV size with an ejection fraction of 60%. Pulmonary artery systolic pressure was estimated to be 35 to 40 mmHg. Moderate aortic stenosis was noted. Blood and urine cultures have shown no growth to date. Rapid influenza screen was negative. General: Alert, Cooperative, - - Remains intubated and mechanically ventilated. HEENT: Atraumatic, PERRLA, Normocephalic Oral: No Gingival or Mucosal Lesions/ Ulcerations, - - Stable endotracheal and OG tubes Neck: Supple, No Nodes, Trachea Midline Lungs: Diminished Cardiovascular: Regular rate, Regular Rhythm, Murmur Abdomen: Bowel Sounds Present, Soft, Non Tender Extremities: No clubbing, No cyanosis, Edema Skin: No breakdown Musculoskeletal: No Muscle Wasting Lymphatic: No Cervical, Supraclavicular, or Inguinal Adenopathy Neurological: - - No focal neurological deficits. Currently awake and following simple commands. Vital Signs Temp Pulse Resp BP Pulse Ox 99.9 F H 85 16 138/61 H 95 02/18/20 06:00 02/18/20 06:00 02/18/20 06:00 02/18/20 06:00 02/18/20 06:00 Oxygen Flow Rate (L/min) 15 Oxygen Delivery Method Mechanical Ventilator Weight: 172 lb 9.951 oz Body Mass Index (BMI) 29.0 Finger Stick Blood Glucose 103 Intake and Output for Last 24 Hours 02/16/20 02/17/20 02/18/20 23:59 23:59 23:59 Intake Total 532.68 / 532.68 38 / 38 Output Total 3350 / 3500 400 / 400 Balance -2817.32 / -2967.32 -362 / -362 Labs (Last 48 Hours) 02/17/20 02/17/20 02/17/20 07:55 07:55 07:55 WBC 13.9 H RBC 4.13 L Hgb 10.9 L Hct 37.0 L MCV 89.6 MCH 26.4 L MCHC 29.5 L RDW Std Deviation 51.7 H RDW Coeff of Dominic 15.9 H Plt Count 350 MPV 9.9 Immature Gran % (Auto) 0.500 Neut % (Auto) 83.9 H Lymph % (Auto) 6.6 L [place] % (Auto) 8.4 Eos % (Auto) 0.2 Baso % (Auto) 0.4 Absolute Neuts (auto) 11.7 H Absolute Lymphs (auto) 0.92 Nucleated RBC % 0 PT 14.4 INR 1.2 APTT 33.9 Specimen Type Sample Site pH Bicarbonate Actual Total CO2 Base Excess O2 Saturation O2 % ABG pCO2 ABG pO2 Diomedes Test Respiration Rate O2 Delivery Device Vent Mode Tidal Volume POC PEEP Sodium 141 Potassium 3.4 L Chloride 103 Carbon Dioxide 35.0 H Anion Gap 3 L BUN 18 Creatinine 0.74 Estim Creat Clear Calc 55.83 Est GFR (MDRD) Af Amer 131 Est GFR (MDRD) Non-Af 108 BUN/Creatinine Ratio 24.2 H Glucose 119 H Lactic Acid Calcium 8.7 Magnesium Total Bilirubin 0.70 AST 10 L ALT 20 Alkaline Phosphatase 104 Troponin I 0.037 B-Natriuretic Peptide Total Protein 7.4 Albumin 3.0 L Globulin 4.4 H Albumin/Globulin Ratio 0.7 L Triglycerides Cholesterol LDL Cholesterol VLDL Cholesterol HDL Cholesterol TSH Free T4 Urine Color Urine Clarity Urine pH Ur Specific [place] Urine Protein Urine Glucose (UA) Urine Ketones Urine Occult Blood Urine Nitrite Urine Bilirubin Urine Urobilinogen Ur Leukocyte Esterase Urine RBC Urine WBC Ur Squamous Epith Cells Urine Bacteria Hyaline Casts Fine Granular Casts Urine Mucus MRSA (PCR) 02/17/20 02/17/20 02/17/20 07:55 07:55 07:55 WBC RBC Hgb Hct MCV MCH MCHC RDW Std Deviation RDW Coeff of Dominic Plt Count MPV Immature Gran % (Auto) Neut % (Auto) Lymph % (Auto) [place] % (Auto) Eos % (Auto) Baso % (Auto) Absolute Neuts (auto) Absolute Lymphs (auto) Nucleated RBC % PT INR APTT Specimen Type Sample Site pH Bicarbonate Actual Total CO2 Base Excess O2 Saturation O2 % ABG pCO2 ABG pO2 Diomedes Test Respiration Rate O2 Delivery Device Vent Mode Tidal Volume POC PEEP Sodium Potassium Chloride Carbon Dioxide Anion Gap BUN Creatinine Estim Creat Clear Calc Est GFR (MDRD) Af Amer Est GFR (MDRD) Non-Af BUN/Creatinine Ratio Glucose Lactic Acid 1.0 Calcium Magnesium 2.3 Total Bilirubin AST ALT Alkaline Phosphatase Troponin I B-Natriuretic Peptide 818.5 H Total Protein Albumin Globulin Albumin/Globulin Ratio Triglycerides Cholesterol LDL Cholesterol VLDL Cholesterol HDL Cholesterol TSH Free T4 Urine Color Urine Clarity Urine pH Ur Specific [place] Urine Protein Urine Glucose (UA) Urine Ketones Urine Occult Blood Urine Nitrite Urine Bilirubin Urine Urobilinogen Ur Leukocyte Esterase Urine RBC Urine WBC Ur Squamous Epith Cells Urine Bacteria Hyaline Casts Fine Granular Casts Urine Mucus MRSA (PCR) 02/17/20 02/17/20 02/17/20 08:21 08:49 10:02 WBC RBC Hgb Hct MCV MCH MCHC RDW Std Deviation RDW Coeff of Dominic Plt Count MPV Immature Gran % (Auto) Neut % (Auto) Lymph % (Auto) [place] % (Auto) Eos % (Auto) Baso % (Auto) Absolute Neuts (auto) Absolute Lymphs (auto) Nucleated RBC % PT INR APTT Specimen Type ART ART Sample Site R Radial R Brach pH 7.23 L 7.46 H Bicarbonate Actual 38.1 H 30.5 H Total CO2 41 32 Base Excess 11 H 7 H O2 Saturation 97 92 L O2 % 100 40 ABG pCO2 90.9 H* 42.9 ABG pO2 115 H 60 L Diomedes Test Positive Respiration Rate 16 O2 Delivery Device NRB Adult Vent Vent Mode AC Tidal Volume 500 POC PEEP 5 Sodium Potassium Chloride Carbon Dioxide Anion Gap BUN Creatinine Estim Creat Clear Calc Est GFR (MDRD) Af Amer Est GFR (MDRD) Non-Af BUN/Creatinine Ratio Glucose Lactic Acid Calcium Magnesium Total Bilirubin AST ALT Alkaline Phosphatase Troponin I B-Natriuretic Peptide Total Protein Albumin Globulin Albumin/Globulin Ratio Triglycerides Cholesterol LDL Cholesterol VLDL Cholesterol HDL Cholesterol TSH Free T4 Urine Color Yellow Urine Clarity Sl. Cloudy Urine pH 6.0 Ur Specific [place] 1.025 Urine Protein 100 H Urine Glucose (UA) Normal Urine Ketones 50 H Urine Occult Blood 250 H Urine Nitrite Negative Urine Bilirubin Negative Urine Urobilinogen 1 H Ur Leukocyte Esterase Negative Urine RBC 0 SEEN Urine WBC 5-10 SEEN Ur Squamous Epith Cells 0-5 SEEN Urine Bacteria 1+ Hyaline Casts 0-5 SEEN Fine Granular Casts 0-5 SEEN Urine Mucus RARE MRSA (PCR) 02/17/20 02/17/20 02/17/20 11:55 11:55 15:30 WBC RBC Hgb Hct MCV MCH MCHC RDW Std Deviation RDW Coeff of Dominic Plt Count MPV Immature Gran % (Auto) Neut % (Auto) Lymph % (Auto) [place] % (Auto) Eos % (Auto) Baso % (Auto) Absolute Neuts (auto) Absolute Lymphs (auto) Nucleated RBC % PT INR APTT Specimen Type Sample Site pH Bicarbonate Actual Total CO2 Base Excess O2 Saturation O2 % ABG pCO2 ABG pO2 Diomedes Test Respiration Rate O2 Delivery Device Vent Mode Tidal Volume POC PEEP Sodium Potassium Chloride Carbon Dioxide Anion Gap BUN Creatinine Estim Creat Clear Calc Est GFR (MDRD) Af Amer Est GFR (MDRD) Non-Af BUN/Creatinine Ratio Glucose Lactic Acid Calcium Magnesium Cancelled Total Bilirubin AST ALT Alkaline Phosphatase Troponin I 0.060 H 0.067 H B-Natriuretic Peptide Total Protein Albumin Globulin Albumin/Globulin Ratio Triglycerides Cholesterol LDL Cholesterol VLDL Cholesterol HDL Cholesterol TSH Free T4 Urine Color Urine Clarity Urine pH Ur Specific [place] Urine Protein Urine Glucose (UA) Urine Ketones Urine Occult Blood Urine Nitrite Urine Bilirubin Urine Urobilinogen Ur Leukocyte Esterase Urine RBC Urine WBC Ur Squamous Epith Cells Urine Bacteria Hyaline Casts Fine Granular Casts Urine Mucus MRSA (PCR) Negative 02/17/20 02/18/20 02/18/20 18:15 03:30 03:30 WBC 9.1 RBC 3.37 L Hgb 9.1 L Hct 28.5 L MCV 84.6 D MCH 27.0 MCHC 31.9 L D RDW Std Deviation 48.3 H RDW Coeff of Dominic 15.7 H Plt Count 277 MPV 9.5 Immature Gran % (Auto) 0.400 Neut % (Auto) 78.1 H Lymph % (Auto) 11.1 L [place] % (Auto) 9.9 Eos % (Auto) 0.3 Baso % (Auto) 0.2 Absolute Neuts (auto) 7.1 Absolute Lymphs (auto) 1.01 Nucleated RBC % 0 PT INR APTT Specimen Type Sample Site pH Bicarbonate Actual Total CO2 Base Excess O2 Saturation O2 % ABG pCO2 ABG pO2 Diomedes Test Respiration Rate O2 Delivery Device Vent Mode Tidal Volume POC PEEP Sodium 141 Potassium 2.4 L* Chloride 101 Carbon Dioxide 32.0 Anion Gap 8 BUN 18 Creatinine 0.95 Estim Creat Clear Calc 58.76 Est GFR (MDRD) Af Amer 99 Est GFR (MDRD) Non-Af 82 BUN/Creatinine Ratio 19.0 Glucose 85 Lactic Acid Calcium 7.9 L Magnesium Total Bilirubin AST ALT Alkaline Phosphatase Troponin I 0.067 H B-Natriuretic Peptide Total Protein Albumin Globulin Albumin/Globulin Ratio Triglycerides 68 Cholesterol 123 LDL Cholesterol 73 VLDL Cholesterol 14 HDL Cholesterol 36 L TSH 3.19 Free T4 1.50 H Urine Color Urine Clarity Urine pH Ur Specific [place] Urine Protein Urine Glucose (UA) Urine Ketones Urine Occult Blood Urine Nitrite Urine Bilirubin Urine Urobilinogen Ur Leukocyte Esterase Urine RBC Urine WBC Ur Squamous Epith Cells Urine Bacteria Hyaline Casts Fine Granular Casts Urine Mucus MRSA (PCR) Microbiology 02/17/20 08:05 Mucosa - Nose Influenza Types A,B Direct FA (BRITTNEY) - Final Clinical Impression(s) from Imaging Studies Chest X-Ray 02/17/20 07:52 IMPRESSION: Findings suggestive of CHF with bibasilar atelectasis/infiltrates. Follow-up is recommended. Electronically Signed: Chase Ruff, at 8:51 EST , Service support , Chest X-Ray 02/17/20 08:18 IMPRESSION: The tip of the endotracheal tube is at 2.2 cm proximal to the mike. An orogastric tube is seen with the tip in the upper midabdomen. Electronically Signed: Chase Ruff, at 9:27 EST , Service support , KUB X-Ray 02/17/20 08:18 IMPRESSION: The tip of the orogastric tube is in the distal portion of the body of the stomach. Electronically Signed: Chase Ruff, at 9:29 EST , Service support , Medical Necessity - Tobacco Use Smoking Status: Former smoker Assessment/Plan All Active Problems (Last Reviewed 02/08/20 @ 13:31 by [place] To SUPPOSITORY MOLDING MACHINE OPERATOR, SUPPOSITORY MOLDING MACHINE OPERATOR- C) Acute on chronic respiratory failure with hypoxia and hypercapnia (Acute) Pulmonary edema cardiac cause (Acute) Anemia, unspecified (Acute) Acute bronchitis (Resolved) Acute respiratory failure with hypoxia (Resolved) Aspiration pneumonia of both lower lobes (Resolved) Atelectasis of both lungs (Resolved) Atrial fibrillation with RVR (Resolved) COPD exacerbation (Resolved) Cancer (Resolved) Elevated troponin I level (Resolved) Hemorrhoids (Resolved) History of colonoscopy (Resolved ~04/2018) Infectious encephalopathy (Resolved) Pneumonia (Resolved) Sepsis (Resolved) Sinusitis, acute (Resolved) RECOMMENDATIONS: 1. Proceed with a trial of extubation this morning. 2. Once extubated, wean supplemental oxygen to maintain saturations at or above 90%. 3. Aggressive electrolyte repletion. 4. Continue scheduled bronchodilators. 5. Continue Eliquis twice daily. 6. Continue IV diuretics as tolerated by hemodynamics and renal function. 7. Continue appropriate GI prophylaxis. IMPRESSIONS: 1. Acute on chronic combined respiratory failure Suspect related to flash pulmonary edema in the setting of valvular heart disease and poorly controlled hypertension noted on arrival. The patient improved from an oxygenation standpoint with IV diuretic therapy and invasive m echanical ventilatory support. He was able to be successfully extubated on February 17. Once extubated, supplemental oxygen will be weaned to maintain saturations at or above 90%. We will continue scheduled bronchodilators along with empiric antimicrobials as well. 2. Valvular heart disease/coronary artery disease status post bypass/paroxysmal atrial fibrillation The patient does have known aortic valve stenosis and is currently followed in the cardiology clinic. Plan to continue supportive measures noted above. 3. History of COPD Start scheduled bronchodilator therapy along with budesonide twice daily. 4. Advanced age/hyperlipidemia/hypertension/hypothyroidism Complicates care, management, recovery and prognosis. Continue home medications with slow reintroduction of antihypertensives. TIME: 35 minutes of critical care time, independent of procedures, was spent addressi ng the patient's acute on chronic combined respiratory failure, valvular heart disease, paroxysmal atrial fibrillation, COPD, review of all data and collaboration with the care team. ([id number]) [phone] [id number] Critical care first hour
[2020-02-18] MEDS: Budesonide Respules 0.5 MG/2 ML AMPUL.NEB. INHALATION ×2 (07:30→18:52)
[2020-02-18] MEDS: Furosemide 40 MG/4 ML Vial IV ×2 (10:08→18:03)
[2020-02-18] MEDS: amLODIPine 5 MG Tablet PO (12:24)
[2020-02-18] MEDS: Famotidine 20 MG Tablet PO ×2 (12:24→22:31)
[2020-02-18] MEDS: Levothyroxine 175 MCG Tablet PO (12:25)
[2020-02-18] MEDS: Isosorbide Mononitrate 60 MG Tablet PO (12:25)
[2020-02-18] MEDS: Losartan Potassium 50 MG Tablet PO (12:25)
[2020-02-18] MEDS: APIXABAN 5 MG TABLET PO ×2 (12:26→22:31)
[2020-02-18] MEDS: Aspirin 81 MG TAB.CHEW PO (12:29)
--- NOTE | 2020-02-18 12:48 | PCM.PN.HOSP ---
Patient Problems: Active and Suspected Problems (Last Reviewed 02/08/20 @ 13:31 by [place] To TECHNICIAN PLANT AND MAINTENANCE, TECHNICIAN PLANT AND MAINTENANCE-C) Acute on chronic respiratory failure with hypoxia and hypercapnia (Acute) Pulmonary edema cardiac cause (Acute) Anemia, unspecified (Acute) Objective: Patient was extubated in the morning today. Is short of breath, shallow breathing and tachypneic after extubation. Currently pulse ox 90% on 4 L of oxygen. Low-grade fever T-max 101.7 last night. General: Alert, Oriented x3, Cooperative HEENT: Atraumatic, PERRLA, EOMI, Normocephalic Oral: No Gingival or Mucosal Lesions/ Ulcerations Neck: Supple, No JVD, Negative Carotid Bruits Lungs: Air entry diminished in bilateral lung bases. Tachypneic, short of breath. Occasional rhonchi mainly in the right lung base. Cardiovascular: Regular rate, Regular Rhythm, Normal S1, Normal S2, midsystolic murmur over LLSB cardiac apex. Sinus rhythm with PVCs Abdomen: Bowel Sounds Present, Soft, Non Tender, Non-Distended : No renal angle tenderness. No suprapubic tenderness. Extremities: No edema, Capillary Refill Less than 3 Seconds Skin: No rashes, No breakdown Musculoskeletal: No Tenderness to Palpation of Joints or Extremities Neurological: Cranial nerves II-XII grossly intact, Deep Tendon Reflexes 2+/4 and Symmetrical, Neuro grossly intact Psych/Mental Status: Normal Affect, Appropriate. Vitals/I&O's: Vital Signs Temp Pulse Resp BP Pulse Ox 99.9 F H 97 32 H 138/61 H 90 02/18/20 06:00 02/18/20 08:22 02/18/20 08:22 02/18/20 06:00 02/18/20 08:22 Oxygen Flow Rate (L/min) 4 Oxygen Delivery Method Nasal Cannula Weight: 172 lb 9.951 oz Body Mass Index (BMI) 29.0 Finger Stick Blood Glucose 103 Intake and Output for Last 24 Hours 02/16/20 02/17/20 02/18/20 23:59 23:59 23:59 Intake Total 532.68 / 532.68 338 / 338 Output Total 3350 / 3500 1600 / 1600 Balance -2817.32 / -2967.32 -1262 / -1262 Microbiology Past 72 Hours 02/17/20 08:49 Urine, Clean Catch Urine Culture - Preliminary Culture exhibits no growth. 02/17/20 08:05 Mucosa - Nose Influenza Types A,B Direct FA (BRITTNEY) - Final Laboratory Results 02/17/20 11:55: Magnesium Cancelled, Troponin I 0.060 H 02/17/20 11:55: MRSA (PCR) Negative 02/17/20 15:30: Troponin I 0.067 H 02/17/20 18:15: Troponin I 0.067 H 02/18/20 03:30: WBC 9.1, RBC 3.37 L, Hgb 9.1 L, Hct 28.5 L, MCV 84.6 D, MCH 27.0, MCHC 31.9 L D, RDW Std Deviation 48.3 H, RDW Coeff of Dominic 15.7 H, Plt Count 277, MPV 9.5, Immature Gran % (Auto) 0.400, Neut % (Auto) 78.1 H, Lymph % (Auto) 11.1 L, [place] % (Auto) 9.9, Eos % (Auto) 0.3, Baso % (Auto) 0.2, Absolute Neuts (auto) 7.1, Absolute Lymphs (auto) 1.01, Nucleated RBC % 0 02/18/20 03:30: Sodium 141, Potassium 2.4 L*, Chloride 101, Carbon Dioxide 32.0, Anion Gap 8, BUN 18, Creatinine 0.95, Estim Creat Clear Calc 58.76, Est GFR (MDRD) Af Amer 99, Est GFR (MDRD) Non-Af 82, BUN/Creatinine Ratio 19.0, Glucose 85, Calcium 7.9 L, Triglycerides 68, Cholesterol 123, LDL Cholesterol 73, VLDL Cholesterol 14, HDL Cholesterol 36 L, TSH 3.19, Free T4 1.50 H Current Medications Acetaminophen (Acetaminophen 650 Mg/20 Ml Udc) 650 mg GT Q6H PRN PRN PRN Reason: Pain Score 1-10/Temp > 100.7 F Last Admin: 02/17/20 23:08 Dose: 650 mg Documented by: Albuterol Sulfate (Albuterol 2.5 Mg/3 Ml Vial.Neb.) 2.5 mg INHALATION Q2H PRN PRN PRN Reason: SOB/Wheezing Albuterol/Ipratropium (Ipratropium/Albuterol Sulfate 3 Ml Ampul.Neb) 3 ml INHALATION Q6H.RT [facility] Last Admin: 02/18/20 07:30 Dose: 3 ml Documented by: Amlodipine Besylate (Amlodipine 5 Mg Tablet) 5 mg PO DAILY [facility] Last Admin: 02/18/20 12:24 Dose: 5 mg Documented by: Apixaban (Apixaban 5 Mg Tablet) 5 mg PO BID [facility] Last Admin: 02/18/20 12:26 Dose: 5 mg Documented by: Aspirin (Aspirin 81 Mg Tab.Chew) 81 mg PO DAILY@0800 [facility] Last Admin: 02/18/20 12:29 Dose: 81 mg Documented by: Budesonide (Budesonide Respules 0.5 Mg/2 Ml Ampul.Neb.) 0.5 mg INHALATION BID.RT [facility] Last Admin: 02/18/20 07:30 Dose: 0.5 mg Documented by: Famotidine (Famotidine 20 Mg Tablet) 20 mg PO BID [facility] Last Admin: 02/18/20 12:24 Dose: 20 mg Documented by: Furosemide (Furosemide 40 Mg/4 Ml Vial) 40 mg IV BID@1000,1800 [facility] Last Admin: 02/18/20 10:08 Dose: 40 mg Documented by: Isosorbide Mononitrate (Isosorbide Mononitrate 60 Mg Tablet) 60 mg PO DAILY [facility] Last Admin: 02/18/20 12:25 Dose: 60 mg Documented by: Levothyroxine Sodium (Levothyroxine 175 Mcg Tablet) 175 mcg PO DAILY [facility] Last Admin: 02/18/20 12:25 Dose: 175 mcg Documented by: Losartan Potassium (Losartan Potassium 50 Mg Tablet) 50 mg PO DAILY [facility] Last Admin: 02/18/20 12:25 Dose: 50 mg Documented by: Nitroglycerin (Nitroglycerin (Inpatient Use) 0.4 Mg Tab.Subl) 0.4 mg SUBLINGUAL Q5M PRN PRN Reason: CARDIAC/CHEST PAIN Potassium Chloride (Potassium Chl Soln 20 Meq/15 Ml Udc) 40 meq PO BID [facility] Last Admin: 02/18/20 05:19 Dose: 40 meq Documented by: Prochlorperazine Edisylate (Prochlorperazine 10 Mg/2 Ml Vial) 5 mg IV Q4H PRN PRN PRN Reason: Breakthrough Nausea/Vomiting Senna/Docusate Sodium (Senna/Docusate Sodium 1 Tablet) 2 tablet PO BID PRN PRN Reason: Constipation Sodium Chloride (0.9% Saline Lock 10 Ml Syringe) 10 - 40 ml IV UD PRN PRN Reason: SALINE FLUSH Medical Necessity - Tobacco Use Smoking Status: Former smoker Assessment/Plan All Active Problems (Last Reviewed 02/08/20 @ 13:31 by [place] To TECHNICIAN PLANT AND MAINTENANCE, TECHNICIAN PLANT AND MAINTENANCE-C) Acute on chronic respiratory failure with hypoxia and hypercapnia (Acute) Pulmonary edema cardiac cause (Acute) Anemia, unspecified (Acute) Acute bronchitis (Resolved) Acute respiratory failure with hypoxia (Resolved) Aspiration pneumonia of both lower lobes (Resolved) Atelectasis of both lungs (Resolved) Atrial fibrillation with RVR (Resolved) COPD exacerbation (Resolved) Cancer (Resolved) Elevated troponin I level (Resolved) Hemorrhoids (Resolved) History of colonoscopy (Resolved ~04/2018) Infectious encephalopathy (Resolved) Pneumonia (Resolved) Sepsis (Resolved) Sinusitis, acute (Resolved) The patient is a 79 year old M with multiple comorbidities was admitted with sudden onset of shortness of breath on the day of admission. ABG showed 7.2 100% agree with there. EKG shows normal sinus rhythm at 94 bpm, QTC 500 ms with left bundle branch block. Previous EKG of 12/28/2019 similar sinus rhythm, LAD, LBBB. 1. Acute combined hypoxic and hypercarbic respiratory failure mostly due to pulmonary edema: Patient is being admitted in ICU. Intubated on vent support. Swimming Pool Plasterer Helper has been consulted. 02/17: Patient extubated in the morning. Short of breath and tachypneic on 4 L of oxygen. We will continue Lasix 40 mg IV twice daily. Discussed with the hand shaker yesterday. 2. Acute on chronic HFpEF diastolic heart failure, due to moderate aortic stenosis, hypertension and prolonged QTc interval: Patient had echo in September 2019 reported as moderate with mean valve gradient 36 mmHg, calculated area 1.3 cm?, mild eccentric AR. Mild TR, RVSP 30 mmHg. Moderate concentric LVH. EF 55% with no regional wall motion abnormality. Lasix 40 mg IV twice daily as permitted by hemodynamics parameters and renal function and electrolytes. Heart failure core measures, daily weight monitoring, renal function, electrolytes monitoring and fluid restriction. Repeat 2D echo is ordered. 02/17: Repeat echo shows EF 60% mild MR, moderate aortic stenosis with valve thickening, mild AR. RVSP 40 mmHg. Mild MR. Aortic valve area 1.4 cm?. Director Of Acquisitions is consulted. Severe hypokalemia. Magnesium was 2.3. Potassium replacement 3. Coronary artery disease status post CABG, paroxysmal A. fib on Eliquis, hypertension, hypothyroidism and dyslipidemia: EKG shows QTC 500 ms probably due to left bundle branch block. Avoid QTC prolonging medication. 02/17: TSH 3.19 normal, free T4 1.5 upper high normal. Fasting profile, LDL 73, TG 68. Serial troponins mildly elevated 0.06 flat and indeterminate range. 4. Recent COVID-19 infection with elevated troponins: Patient was admitted between 12/27 to 12/30/2019 for COVID-19 infection. At that time with mildly elevated troponins and mild chest heaviness.. CT of the chest was unremarkable. Troponin 0 0.133. He was treated with remdesivir, convalescent plasma and Decadron. Patient denies any cough or recent fever for last 2 to 3 weeks. VTE prophylaxis: On Eliquis 5 mg twice daily. Clinical Impression(s) from Imaging Studies Chest X-Ray 02/17/20 07:52 IMPRESSION: Findings suggestive of CHF with bibasilar atelectasis/infiltrates. Follow-up is recommended. Electronically Signed: Chase Ruff, at 8:51 EST , Service support , Chest X-Ray 02/17/20 08:18 IMPRESSION: The tip of the endotracheal tube is at 2.2 cm proximal to the mike. An orogastric tube is seen with the tip in the upper midabdomen. Electronically Signed: Chase Ruff, at 9:27 EST , Service support , KUB X-Ray 02/17/20 08:18 IMPRESSION: The tip of the orogastric tube is in the distal portion of the body of the stomach. Microbiology Past 72 Hours 02/17/20 08:49 Urine, Clean Catch Urine Culture - Preliminary Culture exhibits no growth. 12/16/20 08:05 Mucosa - Nose Influenza Types A,B Direct FA (BRITTNEY) - Final Laboratory Results 02/17/20 11:55: Magnesium Cancelled, Troponin I 0.060 H 02/17/20 11:55: MRSA (PCR) Negative 02/17/20 15:30: Troponin I 0.067 H 02/17/20 18:15: Troponin I 0.067 H 02/18/20 03:30: WBC 9.1, RBC 3.37 L, Hgb 9.1 L, Hct 28.5 L, MCV 84.6 D, MCH 27.0, MCHC 31.9 L D, RDW Std Deviation 48.3 H, RDW Coeff of Dominic 15.7 H, Plt Count 277, MPV 9.5, Immature Gran % (Auto) 0.400, Neut % (Auto) 78.1 H, Lymph % (Auto) 11.1 L, [place] % (Auto) 9.9, Eos % (Auto) 0.3, Baso % (Auto) 0.2, Absolute Neuts (auto) 7.1, Absolute Lymphs (auto) 1.01, Nucleated RBC % 0 02/18/20 03:30: Sodium 141, Potassium 2.4 L*, Chloride 101, Carbon Dioxide 32.0, Anion Gap 8, BUN 18, Creatinine 0.95, Estim Creat Clear Calc 58.76, Est GFR (MDRD) Af Amer 99, Est GFR (MDRD) Non-Af 82, BUN/Creatinine Ratio 19.0, Glucose 85, Calcium 7.9 L, Triglycerides 68, Cholesterol 123, LDL Cholesterol 73, VLDL Cholesterol 14, HDL Cholesterol 36 L, TSH 3.19, Free T4 1.50 H Inpatient E&M: 47813 Subs Hosp L3
[2020-02-18 13:46] LABS: Magnesium 1.9 mg/dL (1.6-2.6); Phosphorus 1.6 mg/dL (2.5-4.9)
--- NOTE | 2020-02-18 15:00 | CASEMGMT ---
RN CM NOTE: Attempted to meet with pt for initial RN CM assessment. Pt using bedpan. RN CM to attempt at a later time. Adrianna WHITFIELDN RN CM
--- NOTE | 2020-02-18 17:01 | CON.PCM_ITS ---
Reason for Consult Date of Consultation: 02/18/20 Reason for Consultation: CHF History of Present Illness: The patient is a 79 year old M [with past medical history as described below presenting to [facility] because of acute onset of shortness of breath. Patient was found to have elevated blood pressure on arrival. Patient was intubated yesterday. His blood pressure was controlled and he was started on IV Lasix. He also has history of COPD and was treated for that as well. Patient did spike a fever yesterday and is on antibiotics as well. Overall patient responded very well to this treatment and is currently extubated. His shortness of breath is improved. He still has lower extremity edema which he says is better than on arrival. His potassium today was 2.4 and he was given 80 mEq of potassium chloride. Telemetry monitoring reveals runs of nonsustained V. tach. Review of systems: All systems reviewed. All others negative except that in HPI] Past Medical History Allergies/Adverse Reactions: Allergies caffeine Allergy (Mild, Verified 02/17/20 08:14) Unknown bee venom protein (honey bee) Allergy (Verified 02/17/20 08:14) Swelling Penicillins Allergy (Verified 02/17/20 08:14) Hives Home Medications: Ambulatory Orders Medication Instructions Recorded amlodipine 5 mg-valsartan 160 mg 1 tab PO DAILY 90 Days #90 05/13/17 tablet levothyroxine 175 mcg tablet 175 mcg PO DAILY 90 Days #90 05/13/17 nitroglycerin 0.4 mg sublingual 0.4 mg SUBLINGUAL PRN PRN 8 Days 05/13/17 tablet #25 pravastatin 40 mg tablet 40 mg PO QHS 90 Days #90 05/13/17 isosorbide mononitrate 60 mg 60 mg PO DAILY 04/17/18 tablet,extended release 24 hr Acetaminophen [Tylenol] 1,000 mg PO Q4H PRN PRN 05/14/18 Albuterol IH (ProAir) [Proair Hfa] 1 puff INHALATION Q4H PRN PRN 05/14/18 Cholecalciferol (VIT D3) [Vitamin 1,000 unit PO DAILY 05/14/18 D3] Atenolol [Tenormin (beta chris)] 50 mg PO BID 11/22/19 Furosemide [Lasix] 40 mg PO DAILY 12/28/19 Apixaban [Eliquis] 5 mg PO BID 02/17/20 Doxazosin Mesylate [Cardura] 4 mg PO QHS 02/17/20 Fluticasone/Salmeterol [Advair HFA] 2 puff INHALATION BID 02/17/20 Past Medical History (Chronic Problems): Chronic Problems (Last Reviewed 02/08/20 @ 13:31 by [place] To CHOPPER GUN OPERATOR, CHOPPER GUN OPERATOR-C) COPD (chronic obstructive pulmonary disease) (Chronic) Left bundle branch block (Chronic) Paroxysmal atrial fibrillation (Chronic) Nonrheumatic mitral (valve) insufficiency (Chronic) Non-rheumatic aortic stenosis (Chronic) H/O coronary artery bypass surgery (Chronic) CABG x 3: SPARKS-LAD, SVG-RPDA, ANAY-Acute [place] Essential (primary) hypertension (Chronic) Atherosclerosis of coronary artery of [place] heart without angina pectoris (Chronic) CABG x 3: SPARKS-LAD, SVG-RPDA, ANAY-Acute [place] SOB (shortness of breath) (Chronic) 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) Hyperlipidemia (Chronic) Surgical History: coronary bypass surgery Psychiatric History: No pertinent psych hx - *Family History Maternal Family History: Family History (Last Reviewed 02/08/20 @ 13:31 by [place] To CHOPPER GUN OPERATOR, CHOPPER GUN OPERATOR-C) Other Heart disease History Items: No pertinent history Paternal Family History: Family History (Last Reviewed 02/08/20 @ 13:31 by [place] To CHOPPER GUN OPERATOR, CHOPPER GUN OPERATOR-C) Other Heart disease History Items: No pertinent history Lives: Alone Smoking Status: Former smoker Objective: Vital Signs Temp Pulse Resp BP Pulse Ox 99.2 F H 92 28 H 143/68 H 97 02/18/20 12:00 02/18/20 15:00 02/18/20 15:00 02/18/20 15:00 02/18/20 15:00 Oxygen Flow Rate (L/min) 5 Oxygen Delivery Method Nasal Cannula Weight: 172 lb 9.951 oz Body Mass Index (BMI) 29.0 Finger Stick Blood Glucose 103 Intake and Output for Last 24 Hours 02/16/20 02/17/20 02/18/20 23:59 23:59 23:59 Intake Total 532.68 / 532.68 488 / 488 Output Total 3350 / 3500 1600 / 1600 Balance -2817.32 / -2967.32 -1112 / -1112 General: Awake, Alert, Oriented x 3 HEENT: Atraumatic Oral: Moist Mucosa Neck: Supple, Positive JVD Lungs: Clear to auscultation Cardiovascular: Regular Rhythm Abdomen: Soft Extremities: Bilateral Edema +1 Psych/Mental Status: Appropriate 02/17/20 18:15: Troponin I 0.067 H 02/18/20 03:30: WBC 9.1, RBC 3.37 L, Hgb 9.1 L, Hct 28.5 L, MCV 84.6 D, MCH 27.0, MCHC 31.9 L D, Plt Count 277, MPV 9.5, Immature Gran % (Auto) 0.400, Neut % (Auto) 78.1 H, Lymph % (Auto) 11.1 L, [place] % (Auto) 9.9, Eos % (Auto) 0.3, Baso % (Auto) 0.2, Absolute Neuts (auto) 7.1, Nucleated RBC % 0 02/18/20 03:30: Sodium 141, Potassium 2.4 L*, Chloride 101, Carbon Dioxide 32.0, Anion Gap 8, BUN 18, Creatinine 0.95, Est GFR (MDRD) Af Amer 99, Est GFR (MDRD) Non-Af 82, BUN/Creatinine Ratio 19.0, Glucose 85, Calcium 7.9 L, Triglycerides 68, Cholesterol 123, LDL Cholesterol 73, VLDL Cholesterol 14, HDL Cholesterol 36 L 02/18/20 03:30: Phosphorus 1.6 L, Magnesium 1.9 Rhythm: EKG: ECHO: Stress Test: Cardiac Cath: PCI: CT Surgery: Holter monitor: EPS: PPM: CXR: Chest CT Scan: Assessment/Plan 1. Respiratory failure: Possibly secondary to decompensated CHF secondary to uncontrolled hypertension. Patient is also being treated for COPD exacerbation and due to his fever with antibiotic for underlying infective process. He does have moderate attic stenosis as well. Continue IV Lasix for another day and possibly tomorrow we should be able to switch him to his home dose. 2. Nonsustained V. tach: could be secondary to severe hypokalemia. 80 mEq of potassium chloride was given already. We will check his potassium level and replace potassium accordingly. 3. Coronary artery disease: Patient has history of CABG. Prior to CABG he had chest pain. He does not have any chest pain this time. Will monitor.
[2020-02-18 17:10] LABS: Potassium 3.1 mmol/L (3.5-5.1)
--- NOTE | 2020-02-18 18:18 | EKG12_ITS ---
Test Reason : Blood Pressure : / mmHG Vent. Rate : 143 BPM Atrial Rate : 143 BPM P-R Int : 176 ms QRS Dur : 144 ms QT Int : 288 ms P-R-T Axes : 000 -11 155 degrees QTc Int : 444 ms Sinus tachycardia Left bundle branch block Abnormal ECG Confirmed by FERNANDO OCHOA, DAYANNA ([id number]), editor in chief LORETTA GREEN ([id number]) on 02/25/2020 12:02:27 PM Referred By: Confirmed By:DAYANNA KING MD
[2020-02-19] VITALS (28 sets, daily range): BP systolic 97–154; BP diastolic 54–108; PULSE 58–140; RESP 18–34; TEMP 37.3–37.6; O2SAT 94–100
[2020-02-19] MEDS: Ipratropium/Albuterol Sulfate 3 ML AMPUL.NEB INHALATION ×4 (01:55→19:42)
[2020-02-19] MEDS: Mag Hydrox/Al Hydrox/Simeth 30 ML UDC PO (02:06)
--- NOTE | 2020-02-19 03:13 | EKG12_ITS ---
Test Reason : Blood Pressure : / mmHG Vent. Rate : 143 BPM Atrial Rate : 143 BPM P-R Int : 144 ms QRS Dur : 164 ms QT Int : 308 ms P-R-T Axes : 000 -23 142 degrees QTc Int : 475 ms Sinus tachycardia Left bundle branch block Abnormal ECG Confirmed by FERNANDO OCHOA, DAYANNA ([id number]), scientific publications editor LORETTA GREEN ([id number]) on 02/25/2020 12:01:54 PM Referred By: Confirmed By:DAYANNA KING MD
--- NOTE | 2020-02-19 04:00 | NURSING ---
at around 0300 pt. went into sinus tach 150's ekg done cardiology dr fleming notified. 5 of lopressor iv given. pt. in afib then given amio 150 bolus and drip started.
[2020-02-19] MEDS: Metoprolol Tartrate 5 MG/5 ML Vial IV (04:10)
[2020-02-19 04:37] LABS: Absolute Lymphocyte Count 0.46 X10^3/uL (0.83-4.51); Absolute Neutrophil Count 10.5 X10^3/uL (2.0-7.7); Basophil# 0.02 X10^3/uL; Basophil% 0.2 % (0-1); Eosinophil# 0.16 X10^3/uL; Eosinophils% 1.3 % (0-5); Hematocrit 32.4 % (40-54); Hemoglobin 9.9 g/dL (13.0-16.5); Lymphocyte # 0.46 X10^3/ul (4.0); Lymphocyte % 3.7 % (19-41); Mean Corp Hgb Conc 30.6 g/dL (32-36); Mean Corpuscular Hgb 26.6 pg (27.0-32.0); Mean Corpuscular Volume 87.1 fL (80-94); Mean Platelet Vol. 9.1 fl (6.2-12.0); Monocyte# 1.13 X10^3/uL; Monocyte% 9.2 % (0-10); NRBC Flagged by Analyzer 0 % (0-5); Neutrophil # 10.52 X10^3/uL (2.7-7.7); Neutrophil % 85.2 % (47-70); POSITIVE DIFFERENTIAL YES; Platelet Count 301 K/mm3 (150-450); RBC Distribution Width CV 15.9 % (11.6-14.6); RBC Distribution Width SD 50.2 fl (35.1-43.9); Red Blood Count 3.72 M/mm3 (4.6-6.2); White Blood Count 12.3 K/mm3 (4.4-11.0)
[2020-02-19 04:52] LABS: Differential Indicated SCAN CRITERIA MET
[2020-02-19 05:05] LABS: Anion Gap 5 (5-15); BUN 16 mg/dL (7-18); BUN/Creat Ratio 21.5 RATIO (10-20); Calcium,Total 7.7 mg/dL (8.5-10.1); Chloride 102 mmol/L (98-107); Creatinine, Serum 0.74 mg/dL (0.70-1.30); EST Glomerular Filtration Rate 108 mL/min (>60); Est Glom Filt Rate - Afr Amer 131 mL/min (>60); Estimated Creatinine Clearance 55.83 ml/min; Glucose 105 mg/dL (74-106); Potassium 3.7 mmol/L (3.5-5.1); Sodium Level 143 mmol/L (136-145)
--- NOTE | 2020-02-19 05:55 | PN_ITS ---
Subjective: The patient was seen and examined at the bedside this morning. Events from the last 24 hours have been reviewed. The patient currently has a low-grade fever with a T-max overnight of 101.8 ?F. He remains hemodynamically stable on 3 L/min via nasal cannula. Potassium is improved this morning at 3.7. Overnight, the patient apparently had issues with nonsustained V. tach, and later, atrial fibrillation. He was subsequently started on amiodarone. The patient has also developed episodes of diarrhea as well. The patient remains systemically anticoagulated on Eliquis, along with twice daily IV Lasix. Objective: The patient's most recent lab work, culture data and imaging studies have all been personally reviewed. Surface echocardiogram revealed normal LV size with an ejection fraction of 60%. Pulmonary artery systolic pressure was estimated to be 35 to 40 mmHg. Moderate aortic valve stenosis was noted. Infectious work-up has been unrevealing to date. General: Alert, Cooperative HEENT: Atraumatic, Normocephalic Oral: No Gingival or Mucosal Lesions/ Ulcerations Neck: Supple, No Nodes, Trachea Midline Lungs: Diminished, Tachypneic Cardiovascular: Regular rate, Regular Rhythm, Murmur Abdomen: Bowel Sounds Present, Soft, Non Tender Extremities: No clubbing, No cyanosis, Edema Skin: No breakdown Musculoskeletal: No Muscle Wasting Lymphatic: No Cervical, Supraclavicular, or Inguinal Adenopathy Neurological: Cranial nerves II-XII grossly intact, Neuro grossly intact Psych/Mental Status: Normal Affect Vital Signs Temp Pulse Resp BP Pulse Ox 99.3 F H 94 34 H 141/66 H 98 02/18/20 21:00 02/19/20 05:49 02/19/20 05:49 02/19/20 05:49 02/19/20 05:49 Oxygen Flow Rate (L/min) 3 Oxygen Delivery Method Nasal Cannula Weight: 172 lb 9.951 oz Body Mass Index (BMI) 29.0 Finger Stick Blood Glucose 103 Intake and Output for Last 24 Hours 02/17/20 02/18/20 02/19/20 23:59 23:59 23:59 Intake Total 532.68 / 532.68 488 / 538 50 / 50 Output Total 3350 / 3500 2600 / 3175 635 / 635 Balance -2817.32 / -2967.32 -2112 / -2637 -585 / -585 Labs (Last 48 Hours) 02/17/20 02/17/20 02/17/20 07:55 07:55 07:55 WBC 13.9 H RBC 4.13 L Hgb 10.9 L Hct 37.0 L MCV 89.6 MCH 26.4 L MCHC 29.5 L RDW Std Deviation 51.7 H RDW Coeff of Dominic 15.9 H Plt Count 350 MPV 9.9 Immature Gran % (Auto) 0.500 Neut % (Auto) 83.9 H Lymph % (Auto) 6.6 L [place] % (Auto) 8.4 Eos % (Auto) 0.2 Baso % (Auto) 0.4 Absolute Neuts (auto) 11.7 H Absolute Lymphs (auto) 0.92 Nucleated RBC % 0 PT 14.4 INR 1.2 APTT 33.9 Specimen Type Sample Site pH Bicarbonate Actual Total CO2 Base Excess O2 Saturation O2 % ABG pCO2 ABG pO2 Diomedes Test Respiration Rate O2 Delivery Device Vent Mode Tidal Volume POC PEEP Sodium 141 Potassium 3.4 L Chloride 103 Carbon Dioxide 35.0 H Anion Gap 3 L BUN 18 Creatinine 0.74 Estim Creat Clear Calc 55.83 Est GFR (MDRD) Af Amer 131 Est GFR (MDRD) Non-Af 108 BUN/Creatinine Ratio 24.2 H Glucose 119 H Lactic Acid Calcium 8.7 Phosphorus Magnesium Total Bilirubin 0.70 AST 10 L ALT 20 Alkaline Phosphatase 104 Troponin I 0.037 B-Natriuretic Peptide Total Protein 7.4 Albumin 3.0 L Globulin 4.4 H Albumin/Globulin Ratio 0.7 L Triglycerides Cholesterol LDL Cholesterol VLDL Cholesterol HDL Cholesterol TSH Free T4 Urine Color Urine Clarity Urine pH Ur Specific [place] Urine Protein Urine Glucose (UA) Urine Ketones Urine Occult Blood Urine Nitrite Urine Bilirubin Urine Urobilinogen Ur Leukocyte Esterase Urine RBC Urine WBC Ur Squamous Epith Cells Urine Bacteria Hyaline Casts Fine Granular Casts Urine Mucus MRSA (PCR) 02/17/20 02/17/20 02/17/20 07:55 07:55 07:55 WBC RBC Hgb Hct MCV MCH MCHC RDW Std Deviation RDW Coeff of Dominic Plt Count MPV Immature Gran % (Auto) Neut % (Auto) Lymph % (Auto) [place] % (Auto) Eos % (Auto) Baso % (Auto) Absolute Neuts (auto) Absolute Lymphs (auto) Nucleated RBC % PT INR APTT Specimen Type Sample Site pH Bicarbonate Actual Total CO2 Base Excess O2 Saturation O2 % ABG pCO2 ABG pO2 Diomedes Test Respiration Rate O2 Delivery Device Vent Mode Tidal Volume POC PEEP Sodium Potassium Chloride Carbon Dioxide Anion Gap BUN Creatinine Estim Creat Clear Calc Est GFR (MDRD) Af Amer Est GFR (MDRD) Non-Af BUN/Creatinine Ratio Glucose Lactic Acid 1.0 Calcium Phosphorus Magnesium 2.3 Total Bilirubin AST ALT Alkaline Phosphatase Troponin I B-Natriuretic Peptide 818.5 H Total Protein Albumin Globulin Albumin/Globulin Ratio Triglycerides Cholesterol LDL Cholesterol VLDL Cholesterol HDL Cholesterol TSH Free T4 Urine Color Urine Clarity Urine pH Ur Specific [place] Urine Protein Urine Glucose (UA) Urine Ketones Urine Occult Blood Urine Nitrite Urine Bilirubin Urine Urobilinogen Ur Leukocyte Esterase Urine RBC Urine WBC Ur Squamous Epith Cells Urine Bacteria Hyaline Casts Fine Granular Casts Urine Mucus MRSA (PCR) 02/17/20 02/17/20 02/17/20 08:21 08:49 10:02 WBC RBC Hgb Hct MCV MCH MCHC RDW Std Deviation RDW Coeff of Dominic Plt Count MPV Immature Gran % (Auto) Neut % (Auto) Lymph % (Auto) [place] % (Auto) Eos % (Auto) Baso % (Auto) Absolute Neuts (auto) Absolute Lymphs (auto) Nucleated RBC % PT INR APTT Specimen Type ART ART Sample Site R Radial R Brach pH 7.23 L 7.46 H Bicarbonate Actual 38.1 H 30.5 H Total CO2 41 32 Base Excess 11 H 7 H O2 Saturation 97 92 L O2 % 100 40 ABG pCO2 90.9 H* 42.9 ABG pO2 115 H 60 L Diomedes Test Positive Respiration Rate 16 O2 Delivery Device NRB Adult Vent Vent Mode AC Tidal Volume 500 POC PEEP 5 Sodium Potassium Chloride Carbon Dioxide Anion Gap BUN Creatinine Estim Creat Clear Calc Est GFR (MDRD) Af Amer Est GFR (MDRD) Non-Af BUN/Creatinine Ratio Glucose Lactic Acid Calcium Phosphorus Magnesium Total Bilirubin AST ALT Alkaline Phosphatase Troponin I B-Natriuretic Peptide Total Protein Albumin Globulin Albumin/Globulin Ratio Triglycerides Cholesterol LDL Cholesterol VLDL Cholesterol HDL Cholesterol TSH Free T4 Urine Color Yellow Urine Clarity Sl. Cloudy Urine pH 6.0 Ur Specific [place] 1.025 Urine Protein 100 H Urine Glucose (UA) Normal Urine Ketones 50 H Urine Occult Blood 250 H Urine Nitrite Negative Urine Bilirubin Negative Urine Urobilinogen 1 H Ur Leukocyte Esterase Negative Urine RBC 0 SEEN Urine WBC 5-10 SEEN Ur Squamous Epith Cells 0-5 SEEN Urine Bacteria 1+ Hyaline Casts 0-5 SEEN Fine Granular Casts 0-5 SEEN Urine Mucus RARE MRSA (PCR) 02/17/20 02/17/20 02/17/20 11:55 11:55 15:30 WBC RBC Hgb Hct MCV MCH MCHC RDW Std Deviation RDW Coeff of Dominic Plt Count MPV Immature Gran % (Auto) Neut % (Auto) Lymph % (Auto) [place] % (Auto) Eos % (Auto) Baso % (Auto) Absolute Neuts (auto) Absolute Lymphs (auto) Nucleated RBC % PT INR APTT Specimen Type Sample Site pH Bicarbonate Actual Total CO2 Base Excess O2 Saturation O2 % ABG pCO2 ABG pO2 Idomedes Test Respiration Rate O2 Delivery Device Vent Mode Tidal Volume POC PEEP Sodium Potassium Chloride Carbon Dioxide Anion Gap BUN Creatinine Estim Creat Clear Calc Est GFR (MDRD) Af Amer Est GFR (MDRD) Non-Af BUN/Creatinine Ratio Glucose Lactic Acid Calcium Phosphorus Magnesium Cancelled Total Bilirubin AST ALT Alkaline Phosphatase Troponin I 0.060 H 0.067 H B-Natriuretic Peptide Total Protein Albumin Globulin Albumin/Globulin Ratio Triglycerides Cholesterol LDL Cholesterol VLDL Cholesterol HDL Cholesterol TSH Free T4 Urine Color Urine Clarity Urine pH Ur Specific [place] Urine Protein Urine Glucose (UA) Urine Ketones Urine Occult Blood Urine Nitrite Urine Bilirubin Urine Urobilinogen Ur Leukocyte Esterase Urine RBC Urine WBC Ur Squamous Epith Cells Urine Bacteria Hyaline Casts Fine Granular Casts Urine Mucus MRSA (PCR) Negative 02/17/20 02/18/20 02/18/20 18:15 03:30 03:30 WBC 9.1 RBC 3.37 L Hgb 9.1 L Hct 28.5 L MCV 84.6 D MCH 27.0 MCHC 31.9 L D RDW Std Deviation 48.3 H RDW Coeff of Dominic 15.7 H Plt Count 277 MPV 9.5 Immature Gran % (Auto) 0.400 Neut % (Auto) 78.1 H Lymph % (Auto) 11.1 L [place] % (Auto) 9.9 Eos % (Auto) 0.3 Baso % (Auto) 0.2 Absolute Neuts (auto) 7.1 Absolute Lymphs (auto) 1.01 Nucleated RBC % 0 PT INR APTT Specimen Type Sample Site pH Bicarbonate Actual Total CO2 Base Excess O2 Saturation O2 % ABG pCO2 ABG pO2 Diomedes Test Respiration Rate O2 Delivery Device Vent Mode Tidal Volume POC PEEP Sodium 141 Potassium 2.4 L* Chloride 101 Carbon Dioxide 32.0 Anion Gap 8 BUN 18 Creatinine 0.95 Estim Creat Clear Calc 58.76 Est GFR (MDRD) Af Amer 99 Est GFR (MDRD) Non-Af 82 BUN/Creatinine Ratio 19.0 Glucose 85 Lactic Acid Calcium 7.9 L Phosphorus Magnesium Total Bilirubin AST ALT Alkaline Phosphatase Troponin I 0.067 H B-Natriuretic Peptide Total Protein Albumin Globulin Albumin/Globulin Ratio Triglycerides 68 Cholesterol 123 LDL Cholesterol 73 VLDL Cholesterol 14 HDL Cholesterol 36 L TSH 3.19 Free T4 1.50 H Urine Color Urine Clarity Urine pH Ur Specific [place] Urine Protein Urine Glucose (UA) Urine Ketones Urine Occult Blood Urine Nitrite Urine Bilirubin Urine Urobilinogen Ur Leukocyte Esterase Urine RBC Urine WBC Ur Squamous Epith Cells Urine Bacteria Hyaline Casts Fine Granular Casts Urine Mucus MRSA (PCR) 02/18/20 02/18/20 02/19/20 03:30 16:55 04:30 WBC 12.3 H RBC 3.72 L Hgb 9.9 L Hct 32.4 L MCV 87.1 MCH 26.6 L MCHC 30.6 L RDW Std Deviation 50.2 H RDW Coeff of Dominic 15.9 H Plt Count 301 MPV 9.1 Immature Gran % (Auto) 0.400 Neut % (Auto) 85.2 H Lymph % (Auto) 3.7 L [place] % (Auto) 9.2 Eos % (Auto) 1.3 Baso % (Auto) 0.2 Absolute Neuts (auto) 10.5 H Absolute Lymphs (auto) 0.46 L Nucleated RBC % 0 PT INR APTT Specimen Type Sample Site pH Bicarbonate Actual Total CO2 Base Excess O2 Saturation O2 % ABG pCO2 ABG pO2 Diomedes Test Respiration Rate O2 Delivery Device Vent Mode Tidal Volume POC PEEP Sodium Potassium 3.1 L Chloride Carbon Dioxide Anion Gap BUN Creatinine Estim Creat Clear Calc Est GFR (MDRD) Af Amer Est GFR (MDRD) Non-Af BUN/Creatinine Ratio Glucose Lactic Acid Calcium Phosphorus 1.6 L Magnesium 1.9 Total Bilirubin AST ALT Alkaline Phosphatase Troponin I B-Natriuretic Peptide Total Protein Albumin Globulin Albumin/Globulin Ratio Triglycerides Cholesterol LDL Cholesterol VLDL Cholesterol HDL Cholesterol TSH Free T4 Urine Color Urine Clarity Urine pH Ur Specific [place] Urine Protein Urine Glucose (UA) Urine Ketones Urine Occult Blood Urine Nitrite Urine Bilirubin Urine Urobilinogen Ur Leukocyte Esterase Urine RBC Urine WBC Ur Squamous Epith Cells Urine Bacteria Hyaline Casts Fine Granular Casts Urine Mucus MRSA (PCR) 02/19/20 04:30 WBC RBC Hgb Hct MCV MCH MCHC RDW Std Deviation RDW Coeff of Dominic Plt Count MPV Immature Gran % (Auto) Neut % (Auto) Lymph % (Auto) [place] % (Auto) Eos % (Auto) Baso % (Auto) Absolute Neuts (auto) Absolute Lymphs (auto) Nucleated RBC % PT INR APTT Specimen Type Sample Site pH Bicarbonate Actual Total CO2 Base Excess O2 Saturation O2 % ABG pCO2 ABG pO2 Diomedes Test Respiration Rate O2 Delivery Device Vent Mode Tidal Volume POC PEEP Sodium 143 Potassium 3.7 Chloride 102 Carbon Dioxide 36.0 H Anion Gap 5 BUN 16 Creatinine 0.74 Estim Creat Clear Calc 55.83 Est GFR (MDRD) Af Amer 131 Est GFR (MDRD) Non-Af 108 BUN/Creatinine Ratio 21.5 H Glucose 105 Lactic Acid Calcium 7.7 L Phosphorus Magnesium Total Bilirubin AST ALT Alkaline Phosphatase Troponin I B-Natriuretic Peptide Total Protein Albumin Globulin Albumin/Globulin Ratio Triglycerides Cholesterol LDL Cholesterol VLDL Cholesterol HDL Cholesterol TSH Free T4 Urine Color Urine Clarity Urine pH Ur Specific [place] Urine Protein Urine Glucose (UA) Urine Ketones Urine Occult Blood Urine Nitrite Urine Bilirubin Urine Urobilinogen Ur Leukocyte Esterase Urine RBC Urine WBC Ur Squamous Epith Cells Urine Bacteria Hyaline Casts Fine Granular Casts Urine Mucus MRSA (PCR) Microbiology 02/17/20 08:49 Urine, Clean Catch Urine Culture - Preliminary Culture exhibits no growth. 02/17/20 08:05 Mucosa - Nose Influenza Types A,B Direct FA (BRITTNEY) - Final Clinical Impression(s) from Imaging Studies Chest X-Ray 02/17/20 07:52 IMPRESSION: Findings suggestive of CHF with bibasilar atelectasis/infiltrates. Follow-up is recommended. Electronically Signed: Chase Ruff, at 8:51 EST , Service support , Chest X-Ray 02/17/20 08:18 IMPRESSION: The tip of the endotracheal tube is at 2.2 cm proximal to the mike. An orogastric tube is seen with the tip in the upper midabdomen. Electronically Signed: Chase Ruff, at 9:27 EST , Service support , KUB X-Ray 02/17/20 08:18 IMPRESSION: The tip of the orogastric tube is in the distal portion of the body of the stomach. Electronically Signed: Chase Ruff, at 9:29 EST , Service support , Medical Necessity - Tobacco Use Smoking Status: Former smoker Assessment/Plan All Active Problems (Last Reviewed 02/08/20 @ 13:31 by [place] To CRUTCHING CONTRACTOR, CRUTCHING CONTRACTOR- C) Acute on chronic respiratory failure with hypoxia and hypercapnia (Acute) Pulmonary edema cardiac cause (Acute) Anemia, unspecified (Acute) Acute bronchitis (Resolved) Acute respiratory failure with hypoxia (Resolved) Aspiration pneumonia of both lower lobes (Resolved) Atelectasis of both lungs (Resolved) Atrial fibrillation with RVR (Resolved) COPD exacerbation (Resolved) Cancer (Resolved) Elevated troponin I level (Resolved) Hemorrhoids (Resolved) History of colonoscopy (Resolved ~04/2018) Infectious encephalopathy (Resolved) Pneumonia (Resolved) Sepsis (Resolved) Sinusitis, acute (Resolved) RECOMMENDATIONS: 1. Wean supplemental oxygen to maintain saturations at or above 90%. 2. Continue diuresis as tolerated by hemodynamics and renal function. 3. Continue amiodarone. Await additional recommendations by cardiology. 4. Continue scheduled bronchodilators. 5. Continue antimicrobials with plans to complete a 7-day treatment course. 6. Continue systemic anticoagulation with Eliquis. 7. Encourage incentive spirometer use and mobilize patient as tolerated. 8. Check troponin and BNP. IMPRESSIONS: 1. Acute on chronic combined respiratory failure Suspect related to flash pulmonary edema in the setting of valvular heart disease and poorly controlled hypertension noted on arrival. The patient improved from an oxygenation standpoint with IV diuretic therapy and invasive mechanical ventilatory support. He was able to be successfully extubated on February 17. Over concerns for possible pneumonia as well, empiric anti microbials will be continued with plans to complete a 7-day treatment course. 2. Valvular heart disease/coronary artery disease status post bypass/paroxysmal atrial fibrillation The patient does have known aortic valve stenosis and is currently followed in the cardiology clinic. Plan to continue supportive measures noted above. 3. History of COPD Start scheduled bronchodilator therapy along with budesonide twice daily. 4. Advanced age/hyperlipidemia/hypertension/hypothyroidism Complicates care, management, recovery and prognosis. This note was generated with [employer]u.usation software. It may contain incorrect words, spelling, and punctuation that were not noted in checking the note before signing. Inpatient E&M: [id number] [facility] L3
[2020-02-19] MEDS: Amiodarone 360 MG in Dextrose 5% Viaflo Bag 192.8 ML 33.3 MG CONT INF (06:09)
[2020-02-19] MEDS: Budesonide Respules 0.5 MG/2 ML AMPUL.NEB. INHALATION ×2 (07:22→19:42)
--- NOTE | 2020-02-19 07:33 | PCM.PN.HOSP ---
Patient Problems: Active and Suspected Problems (Last Reviewed 02/08/20 @ 13:31 by Socorro To PAROLE DIRECTOR, PAROLE DIRECTOR-C) Acute on chronic respiratory failure with hypoxia and hypercapnia (Acute) Pulmonary edema cardiac cause (Acute) Anemia, unspecified (Acute) Reason for Visit: Follow-up for acute on chronic combined respiratory failure secondary to pulmonary edema. Objective: Yesterday, after extubation patient complained of midsternal/left-sided chest pressure prior to coming to the ER. Today, he does not have chest pressure or pain. Mild shortness of breath. Coughing bout after nebulization. Patient had low-grade temperature T-max 101.1 Fahrenheit. NSVT and then A. fib. On IV amiodarone. Patient is tachypneic. On 4 to 5 L of oxygen. Heart rate in 90s. Patient moved bowels yesterday. Physical exam General: Alert, Oriented x3, Cooperative HEENT: Atraumatic, PERRLA, EOMI, Normocephalic Oral: No Gingival or Mucosal Lesions/ Ulcerations Neck: Supple, No JVD, Negative Carotid Bruits Lungs: Air entry diminished in bilateral lungs. Bilateral coarse rhonchi. Tachypnea and hypoxia. Cardiovascular: Regular rate, Regular Rhythm, Normal S1, Normal S2, ejection systolic murmur grade 4/6 over right second ICS. Abdomen: Bowel Sounds Present, Soft, Non Tender, Non-Distended : No renal angle tenderness. No suprapubic tenderness. Extremities: No edema, Capillary Refill Less than 3 Seconds Skin: No rashes, No breakdown Musculoskeletal: No Tenderness to Palpation of Joints or Extremities Neurological: Cranial nerves II-XII grossly intact, Deep Tendon Reflexes 2+/4 and Symmetrical, Neuro grossly intact Psych/Mental Status: Normal Affect, Appropriate. Vitals/I&O's: Vital Signs Temp Pulse Resp BP Pulse Ox 99.3 F H 87 29 H 146/69 H 94 02/18/20 21:00 02/19/20 06:09 02/19/20 06:09 02/19/20 06:09 02/19/20 06:09 Oxygen Flow Rate (L/min) 3 Oxygen Delivery Method Nasal Cannula Weight: 167 lb 15.876 oz Body Mass Index (BMI) 29.0 Finger Stick Blood Glucose 103 Intake and Output for Last 24 Hours 02/17/20 02/18/2002/18/20 23:59 23:59 23:59 Intake Total 532.68 / 532.68 488 / 538 50 / 50 Output Total 3350 / 3500 2600 / 3175 760 / 760 Balance -2817.32 / -2967.32 -2112 / -2637 -710 / -710 Microbiology Past 72 Hours 02/17/20 08:05 Blood Culture (Wb) - Anticubital Right Blood Culture - Preliminary No growth in 48 hours. 02/17/20 07:55 Blood Culture (Wb) - Anticubital Left Blood Culture - Preliminary No growth in 48 hours. 02/17/20 08:49 Urine, Clean Catch Urine Culture - Preliminary Culture exhibits no growth. 02/17/20 08:05 Mucosa - Nose Influenza Types A,B Direct FA ([facility]) - Final Laboratory Results 02/18/20 03:30: Phosphorus 1.6 L, Magnesium 1.9 02/18/20 16:55: Potassium 3.1 L 02/19/20 04:30: WBC 12.3 H, RBC 3.72 L, Hgb 9.9 L, Hct 32.4 L, MCV 87.1, MCH 26.6 L, MCHC 30.6 L, RDW Std Deviation 50.2 H, RDW Coeff of Dominic 15.9 H, Plt Count 301, MPV 9.1, Immature Gran % (Auto) 0.400, Neut % (Auto) 85.2 H, Lymph % (Auto) 3.7 L, Pope % (Auto) 9.2, Eos % (Auto) 1.3, Baso % (Auto) 0.2, Absolute Neuts (auto) 10.5 H, Absolute Lymphs (auto) 0.46 L, Nucleated RBC % 0 02/19/20 04:30: Sodium 143, Potassium 3.7, Chloride 102, Carbon Dioxide 36.0 H, Anion Gap 5, BUN 16, Creatinine 0.74, Estim Creat Clear Calc 55.83, Est GFR (MDRD) Af Amer 131, Est GFR (MDRD) Non-Af 108, BUN/Creatinine Ratio 21.5 H, Glucose 105, Calcium 7.7 L Current Medications Acetaminophen (Acetaminophen 650 Mg/20 Ml Udc) 650 mg GT Q6H PRN PRN PRN Reason: Pain Score 1-10/Temp > 100.7 F Last Admin: 02/17/20 23:08 Dose: 650 mg Documented by: Albuterol Sulfate (Albuterol 2.5 Mg/3 Ml Vial.Neb.) 2.5 mg INHALATION Q2H PRN PRN PRN Reason: SOB/Wheezing Albuterol/Ipratropium (Ipratropium/Albuterol Sulfate 3 Ml Ampul.Neb) 3 ml INHALATION Q6H.RT [facility] Last Admin: 02/19/20 01:55 Dose: 3 ml Documented by: Amlodipine Besylate (Amlodipine 5 Mg Tablet) 5 mg PO DAILY [facility] Last Admin: 02/18/20 12:24 Dose: 5 mg Documented by: Apixaban (Apixaban 5 Mg Tablet) 5 mg PO BID [facility] Last Admin: 02/18/20 22:31 Dose: 5 mg Documented by: Aspirin (Aspirin 81 Mg Tab.Chew) 81 mg PO DAILY@0800 [facility] Last Admin: 02/18/20 12:29 Dose: 81 mg Documented by: Budesonide (Budesonide Respules 0.5 Mg/2 Ml Ampul.Neb.) 0.5 mg INHALATION BID.RT [facility] Last Admin: 02/18/20 18:52 Dose: 0.5 mg Documented by: Famotidine (Famotidine 20 Mg Tablet) 20 mg PO BID [facility] Last Admin: 02/18/20 22:31 Dose: 20 mg Documented by: Furosemide (Furosemide 40 Mg/4 Ml Vial) 40 mg IV BID@1000,1800 [facility] Last Admin: 02/18/20 18:03 Dose: 40 mg Documented by: Cefepime HCl 1 gm/ Sodium (Chloride) 50 mls @ 100 mls/hr IV Q8 [facility] Last Admin: 02/19/20 05:48 Dose: 100 mls/hr Documented by: Amiodarone HCl 360 mg/ (Dextrose) 200 mls @ 33.333 mls/hr CONT INF .Q6H [facility] Stop: 02/19/20 10:24 Last Admin: 02/19/20 06:09 Dose: 1 mg/min, 33.3 mls/hr Documented by: Amiodarone HCl 360 mg/ (Dextrose) 200 mls @ 16.667 mls/hr CONT INF .Q12H [facility] Stop: 02/20/20 04:29 Isosorbide Mononitrate (Isosorbide Mononitrate 60 Mg Tablet) 60 mg PO DAILY [facility] Last Admin: 02/18/20 12:25 Dose: 60 mg Documented by: Levothyroxine Sodium (Levothyroxine 175 Mcg Tablet) 175 mcg PO DAILY [facility] Last Admin: 02/18/20 12:25 Dose: 175 mcg Documented by: Losartan Potassium (Losartan Potassium 50 Mg Tablet) 50 mg PO DAILY [facility] Last Admin: 02/18/20 12:25 Dose: 50 mg Documented by: Nitroglycerin (Nitroglycerin (Inpatient Use) 0.4 Mg Tab.Subl) 0.4 mg SUBLINGUAL Q5M PRN PRN Reason: CARDIAC/CHEST PAIN Potassium Chloride (Potassium Chl Soln 20 Meq/15 Ml Udc) 40 meq PO BID [facility] Last Admin: 02/18/20 22:29 Dose: 40 meq Documented by: Prochlorperazine Edisylate (Prochlorperazine 10 Mg/2 Ml Vial) 5 mg IV Q4H PRN PRN PRN Reason: Breakthrough Nausea/Vomiting Senna/Docusate Sodium (Senna/Docusate Sodium 1 Tablet) 2 tablet PO BID PRN PRN Reason: Constipation Simethicone (Simethicone 80 Mg Tablet) 80 mg PO TIDPC [facility] Last Admin: 02/18/20 14:52 Dose: 80 mg Documented by: Sodium Chloride (0.9% Saline Lock 10 Ml Syringe) 10 - 40 ml IV UD PRN PRN Reason: SALINE FLUSH STROKE Vital Signs/Narrative: Vital Signs Pulse Resp BP Pulse Ox 02/19/20 06:09 87 29 H 146/69 H 94 02/19/20 05:49 94 34 H 141/66 H 98 02/19/20 04:10 140 H 151/92 H Medical Necessity - Tobacco Use Smoking Status: Former smoker Assessment/Plan All Active Problems (Last Reviewed 02/08/20 @ 13:31 by Socorro To PAROLE DIRECTOR, PAROLE DIRECTOR-C) Acute on chronic respiratory failure with hypoxia and hypercapnia (Acute) Pulmonary edema cardiac cause (Acute) Anemia, unspecified (Acute) Acute bronchitis (Resolved) Acute respiratory failure with hypoxia (Resolved) Aspiration pneumonia of both lower lobes (Resolved) Atelectasis of both lungs (Resolved) Atrial fibrillation with RVR (Resolved) COPD exacerbation (Resolved) Cancer (Resolved) Elevated troponin I level (Resolved) Hemorrhoids (Resolved) History of colonoscopy (Resolved ~04/2018) Infectious encephalopathy (Resolved) Pneumonia (Resolved) Sepsis (Resolved) Sinusitis, acute (Resolved) The patient is a 79 year old M with multiple comorbidities was admitted with sudden onset of shortness of breath on the day of admission. ABG showed 7.2 100% agree with there. EKG shows normal sinus rhythm at 94 bpm, QTC 500 ms with left bundle branch block. Previous EKG of 12/28/2019 similar sinus rhythm, LAD, LBBB. 1. Acute combined hypoxic and hypercarbic respiratory failure mostly due to pulmonary edema: Patient is being admitted in ICU. Intubated on vent support. News Production Assistant has been consulted. 02/17: Patient extubated in the morning. Short of breath and tachypneic on 4 L of oxygen. We will continue Lasix 40 mg IV twice daily. 02/18: Negative fluid balance about 5.5 L. Continue Lasix. 2. Acute on chronic HFpEF diastolic heart failure, due to moderate aortic stenosis, hypertension and prolonged QTc interval: Patient had echo in September 2019 reported as moderate with mean valve gradient 36 mmHg, calculated area 1.3 cm?, mild eccentric AR. Mild TR, RVSP 30 mmHg. Moderate concentric LVH. EF 55% with no regional wall motion abnormality. Lasix 40 mg IV twice daily as permitted by hemodynamics parameters and renal function and electrolytes. Heart failure core measures, daily weight monitoring, renal function, electrolytes monitoring and fluid restriction. Repeat 2D echo is ordered. 02/17: Repeat echo shows EF 60% mild MR, moderate aortic stenosis with valve thickening, mild AR. RVSP 40 mmHg. Mild MR. Aortic valve area 1.4 cm?. Cad Application Support Specialist is consulted. Severe hypokalemia. Magnesium was 2.3. Potassium replacement 02/18: Troponin I 0.97. K normal. Phosphorus 1. 6. Magnesium 1.9. IV 30 mEq K-Phos ordered. Seen by polls or surveys interviewer. 3. Coronary artery disease status post CABG, paroxysmal A. fib on Eliquis, hypertension, hypothyroidism and dyslipidemia: EKG shows QTC 500 ms probably due to left bundle branch block. Avoid QTC prolonging medication. 02/17: TSH 3.19 normal, free T4 1.5 upper high normal. Fasting profile, LDL 73, TG 68. Serial troponins mildly elevated 0.06 flat and indeterminate range. 4. Recent COVID-19 infection with elevated troponins: Patient was admitted between 12/27 to 12/30/2019 for COVID-19 infection. At that time with mildly elevated troponins and mild chest heaviness.. CT of the chest was unremarkable. Troponin 0 0.133. He was treated with remdesivir, convalescent plasma and Decadron. Patient denies any cough or recent fever for last 2 to 3 weeks. 02/18: Patient on cefepime empirically for history of COPD with a low-grade fever. Chest x-ray was nonspecific bibasilar infiltrate/atelectasis. Repeat chest x-ray done in the morning shows bilateral lower lobes infiltrates with bibasilar atelectasis with low volume. Official report pending. VTE prophylaxis: On Eliquis 5 mg twice daily. Clinical Impression(s) from Imaging Studies Chest X-Ray 02/17/20 07:52 IMPRESSION: Findings suggestive of CHF with bibasilar atelectasis/infiltrates. Follow-up is recommended. Electronically Signed: Chase Elzbieta, at 8:51 EST , Service support , Chest X-Ray 02/17/20 08:18 IMPRESSION: The tip of the endotracheal tube is at 2.2 cm proximal to the mike. An orogastric tube is seen with the tip in the upper midabdomen. Electronically Signed: Chase Ruff, at 9:27 EST , Service support , KUB X-Ray 02/17/20 08:18 IMPRESSION: The tip of the orogastric tube is in the distal portion of the body of the stomach. Microbiology Past 72 Hours 02/17/20 08:05 Blood Culture (Wb) - Anticubital Right Blood Culture - Preliminary No growth in 48 hours. 02/17/20 07:55 Blood Culture (Wb) - Anticubital Left Blood Culture - Preliminary No growth in 48 hours. 02/17/20 08:49 Urine, Clean Catch Urine Culture - Preliminary Culture exhibits no growth. 02/17/20 08:05 Mucosa - Nose Influenza Types A,B Direct FA ([facility]) - Final Laboratory Results 02/18/20 03:30: Phosphorus 1.6 L, Magnesium 1.9 02/18/20 16:55: Potassium 3.1 L 02/19/20 04:30: WBC 12.3 H, RBC 3.72 L, Hgb 9.9 L, Hct 32.4 L, MCV 87.1, MCH 26.6 L, MCHC 30.6 L, RDW Std Deviation 50.2 H, RDW Coeff of Dominic 15.9 H, Plt Count 301, MPV 9.1, Immature Gran % (Auto) 0.400, Neut % (Auto) 85.2 H, Lymph % (Auto) 3.7 L, Pope % (Auto) 9.2, Eos % (Auto) 1.3, Baso % (Auto) 0.2, Absolute Neuts (auto) 10.5 H, Absolute Lymphs (auto) 0.46 L, Nucleated RBC % 0 02/19/20 04:30: Sodium 143, Potassium 3.7, Chloride 102, Carbon Dioxide 36.0 H, Anion Gap 5, BUN 16, Creatinine 0.74, Estim Creat Clear Calc 55.83, Est GFR (MDRD) Af Amer 131, Est GFR (MDRD) Non-Af 108, BUN/Creatinine Ratio 21.5 H, Glucose 105, Calcium 7.7 L 02/19/20 08:00: Troponin I 3.970 H* Inpatient E&M: 09951 Subs Hosp L3
--- NOTE | 2020-02-19 07:45 | RAD_ITS ---
STUDY: X-RAY CHEST REASON FOR EXAM: Male, 79 years old. ACUTE RESP FAILURE TECHNIQUE: Single AP portable view of the chest. COMPARISON: Comparison is made with prior study dated 02/17/2020. FINDINGS: The endotracheal tube and orogastric tube have been removed. EKG electrodes are seen. Stable elevation of the right hemidiaphragm. Blunting of both costophrenic angles. Mild increased markings at the lung bases suggestive of atelectasis although there has been improvement as compared to prior study. Mild degree of vascular congestion. Sternal cerclage wires and vascular clips are present from a prior sternotomy and coronary artery bypass graft procedure (CABG). Normal mediastinum and kacy. Normal visualized pulmonary arteries. Normal visualized aortic arch and descending thoracic aorta. There are diffuse degenerative changes of the visualized thoracic spine. Normal visualized ribs, clavicles, and shoulders. There is no demonstrated abnormality of the visualized soft tissue structures of the upper abdomen. RAD/Chest 1 View (Portable) IMPRESSION: The endotracheal tube and nasogastric tube have been removed. Improved aeration of both lung bases. Residual changes persist. Electronically Signed: Chase Ruff, at 9:20 EST , Service support ,
[2020-02-19] MEDS: Furosemide 40 MG/4 ML Vial IV ×3 (08:19→20:29)
[2020-02-19] MEDS: 0.9% Saline Lock 10 ML Syringe IV ×2 (08:20→10:09)
[2020-02-19] MEDS: Aspirin 81 MG TAB.CHEW PO (08:35)
[2020-02-19 10:50] LABS: BNP,B-Type NATRIURETIC PEPTIDE 742.9 pg/mL (0-100)
[2020-02-19 12:19] LABS: Magnesium 2.2 mg/dL (1.6-2.6); Phosphorus 3.3 mg/dL (2.5-4.9)
[2020-02-19] MEDS: Amiodarone 360 MG in Dextrose 5% Viaflo Bag 192.8 ML 16.7 MG CONT INF (12:29)
[2020-02-19] MEDS: APIXABAN 5 MG TABLET PO ×2 (12:37→20:29)
[2020-02-19] MEDS: Losartan Potassium 50 MG Tablet PO (12:37)
[2020-02-19] MEDS: Isosorbide Mononitrate 60 MG Tablet PO (12:37)
[2020-02-19] MEDS: amLODIPine 5 MG Tablet PO (12:37)
[2020-02-19] MEDS: Famotidine 20 MG Tablet PO ×2 (12:38→20:29)
[2020-02-19] MEDS: Levothyroxine 175 MCG Tablet PO (12:38)
--- NOTE | 2020-02-19 13:38 | CASEMGMT ---
RN CM Assessment. Intro role of CM to patient via phone to room. Pt states he is independent @ home. Completes own ADL's and no care needs prior to admission. His had covid and is recovering. Pt plans to return home on discharge. COVID TESTING: positive @ [facility] on 12/28/19 PCP: Dr. Coyle Pharmacy: [facility] Pharmacy, [place] [facility] benefit: yes LNOK: Living arrangements: Lives in one story home with his . States he is independent at home. DME: bipap and home oxygen through [employer] @ 2L [place]. Has concentrator and portable tanks. HHC: none SNF: No Pt dc goals: Home DC Plan: Home. Per PT/OT, no therapy recommended @ this time for home. Jenelle HARDY RN ACM
--- NOTE | 2020-02-19 14:49 | PN.CARD_ITS ---
Subjectve: Patient has some shortness of breath which he states is because his abdomen is distended. 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 He states that as a result his abdomen plays a major role in his breathing and when it is distended he has shortness of breath. Overnight he also went into a tachycardia that appears supraventricular in origin. He was started on amiodarone and has been in stable sinus rhythm on this. Patient's troponin increased to 3.9. He was also hypoxic this morning. He is a good historian and denies any chest pain now and does not remember having any chest pain overnight but apparently had mentioned to Dr. Dunaway that he had some chest discomfort. He had a stress test in December that did not reveal significant ischemia. Echo this admission did not reveal significant wall motion abnormalities. Patient has paroxysmal A. fib and is on Eliquis for that. Objective: Vital Signs Temp Pulse Resp BP Pulse Ox 99.5 F H 94 18 134/87 H 96 02/19/20 12:29 02/19/20 13:00 02/19/20 13:00 02/19/20 13:00 02/19/20 13:00 Oxygen Flow Rate (L/min) 4 Oxygen Delivery Method Nasal Cannula Weight: 167 lb 15.876 oz Body Mass Index (BMI) 29.0 Finger Stick Blood Glucose 103 Intake and Output for Last 24 Hours 02/17/20 02/18/20 02/19/20 23:59 23:59 23:59 Intake Total 532.68 / 532.68 488 / 538 308.63 / 308.63 Output Total 3350 / 3500 2600 / 3175 2710 / 2710 Balance -2817.32 / -2967.32 -2112 / -2637 -2401.37 / -2401.37 General: Awake, Alert, Oriented x 3 HEENT: Atraumatic Oral: Moist Mucosa Neck: Supple Lungs: Rales - Charly Bases Cardiovascular: Regular Rhythm Abdomen: Soft Extremities: No edema Skin: No Rashes Psych/Mental Status: Appropriate 02/18/20 16:55: Potassium 3.1 L 02/19/20 04:30: WBC 12.3 H, RBC 3.72 L, Hgb 9.9 L, Hct 32.4 L, MCV 87.1, MCH 26.6 L, MCHC 30.6 L, Plt Count 301, MPV 9.1, Immature Gran % (Auto) 0.400, Neut % (Auto) 85.2 H, Lymph % (Auto) 3.7 L, [place] % (Auto) 9.2, Eos % (Auto) 1.3, Baso % (Auto) 0.2, Absolute Neuts (auto) 10.5 H, Nucleated RBC % 0 02/19/20 04:30: Sodium 143, Potassium 3.7, Chloride 102, Carbon Dioxide 36.0 H, Anion Gap 5, BUN 16, Creatinine 0.74, Est GFR (MDRD) Af Amer 131, Est GFR (MDRD) Non-Af 108, BUN/Creatinine Ratio 21.5 H, Glucose 105, Calcium 7.7 L 02/19/20 04:30: B-Natriuretic Peptide 742.9 H 02/19/20 08:00: Troponin I 3.970 H* 02/19/20 08:00: Phosphorus 3.3, Magnesium 2.2 Rhythm: EKG: ECHO: Stress Test: Cardiac Cath: PCI: CT Surgery: Holter monitor: EPS: PPM: CXR: Chest CT Scan: Medical Necessity - Tobacco Use Smoking Status: Former smoker Assessment/Plan 1. Respiratory failure: Possibly secondary to decompensated CHF secondary to uncontrolled hypertension. Patient is also being treated for COPD exacerbation and due to his fever with antibiotic for underlying infective process. He does have moderate aortic stenosis as well. Continue IV Lasix for another day and possibly tomorrow we should be able to switch him to his home dose. 2. Supraventricular tachycardia/atrial fibrillation: Patient is currently in sinus rhythm. He was tachycardic for some time last night. He was on a beta- chris as an outpatient. I will start him on carvedilol to see if this keeps him in rhythm. We will stop amiodarone after the bolus and see how he does. 3. Coronary artery disease: Patient has history of CABG. Prior to CABG he had chest pain. It is unclear if he had significant chest pain this time. Currently he is chest pain-free. His 2D echo did not reveal any significant wall motion abnormalities. He does have underlying stenosis in the ANAY to OM that has not been revascularized. However the stress test in December of this year did not reveal significant ischemia. His troponin elevation could be due to a combination of underlying CAD, hypoxia and tachycardia. At this time we will try medical treatment without proceeding with coronary angiography yet. Over the weekend if his clinical situation changes then we will hold his Eliquis and proceed with coronary angiography.
[2020-02-19] MEDS: Carvedilol 3.125 MG TABLET PO (20:33)
[2020-02-20] VITALS (21 sets, daily range): BP systolic 110–154; BP diastolic 54–77; PULSE 74–88; RESP 16–33; TEMP 36.5–37.3; O2SAT 92–100
[2020-02-20] MEDS: Ipratropium/Albuterol Sulfate 3 ML AMPUL.NEB INHALATION ×4 (00:59→18:27)
[2020-02-20] MEDS: Amiodarone 360 MG in Dextrose 5% Viaflo Bag 192.8 ML 16.7 MG CONT INF (01:16)
[2020-02-20 05:44] LABS: Absolute Lymphocyte Count 0.63 X10^3/uL (0.83-4.51); Absolute Neutrophil Count 9.8 X10^3/uL (2.0-7.7); Basophil# 0.03 X10^3/uL; Basophil% 0.3 % (0-1); Eosinophil# 0.33 X10^3/uL; Eosinophils% 2.8 % (0-5); Hematocrit 31.4 % (40-54); Hemoglobin 9.3 g/dL (13.0-16.5); Lymphocyte # 0.63 X10^3/ul (4.0); Lymphocyte % 5.3 % (19-41); Mean Corp Hgb Conc 29.6 g/dL (32-36); Mean Corpuscular Volume 87.7 fL (80-94); Mean Platelet Vol. 9.5 fl (6.2-12.0); Monocyte# 0.91 X10^3/uL; Monocyte% 7.7 % (0-10); NRBC Flagged by Analyzer 0 % (0-5); Neutrophil # 9.84 X10^3/uL (2.7-7.7); Neutrophil % 83.2 % (47-70); Platelet Count 323 K/mm3 (150-450); RBC Distribution Width CV 15.9 % (11.6-14.6); RBC Distribution Width SD 51.5 fl (35.1-43.9); Red Blood Count 3.58 M/mm3 (4.6-6.2); White Blood Count 11.8 K/mm3 (4.4-11.0)
--- NOTE | 2020-02-20 05:44 | PCM.PN.INT ---
Subjective: The patient was seen and examined at the bedside this morning. Events from the last 24 hours have been reviewed. The patient is currently afebrile, hemodynamically stable and maintaining appropriate oxygen saturations on 3 L/min via nasal cannula. The patient did have an elevated troponin yesterday to 3.9, for which he was reevaluated by cardiology. The patient is currently documented to be overall net -7.2 L for the hospital admission. The patient did have hematuria noted from his Clark catheter by the nursing staff. The patient denies any shortness of breath or chest pain this morning. Objective: The patient's most recent lab work, culture data and imaging studies have all been personally reviewed. Surface echocardiogram revealed normal LV size with an ejection fraction of 60%. Pulmonary artery systolic pressure was estimated to be 35 to 40 mmHg. Moderate aortic valve stenosis was noted. Infectious work-up has been unrevealing to date. General: Alert, Oriented x3, Cooperative, No apparent distress HEENT: Atraumatic, PERRLA, Normocephalic Oral: Moist Mucosa, No Gingival or Mucosal Lesions/ Ulcerations Neck: Supple, No Nodes, Trachea Midline Lungs: No rhonchi, No wheeze, No rales, Diminished Cardiovascular: Regular rate, Regular Rhythm, Murmur, - - Sinus rhythm on telemetry Abdomen: Bowel Sounds Present, Soft, Non Tender Extremities: No clubbing, No cyanosis, Edema Skin: - - No significant change from previous Musculoskeletal: No Muscle Wasting Lymphatic: No Cervical, Supraclavicular, or Inguinal Adenopathy Neurological: Cranial nerves II-XII grossly intact, Neuro grossly intact Psych/Mental Status: Normal Affect, Appropriate Vital Signs Temp Pulse Resp BP Pulse Ox 99.1 F 82 22 H 127/54 H 100 02/20/20 01:16 02/20/20 04:00 02/20/20 04:00 02/20/20 04:00 02/20/20 04:00 Oxygen Flow Rate (L/min) 3 Oxygen Delivery Method Nasal Cannula Weight: 167 lb 15.876 oz Body Mass Index (BMI) 29.0 Finger Stick Blood Glucose 103 Intake and Output for Last 24 Hours 02/18/20 02/19/20 02/20/20 23:59 23:59 23:59 Intake Total 488 / 538 442.03 / 442.03 157.97 / 157.97 Output Total 2600 / 3175 2935 / 2935 Balance -2112 / -2637 -2492.97 / -2492.97 157.97 / 157.97 Labs (Last 48 Hours) 02/18/20 02/18/20 02/19/20 03:30 16:55 04:30 WBC 12.3 H RBC 3.72 L Hgb 9.9 L Hct 32.4 L MCV 87.1 MCH 26.6 L MCHC 30.6 L RDW Std Deviation 50.2 H RDW Coeff of Dominic 15.9 H Plt Count 301 MPV 9.1 Immature Gran % (Auto) 0.400 Neut % (Auto) 85.2 H Lymph % (Auto) 3.7 L Cavalier % (Auto) 9.2 Eos % (Auto) 1.3 Baso % (Auto) 0.2 Absolute Neuts (auto) 10.5 H Absolute Lymphs (auto) 0.46 L Nucleated RBC % 0 Sodium Potassium 3.1 L Chloride Carbon Dioxide Anion Gap BUN Creatinine Estim Creat Clear Calc Est GFR (MDRD) Af Amer Est GFR (MDRD) Non-Af BUN/Creatinine Ratio Glucose Calcium Phosphorus 1.6 L Magnesium 1.9 Troponin I B-Natriuretic Peptide 02/19/20 02/19/20 02/19/20 04:30 04:30 08:00 WBC RBC Hgb Hct MCV MCH MCHC RDW Std Deviation RDW Coeff of Dominic Plt Count MPV Immature Gran % (Auto) Neut % (Auto) Lymph % (Auto) Cavalier % (Auto) Eos % (Auto) Baso % (Auto) Absolute Neuts (auto) Absolute Lymphs (auto) Nucleated RBC % Sodium 143 Potassium 3.7 Chloride 102 Carbon Dioxide 36.0 H Anion Gap 5 BUN 16 Creatinine 0.74 Estim Creat Clear Calc 55.83 Est GFR (MDRD) Af Amer 131 Est GFR (MDRD) Non-Af 108 BUN/Creatinine Ratio 21.5 H Glucose 105 Calcium 7.7 L Phosphorus Magnesium Troponin I 3.970 H* B-Natriuretic Peptide 742.9 H 02/19/20 02/20/20 02/20/20 08:00 05:30 05:30 WBC Pending RBC Pending Hgb Pending Hct Pending MCV Pending MCH Pending MCHC Pending RDW Std Deviation Pending RDW Coeff of Dominic Pending Plt Count Pending MPV Immature Gran % (Auto) Neut % (Auto) Pending Lymph % (Auto) Cavalier % (Auto) Eos % (Auto) Baso % (Auto) Absolute Neuts (auto) Pending Absolute Lymphs (auto) Nucleated RBC % Sodium Pending Potassium Pending Chloride Pending Carbon Dioxide Pending Anion Gap Pending BUN Pending Creatinine Pending Estim Creat Clear Calc Est GFR (MDRD) Af Amer Pending Est GFR (MDRD) Non-Af Pending BUN/Creatinine Ratio Pending Glucose Pending Calcium Pending Phosphorus 3.3 Magnesium 2.2 Troponin I B-Natriuretic Peptide Microbiology 02/17/20 08:49 Urine, Clean Catch Urine Culture - Final Culture exhibits no growth. 02/17/20 08:05 Blood Culture (Wb) - Anticubital Right Blood Culture - Preliminary No growth in 48 hours. 02/17/20 07:55 Blood Culture (Wb) - Anticubital Left Blood Culture - Preliminary No growth in 48 hours. Clinical Impression(s) from Imaging Studies Chest X-Ray 02/17/20 07:52 IMPRESSION: Findings suggestive of CHF with bibasilar atelectasis/infiltrates. Follow-up is recommended. Electronically Signed: Chase Ruff, at 8:51 EST , Service support , Chest X-Ray 02/17/20 08:18 IMPRESSION: The tip of the endotracheal tube is at 2.2 cm proximal to the mike. An orogastric tube is seen with the tip in the upper midabdomen. Electronically Signed: Chase Ruff, at 9:27 EST , Service support , KUB X-Ray 02/17/20 08:18 IMPRESSION: The tip of the orogastric tube is in the distal portion of the body of the stomach. Electronically Signed: Chase Ruff, at 9:29 EST , Service support , Chest X-Ray 02/19/20 07:45 IMPRESSION: The endotracheal tube and nasogastric tube have been removed. Improved aeration of both lung bases. Residual changes persist. Electronically Signed: Chase Ruff, at 9:20 EST , Service support , Medical Necessity - Tobacco Use Smoking Status: Former smoker Assessment/Plan All Active Problems (Last Reviewed 02/08/20 @ 13:31 by [place] To GRAVES REGISTRATION SPECIALIST, GRAVES REGISTRATION SPECIALIST-C) Acute on chronic respiratory failure with hypoxia and hypercapnia (Acute) Pulmonary edema cardiac cause (Acute) Anemia, unspecified (Acute) Acute bronchitis (Resolved) Acute respiratory failure with hypoxia (Resolved) Aspiration pneumonia of both lower lobes (Resolved) Atelectasis of both lungs (Resolved) Atrial fibrillation with RVR (Resolved) COPD exacerbation (Resolved) Cancer (Resolved) Elevated troponin I level (Resolved) Hemorrhoids (Resolved) History of colonoscopy (Resolved ~04/2018) Infectious encephalopathy (Resolved) Pneumonia (Resolved) Sepsis (Resolved) Sinusitis, acute (Resolved) RECOMMENDATIONS: 1. Wean supplemental oxygen to maintain saturations at or above 90%. 2. Decrease Lasix back to home regimen of 40 mg daily. 3. Remove Clark catheter. If hematuria persists, may need to consider urology consultation. 4. Continue scheduled bronchodilators. 5. Continue antimicrobials with plans to complete a 7-day treatment course. 6. Continue systemic anticoagulation with Eliquis. 7. Encourage incentive spirometer use and mobilize patient as tolerated. 8. The patient is medically stable for transfer out of the intensive care unit. IMPRESSIONS: 1. Acute on chronic combined respiratory failure Suspect related to flash pulmonary edema in the setting of valvular heart disease and poorly controlled hypertension noted on arrival versus possible community-acquired pneumonia. The patient improved from an oxygenation standpoint with IV diuretic therapy and invasive mechanical ventilatory support. He was able to be successfully extubated on February 17. Over concerns for possible pneumonia as well, empiric antimicrobials will be continued with plans to complete a 7-day treatment course. The patient will be continued on nebulized bronchodilators and inhaled corticosteroid. Encourage incentive spirometer use and mobilize patient as tolerated. 2. Valvular heart disease/coronary artery disease status post bypass/paroxysmal atrial fibrillation The patient does have known aortic valve stenosis and is currently followed in the cardiology clinic. Plan to continue supportive measures noted above. 3. History of COPD Start scheduled bronchodilator therapy along with budesonide twice daily. 4. Advanced age/hyperlipidemia/hypertension/hypothyroidism Complicates care, management, recovery and prognosis. CODE status: Discussed CODE status at length including difference between FULL code, DNR-CCA and DNR-CC status. Following discussions about the differences in these status, patient requested full CODE STATUS. Advanced Care Planning Face to Face Time: 12 minutes This note was generated with [email or web address] dictation software. It may contain incorrect words, spelling, and punctuation that were not noted in checking the note before signing. Inpatient E&M: 77210 Subs Hosp L2 Procedures: 83998 Advncd Care Plan 30 Min
[2020-02-20 05:57] LABS: Anion Gap 1 (5-15); BUN 21 mg/dL (7-18); BUN/Creat Ratio 24.2 RATIO (10-20); Calcium,Total 7.7 mg/dL (8.5-10.1); Chloride 100 mmol/L (98-107); Creatinine, Serum 0.87 mg/dL (0.70-1.30); EST Glomerular Filtration Rate 91 mL/min (>60); Est Glom Filt Rate - Afr Amer 110 mL/min (>60); Estimated Creatinine Clearance 64.17 ml/min; Glucose 111 mg/dL (74-106); Potassium 4.3 mmol/L (3.5-5.1); Sodium Level 141 mmol/L (136-145)
[2020-02-20] MEDS: Budesonide Respules 0.5 MG/2 ML AMPUL.NEB. INHALATION ×2 (06:40→18:27)
--- NOTE | 2020-02-20 07:46 | PCM.PN.HOSP ---
Patient Problems: Active and Suspected Problems (Last Reviewed 02/08/20 @ 13:31 by [place] To KNOT PICKER CLOTH, KNOT PICKER CLOTH-C) Acute on chronic respiratory failure with hypoxia and hypercapnia (Acute) Pulmonary edema cardiac cause (Acute) Anemia, unspecified (Acute) Reason for Visit: Patient heart rate and blood pressure better controlled. Denies any chest pain or shortness of breath. 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 Mild hematuria on Clark catheter to probably traumatic. Patient is on Eliquis which is getting hold. Physical exam General: Lethargic, awake. Follows command. HEENT: Atraumatic, PERRLA, EOMI, Normocephalic Oral: No Gingival or Mucosal Lesions/ Ulcerations Neck: Supple, No JVD, Negative Carotid Bruits Lungs: Air entry diminished in bilateral lung bases. Occasional expiratory rhonchi. Cardiovascular: Sinus rhythm with PVCs. Normal S1, Normal S2, No murmurs Abdomen: Bowel Sounds Present, Soft, Non Tender, Non-Distended : No renal angle tenderness. No suprapubic tenderness. Extremities: No edema, Capillary Refill Less than 3 Seconds Skin: No rashes, No breakdown Musculoskeletal: No Tenderness to Palpation of Joints or Extremities Neurological: Cranial nerves II-XII grossly intact, Deep Tendon Reflexes 2+/4 and Symmetrical, Neuro grossly intact Psych/Mental Status: Flat affect. Vitals/I&O's: Vital Signs Temp Pulse Resp BP Pulse Ox 99.1 F 80 22 H 127/54 H 96 02/20/20 01:16 02/20/20 07:14 02/20/20 07:14 02/20/20 04:00 02/20/20 07:15 Oxygen Flow Rate (L/min) 3 Oxygen Delivery Method Nasal Cannula Weight: 169 lb 5.04 oz Body Mass Index (BMI) 29.0 Finger Stick Blood Glucose 103 Intake and Output for Last 24 Hours 02/18/20 02/19/20 02/20/20 23:59 23:59 23:59 Intake Total 488 / 538 442.03 / 442.03 157.97 / 157.97 Output Total 2600 / 3175 2935 / 2935 Balance -2112 / -2637 -2492.97 / -2492.97 157.97 / 157.97 Microbiology Past 72 Hours 02/17/20 08:49 Urine, Clean Catch Urine Culture - Final Culture exhibits no growth. 02/17/20 08:05 Blood Culture (Wb) - Anticubital Right Blood Culture - Preliminary No growth in 48 hours. 02/17/20 07:55 Blood Culture (Wb) - Anticubital Left Blood Culture - Preliminary No growth in 48 hours. 02/17/20 08:05 Mucosa - Nose Influenza Types A,B Direct FA (BRITTNEY) - Final Laboratory Results 02/19/20 04:30: B-Natriuretic Peptide 742.9 H 02/19/20 08:00: Troponin I 3.970 H* 02/19/20 08:00: Phosphorus 3.3, Magnesium 2.2 02/20/20 05:30: WBC 11.8 H, RBC 3.58 L, Hgb 9.3 L, Hct 31.4 L, MCV 87.7, MCH 26.0 L, MCHC 29.6 L, RDW Std Deviation 51.5 H, RDW Coeff of Dominic 15.9 H, Plt Count 323, MPV 9.5, Immature Gran % (Auto) 0.700, Neut % (Auto) 83.2 H, Lymph % (Auto) 5.3 L, Fountain % (Auto) 7.7, Eos % (Auto) 2.8, Baso % (Auto) 0.3, Absolute Neuts (auto) 9.8 H, Absolute Lymphs (auto) 0.63 L, Nucleated RBC % 0 02/20/20 05:30: Sodium 141, Potassium 4.3, Chloride 100, Carbon Dioxide 40.0 H, Anion Gap 1 L, BUN 21 H, Creatinine 0.87, Estim Creat Clear Calc 64.17, Est GFR (MDRD) Af Amer 110, Est GFR (MDRD) Non-Af 91, BUN/Creatinine Ratio 24.2 H, Glucose 111 H, Calcium 7.7 L 02/20/20 05:30: Troponin I 2.430 H* Current Medications Acetaminophen (Acetaminophen 650 Mg/20 Ml Udc) 650 mg GT Q6H PRN PRN PRN Reason: Pain Score 1-10/Temp > 100.7 F Last Admin: 02/17/20 23:08 Dose: 650 mg Documented by: Albuterol Sulfate (Albuterol 2.5 Mg/3 Ml Vial.Neb.) 2.5 mg INHALATION Q2H PRN PRN PRN Reason: SOB/Wheezing Albuterol/Ipratropium (Ipratropium/Albuterol Sulfate 3 Ml Ampul.Neb) 3 ml INHALATION Q6H.RT [facility] Last Admin: 02/20/20 06:40 Dose: 3 ml Documented by: Amlodipine Besylate (Amlodipine 5 Mg Tablet) 5 mg PO DAILY [facility] Last Admin: 02/19/20 12:37 Dose: 5 mg Documented by: Apixaban (Apixaban 5 Mg Tablet) 5 mg PO BID [facility] Last Admin: 02/19/20 20:29 Dose: 5 mg Documented by: Aspirin (Aspirin 81 Mg Tab.Chew) 81 mg PO DAILY@0800 [facility] Last Admin: 02/19/20 08:35 Dose: 81 mg Documented by: Budesonide (Budesonide Respules 0.5 Mg/2 Ml Ampul.Neb.) 0.5 mg INHALATION BID.RT [facility] Last Admin: 02/20/20 06:40 Dose: 0.5 mg Documented by: Carvedilol (Carvedilol 3.125 Mg Tablet) 3.125 mg PO BID [facility] Last Admin: 02/19/20 20:33 Dose: 3.125 mg Documented by: Famotidine (Famotidine 20 Mg Tablet) 20 mg PO BID [facility] Last Admin: 02/19/20 20:29 Dose: 20 mg Documented by: Furosemide (Furosemide 40 Mg Tablet) 40 mg PO DAILY [facility] Cefepime HCl 1 gm/ Sodium (Chloride) 50 mls @ 100 mls/hr IV Q8 [facility] Last Admin: 02/20/20 05:49 Dose: 100 mls/hr Documented by: Isosorbide Mononitrate (Isosorbide Mononitrate 60 Mg Tablet) 60 mg PO DAILY [facility] Last Admin: 02/19/20 12:37 Dose: 60 mg Documented by: Levothyroxine Sodium (Levothyroxine 175 Mcg Tablet) 175 mcg PO DAILY [facility] Last Admin: 02/19/20 12:38 Dose: 175 mcg Documented by: Losartan Potassium (Losartan Potassium 50 Mg Tablet) 50 mg PO DAILY [facility] Last Admin: 02/19/20 12:37 Dose: 50 mg Documented by: Nitroglycerin (Nitroglycerin (Inpatient Use) 0.4 Mg Tab.Subl) 0.4 mg SUBLINGUAL Q5M PRN PRN Reason: CARDIAC/CHEST PAIN Potassium Chloride (Potassium Chl Soln 20 Meq/15 Ml Udc) 40 meq PO BID [facility] Last Admin: 02/19/20 20:29 Dose: 40 meq Documented by: Prochlorperazine Edisylate (Prochlorperazine 10 Mg/2 Ml Vial) 5 mg IV Q4H PRN PRN PRN Reason: Breakthrough Nausea/Vomiting Senna/Docusate Sodium (Senna/Docusate Sodium 1 Tablet) 2 tablet PO BID PRN PRN Reason: Constipation Simethicone (Simethicone 80 Mg Tablet) 80 mg PO TIDPC [facility] Last Admin: 02/19/20 20:28 Dose: 80 mg Documented by: Sodium Chloride (0.9% Saline Lock 10 Ml Syringe) 10 - 40 ml IV UD PRN PRN Reason: SALINE FLUSH Last Admin: 02/19/20 10:09 Dose: 10 ml Documented by: STROKE Vital Signs/Narrative: Vital Signs Pulse Resp BP Pulse Ox 02/20/20 07:15 96 02/20/20 07:14 80 22 H 02/20/20 04:00 82 22 H 127/54 H 100 Medical Necessity - Tobacco Use Smoking Status: Former smoker Assessment/Plan All Active Problems (Last Reviewed 02/08/20 @ 13:31 by [place] To KNOT PICKER CLOTH, KNOT PICKER CLOTH-C) Acute on chronic respiratory failure with hypoxia and hypercapnia (Acute) Pulmonary edema cardiac cause (Acute) Anemia, unspecified (Acute) Acute bronchitis (Resolved) Acute respiratory failure with hypoxia (Resolved) Aspiration pneumonia of both lower lobes (Resolved) Atelectasis of both lungs (Resolved) Atrial fibrillation with RVR (Resolved) COPD exacerbation (Resolved) Cancer (Resolved) Elevated troponin I level (Resolved) Hemorrhoids (Resolved) History of colonoscopy (Resolved ~04/2018) Infectious encephalopathy (Resolved) Pneumonia (Resolved) Sepsis (Resolved) Sinusitis, acute (Resolved) The patient is a 79 year old M with multiple comorbidities was admitted with sudden onset of shortness of breath on the day of admission. ABG showed 7.2 100% agree with there. EKG shows normal sinus rhythm at 94 bpm, QTC 500 ms with left bundle branch block. Previous EKG of 12/28/2019 similar sinus rhythm, LAD, LBBB. 1. Acute combined hypoxic and hypercarbic respiratory failure mostly due to pulmonary edema: Patient is being admitted in ICU. Intubated on vent support. Paymaster Of Purses has been consulted. 02/17: Patient extubated in the morning. Short of breath and tachypneic on 4 L of oxygen. We will continue Lasix 40 mg IV twice daily. 02/18: Negative fluid balance about 5.5 L. Continue Lasix. 02/19: Lasix changed to 40 mg daily. Negative 8.5 L fluid balance. 2. Acute on chronic HFpEF diastolic heart failure, due to moderate aortic stenosis, hypertension and prolonged QTc interval: Patient had echo in September 2019 reported as moderate with mean valve gradient 36 mmHg, calculated area 1.3 cm?, mild eccentric AR. Mild TR, RVSP 30 mmHg. Moderate concentric LVH. EF 55% with no regional wall motion abnormality. Lasix 40 mg IV twice daily as permitted by hemodynamics parameters and renal function and electrolytes. Heart failure core measures, daily weight monitoring, renal function, electrolytes monitoring and fluid restriction. Repeat 2D echo is ordered. 02/17: Repeat echo shows EF 60% mild MR, moderate aortic stenosis with valve thickening, mild AR. RVSP 40 mmHg. Mild MR. Aortic valve area 1.4 cm?. Hr Payroll Coordinator is consulted. Severe hypokalemia. Magnesium was 2.3. Potassium replacement 02/18: Troponin I 0.97. K normal. Phosphorus 1. 6. Magnesium 1.9. IV 30 mEq K-Phos ordered. Seen by social services coordinator. 02/19: Discussed with social services coordinator. Troponins elevated 3.9, 2.43 in the range of non-NSTEMI coupled with hypoxia, tachycardia. Echo does not show any wall motion abnormality. Plan for medical management. Patient has hematuria probably traumatic and is on Eliquis for proximal A. fib. Hold Eliquis for 3 doses and once urine is clear can resume on Saturday or early. Patient Clark catheter is removed. Patient is hemodynamically stable to transfer to PCU. 3. Coronary artery disease status post CABG, paroxysmal A. fib on Eliquis, hypertension, hypothyroidism and dyslipidemia: EKG shows QTC 500 ms probably due to left bundle branch block. Avoid QTC prolonging medication. 02/17: TSH 3.19 normal, free T4 1.5 upper high normal. Fasting profile, LDL 73, TG 68. 4. Recent COVID-19 infection with elevated troponins: Patient was admitted between 12/27 to 12/30/2019 for COVID-19 infection. At that time with mildly elevated troponins and mild chest heaviness.. CT of the chest was unremarkable. Troponin 0 0.133. He was treated with remdesivir, convalescent plasma and Decadron. Patient denies any cough or recent fever for last 2 to 3 weeks. 02/18: Patient on cefepime empirically for history of COPD with a low-grade fever. Chest x-ray was nonspecific bibasilar infiltrate/atelectasis. Repeat chest x-ray done in the morning shows bilateral lower lobes infiltrates with bibasilar atelectasis with low volume. Official report pending. VTE prophylaxis: On Eliquis 5 mg twice daily. Clinical Impression(s) from Imaging Studies Chest X-Ray 02/17/20 07:52 IMPRESSION: Findings suggestive of CHF with bibasilar atelectasis/infiltrates. Follow-up is recommended. Electronically Signed: Chase Elzbieta, at 8:51 EST , Service support , Chest X-Ray 02/17/20 08:18 IMPRESSION: The tip of the endotracheal tube is at 2.2 cm proximal to the mike. An orogastric tube is seen with the tip in the upper midabdomen. Electronically Signed: Chase Elzbieta, at 9:27 EST , Service support , KUB X-Ray 02/17/20 08:18 IMPRESSION: The tip of the orogastric tube is in the distal portion of the body of the stomach. Microbiology Past 72 Hours 02/17/20 08:05 Blood Culture (Wb) - Anticubital Right Blood Culture - Preliminary No growth in 48 hours. 02/17/20 07:55 Blood Culture (Wb) - Anticubital Left Blood Culture - Preliminary No growth in 48 hours. 02/17/20 08:49 Urine, Clean Catch Urine Culture - Preliminary Culture exhibits no growth. 02/17/20 08:05 Mucosa - Nose Influenza Types A,B Direct FA (BRITTNEY) - Final Laboratory Results 02/18/20 03:30: Phosphorus 1.6 L, Magnesium 1.9 02/18/20 16:55: Potassium 3.1 L 02/19/20 04:30: WBC 12.3 H, RBC 3.72 L, Hgb 9.9 L, Hct 32.4 L, MCV 87.1, MCH 26.6 L, MCHC 30.6 L, RDW Std Deviation 50.2 H, RDW Coeff of Dominic 15.9 H, Plt Count 301, MPV 9.1, Immature Gran % (Auto) 0.400, Neut % (Auto) 85.2 H, Lymph % (Auto) 3.7 L, Fountain % (Auto) 9.2, Eos % (Auto) 1.3, Baso % (Auto) 0.2, Absolute Neuts (auto) 10.5 H, Absolute Lymphs (auto) 0.46 L, Nucleated RBC % 0 02/19/20 04:30: Sodium 143, Potassium 3.7, Chloride 102, Carbon Dioxide 36.0 H, Anion Gap 5, BUN 16, Creatinine 0.74, Estim Creat Clear Calc 55.83, Est GFR (MDRD) Af Amer 131, Est GFR (MDRD) Non-Af 108, BUN/Creatinine Ratio 21.5 H, Glucose 105, Calcium 7.7 L 02/19/20 08:00: Troponin I 3.970 H* Inpatient E&M: 89732 Subs Hosp L2
[2020-02-20] MEDS: Levothyroxine 175 MCG Tablet PO (08:10)
[2020-02-20] MEDS: Aspirin 81 MG TAB.CHEW PO (08:10)
[2020-02-20] MEDS: Carvedilol 3.125 MG TABLET PO ×2 (10:33→20:54)
[2020-02-20] MEDS: Isosorbide Mononitrate 60 MG Tablet PO (10:34)
[2020-02-20] MEDS: Furosemide 40 MG Tablet PO (10:34)
[2020-02-20] MEDS: Famotidine 20 MG Tablet PO ×2 (10:34→20:53)
[2020-02-20] MEDS: APIXABAN 5 MG TABLET PO (10:35)
[2020-02-20] MEDS: Losartan Potassium 50 MG Tablet PO (10:35)
[2020-02-20] MEDS: amLODIPine 5 MG Tablet PO (10:36)
--- NOTE | 2020-02-20 19:00 | PCS.PANDOC ---
PANDEMIC DOCUMENTATION INITIATED: Date: 02/17/20 Time: 10:40
[2020-02-20] MEDS: 0.9% Saline Lock 10 ML Syringe IV (20:53)
[2020-02-20] MEDS: Mag Hydrox/Al Hydrox/Simeth 30 ML UDC PO (20:53)
[2020-02-21] VITALS (13 sets, daily range): BP systolic 132–140; BP diastolic 57–59; PULSE 65–86; RESP 16–22; TEMP 36.5–36.7; O2SAT 91–100
[2020-02-21] MEDS: Ipratropium/Albuterol Sulfate 3 ML AMPUL.NEB INHALATION ×4 (00:45→21:02)
[2020-02-21 04:20] LABS: Absolute Lymphocyte Count 0.87 X10^3/uL (0.83-4.51); Absolute Neutrophil Count 8.4 X10^3/uL (2.0-7.7); Basophil# 0.04 X10^3/uL; Basophil% 0.4 % (0-1); Eosinophil# 0.36 X10^3/uL; Eosinophils% 3.4 % (0-5); Hematocrit 31.4 % (40-54); Hemoglobin 9.5 g/dL (13.0-16.5); Lymphocyte # 0.87 X10^3/ul (4.0); Lymphocyte % 8.2 % (19-41); Mean Corp Hgb Conc 30.3 g/dL (32-36); Mean Corpuscular Hgb 26.3 pg (27.0-32.0); Mean Platelet Vol. 9.9 fl (6.2-12.0); Monocyte% 8.5 % (0-10); NRBC Flagged by Analyzer 0 % (0-5); Neutrophil # 8.36 X10^3/uL (2.7-7.7); Neutrophil % 79.1 % (47-70); Platelet Count 360 K/mm3 (150-450); RBC Distribution Width CV 15.9 % (11.6-14.6); RBC Distribution Width SD 50.4 fl (35.1-43.9); Red Blood Count 3.61 M/mm3 (4.6-6.2); White Blood Count 10.6 K/mm3 (4.4-11.0)
[2020-02-21 04:34] LABS: Anion Gap 1 (5-15); BUN 21 mg/dL (7-18); BUN/Creat Ratio 29.4 RATIO (10-20); Calcium,Total 8.1 mg/dL (8.5-10.1); Chloride 99 mmol/L (98-107); Creatinine, Serum 0.71 mg/dL (0.70-1.30); EST Glomerular Filtration Rate 113 mL/min (>60); Est Glom Filt Rate - Afr Amer 137 mL/min (>60); Estimated Creatinine Clearance 55.83 ml/min; Glucose 97 mg/dL (74-106); Potassium 5.2 mmol/L (3.5-5.1); Sodium Level 137 mmol/L (136-145)
[2020-02-21] MEDS: Levothyroxine 175 MCG Tablet PO (05:43)
[2020-02-21] MEDS: 0.9% Saline Lock 10 ML Syringe IV ×2 (05:43→21:14)
[2020-02-21] MEDS: Budesonide Respules 0.5 MG/2 ML AMPUL.NEB. INHALATION ×2 (07:42→21:02)
--- NOTE | 2020-02-21 07:51 | PN_ITS ---
Patient Problems: Active and Suspected Problems (Last Reviewed 02/08/20 @ 13:31 by Socorro To MID LEVEL DEVELOPER, MID LEVEL DEVELOPER-C) Acute on chronic respiratory failure with hypoxia and hypercapnia (Acute) Pulmonary edema cardiac cause (Acute) Anemia, unspecified (Acute) Subjective: The patient was seen and examined at the bedside this morning. Events from the last 24 hours have been reviewed. The patient is currently afebrile, hemodynamically stable and maintaining appropriate oxygen saturations on 2 L/min via nasal cannula. The patient's Clark catheter was removed and he has been able to void. However, he does continue to have some hematuria. Objective: The patient's most recent lab work, culture data and imaging studies have all been personally reviewed. Surface echocardiogram revealed normal LV size with an ejection fraction of 60%. Pulmonary artery systolic pressure was estimated to be 35 to 40 mmHg. Moderate aortic valve stenosis was noted. Infectious work-up has been unrevealing to date. - Physical Exam Vitals/I&O's: Vital Signs Temp Pulse Resp BP Pulse Ox 98.1 F 78 16 136/58 H 93 02/21/20 03:45 02/21/20 03:45 02/21/20 03:45 02/21/20 03:45 02/21/20 03:45 Oxygen Flow Rate (L/min) 2 Oxygen Delivery Method Nasal Cannula Weight: 157 lb 13.616 oz Body Mass Index (BMI) 29.0 Finger Stick Blood Glucose 103 Intake and Output for Last 24 Hours 02/19/20 02/20/20 02/21/20 23:59 23:59 23:59 Intake Total 442.03 / 442.03 1410.69 / 1410.69 50 / 50 Output Total 2935 / 2935 1850 / 1850 Balance -2492.97 / -2492.97 -439.31 / -439.31 50 / 50 General: Alert, Cooperative, No apparent distress HEENT: Atraumatic, PERRLA, Normocephalic Oral: No Gingival or Mucosal Lesions/ Ulcerations Neck: Supple, No Nodes, Trachea Midline Lungs: No rhonchi, No wheeze, No rales, Diminished Cardiovascular: Regular rate, Regular Rhythm, Murmur Abdomen: Bowel Sounds Present, Soft, Non Tender Extremities: No clubbing, No cyanosis, Edema Skin: - - No significant change from previous Musculoskeletal: No Muscle Wasting Lymphatic: No Cervical, Supraclavicular, or Inguinal Adenopathy Neurological: Cranial nerves II-XII grossly intact, Neuro grossly intact Psych/Mental Status: Normal Affect Labs (Last 48 Hours) 02/19/20 02/19/20 02/19/20 04:30 08:00 08:00 WBC RBC Hgb Hct MCV MCH MCHC RDW Std Deviation RDW Coeff of Dominic Plt Count MPV Immature Gran % (Auto) Neut % (Auto) Lymph % (Auto) Donley % (Auto) Eos % (Auto) Baso % (Auto) Absolute Neuts (auto) Absolute Lymphs (auto) Nucleated RBC % Sodium Potassium Chloride Carbon Dioxide Anion Gap BUN Creatinine Estim Creat Clear Calc Est GFR (MDRD) Af Amer Est GFR (MDRD) Non-Af BUN/Creatinine Ratio Glucose Calcium Phosphorus 3.3 Magnesium 2.2 Troponin I 3.970 H* B-Natriuretic Peptide 742.9 H 02/20/20 02/20/20 02/20/20 05:30 05:30 05:30 WBC 11.8 H RBC 3.58 L Hgb 9.3 L Hct 31.4 L MCV 87.7 MCH 26.0 L MCHC 29.6 L RDW Std Deviation 51.5 H RDW Coeff of Dominic 15.9 H Plt Count 323 MPV 9.5 Immature Gran % (Auto) 0.700 Neut % (Auto) 83.2 H Lymph % (Auto) 5.3 L Donley % (Auto) 7.7 Eos % (Auto) 2.8 Baso % (Auto) 0.3 Absolute Neuts (auto) 9.8 H Absolute Lymphs (auto) 0.63 L Nucleated RBC % 0 Sodium 141 Potassium 4.3 Chloride 100 Carbon Dioxide 40.0 H Anion Gap 1 L BUN 21 H Creatinine 0.87 Estim Creat Clear Calc 64.17 Est GFR (MDRD) Af Amer 110 Est GFR (MDRD) Non-Af 91 BUN/Creatinine Ratio 24.2 H Glucose 111 H Calcium 7.7 L Phosphorus Magnesium Troponin I 2.430 H* B-Natriuretic Peptide 02/21/20 02/21/20 03:49 03:49 WBC 10.6 RBC 3.61 L Hgb 9.5 L Hct 31.4 L MCV 87.0 MCH 26.3 L MCHC 30.3 L RDW Std Deviation 50.4 H RDW Coeff of Dominic 15.9 H Plt Count 360 MPV 9.9 Immature Gran % (Auto) 0.400 Neut % (Auto) 79.1 H Lymph % (Auto) 8.2 L Donley % (Auto) 8.5 Eos % (Auto) 3.4 Baso % (Auto) 0.4 Absolute Neuts (auto) 8.4 H Absolute Lymphs (auto) 0.87 Nucleated RBC % 0 Sodium 137 Potassium 5.2 H Chloride 99 Carbon Dioxide 37.0 H Anion Gap 1 L BUN 21 H Creatinine 0.71 Estim Creat Clear Calc 55.83 Est GFR (MDRD) Af Amer 137 Est GFR (MDRD) Non-Af 113 BUN/Creatinine Ratio 29.4 H Glucose 97 Calcium 8.1 L Phosphorus Magnesium Troponin I B-Natriuretic Peptide Microbiology 02/17/20 08:49 Urine, Clean Catch Urine Culture - Final Culture exhibits no growth. 02/17/20 08:05 Blood Culture (Wb) - Anticubital Right Blood Culture - Preliminary No growth in 48 hours. 02/17/20 07:55 Blood Culture (Wb) - Anticubital Left Blood Culture - Preliminary No growth in 48 hours. Clinical Impression(s) from Imaging Studies Chest X-Ray 02/17/20 07:52 IMPRESSION: Findings suggestive of CHF with bibasilar atelectasis/infiltrates. Follow-up is recommended. Electronically Signed: Chase Ruff, at 8:51 EST , Service support , Chest X-Ray 02/17/20 08:18 IMPRESSION: The tip of the endotracheal tube is at 2.2 cm proximal to the mike. An orogastric tube is seen with the tip in the upper midabdomen. Electronically Signed: Chase Ruff, at 9:27 EST , Service support , KUB X-Ray 02/17/20 08:18 IMPRESSION: The tip of the orogastric tube is in the distal portion of the body of the stomach. Electronically Signed: Chase Ruff, at 9:29 EST , Service support , Chest X-Ray 02/19/20 07:45 IMPRESSION: The endotracheal tube and nasogastric tube have been removed. Improved aeration of both lung bases. Residual changes persist. Electronically Signed: Chase Ruff, at 9:20 EST , Service support , Current Medications Acetaminophen (Acetaminophen 650 Mg/20 Ml Udc) 650 mg GT Q6H PRN PRN PRN Reason: Pain Score 1-10/Temp > 100.7 F Last Admin: 02/17/20 23:08 Dose: 650 mg Documented by: Albuterol Sulfate (Albuterol 2.5 Mg/3 Ml Vial.Neb.) 2.5 mg INHALATION Q2H PRN PRN PRN Reason: SOB/Wheezing Albuterol/Ipratropium (Ipratropium/Albuterol Sulfate 3 Ml Ampul.Neb) 3 ml INHALATION Q6H.RT [facility] Last Admin: 02/21/20 07:42 Dose: 3 ml Documented by: Amlodipine Besylate (Amlodipine 5 Mg Tablet) 5 mg PO DAILY [facility] Last Admin: 02/20/20 10:36 Dose: 5 mg Documented by: Apixaban (Apixaban 5 Mg Tablet) 5 mg PO BID [facility] Last Admin: 02/20/20 10:35 Dose: 5 mg Documented by: Aspirin (Aspirin 81 Mg Tab.Chew) 81 mg PO DAILY@0800 [facility] Last Admin: 02/20/20 08:10 Dose: 81 mg Documented by: Budesonide (Budesonide Respules 0.5 Mg/2 Ml Ampul.Neb.) 0.5 mg INHALATION BID.RT [facility] Last Admin: 02/21/20 07:42 Dose: 0.5 mg Documented by: Carvedilol (Carvedilol 3.125 Mg Tablet) 3.125 mg PO BID [facility] Last Admin: 02/20/20 20:54 Dose: 3.125 mg Documented by: Famotidine (Famotidine 20 Mg Tablet) 20 mg PO BID [facility] Last Admin: 02/20/20 20:53 Dose: 20 mg Documented by: Furosemide (Furosemide 40 Mg Tablet) 40 mg PO DAILY [facility] Last Admin: 02/20/20 10:34 Dose: 40 mg Documented by: Cefepime HCl 1 gm/ Sodium (Chloride) 50 mls @ 100 mls/hr IV Q8 [facility] Stop: 02/22/20 22:00 Last Infusion: 02/21/20 06:19 Dose: Infused Documented by: Isosorbide Mononitrate (Isosorbide Mononitrate 60 Mg Tablet) 60 mg PO DAILY [facility] Last Admin: 02/20/20 10:34 Dose: 60 mg Documented by: Levothyroxine Sodium (Levothyroxine 175 Mcg Tablet) 175 mcg PO DAILY [facility] Last Admin: 02/21/20 05:43 Dose: 175 mcg Documented by: Losartan Potassium (Losartan Potassium 50 Mg Tablet) 50 mg PO DAILY [facility] Last Admin: 02/20/20 10:35 Dose: 50 mg Documented by: Nitroglycerin (Nitroglycerin (Inpatient Use) 0.4 Mg Tab.Subl) 0.4 mg SUBLINGUAL Q5M PRN PRN Reason: CARDIAC/CHEST PAIN Prochlorperazine Edisylate (Prochlorperazine 10 Mg/2 Ml Vial) 5 mg IV Q4H PRN PRN PRN Reason: Breakthrough Nausea/Vomiting Senna/Docusate Sodium (Senna/Docusate Sodium 1 Tablet) 2 tablet PO BID PRN PRN Reason: Constipation Simethicone (Simethicone 80 Mg Tablet) 80 mg PO TIDPC [facility] Last Admin: 02/20/20 18:13 Dose: 80 mg Documented by: Sodium Chloride (0.9% Saline Lock 10 Ml Syringe) 10 - 40 ml IV UD PRN PRN Reason: SALINE FLUSH Last Admin: 02/21/20 05:43 Dose: 10 ml Documented by: Medical Necessity - Tobacco Use Smoking Status: Former smoker Assessment/Plan All Active Problems (Last Reviewed 02/08/20 @ 13:31 by Socorro To MID LEVEL DEVELOPER, MID LEVEL DEVELOPER- C) Acute on chronic respiratory failure with hypoxia and hypercapnia (Acute) Pulmonary edema cardiac cause (Acute) Anemia, unspecified (Acute) Acute bronchitis (Resolved) Acute respiratory failure with hypoxia (Resolved) Aspiration pneumonia of both lower lobes (Resolved) Atelectasis of both lungs (Resolved) Atrial fibrillation with RVR (Resolved) COPD exacerbation (Resolved) Cancer (Resolved) Elevated troponin I level (Resolved) Hemorrhoids (Resolved) History of colonoscopy (Resolved ~04/2018) Infectious encephalopathy (Resolved) Pneumonia (Resolved) Sepsis (Resolved) Sinusitis, acute (Resolved) RECOMMENDATIONS: 1. Wean supplemental oxygen to maintain saturations at or above 90%. 2. Continue outpatient diuretic regimen. 3. Will defer further work-up of hematuria to hospitalist. 4. Continue scheduled bronchodilators. 5. Continue antimicrobials with plans to complete a 7-day treatment course. 6. Continue systemic anticoagulation with Eliquis. 7. Encourage incentive spirometer use and mobilize patient as tolerated. 8. Will sign off from a critical care perspective. Please call with any additional questions. IMPRESSIONS: 1. Acute on chronic combined respiratory failure Suspect related to flash pulmonary edema in the setting of valvular heart disease and poorly controlled hypertension noted on arrival versus possible community-acquired pneumonia. The patient improved from an oxygenation standpoint with IV diuretic therapy and invasive mechanical ventilatory support. He was able to be successfully extubated on February 17. Over concerns for possible pneumonia as well, empiric antimicrobials will be continued with plans to complete a 7-day treatment course. The patient will be continued on nebulized bronchodilators and inhaled corticosteroid. Encourage incentive spirometer use and mobilize patient as tolerated. 2. Valvular heart disease/coronary artery disease status post bypass/paroxysmal atrial fibrillation The patient does have known aortic valve stenosis and is currently followed in the cardiology clinic. Plan to continue supportive measures noted above. 3. History of COPD Start scheduled bronchodilator therapy along with budesonide twice daily. 4. Advanced age/hyperlipidemia/hypertension/hypothyroidism Complicates care, management, recovery and prognosis. This note was generated with [employer] dictation software. It may contain incorrect words, spelling, and punctuation that were not noted in checking the note before signing. Inpatient E&M: 88269 Subs Hosp L2
[2020-02-21] MEDS: Furosemide 40 MG Tablet PO (09:51)
[2020-02-21] MEDS: amLODIPine 5 MG Tablet PO (09:51)
[2020-02-21] MEDS: Famotidine 20 MG Tablet PO ×2 (09:51→21:15)
[2020-02-21] MEDS: Isosorbide Mononitrate 60 MG Tablet PO (09:51)
[2020-02-21] MEDS: Carvedilol 3.125 MG TABLET PO ×2 (09:51→21:15)
[2020-02-21] MEDS: Losartan Potassium 50 MG Tablet PO (09:51)
[2020-02-21] MEDS: Aspirin 81 MG TAB.CHEW PO (09:51)
--- NOTE | 2020-02-21 11:58 | PCM.PN.HOSP ---
Patient Problems: Active and Suspected Problems (Last Reviewed 02/08/20 @ 13:31 by Socorro To SURVEYOR OIL WELL DIRECTIONAL, SURVEYOR OIL WELL DIRECTIONAL-C) Acute on chronic respiratory failure with hypoxia and hypercapnia (Acute) Pulmonary edema cardiac cause (Acute) Anemia, unspecified (Acute) Objective: Seen and examined. Patient heart rate and blood pressure is controlled. On 2 L of oxygen. Patient was found to hematuria on Clark catheter yesterday and Clark catheter were discontinued. Still has mild reddish urine but H&H is stable. Sinus rhythm with PVCs on certified master safe technician. Physical exam General: Lethargic, awake. Follows command. HEENT: Atraumatic, PERRLA, EOMI, Normocephalic Oral: No Gingival or Mucosal Lesions/ Ulcerations Neck: Supple, No JVD, Negative Carotid Bruits Lungs: Air entry diminished in bilateral lung bases. Occasional expiratory rhonchi. Cardiovascular: Sinus rhythm. Normal S1, Normal S2, ejection systolic murmur present over right second ICS, grade 4/6. Abdomen: Bowel Sounds Present, Soft, Non Tender, Non-Distended : No renal angle tenderness. No suprapubic tenderness. Spontaneous voiding. Extremities: No edema, Capillary Refill Less than 3 Seconds Skin: No rashes, No breakdown Musculoskeletal: No Tenderness to Palpation of Joints or Extremities Neurological: Cranial nerves II-XII grossly intact, Deep Tendon Reflexes 2+/4 and Symmetrical, Neuro grossly intact Psych/Mental Status: Flat affect. Vitals/I&O's: Vital Signs Temp Pulse Resp BP Pulse Ox 97.7 F L 86 18 140/59 H 95 02/21/20 09:45 02/21/20 09:45 02/21/20 09:45 02/21/20 09:45 02/21/20 09:45 Oxygen Flow Rate (L/min) 2 Oxygen Delivery Method Nasal Cannula Weight: 157 lb 13.616 oz Body Mass Index (BMI) 29.0 Finger Stick Blood Glucose 103 Intake and Output for Last 24 Hours 02/19/20 02/20/20 02/21/20 23:59 23:59 23:59 Intake Total 442.03 / 442.03 1410.69 / 1410.69 50 / 50 Output Total 2935 / 2935 1850 / 1850 Balance -2492.97 / -2492.97 -439.31 / -439.31 50 / 50 Microbiology Past 72 Hours 02/17/20 08:49 Urine, Clean Catch Urine Culture - Final Culture exhibits no growth. 02/17/20 08:05 Blood Culture (Wb) - Anticubital Right Blood Culture - Preliminary No growth in 48 hours. 02/17/20 07:55 Blood Culture (Wb) - Anticubital Left Blood Culture - Preliminary No growth in 48 hours. Laboratory Results 02/21/20 03:49: WBC 10.6, RBC 3.61 L, Hgb 9.5 L, Hct 31.4 L, MCV 87.0, MCH 26.3 L, MCHC 30.3 L, RDW Std Deviation 50.4 H, RDW Coeff of Dominic 15.9 H, Plt Count 360, MPV 9.9, Immature Gran % (Auto) 0.400, Neut % (Auto) 79.1 H, Lymph % (Auto) 8.2 L, Ware % (Auto) 8.5, Eos % (Auto) 3.4, Baso % (Auto) 0.4, Absolute Neuts (auto) 8.4 H, Absolute Lymphs (auto) 0.87, Nucleated RBC % 0 02/21/20 03:49: Sodium 137, Potassium 5.2 H, Chloride 99, Carbon Dioxide 37.0 H, Anion Gap 1 L, BUN 21 H, Creatinine 0.71, Estim Creat Clear Calc 55.83, Est GFR (MDRD) Af Amer 137, Est GFR (MDRD) Non-Af 113, BUN/Creatinine Ratio 29.4 H, Glucose 97, Calcium 8.1 L Current Medications Acetaminophen (Acetaminophen 650 Mg/20 Ml Udc) 650 mg GT Q6H PRN PRN PRN Reason: Pain Score 1-10/Temp > 100.7 F Last Admin: 02/17/20 23:08 Dose: 650 mg Documented by: Albuterol Sulfate (Albuterol 2.5 Mg/3 Ml Vial.Neb.) 2.5 mg INHALATION Q2H PRN PRN PRN Reason: SOB/Wheezing Albuterol/Ipratropium (Ipratropium/Albuterol Sulfate 3 Ml Ampul.Neb) 3 ml INHALATION Q6H.RT [facility] Last Admin: 02/21/20 07:42 Dose: 3 ml Documented by: Amlodipine Besylate (Amlodipine 5 Mg Tablet) 5 mg PO DAILY [facility] Last Admin: 02/21/20 09:51 Dose: 5 mg Documented by: Apixaban (Apixaban 5 Mg Tablet) 5 mg PO BID [facility] Last Admin: 02/20/20 10:35 Dose: 5 mg Documented by: Aspirin (Aspirin 81 Mg Tab.Chew) 81 mg PO DAILY@0800 [facility] Last Admin: 02/21/20 09:51 Dose: 81 mg Documented by: Budesonide (Budesonide Respules 0.5 Mg/2 Ml Ampul.Neb.) 0.5 mg INHALATION BID.RT [facility] Last Admin: 02/21/20 07:42 Dose: 0.5 mg Documented by: Carvedilol (Carvedilol 3.125 Mg Tablet) 3.125 mg PO BID [facility] Last Admin: 02/21/20 09:51 Dose: 3.125 mg Documented by: Famotidine (Famotidine 20 Mg Tablet) 20 mg PO BID [facility] Last Admin: 02/21/20 09:51 Dose: 20 mg Documented by: Furosemide (Furosemide 40 Mg Tablet) 40 mg PO DAILY [facility] Last Admin: 02/21/20 09:51 Dose: 40 mg Documented by: Cefepime HCl 1 gm/ Sodium (Chloride) 50 mls @ 100 mls/hr IV Q8 [facility] Stop: 02/22/20 22:00 Last Infusion: 02/21/20 06:19 Dose: Infused Documented by: Isosorbide Mononitrate (Isosorbide Mononitrate 60 Mg Tablet) 60 mg PO DAILY [facility] Last Admin: 02/21/20 09:51 Dose: 60 mg Documented by: Levothyroxine Sodium (Levothyroxine 175 Mcg Tablet) 175 mcg PO DAILY [facility] Last Admin: 02/21/20 05:43 Dose: 175 mcg Documented by: Losartan Potassium (Losartan Potassium 50 Mg Tablet) 50 mg PO DAILY [facility] Last Admin: 02/21/20 09:51 Dose: 50 mg Documented by: Nitroglycerin (Nitroglycerin (Inpatient Use) 0.4 Mg Tab.Subl) 0.4 mg SUBLINGUAL Q5M PRN PRN Reason: CARDIAC/CHEST PAIN Prochlorperazine Edisylate (Prochlorperazine 10 Mg/2 Ml Vial) 5 mg IV Q4H PRN PRN PRN Reason: Breakthrough Nausea/Vomiting Senna/Docusate Sodium (Senna/Docusate Sodium 1 Tablet) 2 tablet PO BID PRN PRN Reason: Constipation Simethicone (Simethicone 80 Mg Tablet) 80 mg PO TIDPC [facility] Last Admin: 02/21/20 09:51 Dose: 80 mg Documented by: Sodium Chloride (0.9% Saline Lock 10 Ml Syringe) 10 - 40 ml IV UD PRN PRN Reason: SALINE FLUSH Last Admin: 02/21/20 05:43 Dose: 10 ml Documented by: STROKE Vital Signs/Narrative: Vital Signs Temp Pulse Resp BP Pulse Ox 02/21/20 09:45 97.7 F L 86 18 140/59 H 95 Medical Necessity - Tobacco Use Smoking Status: Former smoker Assessment/Plan All Active Problems (Last Reviewed 02/08/20 @ 13:31 by Socorro To SURVEYOR OIL WELL DIRECTIONAL, SURVEYOR OIL WELL DIRECTIONAL-C) Acute on chronic respiratory failure with hypoxia and hypercapnia (Acute) Pulmonary edema cardiac cause (Acute) Anemia, unspecified (Acute) Acute bronchitis (Resolved) Acute respiratory failure with hypoxia (Resolved) Aspiration pneumonia of both lower lobes (Resolved) Atelectasis of both lungs (Resolved) Atrial fibrillation with RVR (Resolved) COPD exacerbation (Resolved) Cancer (Resolved) Elevated troponin I level (Resolved) Hemorrhoids (Resolved) History of colonoscopy (Resolved ~04/2018) Infectious encephalopathy (Resolved) Pneumonia (Resolved) Sepsis (Resolved) Sinusitis, acute (Resolved) The patient is a 79 year old M with multiple comorbidities was admitted with sudden onset of shortness of breath on the day of admission. ABG showed 7.2 /100 100% agree with there. EKG shows normal sinus rhythm at 94 bpm, QTC 500 ms with left bundle branch block. Previous EKG of 12/28/2019 similar sinus rhythm, LAD, LBBB. 1. Acute combined hypoxic and hypercarbic respiratory failure mostly due to pulmonary edema: Patient is being admitted in ICU. Intubated on vent support. Oil Well Services Superintendent has been consulted. 02/17: Patient extubated in the morning. Short of breath and tachypneic on 4 L of oxygen. We will continue Lasix 40 mg IV twice daily. 02/18: Negative fluid balance about 5.5 L. Continue Lasix. 02/19: Lasix changed to 40 mg daily. Negative 8.5 L fluid balance. 02/20: She is diuresing well. 2. Acute on chronic HFpEF diastolic heart failure, due to moderate aortic stenosis, hypertension and prolonged QTc interval: Patient had echo in September 2019 reported as moderate with mean valve gradient 36 mmHg, calculated area 1.3 cm?, mild eccentric AR. Mild TR, RVSP 30 mmHg. Moderate concentric LVH. EF 55% with no regional wall motion abnormality. Lasix 40 mg IV twice daily as permitted by hemodynamics parameters and renal function and electrolytes. Heart failure core measures, daily weight monitoring, renal function, electrolytes monitoring and fluid restriction. Repeat 2D echo is ordered. 02/17: Repeat echo shows EF 60% mild MR, moderate aortic stenosis with valve thickening, mild AR. RVSP 40 mmHg. Mild MR. Aortic valve area 1.4 cm?. Unit Aide Tech is consulted. Severe hypokalemia. Magnesium was 2.3. Potassium replacement 02/18: Troponin I 0.97. K normal. Phosphorus 1. 6. Magnesium 1.9. IV 30 mEq K-Phos ordered. Seen by personnel representative. 02/19: Discussed with personnel representative. Troponins elevated 3.9, 2.43 in the range of non-NSTEMI coupled with hypoxia, tachycardia. Echo does not show any wall motion abnormality. Plan for medical management. Patient has hematuria probably traumatic and is on Eliquis for proximal A. fib. Hold Eliquis for 3 doses and once urine is clear can resume on Saturday or early. Patient Clark catheter is removed. Patient is hemodynamically stable to transfer to PCU. 02/20: Eliquis is on hold. Discussed with nursing staff, urine is pinkish in color. Hematuria getting better. 3. Coronary artery disease status post CABG, paroxysmal A. fib on Eliquis, hypertension, hypothyroidism and dyslipidemia: EKG shows QTC 500 ms probably due to left bundle branch block. Avoid QTC prolonging medication. 02/17: TSH 3.19 normal, free T4 1.5 upper high normal. Fasting profile, LDL 73, TG 68. 4. Recent COVID-19 infection with elevated troponins: Patient was admitted between 12/27 to 12/30/2019 for COVID-19 infection. At that time with mildly elevated troponins and mild chest heaviness.. CT of the chest was unremarkable. Troponin 0 0.133. He was treated with remdesivir, convalescent plasma and Decadron. Patient denies any cough or recent fever for last 2 to 3 weeks. 02/18: Patient on cefepime empirically for history of COPD with a low-grade fever. Chest x-ray was nonspecific bibasilar infiltrate/atelectasis. Repeat chest x-ray done in the morning shows bilateral lower lobes infiltrates with bibasilar atelectasis with low volume. 02/20: Chest x-ray improvement in the bibasilar atelectasis VTE prophylaxis: On Eliquis 5 mg twice daily. Microbiology Past 72 Hours 02/17/20 08:49 Urine, Clean Catch Urine Culture - Final Culture exhibits no growth. 02/17/20 08:05 Blood Culture (Wb) - Anticubital Right Blood Culture - Preliminary No growth in 48 hours. 02/17/20 07:55 Blood Culture (Wb) - Anticubital Left Blood Culture - Preliminary No growth in 48 hours. Laboratory Results 02/21/20 03:49: WBC 10.6, RBC 3.61 L, Hgb 9.5 L, Hct 31.4 L, MCV 87.0, MCH 26.3 L, MCHC 30.3 L, RDW Std Deviation 50.4 H, RDW Coeff of Dominic 15.9 H, Plt Count 360, MPV 9.9, Immature Gran % (Auto) 0.400, Neut % (Auto) 79.1 H, Lymph % (Auto) 8.2 L, Ware % (Auto) 8.5, Eos % (Auto) 3.4, Baso % (Auto) 0.4, Absolute Neuts (auto) 8.4 H, Absolute Lymphs (auto) 0.87, Nucleated RBC % 0 02/21/20 03:49: Sodium 137, Potassium 5.2 H, Chloride 99, Carbon Dioxide 37.0 H, Anion Gap 1 L, BUN 21 H, Creatinine 0.71, Estim Creat Clear Calc 55.83, Est GFR (MDRD) Af Amer 137, Est GFR (MDRD) Non-Af 113, BUN/Creatinine Ratio 29.4 H, Glucose 97, Calcium 8.1 L Clinical Impression(s) from Imaging Studies Chest X-Ray 02/17/20 07:52 IMPRESSION: Findings suggestive of CHF with bibasilar atelectasis/infiltrates. Follow-up is recommended. Electronically Signed: Chase Ruff, at 8:51 EST , Service support , Chest X-Ray 02/19/20 07:45 IMPRESSION: The endotracheal tube and nasogastric tube have been removed. Improved aeration of both lung bases. Residual changes persist. Electronically Signed: Chase Ruff, at 9:20 EST , Service support , Inpatient E&M: 09370 Subs Hosp L2
--- NOTE | 2020-02-21 13:43 | PCM.PN.CARD ---
Subjectve: Patient denies any chest pain. Her shortness of breath is improved significantly. He is not having any significant dyspnea at this time. Objective: Vital Signs Temp Pulse Resp BP Pulse Ox 97.7 F L 86 22 H 140/59 H 95 02/21/20 09:45 02/21/20 09:45 02/21/20 13:36 02/21/20 09:45 02/21/20 09:45 Oxygen Flow Rate (L/min) 2 Oxygen Delivery Method Nasal Cannula Weight: 157 lb 13.616 oz Body Mass Index (BMI) 29.0 Finger Stick Blood Glucose 103 Intake and Output for Last 24 Hours 02/19/20 02/20/20 02/21/20 23:59 23:59 23:59 Intake Total 442.03 / 442.03 1410.69 / 1410.69 530 / 530 Output Total 2935 / 2935 1850 / 1850 Balance -2492.97 / -2492.97 -439.31 / -439.31 530 / 530 General: Awake, Alert, Oriented x 3 HEENT: Atraumatic Oral: Moist Mucosa Neck: Supple Psych/Mental Status: Appropriate 02/21/20 03:49: WBC 10.6, RBC 3.61 L, Hgb 9.5 L, Hct 31.4 L, MCV 87.0, MCH 26.3 L, MCHC 30.3 L, Plt Count 360, MPV 9.9, Immature Gran % (Auto) 0.400, Neut % (Auto) 79.1 H, Lymph % (Auto) 8.2 L, [place] % (Auto) 8.5, Eos % (Auto) 3.4, Baso % (Auto) 0.4, Absolute Neuts (auto) 8.4 H, Nucleated RBC % 0 02/21/20 03:49: Sodium 137, Potassium 5.2 H, Chloride 99, Carbon Dioxide 37.0 H, Anion Gap 1 L, BUN 21 H, Creatinine 0.71, Est GFR (MDRD) Af Amer 137, Est GFR (MDRD) Non-Af 113, BUN/Creatinine Ratio 29.4 H, Glucose 97, Calcium 8.1 L Rhythm: EKG: ECHO: Stress Test: Cardiac Cath: PCI: CT Surgery: Holter monitor: EPS: PPM: CXR: Chest CT Scan: Medical Necessity - Tobacco Use Smoking Status: Former smoker Assessment/Plan 1. Respiratory failure: Possibly secondary to decompensated CHF secondary to uncontrolled hypertension. Patient is also being treated for COPD exacerbation and due to his fever with antibiotic for underlying infective process. He does have moderate aortic stenosis as well. Continue current medications. Patient has improved significantly since admission. 2. Supraventricular tachycardia/atrial fibrillation: Patient is currently in sinus rhythm. Continue current medications. 3. Coronary artery disease: Patient has history of CABG. Prior to CABG he had chest pain. It is unclear if he had significant chest pain this time. Currently he is chest pain-free. His 2D echo did not reveal any significant wall motion abnormalities. He does have underlying stenosis in the ANAY to OM that has not been revascularized. However the stress test in December of this year did not reveal significant ischemia. His troponin elevation could be due to a combination of underlying CAD, hypoxia and tachycardia. At this time we will try medical treatment without proceeding with coronary angiography. We will sign off at this time. If he can be of any further assistance please let us know.
[2020-02-22] VITALS (10 sets, daily range): BP systolic 117–142; BP diastolic 57–66; PULSE 68–84; RESP 18–20; TEMP 36.6–36.7; O2SAT 86–95
[2020-02-22] MEDS: 0.9% Saline Lock 10 ML Syringe IV (05:21)
[2020-02-22 06:04] LABS: Anion Gap 3 (5-15); BUN 19 mg/dL (7-18); BUN/Creat Ratio 25.4 RATIO (10-20); Calcium,Total 8.9 mg/dL (8.5-10.1); Chloride 99 mmol/L (98-107); Creatinine, Serum 0.75 mg/dL (0.70-1.30); EST Glomerular Filtration Rate 107 mL/min (>60); Est Glom Filt Rate - Afr Amer 130 mL/min (>60); Estimated Creatinine Clearance 55.83 ml/min; Glucose 95 mg/dL (74-106); Magnesium 2.4 mg/dL (1.6-2.6); Potassium 4.5 mmol/L (3.5-5.1); Sodium Level 139 mmol/L (136-145)
[2020-02-22] MEDS: Ipratropium/Albuterol Sulfate 3 ML AMPUL.NEB INHALATION ×2 (07:29→13:56)
[2020-02-22] MEDS: Budesonide Respules 0.5 MG/2 ML AMPUL.NEB. INHALATION (07:29)
[2020-02-22] MEDS: Aspirin 81 MG TAB.CHEW PO (08:09)
[2020-02-22] MEDS: APIXABAN 5 MG TABLET PO (08:10)
[2020-02-22] MEDS: Losartan Potassium 50 MG Tablet PO (08:10)
[2020-02-22] MEDS: Furosemide 40 MG Tablet PO (08:10)
[2020-02-22] MEDS: Carvedilol 3.125 MG TABLET PO (08:10)
[2020-02-22] MEDS: Isosorbide Mononitrate 60 MG Tablet PO (08:10)
[2020-02-22] MEDS: Famotidine 20 MG Tablet PO (08:11)
[2020-02-22] MEDS: amLODIPine 5 MG Tablet PO (08:11)
--- NOTE | 2020-02-22 10:54 | CASEMGMT ---
Addendum entered by Malini Aguillon 02/22/20 14:35: Per Isamar JENSEN, pt does not qualify for increased home oxygen at this time. Starr JENSEN CM Original Note: Pt told Isamar JENSEN that he is on 2L prn at home. Call to Jessy at [facility] and she states pt's order is for 2L continuous. Pt to be tested on 2L at this time. Starr JENSEN CM
[2020-02-22] MEDS: Levothyroxine 175 MCG Tablet PO (11:06)
--- NOTE | 2020-02-22 13:58 | DCINST_ITS ---
- Discharge Diagnoses Current Active Problems: Current Active and Chronic Problems (Last Reviewed 02/08/20 @ 13:31 by Socorro To CAPTAIN'S ASSISTANT, CAPTAIN'S ASSISTANT-C) COPD (chronic obstructive pulmonary disease) (Chronic) Acute on chronic respiratory failure with hypoxia and hypercapnia (Acute) Pulmonary edema cardiac cause (Acute) Anemia, unspecified (Acute) Left bundle branch block (Chronic) Paroxysmal atrial fibrillation (Chronic) Nonrheumatic mitral (valve) insufficiency (Chronic) Non-rheumatic aortic stenosis (Chronic) H/O coronary artery bypass surgery (Chronic) CABG x 3: SPARKS-LAD, SVG-RPDA, ANAY-Acute [place] Essential (primary) hypertension (Chronic) Atherosclerosis of coronary artery of [place] heart without angina pectoris (Chronic) CABG x 3: SPARKS-LAD, SVG-RPDA, ANAY-Acute [place] SOB (shortness of breath) (Chronic) 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) Hyperlipidemia (Chronic) You will use the following diet at home:: Cardiac Your food should be the consistency of: Regular Your liquids should be the consistency of: Regular/Thin Discharge Activity: Return to Normal Activity Call your doctor if you observe: Fever of 101 or Higher, Shortness of breath, Dizziness, Fainting spells, Swelling in the ankles, Chest pain, Increased palpitations (irregular heartbeat) Allergies/Adverse Reactions: Allergies caffeine Allergy (Mild, Verified 02/17/20 08:14) Unknown bee venom protein (honey bee) Allergy (Verified 02/17/20 08:14) Swelling Penicillins Allergy (Verified 02/17/20 08:14) Hives Medications to take at Discharge amlodipine 5 mg-valsartan 160 mg tablet 1 tab PO DAILY 90 Days #90 05/13/17 levothyroxine 175 mcg tablet 175 mcg PO DAILY 90 Days #90 05/13/17 nitroglycerin 0.4 mg sublingual tablet 0.4 mg SUBLINGUAL PRN PRN 8 Days #25 05/13/17 pravastatin 40 mg tablet 40 mg PO QHS 90 Days #90 05/13/17 isosorbide mononitrate 60 mg tablet,extended release 24 hr 60 mg PO DAILY 04/17/18 Acetaminophen [Tylenol] 1,000 mg PO Q4H PRN PRN 05/14/18 Albuterol IH (ProAir) [Proair Hfa] 1 puff INHALATION Q4H PRN PRN 05/14/18 Cholecalciferol (VIT D3) [Vitamin D3] 1,000 unit PO DAILY 05/14/18 Furosemide [Lasix] 40 mg PO DAILY 12/28/19 Apixaban [Eliquis] 5 mg PO BID 02/17/20 Doxazosin Mesylate [Cardura] 4 mg PO QHS 02/17/20 Fluticasone/Salmeterol [Advair Hfa 230-21 Mcg Inhaler] 2 puff INHALATION BID 02/17/20 Aspirin [Aspirin, Baby] 81 mg PO DAILY@0800 #30 tab.chew 02/22/20 Carvedilol [Coreg (Beta Radha)] 3.125 mg PO BID #60 tab 02/22/20 levoFLOXacin tablet [Levaquin tablet] 750 mg PO DAILY #3 tab 02/22/20 The following prescriptions were given: Aspirin [Aspirin, Baby] 81 mg PO DAILY@0800 #30 tab.chew Transmission Status: Pending to [facility] Carvedilol [Coreg (Beta Radha)] 3.125 mg PO BID #60 tab Transmission Status: Pending to [facility] levoFLOXacin tablet [Levaquin tablet] 750 mg PO DAILY #3 tab Transmission Status: Pending to [facility] Primary Care Physician: Renato Coyle DO [Primary Care Provider] - Please follow up with your Primary Care Physician in: 3-5 days Test Results: Test results from this visit will be discussed in further detail at your follow- up appointment, if applicable. Please Follow Up With: cardiology When: 2 weeks
--- NOTE | 2020-02-22 18:56 | DS.PCM_ITS ---
Discharge Date and Diagnosis - Problem List Patient Problems: Active and Suspected Problems (Last Reviewed 02/08/20 @ 13:31 by Socorro To PRODUCT MARKETING PROGRAMS MANAGER, PRODUCT MARKETING PROGRAMS MANAGER-C) Acute on chronic respiratory failure with hypoxia and hypercapnia (Acute) Pulmonary edema cardiac cause (Acute) Anemia, unspecified (Acute) Date of Admission: 02/17/20 Date of Discharge: 02/22/20 - Primary Discharge Diagnosis Acute Problems: Active Problems (Last Reviewed 02/08/20 @ 13:31 by Socorro To PRODUCT MARKETING PROGRAMS MANAGER, PRODUCT MARKETING PROGRAMS MANAGER-C) Acute on chronic respiratory failure with hypoxia and hypercapnia (Acute) Pulmonary edema cardiac cause (Acute) Anemia, unspecified (Acute) - Secondary Discharge Diagnosis Chronic Problems: Chronic Problems (Last Reviewed 02/08/20 @ 13:31 by Socorro To PRODUCT MARKETING PROGRAMS MANAGER, PRODUCT MARKETING PROGRAMS MANAGER-C) COPD (chronic obstructive pulmonary disease) (Chronic) Left bundle branch block (Chronic) Paroxysmal atrial fibrillation (Chronic) Nonrheumatic mitral (valve) insufficiency (Chronic) Non-rheumatic aortic stenosis (Chronic) H/O coronary artery bypass surgery (Chronic) CABG x 3: SPARKS-LAD, SVG-RPDA, ANAY-Acute [place] Essential (primary) hypertension (Chronic) Atherosclerosis of coronary artery of [place] heart without angina pectoris (Chronic) CABG x 3: SPARKS-LAD, SVG-RPDA, ANAY-Acute [place] SOB (shortness of breath) (Chronic) 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 Follow-up is recommended. Electronically Signed: Chase Ruff, at 8:51 EST , Service support , Chest X-Ray 02/17/20 08:18 IMPRESSION: The tip of the endotracheal tube is at 2.2 cm proximal to the mike. An orogastric tube is seen with the tip in the upper midabdomen. Electronically Signed: Chase Ruff, at 9:27 EST , Service support , KUB X-Ray 02/17/20 08:18 IMPRESSION: The tip of the orogastric tube is in the distal portion of the body of the stomach. Electronically Signed: Chase Ruff, at 9:29 EST , Service support , Chest X-Ray 02/19/20 07:45 IMPRESSION: The endotracheal tube and nasogastric tube have been removed. Improved aeration of both lung bases. Residual changes persist. Electronically Signed: Chase Ruff, at 9:20 EST , Service support , Consults: Cardiology Pulmonology Operations: None Procedures: Intubation Summary of Care Provided: Per HPI: The patient is a 79 year old M with multiple comorbidities as listed above including coronary artery disease status post triple-vessel CABG, chronic left bundle branch block, proximal A. carlos on Eliquis was brought by EMS for increased shortness of breath in the morning. Patient had Covid 5 to 6 weeks ago. The pulse ox was 80% per squad was put on nonrebreather. Needed was transitioned to BiPAP. BP was high 174/86, heart rate 97 and RR 34/min. ABG showed 7.2 3/100 100% agree with there. Lasix 40 mg IV was given. Chest x- ray shows bibasilar atelectasis/infiltrate and subsequently patient was intubated with etomidate and rocuronium. Patient was put on nitro drip and admitted in ICU. In ICU, repeat ABG 7.4 343/60 on 40% FiO2/500/16/5. Blood pressure is 126 systolic and nitro drip is being tapered off. Patient is awake and responds to simple question by nodding head. He denies having any recent fever, cough, chest pain/pressure last 2 to 3 weeks but had sudden shortness of breath although ED physician note states patient had chest pain, and cough. EKG shows normal sinus rhythm at 94 bpm, QTC 500 ms with left bundle branch block. Previous EKG of 12/28/2019 similar sinus rhythm, LAD, LBBB. Hospital Course: 1. Acute combined hypoxic and hypercapnic respiratory failure secondary to pulm onary edema/acute on chronic diastolic CHF due to moderate aortic stenosis/HTN/HLD/CAD status post CABG/paroxysmal AGerardo [id number]-old male was admitted on 02/17/2020 with increasing shortness of breath. Pulse ox initially in the squad was 80% and he was placed on nonrebreather. When he was in the ER he demonstrated the need for intubation was intubated. He was diuresed and extubated on 02/18/2020. With IV Lasix he has continued to diurese well. Cardiology was consulted who recommended some medication changes including Coreg. He will continue his p.o. Lasix as well as his Imdur and combination amlodipine and valsartan. He diuresed well and came down off his oxygen to his baseline of 2 L nasal cannula which she is supposed to wear at all times. He has been on anticoagulation he will continue his Eliquis twice daily. He had an echo in September 2019 with an EF of 55% and an RVSP of 30 mmHg, he had a repeat echo showed an EF of 60% and RVSP of 40 mmHg. He also did have an episode of hematuria secondary to Clark being in place. His Eliquis was discontinued and his Clark was removed. On the day of discharge his Eliquis had been restarted and he did not have any further bleeding and was able to void on his own.. There is also concern for community-acquired pneumonia as he had a rising white count at one point. He was placed on empiric cefepime and will be discharged on Levaquin to complete course. A sputum culture was obtained on the day of discharge and will be monitored. I discussed with him the plan for discharge and expressed understanding the risk and benefits of going home and he would like to go home. 2. COPD and recent COVID-19 pneumonia are all medical conditions which complicate his care. His home medications were continued where appropriate Patient Problems: Active and Suspected Problems (Last Reviewed 02/08/20 @ 13:31 by Socorro To PRODUCT MARKETING PROGRAMS MANAGER, PRODUCT MARKETING PROGRAMS MANAGER-C) Acute on chronic respiratory failure with hypoxia and hypercapnia (Acute) Pulmonary edema cardiac cause (Acute) Anemia, unspecified (Acute) - Physical Exam Vitals/I&O's: Vital Signs Temp Pulse Resp BP Pulse Ox 98.0 F 81 18 130/66 H 94 02/22/20 15:05 02/22/20 15:05 02/22/20 15:05 02/22/20 15:05 02/22/20 15:05 Oxygen Flow Rate (L/min) [ 2 AMBULATION with Oxygen] Oxygen Flow Rate (L/min) 2 Oxygen Delivery Method Nasal Cannula Weight: 167 lb 5.294 oz Body Mass Index (BMI) 29.0 Finger Stick Blood Glucose 103 Intake and Output for Last 24 Hours 02/20/20 02/21/20 02/22/20 23:59 23:59 23:59 Intake Total 1410.69 / 1410.69 1110 / 1230 700 / 700 Output Total 1850 / 1850 1525 / 1525 Balance -439.31 / -439.31 1110 / 930 -825 / -825 General: Alert, Oriented x3, Cooperative, No apparent distress HEENT: Atraumatic, PERRLA, EOMI, Normocephalic Oral: Moist Mucosa Neck: Supple, No JVD Lungs: Normal air movement, No rhonchi, No wheeze, No rales, Diminished Cardiovascular: Regular rate, Regular Rhythm, Normal S1, Normal S2, Murmur Abdomen: Soft, Non Tender, Non-Distended, No Hepato-splenomegaly Extremities: No edema, Capillary Refill Less than 3 Seconds Skin: No rashes, No breakdown Neurological: Neuro grossly intact, Sensory exam intact to light touch and pain Psych/Mental Status: Normal Affect, Appropriate Microbiology Past 72 Hours 02/22/20 09:40 Sputum, Expectorated/Coughed Gram Stain - Final 02/17/20 08:05 Blood Culture (Wb) - Anticubital Right Blood Culture - Final No growth in 5 days. 02/17/20 07:55 Blood Culture (Wb) - Anticubital Left Blood Culture - Final No growth in 5 days. Laboratory Results 02/22/20 05:20: Sodium 139, Potassium 4.5, Chloride 99, Carbon Dioxide 37.0 H, Anion Gap 3 L, BUN 19 H, Creatinine 0.75, Estim Creat Clear Calc 55.83, Est GFR (MDRD) Af Amer 130, Est GFR (MDRD) Non-Af 107, BUN/Creatinine Ratio 25.4 H, Glucose 95, Calcium 8.9, Magnesium 2.4 Discharge Activity: Return to Normal Activity Call your doctor if you observe: Fever of 101 or Higher, Shortness of breath, Dizziness, Fainting spells, Swelling in the ankles, Chest pain, Increased palpitations (irregular heartbeat) Home Medications: Medications to take at Discharge amlodipine 5 mg-valsartan 160 mg tablet 1 tab PO DAILY 90 Days #05/13/17 levothyroxine 175 mcg tablet 175 mcg PO DAILY 90 Days #05/13/17 nitroglycerin 0.4 mg sublingual tablet 0.4 mg SUBLINGUAL PRN PRN 8 Days #25 05/13/17 pravastatin 40 mg tablet 40 mg PO QHS 90 Days #05/13/17 isosorbide mononitrate 60 mg tablet,extended release 24 hr 60 mg PO DAILY 04/17/18 Acetaminophen [Tylenol] 1,000 mg PO Q4H PRN PRN 05/14/18 Albuterol IH (ProAir) [Proair Hfa] 1 puff INHALATION Q4H PRN PRN 05/14/18 Cholecalciferol (VIT D3) [Vitamin D3] 1,000 unit PO DAILY 05/14/18 Furosemide [Lasix] 40 mg PO DAILY 12/28/19 Apixaban [Eliquis] 5 mg PO BID 02/17/20 Doxazosin Mesylate [Cardura] 4 mg PO QHS 02/17/20 Fluticasone/Salmeterol [Advair Hfa 230-21 Mcg Inhaler] 2 puff INHALATION BID 02/17/20 Aspirin [Aspirin, Baby] 81 mg PO DAILY@0800 #30 tab.chew 02/22/20 Carvedilol [Coreg (Beta Radha)] 3.125 mg PO BID #60 tab 02/22/20 levoFLOXacin tablet [Levaquin tablet] 750 mg PO DAILY #3 tab 02/22/20 Following Prescriptions Were Given to Patient: Aspirin [Aspirin, Baby] 81 mg PO DAILY@0800 #30 tab.chew Transmission Status: Received by [facility] Carvedilol [Coreg (Beta Radha)] 3.125 mg PO BID #60 tab Transmission Status: Received by [facility] levoFLOXacin tablet [Levaquin tablet] 750 mg PO DAILY #3 tab Transmission Status: Received by [facility] Primary Care Physician: Renato Coyle DO [Primary Care Provider] - Please follow up with your Primary Care Physician in: 3-5 days Please Follow Up With: Abhishek Galindo MD When: 2 weeks Please Follow Up With: Renato Coyle DO Disposition: Home Minutes spent on discharge:: 35 Patient Condition:: Stable Medical Necessity - Tobacco Use Smoking Status: Former smoker Meaningful Use Info Meaningful Use Diagnoses (Choose all that apply): None applicable Inpatient E&M: 41267 Disch Hosp
--- NOTE | 2020-02-23 15:15 | CASEMGMT ---
Addendum entered by Malini Aguillon 02/24/20 14:38: Call back to pt and he answered at this time. Pt states is 'doing real well' since discharge. Pt states no questions regarding discharge instructions/medications at this time. Pt states states has f/u appts scheduled and plans to keep. Pt states his pulse ox on room air at rest at this time is 92%. Pt states no SOB at this time and speaks in full sentences. Pt states no suggestions for [facility] at this time and states 'I had great service.' Pt voices no further questions/concerns/needs at this time. Starr JENSEN CM Original Note: MIKEY ANNE Discharge F/U Phone Call LACE: 14 Strata: 4 Discharge date: 02/22/2020 Call date: 02/23/2020 Call time: 1516 Attempted to reach pt without success at this time, pt's home phone rings busy and cell phone is a business phone, unable to leave message at this time. Starr JENSEN CM Admission dx: Acute resp failure
== END 2020-02-22 16:53 | disposition home or self-care (01) | DRG 291 ==
LOC: ED 09:47 → ICU 09:48 → PCU 02-20 18:54
PROVIDERS: Hospitalist; Internal Medicine Critical Care Medicine; Specialist; Admitting Provider Internal Medicine; Emergency Provider Emergency Medicine; PCP Student in an Organized Health Care Education/Training Program; Visit Provider Family Medicine
DX: I11.0 Hypertensive heart disease with heart failure (principal); J96.21 Acute and chronic respiratory failure with hypoxia; J96.22 Acute and chronic respiratory failure with hypercapnia; J18.9 Pneumonia, unspecified organism; E87.2 Acidosis; I47.1 Supraventricular tachycardia; J44.0 Chronic obstructive pulmonary disease with (acute) lower respiratory infection; J44.1 Chronic obstructive pulmonary disease with (acute) exacerbation; T83.83XA Hemorrhage due to genitourinary prosthetic devices, implants and grafts, initial encounter; I50.33 Acute on chronic diastolic (congestive) heart failure; E87.6 Hypokalemia; I48.0 Paroxysmal atrial fibrillation; I34.0 Nonrheumatic mitral (valve) insufficiency; I35.0 Nonrheumatic aortic (valve) stenosis; I25.10 Atherosclerotic heart disease of native coronary artery without angina pectoris; E89.0 Postprocedural hypothyroidism; E78.5 Hyperlipidemia, unspecified; Y84.6 Urinary catheterization as the cause of abnormal reaction of the patient, or of later complication, without mention of misadventure at the time of the procedure; Y92.239 Unspecified place in hospital as the place of occurrence of the external cause; Z79.01 Long term (current) use of anticoagulants; Z79.82 Long term (current) use of aspirin; Z79.890 Hormone replacement therapy; Z79.899 Other long term (current) drug therapy; Z86.19 Personal history of other infectious and parasitic diseases; Z85.850 Personal history of malignant neoplasm of thyroid; Z87.11 Personal history of peptic ulcer disease; Z86.73 Personal history of transient ischemic attack (TIA), and cerebral infarction without residual deficits; Z87.891 Personal history of nicotine dependence; Z95.1 Presence of aortocoronary bypass graft; Z87.01 Personal history of pneumonia (recurrent)
CPT/HCPCS: 31500; 31720; 36600; 71045; 74018; 80048; 80053; 80061; 81001; 82803; 83605; 83735; 83880; 84100; 84132; 84439; 84443; 84484; 85025; 85610; 85730; 87040; 87070; 87086; 87205; 87641; 87804; 93005; 93306; 94002; 94003; 94640; 94660; 97110; 97162; 97166; 97530; 97535; 99251; 99285; J7030; J7050; Q9957; A4216; C8929; G0463; J1940; J3010

== ENCOUNTER → 2020-05-03 12:48 | Outpatient (CLI) | payer MEDICARE, OTHER, SELFPAY ==
[2020-01-25 12:38] VITALS: BMI 27.6
[2020-02-17 10:28] VITALS: BMI 29.0
--- NOTE | 2020-05-03 15:54 | PFTCOMP_ITS ---
COMPLETE PULMONARY FUNCTION TEST INTERPRETATION Brief HPI: Patient is a 80 year old male, currently under the care of myself, who presents to [facility] for complete pulmonary function tests secondary to diagnosis of dyspnea. Respiratory therapist reports good effort and reproducible results. Interpretation: Forced expiration spirometry shows a severe large airways obstructive ventilatory defect with an FEV1 of 41% predicted. There is no significant bronchodilator response by strict ATS criteria. Spirograms are of good quality and plateau slowly, indicating slowly emptying areas of the lungs. The respiratory flow volume loop shows decreased expiratory flow rates at all lung volumes consistent with airway obstruction. Lung volumes by body plethysmography show a decreased total lung capacity at 3.76 L, 69% predicted. FRC and RV are elevated out of proportion. Lung volume measurements are consistent with air-trapping. Diffusion capacity by carbon monoxide is decreased at 53% predicted. The airway resistance is elevated. No previous pulmonary function tests were available for review. Impression: Irreversible severe mixed ventilatory defect with a symmetric reduction diffusing capacity
== END ==
PROVIDERS: PCP Student in an Organized Health Care Education/Training Program; Referring Provider Nurse Practitioner Acute Care; Visit Provider Nurse Practitioner Acute Care
DX: R06.02 Shortness of breath (principal)
CPT/HCPCS: 94060; 94726; 94729

== ENCOUNTER → 2020-05-23 16:01 | Outpatient (CLI) | payer MEDICARE, OTHER, SELFPAY ==
[2020-02-17 10:28] VITALS: BMI 29.0
[2020-05-23 17:35] LABS: Hematocrit 31.3 % (40-54); Mean Corp Hgb Conc 28.8 g/dL (32-36); Mean Corpuscular Hgb 24.2 pg (27.0-32.0); Mean Corpuscular Volume 84.1 fL (80-94); Mean Platelet Vol. 10.1 fl (6.2-12.0); Platelet Count 284 K/mm3 (150-450); RBC Distribution Width CV 16.4 % (11.6-14.6); RBC Distribution Width SD 49.4 fl (35.1-43.9); Red Blood Count 3.72 M/mm3 (4.6-6.2); White Blood Count 8.5 K/mm3 (4.4-11.0)
[2020-05-23 18:01] LABS: Ferritin 44 ng/mL (26-388); Iron 30 ug/dL (65-175)
== END ==
PROVIDERS: PCP Student in an Organized Health Care Education/Training Program; Referring Provider Internal Medicine Gastroenterology; Visit Provider Internal Medicine Gastroenterology
DX: K92.2 Gastrointestinal hemorrhage, unspecified (principal); D64.9 Anemia, unspecified
CPT/HCPCS: 36415; 82728; 83540; 85027

== ENCOUNTER 2020-06-01 12:13 | Inpatient (IN) | payer MEDICARE, OTHER, SELFPAY ==
[2020-02-17 10:28] VITALS: BMI 29.0
[2020-06-01] VITALS (18 sets, daily range): BP systolic 78–106; BP diastolic 40–66; PULSE 52–83; RESP 10–28; TEMP 36–36.9; O2SAT 86–99; BMI 25.8; BMI 25.9
--- NOTE | 2020-06-01 12:33 | EKG12_ITS ---
Test Reason : HYPOTENTION Blood Pressure : / mmHG Vent. Rate : 087 BPM Atrial Rate : 027 BPM P-R Int : 000 ms QRS Dur : 188 ms QT Int : 426 ms P-R-T Axes : 000 -33 115 degrees QTc Int : 512 ms Atrial fibrillation Left axis deviation Left bundle branch block Abnormal ECG Confirmed by FERNANDO OCHOA, DAYANNA ([id number]), material expeditor REGINA AHUMADA ([id number]) on 06/03/2020 12:44:33 PM Referred By: LAVERNE Confirmed By:DAYANNA KING MD
--- NOTE | 2020-06-01 12:33 | CT_ITS ---
STUDY: CT BRAIN WITHOUT CONTRAST REASON FOR EXAM: Male, 80 years old. Headache, Eliquis RADIATION DOSAGE (If Supplied By Facility): CTDIvol = ( 38.43 ) mGy, DLP = ( 712.69 ) mGycm TECHNIQUE: Transaxial CT imaging of the brain was performed without administration of intravenous contrast material. Individualized dose optimization techniques were used for this CT. COMPARISON: Comparison is made with prior study dated 11/16/2010. FINDINGS: Normal soft tissue structures. Normal calvarium. There is mild cerebral atrophy with widening of the extra-axial spaces and ventricular dilatation. Normal white matter tracts of the cerebral hemispheres. Normal basal ganglia and thalami. Normal brainstem. Normal cerebellum. There is no intracranial hemorrhage. There are no findings of an acute ischemic infarction. Atherosclerotic calcification of the cavernous portions of the internal carotid arteries bilaterally. Normal visualized paranasal sinuses. CT/Brain/Head without Contrast IMPRESSION: Chronic involutional changes of the brain. Electronically Signed: Chase Ruff MD at 13:46 EDT , Service support ,
--- NOTE | 2020-06-01 12:40 | RAD_ITS ---
STUDY: X-RAY CHEST REASON FOR EXAM: Male, 80 years old. SOB TECHNIQUE: Single AP portable view of the chest. COMPARISON: Comparison is made with prior study dated 02/19/2020. FINDINGS: EKG electrodes are seen. There is elevation of the right hemidiaphragm. There is blunting of the right cost phrenic angle with the stable mild increased markings at the right lung base. Stable mild increased markings at the left lung base with blunting of the left costal phrenic angle. Sternal cerclage wires and vascular clips are present from a prior sternotomy and coronary artery bypass graft procedure (CABG). Normal mediastinum and kacy. Normal visualized pulmonary arteries. There is atherosclerotic tortuosity of the aortic arch and descending thoracic aorta. There are diffuse degenerative changes of the visualized thoracic spine. Normal visualized ribs, clavicles, and shoulders. There is no demonstrated abnormality of the visualized soft tissue structures of the upper abdomen. RAD/Chest 1 View (Portable) IMPRESSION: Stable examination. Stable pleural parenchymal changes at both lung bases. Electronically Signed: Chase Ruff MD at 12:54 EDT , Service support ,
[2020-06-01 12:51] LABS: Absolute Lymphocyte Count 1.31 X10^3/uL (0.83-4.51); Absolute Neutrophil Count 8.8 X10^3/uL (2.0-7.7); Basophil# 0.04 X10^3/uL; Basophil% 0.4 % (0-1); Eosinophil# 0.16 X10^3/uL; Eosinophils% 1.4 % (0-5); Hematocrit 32.2 % (40-54); Hemoglobin 9.4 g/dL (13.0-16.5); Lymphocyte # 1.31 X10^3/ul (4.0); Lymphocyte % 11.7 % (19-41); Mean Corp Hgb Conc 29.2 g/dL (32-36); Mean Corpuscular Hgb 24.1 pg (27.0-32.0); Mean Corpuscular Volume 82.6 fL (80-94); Monocyte# 0.87 X10^3/uL; Monocyte% 7.7 % (0-10); NRBC Flagged by Analyzer 0 % (0-5); Neutrophil # 8.77 X10^3/uL (2.7-7.7); Neutrophil % 78.1 % (47-70); Platelet Count 417 K/mm3 (150-450); RBC Distribution Width CV 16.9 % (11.6-14.6); RBC Distribution Width SD 49.1 fl (35.1-43.9); White Blood Count 11.2 K/mm3 (4.4-11.0)
[2020-06-01 12:58] LABS: International Normalized Ratio 1.1; Prothrombin Time (Protime)PT. 13.9 SECONDS (11.7-14.9)
[2020-06-01 12:59] LABS: Partial Thromboplast Time 31.3 Seconds (24.1-36.2)
[2020-06-01 13:13] LABS: BNP,B-Type NATRIURETIC PEPTIDE 724.6 pg/mL (0-100)
[2020-06-01 13:23] LABS: Lactic Acid 2.1 mmol/L (0.4-1.9)
[2020-06-01 13:25] LABS: ALB/GLOB Ratio 0.7 RATIO (0.9-2.4); AST(SGOT) 22 U/L (15-37); Alanine Aminotransfer ALT/SGPT 22 U/L (16-61); Albumin, Serum 2.9 g/dL (3.2-5.0); Alkaline Phosphatase 100 U/L (45-117); BUN 32 mg/dL (7-18); BUN/Creat Ratio 25.8 RATIO (10-20); Carbon Dioxide > 45.0 mmol/L (21.0-32.0); Chloride 89 mmol/L (98-107); Creatinine, Serum 1.24 mg/dL (0.70-1.30); EST Glomerular Filtration Rate 60 mL/min (>60); Est Glom Filt Rate - Afr Amer 73 mL/min (>60); Estimated Creatinine Clearance 44.31 ml/min; Globulin 4.1 g/dL (2.2-4.2); Glucose 146 mg/dL (74-106); Potassium 3.2 mmol/L (3.5-5.1); Sodium Level 136 mmol/L (136-145)
[2020-06-01 14:00] LABS: Allen Test Positive; Base Excess 23 mmol/L (-2 to +2); Bicarbonate 47.2 mmol/L (22-26); Blood Gas Specimen Type ART; O2 Delivery Device Cannula; PO2 47 mmHG (75-100); SITE R Radial; SO2 82 % (95-99); Total Carbon Dioxide 49 mmol/L; pH 7.45 (7.35-7.45)
--- NOTE | 2020-06-01 14:13 | CPS ---
Addendum entered and electronically signed by Kian Garner 06/02/20 08:56: Critical values were noted and Dr. Newberry was notified Original Note: not ran a second time due to inadequate sample
[2020-06-01 14:48] LABS: Bacteria 0 SEEN /hpf (None Seen); Mucous, Urine 0 SEEN /hpf (<or=2+); Squamous Epithelial Cells - UA 0 SEEN /hpf (0-5)
[2020-06-01 14:57] LABS: Color, Urine Yellow (Yellow); Glucose, Dipstick Normal (Normal); Ketone-Dipstick Negative (Negative); Leukocyte Esterase-Dipstick 25 /ul (Negative); Nitrite-Dipstick Negative (Negative); Occult Blood-Urine 10 /ul (Negative); Protein-Dipstick Negative (Negative); Urine Bilirubin Dipstick Negative (Negative); Urine Clarity Clear (Clear); Urine Urobilinogen Normal (Normal); Urine pH 6.5 (5.0 - 8.0)
[2020-06-01 15:14] LABS: White Blood Cells 0-5 SEEN /hpf (0-5)
[2020-06-01 15:15] LABS: Red Blood Cells-Urine 0-5 SEEN /hpf (0-5)
--- NOTE | 2020-06-01 15:29 | ED.RN ---
DR UMANA AWARE OF CURRENT BP. TALKED WITH DR CHUNG. DECISION FOR NO FLUID RESUSCITATION TO BE COMPLETED
--- NOTE | 2020-06-01 15:32 | ED.VISSUMM ---
- ER Visit Summary Date of Service: 06/01/20 Chief Complaint: Lightheaded History of Present Illness: The patient is a [address] Garduno, Dr. Galindo, and Dr. Coyle. He reports that he was discharged from [facility] yesterday. He got home approximately 830 and was doing well. Ports that typically his blood pressure is 1 20-1 40 systolic. He reports that he woke up today when he stood up he was very lightheaded. He did not pass out. Patient denies any fever or chills. He denies chest pain or shortness of breath. No abdominal pain, nausea, vomiting, or diarrhea. He reports he has a dull occipital headache is 5-10 severity. He has not had similar headaches previously. Physical Examination: Vitals: 98.0, 86/48, 52, 16, 97% on 3 L nasal cannula. General: Well-nourished and well-developed. Head: Normocephalic atraumatic. Neck: Supple, no lymphadenopathy. No JVD. Nontender. Cardiovascular: Irregular rhythm with a 2 out of 6 systolic murmur. Respiratory: No respiratory distress. Clear to auscultation bilaterally. No crackles Abdominal: Soft, nontender, nondistended, normal bowel sounds. No guarding, rebound, or peritoneal signs. Back: Nontender. Extremities: Nontender, no edema. Skin: Normal color, no rash. Neurologic: Alert and oriented ?3. Cranial nerves II through XII are intact. Normal strength and sensation. Patient does fall asleep intermittently during the history.. Psych: Normal affect. Test Results: EKG is sinus at 87 with a left bundle branch block. Troponin is 0.383. BNP is 724.6. Lactic acid is 2.1. UA is negative. LFTs show an albumin of 2.9. Coags are normal. Chem-7 shows a potassium of 3.2, chloride of 89, CO2 of greater than 45, BUN of 32, creatinine 1.24. CBC shows a white count 11.2 with an H&H 9.4 and 32.2, segmented for 78, lymphocytes 12. Clinical Impression(s) from Imaging Studies Brain CT 06/01/20 12:33 IMPRESSION: Chronic involutional changes of the brain. Electronically Signed: Chase Ruff MD at 13:46 EDT , Service support , Chest X-Ray 06/01/20 12:40 IMPRESSION: Stable examination. Stable pleural parenchymal changes at both lung bases. Electronically Signed: Chase Ruff MD at 12:54 EDT , Service support , Emergency Department Course and Treatment: Patient's blood pressure has remained low in the emergency department. However, despite these low readings the patient has strong bilateral radial and femoral pulses. He was discharged yesterday after treatment for a pleural effusion and pulmonary edema. He was given a 500 cc bolus of normal saline. However, I do not think that continuing to give fluids is in his best interest. The patient does seem more tired than I would expect. He fell asleep at times during the questioning. His CO2 returned at greater than 45. He was placed on BiPAP. A blood gas was obtained. I suspect that this is actually venous not arterial. His CO2 on this is 68. The patient's sensorium improved on the BiPAP. Blood pressure is actually increased with this as well. Treatment Plan: The patient was discussed with Dr. Galindo and he agrees with not continuing to give the patient fluids. The patient will be discussed the hospitalist and admitted for further evaluation and treatment. Disposition: Admitted in serious condition. Impression: 1. Acute on chronic respiratory failure on BiPAP. 2. Hypercapnia. 3. Indeterminate troponin. 4. Hypotension. This note was generated with makerSQRation software. It may contain incorrect words, spelling, and punctuation that were not noted in review of the chart prior to signing ED Disposition - Plan for ED Patient: Referrals: Renato Coyle DO [Primary Care Provider] -
--- NOTE | 2020-06-01 15:53 | NURSING ---
ICU ASHELFAH COPD, CHF, HYPOTENSION
--- NOTE | 2020-06-01 16:16 | PCM.HP.STD ---
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 The patient is a 80 year old M with past medical history as mentioned above presented to the emergency room because of dizziness and lightheadedness. Patient was discharged from [facility] yesterday after admission for acute on chronic respiratory failure, had right-sided thoracentesis for right pleural effusion and he was discharged yesterday. Patient mentioned that yesterday, he felt okay, breathing was fine and he remained on 3 L of oxygen which is his baseline at home. Today, he woke up and felt lightheaded, dizzy and about to pass out. He denied syncope or loss of consciousness. He denied chest pain, palpitation or worsening shortness of breath. He mentioned that his breathing is at his baseline and he did not need to go up on his oxygen. He reported mild cough with minimal sputum. Denies fever or chills. He denied abdominal pain, nausea or vomiting. He had a history of COPD and chronic respiratory failure and he has been on oxygen at 3 L. He was discharged from [facility] yesterday on 3 L as well. He had a history of CAD status post CABG and he has been on aspirin, Coreg, nitrate and Lasix. He has history of hypothyroidism and he has been on levothyroxine, TSH was normal on February,. In the emergency department, patient was hypotensive, heart rate was stable, was afebrile and pulse ox was 86% on 5 L. He was put on BiPAP because his serum bicarb was more than 45 and PCO2 on blood gas was 68 which is probably venous blood gas. Routine blood work was remarkable for hemoglobin of 9.4 g/dL, potassium is 3.2, serum bicarb is more than 45. Lactic acid was 2.1. EKG revealed normal sinus rhythm, chronic LBBB, no acute ischemic changes. Troponin was 0.383. BNP was 724. Urinalysis was unremarkable. Chest x-ray showed minimal right lower effusion, no acute infiltrate, consolidation or CHF. Patient is being admitted for hypotension, probable acute on chronic hypoxic and hypercapnic respiratory failure and compensatory metabolic alkalosis. Past Medical History Past Medical History (Chronic Problems): Chronic Problems (Last Updated 06/01/20 @ 16:[address] Cortes Niño MD) COPD (chronic obstructive pulmonary disease) (Chronic) Chronic respiratory failure with hypoxia (Chronic) Left bundle branch block (Chronic) Paroxysmal atrial fibrillation (Chronic) Nonrheumatic mitral (valve) insufficiency (Chronic) Non-rheumatic aortic stenosis (Chronic) H/O coronary artery bypass surgery (Chronic) CABG x 3: SPARKS-LAD, SVG-RPDA, ANAY-Acute [place] Essential (primary) hypertension (Chronic) Atherosclerosis of coronary artery of de[place] heart without angina pectoris (Chronic) CABG x 3: SPARKS-LAD, SVG-RPDA, ANAY-Acute [place] 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) Hyperlipidemia (Chronic) Medical History: Medical History (Last Updated 06/01/20 @ 16:[address] Cortes Niño MD) Left bundle branch block (Chronic) I44.7 Paroxysmal atrial fibrillation (Chronic) I48.0 Nonrheumatic mitral (valve) insufficiency (Chronic) I34.0 Non-rheumatic aortic stenosis (Chronic) I35.0 Essential (primary) hypertension (Chronic) I10 Atherosclerosis of coronary artery of de[place] heart without angina pectoris (Chronic) I25.10 CABG x 3: SPARKS-LAD, SVG-RPDA, ANAY-Acute [place] 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) Z86.73 Hyperlipidemia (Chronic) E78.5 COPD (chronic obstructive pulmonary disease) J44.9 Hypothyroidism E03.9 PUD (peptic ulcer disease) K27.9 Thyroid cancer C73 Hemorrhoids (Inactive) K64.9 Allergies caffeine Allergy (Mild, Verified 06/01/20 12:16) Unknown bee venom protein (honey bee) Allergy (Verified 06/01/20 12:16) Swelling Penicillins Allergy (Verified 06/01/20 12:16) Hives Home Medications: Ambulatory Orders Medication Instructions Recorded amlodipine 5 mg-valsartan 160 mg 1 tab PO DAILY 90 Days #90 05/13/17 tablet levothyroxine 175 mcg tablet 175 mcg PO DAILY 90 Days #90 05/13/17 nitroglycerin 0.4 mg sublingual 0.4 mg SUBLINGUAL PRN PRN 8 Days 05/13/17 tablet #25 pravastatin 40 mg tablet 40 mg PO QHS 90 Days #90 05/13/17 isosorbide mononitrate 60 mg 60 mg PO DAILY 04/17/18 tablet,extended release 24 hr Acetaminophen [Tylenol] 1,000 mg PO Q4H PRN PRN 05/14/18 Albuterol IH (ProAir) [Proair Hfa] 1 puff INHALATION Q4H PRN PRN 05/14/18 Cholecalciferol (VIT D3) [Vitamin 1,000 unit PO DAILY 05/14/18 D3] Apixaban [Eliquis] 5 mg PO BID 02/17/20 Doxazosin Mesylate [Cardura] 4 mg PO QHS 02/17/20 Aspirin [Aspirin, Baby] 81 mg PO DAILY@0800 #30 tab.chew 02/22/20 Carvedilol [Coreg (Beta Radha)] 3.125 mg PO BID #60 tab 02/22/20 budesonide-formoterol HFA 160 2 puff INHALATION Q12H #10.2 gm 05/24/20 mcg-4.5 mcg/actuation aerosol inhaler furosemide 40 mg tablet 40 mg PO BID tablet 05/24/20 Surgical History: Surgical History (Last Updated 06/01/20 @ 16:[address] Cortes Niño MD) H/O coronary artery bypass surgery (Chronic) Z95.1 CABG x 3: SPARKS-LAD, SVG-RPDA, ANAY-Acute [place] History of left heart catheterization Onset Date: 05/19/18 Z98.890 History of thyroidectomy Z98.890 Hx of cholecystectomy Z90.49 History of colonoscopy (Inactive) Onset Date: ~04/2018 Z98.890 Surgical History: coronary bypass surgery Psychiatric History: No pertinent psych hx Lives: Spouse/ Significant Other Smoking Status: Never smoker Alcohol: None Drugs: None - *Family History Maternal Family History: Family History (Last Reviewed 05/24/20 @ 12:50 by Aimee Frausto) Other Heart disease Paternal Family History: Family History (Last Reviewed 05/24/20 @ 12:50 by Aimee Frausto) Other Heart disease Review of Systems Constitutional: Denies: Anorexia, Chills, Fever, Weakness Eyes: Denies: Blurred vision, Double vision, Drainage, Redness HEENT: Denies: Difficulty Hearing, Dysphasia, Ear Pain, Eye Pain, Nasal Congestion, Sore Throat Cardiovascular: Reports: Light Headedness. Denies: Chest Pain, Claudication, Chest Tightness, Edema, Heaviness, Palpitations, Syncope Respiratory: Reports: Cough. Denies: Pleuritic Pain, Shortness of Breath, Sputum production, Wheezing Gastrointestinal: Denies: Abdominal Pain, Constipation, Diarrhea, Nausea, Vomiting Genitourinary: Denies: Dysuria, Frequency, Hematuria Musculoskeletal: Denies: Arm Pain, Back Pain, Foot Pain Skin: Denies: Dryness, Rash Neurological: Reports: Headaches. Denies: Balance problems, Double vision, Change in Speech, Slurred speech, Confusion, Incoordination Psychiatric: Denies: Anxiety, Depression Endocrine: Denies: Change in Body Habitus, Polydipsia, Polyuria VTE Information - Inpt Only VTE Present on Admission: No VTE Mechan Device Prophylaxis: None VTE Pharm Prophylaxis ordered?: No - Physical Exam Vitals/I&O's: Vital Signs Temp Pulse Resp BP Pulse Ox 98.0 F 75 16 98/61 98 06/01/20 12:14 06/01/20 16:15 06/01/20 16:15 06/01/20 16:15 06/01/20 16:15 Oxygen Flow Rate (L/min) 5 Oxygen Delivery Method Bi-pap Weight: 160 lb Body Mass Index (BMI) 25.8 Finger Stick Blood Glucose 103 Intake and Output for Last 24 Hours 05/30/20 05/31/20 06/01/20 23:59 23:59 23:59 Intake Total 500 / 500 Balance 500 / 500 General: Alert, Oriented x3, Cooperative, No apparent distress HEENT: Atraumatic, PERRLA, EOMI, Normocephalic Oral: Moist Mucosa, No Gingival or Mucosal Lesions/ Ulcerations Neck: Supple, No JVD, Negative Carotid Bruits, Trachea Midline, Thyroid Normal Size and Texture Lungs: Clear to auscultation, No rhonchi, No wheeze, No rales, Diminished, - - Decreased breath sounds at the bases, more on the right base, otherwise clear. Cardiovascular: Regular rate, Regular Rhythm, Normal S1, Normal S2, PMI Normal Abdomen: Bowel Sounds Present, Soft, Non Tender, Non-Distended, No Hepato-splenomegaly Extremities: No clubbing, No cyanosis, Edema - Trace edema. Skin: No rashes, No breakdown Lymphatic: No Cervical, Supraclavicular, or Inguinal Adenopathy Neurological: Cranial nerves II-XII grossly intact, Motor Exam 5/5 strength throughout Psych/Mental Status: Normal Affect, Appropriate, Alert and oriented to time, place, person, mood and affect Laboratory Results 06/01/20 12:29: WBC 11.2 H, RBC 3.90 L, Hgb 9.4 L, Hct 32.2 L, MCV 82.6, MCH 24.1 L, MCHC 29.2 L, RDW Std Deviation 49.1 H, RDW Coeff of Dominic 16.9 H, Plt Count 417, MPV 10.0, Immature Gran % (Auto) 0.700, Neut % (Auto) 78.1 H, Lymph % (Auto) 11.7 L, [place] % (Auto) 7.7, Eos % (Auto) 1.4, Baso % (Auto) 0.4, Absolute Neuts (auto) 8.8 H, Absolute Lymphs (auto) 1.31, Nucleated RBC % 0 06/01/20 12:29: PT 13.9, INR 1.1, APTT 31.3 06/01/20 12:29: Sodium 136, Potassium 3.2 L, Chloride 89 L, Carbon Dioxide > 45.0 H*, Anion Gap TNP, BUN 32 H, Creatinine 1.24, Estim Creat Clear Calc 44.31, Est GFR (MDRD) Af Amer 73, Est GFR (MDRD) Non-Af 60, BUN/Creatinine Ratio 25.8 H, Glucose 146 H, Calcium 9.0, Total Bilirubin 0.50, AST 22, ALT 22, Alkaline Phosphatase 100, Troponin I 0.383 H, Total Protein 7.0, Albumin 2.9 L, Globulin 4.1, Albumin/Globulin Ratio 0.7 L 06/01/20 12:29: Lactic Acid 2.1 H* 06/01/20 12:29: B-Natriuretic Peptide 724.6 H 06/01/20 13:56: Specimen Type ART, Sample Site R Radial, pH 7.45, Bicarbonate Actual 47.2 H, Total CO2 49, Base Excess 23 H, O2 Saturation 82 L, ABG pCO2 68.0 H*, ABG pO2 47 L, Diomedes Test Positive, O2 Delivery Device Cannula, Liter Flow 3.0, Crit Call To/Read Back Yes 06/01/20 14:35: Urine Color Yellow, Urine Clarity Clear, Urine pH 6.5, Ur Specific [place] 1.010, Urine Protein Negative, Urine Glucose (UA) Normal, Urine Ketones Negative, Urine Occult Blood 10 H, Urine Nitrite Negative, Urine Bilirubin Negative, Urine Urobilinogen Normal, Ur Leukocyte Esterase 25 H, Urine RBC 0-5 SEEN, Urine WBC 0-5 SEEN, Ur Squamous Epith Cells 0 SEEN, Urine Bacteria 0 SEEN, Urine Mucus 0 SEEN Clinical Impression(s) from Imaging Studies Brain CT 06/01/20 12:33 IMPRESSION: Chronic involutional changes of the brain. Electronically Signed: Chase Ruff MD at 13:46 EDT , Service support , Chest X-Ray 06/01/20 12:40 IMPRESSION: Stable examination. Stable pleural parenchymal changes at both lung bases. Electronically Signed: Chase Ruff MD at 12:54 EDT , Service support , Assessment/Plan This is a 80 years old male patient presented to the emergency room because of dizziness and lightheadedness, found to have hypotension, probable acute on chronic hypoxic and hypercapnic respiratory failure with compensatory metabolic alkalosis and also found to have lactic acidosis without evidence of infection. #1 hypotension: Could be due to volume depletion secondary to recent thoracentesis and also being on Norvasc, Lasix and Coreg as well as nitrates. At this time, no evidence of acute infection, no severe sepsis or septic shock. Blood pressure improved with bolus of IV fluids. He does have minimal leukocytosis, no fever. Urinalysis was unremarkable. Chest x-ray showed no acute infiltrate or consolidation. Plan: Admit to ICU, critical care monitoring, bedrest, blood culture, urine culture, hold antihypertensive medications, repeat lactic acid in 3 hours, repeat CBC and BMP tomorrow morning, critical care consult, PT OT evaluation and treatment. #2 chronic respiratory failure: With probable acute exacerbation with hypercapnia and hypoxia. Patient denied any worsening shortness of breath. He has been on 3 L at baseline. Blood gas which seemed to be venous revealed PCO2 of 68 and PO2 of 47. Serum bicarb is more than 45. Patient currently on BiPAP. I doubt COPD or CHF exacerbation. Plan: Avoid IV fluids, fluid restriction, resume Lasix, breathing treatment, input output chart. #3 lactic acidosis: Without evidence of infection, no sepsis or sepsis. Could be due to because of tissue hypoxia. Patient received bolus of IV fluids in the ED. Plan: Urine culture, blood culture, repeat lactic acid in 3 hours. At this time, no indication to start IV antibiotics. #4 abnormal cardiac enzymes: Patient denied chest pain. No acute ischemic changes on EKG. Troponin was 3.97 on February 19, 2020. It has been trending down. Plan for cardiac monitoring, serial cardiac enzymes. #5 recent acute on chronic respiratory failure/pleural effusion on the right: Status post paracentesis few days ago at [facility]. Chest x-ray reviewed. Plan as above. #6 CAD status post CABG: EKG reviewed, no acute segment changes. Continue aspirin, Coreg, nitrate and statins. #7 paroxysmal atrial fibrillation: Rate is controlled. Continue Coreg for rate control and Eliquis for anticoagulation. #8 COPD/chronic respiratory failure: Plan as above, DuoNeb every 6 hours, albuterol as needed, incentive spirometer. No indication to start IV steroids or IV antibiotics. #9 hypertension: Blood pressure is low, improved with IV fluid bolus. Plan to hold Norvasc, valsartan, Lasix and nitrate. #10 hyperlipidemia: Continue statins. #11 CODE STATUS: Full code. Discussed with the patient. Patient agreed to CPR, chest compressions, endotracheal intubation mechanical ventilation. #12 DVT prophylaxis: Continue Eliquis. This note was generated with Yatango dictation software. It may contain incorrect words, spelling, and punctuation that were not noted in checking the note before signing. Inpatient E&M: 10389 Init Hosp L3
[2020-06-01 16:40] LABS: Reflex Lactate? Y
--- NOTE | 2020-06-01 16:40 | ED.RN ---
attempted to call report. icu unavailable at this time to take report
[2020-06-01 17:31] LABS: Lactic Acid 0.9 mmol/L (0.4-1.9)
[2020-06-01 19:20] LABS: International Normalized Ratio 1.2; Prothrombin Time (Protime)PT. 14.3 SECONDS (11.7-14.9)
[2020-06-01] MEDS: Ipratropium/Albuterol Sulfate 3 ML AMPUL.NEB INHALATION (20:35)
[2020-06-01] MEDS: Potassium Chloride Oral Tablet 20 MEQ 60 MEQ PO (23:43)
[2020-06-02] VITALS (29 sets, daily range): BP systolic 87–129; BP diastolic 48–74; PULSE 73–90; RESP 12–33; TEMP 36.6–37; O2SAT 84–100
[2020-06-02] MEDS: Ipratropium/Albuterol Sulfate 3 ML AMPUL.NEB INHALATION ×4 (01:26→19:22)
[2020-06-02 03:11] LABS: Absolute Neutrophil Count 7.2 X10^3/uL (2.0-7.7); Basophil# 0.03 X10^3/uL; Basophil% 0.3 % (0-1); Eosinophil# 0.14 X10^3/uL; Eosinophils% 1.5 % (0-5); Hematocrit 28.2 % (40-54); Hemoglobin 8.2 g/dL (13.0-16.5); Lymphocyte % 12.6 % (19-41); Mean Corp Hgb Conc 29.1 g/dL (32-36); Mean Corpuscular Hgb 23.7 pg (27.0-32.0); Mean Corpuscular Volume 81.5 fL (80-94); Mean Platelet Vol. 9.6 fl (6.2-12.0); Monocyte% 9.5 % (0-10); NRBC Flagged by Analyzer 0 % (0-5); Neutrophil # 7.17 X10^3/uL (2.7-7.7); Neutrophil % 75.4 % (47-70); Platelet Count 345 K/mm3 (150-450); RBC Distribution Width CV 17.2 % (11.6-14.6); RBC Distribution Width SD 48.4 fl (35.1-43.9); Red Blood Count 3.46 M/mm3 (4.6-6.2); White Blood Count 9.5 K/mm3 (4.4-11.0)
[2020-06-02 03:25] LABS: Anion Gap 5 (5-15); BUN 30 mg/dL (7-18); BUN/Creat Ratio 35.6 RATIO (10-20); Calcium,Total 8.4 mg/dL (8.5-10.1); Chloride 93 mmol/L (98-107); Creatinine, Serum 0.84 mg/dL (0.70-1.30); EST Glomerular Filtration Rate 94 mL/min (>60); Est Glom Filt Rate - Afr Amer 113 mL/min (>60); Glucose 93 mg/dL (74-106); Potassium 3.6 mmol/L (3.5-5.1); Sodium Level 141 mmol/L (136-145)
[2020-06-02] MEDS: Acetaminophen 325 MG Tablet 650 MG PO (05:54)
[2020-06-02] MEDS: Levothyroxine 175 MCG Tablet PO (05:55)
--- NOTE | 2020-06-02 08:47 | PCM.CON.CC ---
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 Patient reportedly had been discharged from [facility] on the day prior to presentation at approximately 8:30 AM. Patient states that he was feeling well at that time. However, patient states that when he woke up on the following day he was very lightheaded, but denied any syncope. Patient not had any fevers, chills, chest pain or shortness of breath. Patient did not report any nausea or vomiting, but did have a dull occipital headache 5 out of 10 severity that was new. Patient does not typically have headaches. Patient states that his systolic blood pressures are typically in the 120s or higher. On presentation to the ER, patient was afebrile, but hypotensive at 86/48 and saturating 97% on his baseline 3 L nasal cannula. EKG did show a left bundle branch. BNP was slightly elevated at 724, but this was consistent with previous lab values. Lactate was elevated at 2.1 and potassium was slightly low at 3.2. Patient's renal function was at baseline. Patient did have a mild leukocytosis of 11.2. CT of the head showed no acute process and chest x-ray was relatively unremarkable. No pneumothorax was appreciated. Patient was given a small fluid bolus with improvement in blood pressures. Patient was placed on BiPAP secondary to elevated CO2, which ER physician thought improved clinical condition. Patient was admitted to the intensive care unit and monitored closely. Patient did not require pressor therapy. Patient did wear BiPAP with sleep, but was transitioned to his baseline 3 L nasal cannula this morning with improvement. Patient's blood pressures have been lower than his baseline, but no further fluid boluses were obtained. On my arrival, orthostatic blood pressures were ordered and were negative. Patient continues to report fatigue. Patient has not been out of bed outside of orthostatic blood pressures. Patient is unclear exactly what happened at [facility]. Patient did state that he had a pleural effusion and had a thoracentesis. Results of this are unknown at this time. Patient also reports that he received significant diuretic therapy. Review of systems otherwise negative from a constitutional, HEENT, respiratory, cardiovascular, GI, genitourinary, musculoskeletal, skin, neurologic, psychiatric and hematologic system unless stated above. Past Medical History Past Medical History (Chronic Problems): Chronic Problems (Last Updated 06/01/20 @ 16:[address] 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) Z86.73 Hyperlipidemia (Chronic) E78.5 COPD (chronic obstructive pulmonary disease) J44.9 Hypothyroidism E03.9 PUD (peptic ulcer disease) K27.9 Thyroid cancer C73 Hemorrhoids (Inactive) K64.9 Allergies caffeine Allergy (Mild, Verified 06/01/20 12:16) Unknown bee venom protein (honey bee) Allergy (Verified 06/01/20 12:16) Swelling Penicillins Allergy (Verified 06/01/20 12:16) Hives Home Medications: Ambulatory Orders Medication Instructions Recorded amlodipine 5 mg-valsartan 160 mg 1 tab PO DAILY 90 Days #90 05/13/17 tablet levothyroxine 175 mcg tablet 175 mcg PO DAILY 90 Days #90 05/13/17 nitroglycerin 0.4 mg sublingual 0.4 mg SUBLINGUAL PRN PRN 8 Days 05/13/17 tablet #25 pravastatin 40 mg tablet 40 mg PO QHS 90 Days #05/13/17 isosorbide mononitrate 60 mg 60 mg PO DAILY 04/17/18 tablet,extended release 24 hr Acetaminophen [Tylenol] 1,000 mg PO Q4H PRN PRN 05/14/18 Albuterol IH (ProAir) [Proair Hfa] 1 puff INHALATION Q4H PRN PRN 05/14/18 Cholecalciferol (VIT D3) [Vitamin 1,000 unit PO DAILY 05/14/18 D3] Apixaban [Eliquis] 5 mg PO BID 02/17/20 Doxazosin Mesylate [Cardura] 4 mg PO QHS 02/17/20 furosemide 40 mg tablet 40 mg PO BID tablet 05/24/20 Budesonide/Formoterol Fumarate 2 puff INHALATION Q12H 06/01/20 [Budesonide-Formoterol 160-4.5] Carvedilol [Coreg (Beta Radha)] 3.125 mg PO BID 06/01/20 Ferrous Sulfate 325 mg PO 06/01/20 Losartan Potassium [Cozaar] 50 mg PO 06/01/20 Surgical History: Surgical History (Last Updated 06/01/20 @ 16:[address] Cortes Niño MD) H/O coronary artery bypass surgery (Chronic) Z95.1 CABG x 3: SPARKS-LAD, SVG-RPDA, ANAY-Acute [place] History of left heart catheterization Onset Date: 05/19/18 Z98.890 History of thyroidectomy Z98.890 Hx of cholecystectomy Z90.49 History of colonoscopy (Inactive) Onset Date: ~04/2018 Z98.890 Surgical History: coronary bypass surgery Psychiatric History: No pertinent psych hx Lives: Spouse/ Significant Other Smoking Status: Never smoker Alcohol: None Drugs: None - *Family History Maternal Family History: Family History (Last Reviewed 05/24/20 @ 12:50 by Aimee Frausto) Other Heart disease History Items: No pertinent history Paternal Family History: Family History (Last Reviewed 05/24/20 @ 12:50 by Aimee Frausto) Other Heart disease History Items: No pertinent history Review of Systems Comment: See HPI Objective: All imaging was personally reviewed. CT of the head was unremarkable from my perspective. Chest x-ray showed a small right pleural effusion, but no pneumothorax. Patient does have right ventricular enlargement. PFT and previous echocardiogram were also reviewed. - Physical Exam Vitals/I&O's: Vital Signs Temp Pulse Resp BP Pulse Ox 36.7 C 88 23 H 124/74 H 98 06/02/20 08:00 06/02/20 08:00 06/02/20 08:00 06/02/20 08:00 06/02/20 08:03 Oxygen Flow Rate (L/min) 2 Oxygen Delivery Method Nasal Cannula Weight: 72.8 kg Body Mass Index (BMI) 25.9 Finger Stick Blood Glucose 103 Orthostatic Vital Signs Start: 06/02/20 08:12 Freq: q24h Status: Active Protocol: Activity Type Activity Date Activity User E-Sign Co-Sign Detail Recorded Client Recorded Date Recorded By Document 06/02/20 07:46 ELISABETH [id number] 06/02/20 08:17 ELISABETH 06/02/20 07:46 Orthostatic Vitals Standing -Blood Pressure (90/60-120/80) 123/63 H -Extremity Use Left Arm -Pulse Rate (60-100) 90 Sitting -Blood Pressure (90/60-120/80) 112/58 L -Extremity Use Left Arm -Pulse Rate (60-100) 79 Lying -Blood Pressure (90/60-120/80) 104/54 L -Extremity Use Left Arm -Pulse Rate (60-100) 80 Intake and Output for Last 24 Hours 05/31/20 06/01/20 06/02/20 23:59 23:59 23:59 Intake Total 620 / 620 180 / 180 Output Total 300 / 400 600 / 600 Balance 320 / 220 -420 / -420 General: Alert, Oriented x3, Cooperative, No apparent distress, Well developed, Well nourished, - - No conversational dyspnea HEENT: Atraumatic, PERRLA, EOMI, Normocephalic, - - No scleral icterus or injection noted Oral: Moist Mucosa, No Gingival or Mucosal Lesions/ Ulcerations Neck: Supple, No JVD, No Nodes, Trachea Midline Lungs: No rhonchi, No wheeze, No rales, Diminished - Right base Cardiovascular: Normal S1, Normal S2, Irregular Rate, Murmur - Grade 3 out of 6 systolic ejection murmur at the apex, No rub noted, No Gallop Abdomen: Bowel Sounds Present, Soft, Non Tender, Non-Distended Extremities: No clubbing, No cyanosis, No edema Skin: No rashes, No breakdown Musculoskeletal: No Tenderness to Palpation of Joints or Extremities Lymphatic: No Cervical, Supraclavicular, or Inguinal Adenopathy Neurological: Cranial nerves II-XII grossly intact, Neuro grossly intact, Motor Exam 5/5 strength throughout Psych/Mental Status: Alert and oriented to time, place, person, mood and affect Laboratory Results 06/01/20 12:29: WBC 11.2 H, RBC 3.90 L, Hgb 9.4 L, Hct 32.2 L, MCV 82.6, MCH 24.1 L, MCHC 29.2 L, RDW Std Deviation 49.1 H, RDW Coeff of Dominic 16.9 H, Plt Count 417, MPV 10.0, Immature Gran % (Auto) 0.700, Neut % (Auto) 78.1 H, Lymph % (Auto) 11.7 L, Mineral % (Auto) 7.7, Eos % (Auto) 1.4, Baso % (Auto) 0.4, Absolute Neuts (auto) 8.8 H, Absolute Lymphs (auto) 1.31, Nucleated RBC % 0 06/01/20 12:29: PT 13.9, INR 1.1, APTT 31.3 06/01/20 12:29: Sodium 136, Potassium 3.2 L, Chloride 89 L, Carbon Dioxide > 45.0 H*, Anion Gap TNP, BUN 32 H, Creatinine 1.24, Estim Creat Clear Calc 44.31, Est GFR (MDRD) Af Amer 73, Est GFR (MDRD) Non-Af 60, BUN/Creatinine Ratio 25.8 H, Glucose 146 H, Calcium 9.0, Total Bilirubin 0.50, AST 22, ALT 22, Alkaline Phosphatase 100, Troponin I 0.383 H, Total Protein 7.0, Albumin 2.9 L, Globulin 4.1, Albumin/Globulin Ratio 0.7 L 06/01/20 12:29: Lactic Acid 2.1 H* 06/01/20 12:29: B-Natriuretic Peptide 724.6 H 06/01/20 13:56: Specimen Type ART, Sample Site R Radial, pH 7.45, Bicarbonate Actual 47.2 H, Total CO2 49, Base Excess 23 H, O2 Saturation 82 L, ABG pCO2 68.0 H*, ABG pO2 47 L, Diomedes Test Positive, O2 Delivery Device Cannula, Liter Flow 3.0, Crit Call To/Read Back Yes 06/01/20 14:35: Urine Color Yellow, Urine Clarity Clear, Urine pH 6.5, Ur Specific [place] 1.010, Urine Protein Negative, Urine Glucose (UA) Normal, Urine Ketones Negative, Urine Occult Blood 10 H, Urine Nitrite Negative, Urine Bilirubin Negative, Urine Urobilinogen Normal, Ur Leukocyte Esterase 25 H, Urine RBC 0-5 SEEN, Urine WBC 0-5 SEEN, Ur Squamous Epith Cells 0 SEEN, Urine Bacteria 0 SEEN, Urine Mucus 0 SEEN 06/01/20 16:50: Lactic Acid 0.9 06/01/20 19:05: PT 14.3, INR 1.2 06/01/20 20:10: Troponin I 0.312 H 06/02/20 03:05: WBC 9.5, RBC 3.46 L, Hgb 8.2 L, Hct 28.2 L, MCV 81.5, MCH 23.7 L, MCHC 29.1 L, RDW Std Deviation 48.4 H, RDW Coeff of Dominic 17.2 H, Plt Count 345, MPV 9.6, Immature Gran % (Auto) 0.700, Neut % (Auto) 75.4 H, Lymph % (Auto) 12.6 L, Mineral % (Auto) 9.5, Eos % (Auto) 1.5, Baso % (Auto) 0.3, Absolute Neuts (auto) 7.2, Absolute Lymphs (auto) 1.20, Nucleated RBC % 0 06/02/20 03:05: Sodium 141, Potassium 3.6, Chloride 93 L, Carbon Dioxide 43.0 H, Anion Gap 5, BUN 30 H, Creatinine 0.84, Estim Creat Clear Calc 65.40, Est GFR (MDRD) Af Amer 113, Est GFR (MDRD) Non-Af 94, BUN/Creatinine Ratio 35.6 H, Glucose 93, Calcium 8.4 L 06/02/20 03:05: Troponin I 0.246 H Current Medications Acetaminophen (Acetaminophen 325 Mg Tablet) 650 mg PO Q6H PRN PRN PRN Reason: Pain Score 1-10/Temp > 100.7 F Last Admin: 06/02/20 05:54 Dose: 650 mg Documented by: Albuterol Sulfate (Albuterol 2.5 Mg/3 Ml Vial.Neb.) 2.5 mg INHALATION Q4H PRN PRN PRN Reason: Shortness of breath, wheezing Albuterol/Ipratropium (Ipratropium/Albuterol Sulfate 3 Ml Ampul.Neb) 3 ml INHALATION Q6H.RT ADIA Last Admin: 06/02/20 07:16 Dose: 3 ml Documented by: Amlodipine Besylate (Amlodipine 5 Mg Tablet) 5 mg PO DAILY [facility] Apixaban (Apixaban 5 Mg Tablet) 5 mg PO BID [facility] Carvedilol (Carvedilol 3.125 Mg Tablet) 3.125 mg PO BID [facility] Cholecalciferol (Cholecalciferol (Vit D3) 25 Mcg Tablet (1,000 Units)) 25 mcg PO DAILY [facility] Doxazosin Mesylate (Doxazosin 4 Mg Tablet) 4 mg PO QHS [facility] Furosemide (Furosemide 40 Mg Tablet) 40 mg PO BIDLX [facility] Sodium Chloride () 250 mls @ 15 mls/hr IV .[id number] PRN PRN Reason: Saline Flush Sodium Chloride () 250 mls @ 15 mls/hr IV .[id number] PRN PRN Reason: Additional IVPB Infusion Isosorbide Mononitrate (Isosorbide Mononitrate 60 Mg Tablet) 60 mg PO DAILY [facility] Levothyroxine Sodium (Levothyroxine 175 Mcg Tablet) 175 mcg PO DAILY@0600 [facility] Last Admin: 06/02/20 05:55 Dose: 175 mcg Documented by: Losartan Potassium (Losartan Potassium 50 Mg Tablet) 50 mg PO DAILY [facility] Ondansetron HCl (Ondansetron 4 Mg/2 Ml Vial) 4 mg IV Q8H PRN PRN PRN Reason: NAUSEA/VOMITING Pravastatin Sodium (Pravastatin 40 Mg Tablet) 40 mg PO QHS [facility] Senna/Docusate Sodium (Senna/Docusate Sodium 1 Tablet) 2 tablet PO BID PRN PRN Reason: Constipation Sodium Chloride (0.9% Saline Lock 10 Ml Syringe) 10 - 40 ml IV UD PRN PRN Reason: SALINE FLUSH Zolpidem Tartrate (Zolpidem Tartrate 5 Mg Tablet) 5 mg PO QHS PRN PRN PRN Reason: INSOMNIA Clinical Impression(s) from Imaging Studies Brain CT 06/01/20 12:33 IMPRESSION: Chronic involutional changes of the brain. Electronically Signed: Chase Ruff MD at 13:46 EDT , Service support , Chest X-Ray 06/01/20 12:40 IMPRESSION: Stable examination. Stable pleural parenchymal changes at both lung bases. Electronically Signed: Chase Ruff MD at 12:54 EDT , Service support , Assessment/Plan RECOMMENDATIONS: 1. Given negative orthostatics, check cortisol level 2. Continue rate control, but hold other antihypertensives 3. Continue anticoagulation and diuretics 4. Obtain old records from [facility] 5. Continue BiPAP with sleep and baseline nasal cannula oxygen 6. Agree with holding on antibiotics and steroids as patient does not appear to be in exacerbation IMPRESSIONS: 1. Hypotension Unclear etiology at this time. Patient is on multiple antihypertensives and was recently admitted to the hospital with what appears to be congestive heart failure and thoracentesis. Cultures have been obtained, but agree with holding on antibiotics at this time. Patient is not having any fever or leukocytosis. UA was not suggestive of an infection. Differential diagnosis would include volume depletion, but orthostatics are within normal limits. Cortisol level will be sent for possible relative adrenal insufficiency. If this is within normal/expected limits, potential echocardiogram to evaluate for changes in cardiac function to account for lower blood pressures. Patient has not required any pressors or boluses, so likely okay to go to PCU from my perspective 2. Chronic hypoxic respiratory failure secondary to COPD Patient does not appear to be in an exacerbation of COPD at this time. Okay to continue with therapeutic substitution. Agree with holding antibiotics at this time. Patient does not require steroids from a COPD standpoint, but may require steroids from an adrenal insufficiency standpoint pending results of cortisol. Patient should continue with nocturnal BiPAP and 3 L nasal cannula during the day. Patient did have a recent pleural effusion that was tapped, but chest x-ray is not suggestive of a pneumothorax or other complications associated with the procedure. 3. Elevated troponin/paroxysmal A. fib/history of diastolic congestive heart failure Patient currently is rate controlled. Okay to continue with rate control and anticoagulation from my perspective. Patient does not appear to be volume depleted, so continuation of baseline Lasix therapy is reasonable. No significant change in EKG 4. Hyperlipidemia/hypertension/advanced age Complicates care, management, recovery and prognosis. Holding antihypertensive medications secondary to problem #1. Okay to continue with statins for now. Patient is a full code. Inpatient E&M: [id number] Init Hosp L3
[2020-06-02] MEDS: 0.9% Saline Lock 10 ML Syringe IV (09:52)
[2020-06-02] MEDS: Furosemide 40 MG Tablet PO ×2 (09:52→17:10)
[2020-06-02] MEDS: Carvedilol 3.125 MG TABLET PO ×2 (09:52→21:03)
[2020-06-02] MEDS: Cholecalciferol (VIT D3) 25 MCG TABLET (1,000 UNITS) PO (09:53)
[2020-06-02] MEDS: APIXABAN 5 MG TABLET PO ×2 (09:53→21:03)
--- NOTE | 2020-06-02 10:45 | CASEMGMT ---
RN DAYANA Face to Face with patient for initial transition planning/care coordination assessment. RN CM introduced self and role at [facility]. Patient lying in bed, alert and oriented. Patient willing to participate in assessment and is able to answer all questions appropriately. Care providers, pharmacy, and demographics verified. Patient wishes to discharge home, denies need for home health at this time. Patient states he has no further needs or concerns at this time. CM to follow for discharge planning needs that may arise. PCP: Jonna Specialists: Shaan, Home And Family Living Professor; Shyla Ash POWERHOUSE TENDER, Cardiology Preferred Pharmacy: [facility] Insurance: [id number], [employer] other Prescription Benefit: yes Living Will/HPOA: none LNOK: , son, daughter Living Arrangements: Patient lives with and son in a mobile home with 3 steps and railing to enter the home. Patient states he is independent at home. Transportation: self, son DME/HHC: Patient states he has shower chair, raised toliet, grab bars, nebulizer, Bipap, and oxygen at 2 lpm as needed with portability through [employer]. Patient denies previous HHC or SNF Disposition Plan: Patient to discharge home with family support and follow-up plans in place. Malini HARDY, RN, CM
--- NOTE | 2020-06-02 11:23 | PCM.PN.HOSP ---
Subjective: Feels much better today, had his orthostatic vital signs which were unremarkable. Vitals/I&O's: Vital Signs Temp Pulse Resp BP Pulse Ox 98.1 F 87 22 H 93/48 L 97 06/02/20 10:00 06/02/20 10:00 06/02/20 10:00 06/02/20 10:00 06/02/20 10:00 Oxygen Flow Rate (L/min) 3 Oxygen Delivery Method Nasal Cannula Weight: 160 lb 7.944 oz Body Mass Index (BMI) 25.9 Finger Stick Blood Glucose 103 Orthostatic Vital Signs Start: 06/02/20 08:12 Freq: q24h Status: Active Protocol: Activity Type Activity Date Activity User E-Sign Co-Sign Detail Recorded Client Recorded Date Recorded By Document 06/02/20 07:46 [facility] [id number] 06/02/20 08:17 ELISABETH 06/02/20 07:46 Orthostatic Vitals Standing -Blood Pressure (90/60-120/80) 123/63 H -Extremity Use Left Arm -Pulse Rate (60-100) 90 Sitting -Blood Pressure (90/60-120/80) 112/58 L -Extremity Use Left Arm -Pulse Rate (60-100) 79 Lying -Blood Pressure (90/60-120/80) 104/54 L -Extremity Use Left Arm -Pulse Rate (60-100) 80 Intake and Output for Last 24 Hours 05/31/20 06/01/20 06/02/20 23:59 23:59 23:59 Intake Total 620 / 620 180 / 180 Output Total 300 / 400 600 / 600 Balance 320 / 220 -420 / -420 General: Alert, Oriented x3, Cooperative, No apparent distress HEENT: Atraumatic, PERRLA, EOMI, Normocephalic Oral: Moist Mucosa Neck: Supple, No JVD Lungs: Clear to auscultation, Normal air movement, No rhonchi, No wheeze, No rales, Diminished Cardiovascular: Regular rate, Regular Rhythm, Normal S1, Normal S2, Murmur - 2 out of 6 DAX LUSB Abdomen: Soft, Non Tender, Non-Distended, No Hepato-splenomegaly Extremities: No edema, Capillary Refill Less than 3 Seconds Skin: No rashes, No breakdown Neurological: Neuro grossly intact, Sensory exam intact to light touch and pain Psych/Mental Status: Normal Affect, Appropriate Laboratory Results 06/01/20 12:29: WBC 11.2 H, RBC 3.90 L, Hgb 9.4 L, Hct 32.2 L, MCV 82.6, MCH 24.1 L, MCHC 29.2 L, RDW Std Deviation 49.1 H, RDW Coeff of Dominic 16.9 H, Plt Count 417, MPV 10.0, Immature Gran % (Auto) 0.700, Neut % (Auto) 78.1 H, Lymph % (Auto) 11.7 L, [place] % (Auto) 7.7, Eos % (Auto) 1.4, Baso % (Auto) 0.4, Absolute Neuts (auto) 8.8 H, Absolute Lymphs (auto) 1.31, Nucleated RBC % 0 06/01/20 12:29: PT 13.9, INR 1.1, APTT 31.3 06/01/20 12:29: Sodium 136, Potassium 3.2 L, Chloride 89 L, Carbon Dioxide > 45.0 H*, Anion Gap TNP, BUN 32 H, Creatinine 1.24, Estim Creat Clear Calc 44.31, Est GFR (MDRD) Af Amer 73, Est GFR (MDRD) Non-Af 60, BUN/Creatinine Ratio 25.8 H, Glucose 146 H, Calcium 9.0, Total Bilirubin 0.50, AST 22, ALT 22, Alkaline Phosphatase 100, Troponin I 0.383 H, Total Protein 7.0, Albumin 2.9 L, Globulin 4.1, Albumin/Globulin Ratio 0.7 L 06/01/20 12:29: Lactic Acid 2.1 H* 06/01/20 12:29: B-Natriuretic Peptide 724.6 H 06/01/20 13:56: Specimen Type ART, Sample Site R Radial, pH 7.45, Bicarbonate Actual 47.2 H, Total CO2 49, Base Excess 23 H, O2 Saturation 82 L, ABG pCO2 68.0 H*, ABG pO2 47 L, Diomedes Test Positive, O2 Delivery Device Cannula, Liter Flow 3.0, Crit Call To/Read Back Yes 06/01/20 14:35: Urine Color Yellow, Urine Clarity Clear, Urine pH 6.5, Ur Specific [place]bot 1.010, Urine Protein Negative, Urine Glucose (UA) Normal, Urine Ketones Negative, Urine Occult Blood 10 H, Urine Nitrite Negative, Urine Bilirubin Negative, Urine Urobilinogen Normal, Ur Leukocyte Esterase 25 H, Urine RBC 0-5 SEEN, Urine WBC 0-5 SEEN, Ur Squamous Epith Cells 0 SEEN, Urine Bacteria 0 SEEN, Urine Mucus 0 SEEN 06/01/20 16:50: Lactic Acid 0.9 06/01/20 19:05: PT 14.3, INR 1.2 06/01/20 20:10: Troponin I 0.312 H 06/02/20 03:05: WBC 9.5, RBC 3.46 L, Hgb 8.2 L, Hct 28.2 L, MCV 81.5, MCH 23.7 L, MCHC 29.1 L, RDW Std Deviation 48.4 H, RDW Coeff of Dominic 17.2 H, Plt Count 345, MPV 9.6, Immature Gran % (Auto) 0.700, Neut % (Auto) 75.4 H, Lymph % (Auto) 12.6 L, [place] % (Auto) 9.5, Eos % (Auto) 1.5, Baso % (Auto) 0.3, Absolute Neuts (auto) 7.2, Absolute Lymphs (auto) 1.20, Nucleated RBC % 0 06/02/20 03:05: Sodium 141, Potassium 3.6, Chloride 93 L, Carbon Dioxide 43.0 H, Anion Gap 5, BUN 30 H, Creatinine 0.84, Estim Creat Clear Calc 65.40, Est GFR (MDRD) Af Amer 113, Est GFR (MDRD) Non-Af 94, BUN/Creatinine Ratio 35.6 H, Glucose 93, Calcium 8.4 L 06/02/20 03:05: Troponin I 0.246 H 06/02/20 08:55: Cortisol 22.80 H Current Medications Acetaminophen (Acetaminophen 325 Mg Tablet) 650 mg PO Q6H PRN PRN PRN Reason: Pain Score 1-10/Temp > 100.7 F Last Admin: 06/02/20 05:54 Dose: 650 mg Documented by: Albuterol Sulfate (Albuterol 2.5 Mg/3 Ml Vial.Neb.) 2.5 mg INHALATION Q4H PRN PRN PRN Reason: Shortness of breath, wheezing Albuterol/Ipratropium (Ipratropium/Albuterol Sulfate 3 Ml Ampul.Neb) 3 ml INHALATION Q6H.RT [facility] Last Admin: 06/02/20 07:16 Dose: 3 ml Documented by: Amlodipine Besylate (Amlodipine 5 Mg Tablet) 5 mg PO DAILY [facility] Apixaban (Apixaban 5 Mg Tablet) 5 mg PO BID [facility] Last Admin: 06/02/20 09:53 Dose: 5 mg Documented by: Carvedilol (Carvedilol 3.125 Mg Tablet) 3.125 mg PO BID [facility] Last Admin: 06/02/20 09:52 Dose: 3.125 mg Documented by: Cholecalciferol (Cholecalciferol (Vit D3) 25 Mcg Tablet (1,000 Units)) 25 mcg PO DAILY [facility] Last Admin: 06/02/20 09:53 Dose: 25 mcg Documented by: Doxazosin Mesylate (Doxazosin 4 Mg Tablet) 4 mg PO QHS [facility] Furosemide (Furosemide 40 Mg Tablet) 40 mg PO BIDLX [facility] Last Admin: 06/02/20 09:52 Dose: 40 mg Documented by: Sodium Chloride () 250 mls @ 15 mls/hr IV .[id number] PRN PRN Reason: Saline Flush Sodium Chloride () 250 mls @ 15 mls/hr IV .[id number] PRN PRN Reason: Additional IVPB Infusion Isosorbide Mononitrate (Isosorbide Mononitrate 60 Mg Tablet) 60 mg PO DAILY [facility] Levothyroxine Sodium (Levothyroxine 175 Mcg Tablet) 175 mcg PO DAILY@0600 [facility] Last Admin: 06/02/20 05:55 Dose: 175 mcg Documented by: Losartan Potassium (Losartan Potassium 50 Mg Tablet) 50 mg PO DAILY [facility] Ondansetron HCl (Ondansetron 4 Mg/2 Ml Vial) 4 mg IV Q8H PRN PRN PRN Reason: NAUSEA/VOMITING Pravastatin Sodium (Pravastatin 40 Mg Tablet) 40 mg PO QHS [facility] Senna/Docusate Sodium (Senna/Docusate Sodium 1 Tablet) 2 tablet PO BID PRN PRN Reason: Constipation Sodium Chloride (0.9% Saline Lock 10 Ml Syringe) 10 - 40 ml IV UD PRN PRN Reason: SALINE FLUSH Last Admin: 06/02/20 09:52 Dose: 40 ml Documented by: Zolpidem Tartrate (Zolpidem Tartrate 5 Mg Tablet) 5 mg PO QHS PRN PRN PRN Reason: INSOMNIA STROKE Vital Signs/Narrative: Vital Signs Temp Pulse Pulse Pulse Pulse Resp BP 06/02/20 10:00 98.1 F 87 22 H 93/48 L 06/02/20 09:00 98.4 F 90 19 H 92/61 06/02/20 08:03 06/02/20 08:00 98.1 F 88 23 H 06/02/20 07:46 80 79 90 06/02/20 07:35 77 20 H BP BP BP BP Pulse Ox 06/02/20 10:00 97 06/02/20 09:00 95 06/02/20 08:03 98 06/02/20 08:00 124/74 H 96 06/02/20 07:46 104/54 L 112/58 L 123/63 H 06/02/20 07:35 Medical Necessity - Tobacco Use Smoking Status: Never smoker Assessment/Plan 1. Hypotension status post overdiuresis and thoracentesis/elevated lactic acid -Was at an outside hospital and had his pleural effusion drained and was aggressively diuresed -He has improved with IV fluids in the ER -Orthostatic signs are unremarkable -We will obtain a cortisol level to monitor for his adrenal gland secondary to couple courses of steroids over the last month -Cultures are negative and this is likely secondary to overdiuresis 2. Chronic respiratory failure/pleural effusion/history of COPD -He was recently admitted to an outside hospital for acute on chronic respiratory failure secondary to a pleural effusion on the right which was drained -He now wears 2 to 3 L nasal cannula at home as needed -He feels much better today than when he came in yesterday -Continue with his inhalers 3. CAD status post CABG paroxysmal A. fib/HTN/HLD -Blood pressures currently stable -Continue to monitor and restart his blood pressure medications as necessary -Continue with Coreg for rate control as well as Eliquis for his anticoagulation -Continue with statins 4. Iron deficiency anemia -Hemoglobin appears stable currently 8.2 but he seems to be around 9 baseline -He had a colonoscopy 2 years ago which is demonstrated polyps which were removed -Denies any dark stools -Continue with iron DVT: Eliquis Inpatient E&M: 13823 Subs Hosp L2
--- NOTE | 2020-06-02 15:05 | CASEMGMT ---
Call to [facility] and per Mariann, pt's home oxygen dose is 2L w/ exertion, she also states that pt has bugs in home and wanted to make sure we are aware as they were all through his concentrator. Aleks, PCU charge, updated, voices understanding. Starr JENSEN CM
--- NOTE | 2020-06-02 19:22 | CPS ---
placed pt on 2 lpm O2 with nasal cannula
[2020-06-02] MEDS: Pravastatin 40 MG Tablet PO (21:03)
[2020-06-03] VITALS (12 sets, daily range): BP systolic 99–136; BP diastolic 47–73; PULSE 71–91; RESP 12–28; TEMP 36.6–36.8; O2SAT 90–100
[2020-06-03] MEDS: Ipratropium/Albuterol Sulfate 3 ML AMPUL.NEB INHALATION ×2 (01:06→06:38)
[2020-06-03] MEDS: Levothyroxine 175 MCG Tablet PO (05:29)
[2020-06-03 06:09] LABS: Absolute Neutrophil Count 8.9 X10^3/uL (2.0-7.7); Basophil# 0.04 X10^3/uL; Basophil% 0.3 % (0-1); Eosinophil# 0.19 X10^3/uL; Eosinophils% 1.6 % (0-5); Hematocrit 31.8 % (40-54); Hemoglobin 9.2 g/dL (13.0-16.5); Lymphocyte % 11.2 % (19-41); Mean Corp Hgb Conc 28.9 g/dL (32-36); Mean Corpuscular Hgb 23.7 pg (27.0-32.0); Mean Platelet Vol. 10.4 fl (6.2-12.0); Monocyte# 1.12 X10^3/uL; Monocyte% 9.6 % (0-10); NRBC Flagged by Analyzer 0 % (0-5); Neutrophil # 8.92 X10^3/uL (2.7-7.7); Neutrophil % 76.8 % (47-70); Platelet Count 397 K/mm3 (150-450); RBC Distribution Width CV 17.9 % (11.6-14.6); RBC Distribution Width SD 50.2 fl (35.1-43.9); Red Blood Count 3.88 M/mm3 (4.6-6.2); White Blood Count 11.6 K/mm3 (4.4-11.0)
[2020-06-03 06:37] LABS: Anion Gap 1 (5-15); BUN 35 mg/dL (7-18); BUN/Creat Ratio 36.3 RATIO (10-20); Calcium,Total 8.7 mg/dL (8.5-10.1); Chloride 96 mmol/L (98-107); Creatinine, Serum 0.96 mg/dL (0.70-1.30); EST Glomerular Filtration Rate 80 mL/min (>60); Est Glom Filt Rate - Afr Amer 97 mL/min (>60); Estimated Creatinine Clearance 57.23 ml/min; Glucose 100 mg/dL (74-106); Potassium 3.8 mmol/L (3.5-5.1); Sodium Level 137 mmol/L (136-145)
--- NOTE | 2020-06-03 08:56 | PN_ITS ---
Subjective: Patient did well overnight. Patient feels back to his baseline at this time. No chest pain or abdominal pain has been reported. Patient believes his cough is at its baseline. - Physical Exam Vitals/I&O's: Vital Signs Temp Pulse Resp BP Pulse Ox 36.8 C 72 20 H 110/51 L 98 06/03/20 05:34 06/03/20 06:56 06/03/20 06:38 06/03/20 05:44 06/03/20 06:38 Oxygen Flow Rate (L/min) 3 Oxygen Delivery Method Nasal Cannula Weight: 72.5 kg Body Mass Index (BMI) 25.9 Finger Stick Blood Glucose 103 Orthostatic Vital Signs Start: 06/02/20 08:12 Freq: q24h Status: Active Protocol: Activity Type Activity Date Activity User E-Sign Co-Sign Detail Recorded Client Recorded Date Recorded By Document 06/03/20 05:44 [facility] [id number] 06/03/20 05:47 AMS 06/03/20 05:44 Orthostatic Vitals Standing -Blood Pressure (90/60-120/80) 127/55 H -Extremity Use Right Arm -Pulse Rate (60-100) 91 Sitting -Blood Pressure (90/60-120/80) 114/60 -Extremity Use Right Arm -Pulse Rate (60-100) 89 Lying -Blood Pressure (90/60-120/80) 110/51 L -Extremity Use Right Arm -Pulse Rate (60-100) 72 Intake and Output for Last 24 Hours 06/01/20 06/02/20 06/03/20 23:59 23:59 23:59 Intake Total 620 / 620 400 / 500 150 / 150 Output Total 300 / 400 1050 / 1050 200 / 200 Balance 320 / 220 -650 / -550 -50 / -50 General: Alert, Oriented x3, Cooperative, No apparent distress, - - Baseline conversational dyspnea HEENT: Atraumatic, PERRLA, EOMI, Normocephalic, - - No scleral icterus or injection Oral: Moist Mucosa, No Gingival or Mucosal Lesions/ Ulcerations Neck: Supple, No JVD, No Nodes, Trachea Midline Lungs: No rhonchi, No wheeze, No rales, Diminished, - - Symmetric expansion. No dullness to percussion. Cardiovascular: Normal S1, Normal S2, Irregular Rate, Murmur, No rub noted, No Gallop Abdomen: Bowel Sounds Present, Soft, Non Tender, Non-Distended Extremities: No clubbing, No cyanosis, No edema, Capillary Refill Less than 3 Seconds Skin: No rashes, No breakdown Musculoskeletal: No Tenderness to Palpation of Joints or Extremities Lymphatic: No Cervical, Supraclavicular, or Inguinal Adenopathy Neurological: Cranial nerves II-XII grossly intact, Neuro grossly intact, Motor Exam 5/5 strength throughout Psych/Mental Status: Alert and oriented to time, place, person, mood and affect Laboratory Results 06/02/20 08:55: Cortisol 22.80 H 06/03/20 05:10: WBC 11.6 H, RBC 3.88 L, Hgb 9.2 L, Hct 31.8 L, MCV 82.0, MCH 23.7 L, MCHC 28.9 L, RDW Std Deviation 50.2 H, RDW Coeff of Dominic 17.9 H, Plt Count 397, MPV 10.4, Immature Gran % (Auto) 0.500, Neut % (Auto) 76.8 H, Lymph % (Auto) 11.2 L, [place] % (Auto) 9.6, Eos % (Auto) 1.6, Baso % (Auto) 0.3, Absolute Neuts (auto) 8.9 H, Absolute Lymphs (auto) 1.30, Nucleated RBC % 0 06/03/20 05:10: Sodium 137, Potassium 3.8, Chloride 96 L, Carbon Dioxide 40.0 H, Anion Gap 1 L, BUN 35 H, Creatinine 0.96, Estim Creat Clear Calc 57.23, Est GFR (MDRD) Af Amer 97, Est GFR (MDRD) Non-Af 80, BUN/Creatinine Ratio 36.3 H, Glucose 100, Calcium 8.7 Current Medications Acetaminophen (Acetaminophen 325 Mg Tablet) 650 mg PO Q6H PRN PRN PRN Reason: Pain Score 1-10/Temp > 100.7 F Last Admin: 06/02/20 05:54 Dose: 650 mg Documented by: Albuterol Sulfate (Albuterol 2.5 Mg/3 Ml Vial.Neb.) 2.5 mg INHALATION Q4H PRN PRN PRN Reason: Shortness of breath, wheezing Albuterol/Ipratropium (Ipratropium/Albuterol Sulfate 3 Ml Ampul.Neb) 3 ml INHALATION Q6H.RT [facility] Last Admin: 06/03/20 06:38 Dose: 3 ml Documented by: Apixaban (Apixaban 5 Mg Tablet) 5 mg PO BID [facility] Last Admin: 06/02/20 21:03 Dose: 5 mg Documented by: Carvedilol (Carvedilol 3.125 Mg Tablet) 3.125 mg PO BID [facility] Last Admin: 06/02/20 21:03 Dose: 3.125 mg Documented by: Cholecalciferol (Cholecalciferol (Vit D3) 25 Mcg Tablet (1,000 Units)) 25 mcg PO DAILY [facility] Last Admin: 06/02/20 09:53 Dose: 25 mcg Documented by: Doxazosin Mesylate (Doxazosin 4 Mg Tablet) 4 mg PO QHS [facility] Last Admin: 06/02/20 21:01 Dose: Not Given Documented by: Furosemide (Furosemide 40 Mg Tablet) 40 mg PO BIDLX [facility] Last Admin: 06/02/20 17:10 Dose: 40 mg Documented by: Sodium Chloride () 250 mls @ 15 mls/hr IV .[id number] PRN PRN Reason: Saline Flush Sodium Chloride () 250 mls @ 15 mls/hr IV .[id number] PRN PRN Reason: Additional IVPB Infusion Levothyroxine Sodium (Levothyroxine 175 Mcg Tablet) 175 mcg PO DAILY@0600 [facility] Last Admin: 06/03/20 05:29 Dose: 175 mcg Documented by: Ondansetron HCl (Ondansetron 4 Mg/2 Ml Vial) 4 mg IV Q8H PRN PRN PRN Reason: NAUSEA/VOMITING Pravastatin Sodium (Pravastatin 40 Mg Tablet) 40 mg PO QHS [facility] Last Admin: 06/02/20 21:03 Dose: 40 mg Documented by: Senna/Docusate Sodium (Senna/Docusate Sodium 1 Tablet) 2 tablet PO BID PRN PRN Reason: Constipation Sodium Chloride (0.9% Saline Lock 10 Ml Syringe) 10 - 40 ml IV UD PRN PRN Reason: SALINE FLUSH Last Admin: 06/02/20 09:52 Dose: 40 ml Documented by: Zolpidem Tartrate (Zolpidem Tartrate 5 Mg Tablet) 5 mg PO QHS PRN PRN PRN Reason: INSOMNIA Medical Necessity - Tobacco Use Smoking Status: Never smoker Assessment/Plan RECOMMENDATIONS: 1. Reinitiate blood pressure medications in a stepwise fashion 2. Okay to resume baseline respiratory medications on discharge 3. Continue anticoagulation and diuretics 4. Continue baseline BiPAP therapy with sleep at home 5. Okay to discharge from a pulmonary perspective with routine follow-up IMPRESSIONS: 1. Hypotension Unclear etiology at this time. Patient is on multiple antihypertensives and was recently admitted to the hospital with what appears to be congestive heart failure and thoracentesis. Cultures have been obtained, but agree with holding on antibiotics at this time. Patient is not having any fever or leukocytosis. UA was not suggestive of an infection. Clinical suspicion for volume depletion given relatively negative work-up. Patient may need to have lower doses of antihypertensives. Would reinitiate in a stepwise fashion. 2. Chronic hypoxic respiratory failure secondary to COPD Patient does not appear to be in an exacerbation of COPD at this time. Okay to continue with therapeutic substitution. Agree with holding antibiotics at this time. Patient does not require steroids from a COPD standpoint, but may require steroids from an adrenal insufficiency standpoint pending results of cortisol. Patient should continue with nocturnal BiPAP and 3 L nasal cannula during the day. Patient did have a recent pleural effusion that was tapped, but chest x-ray is not suggestive of a pneumothorax or other complications associated with the procedure. No prednisone burst or antibiotics are indicated from my perspective. Patient can resume baseline medications from a respiratory standpoint and follow-up as previously scheduled. 3. Elevated troponin/paroxysmal A. fib/history of diastolic congestive heart failure Patient currently is rate controlled. Okay to continue with rate control and anticoagulation from my perspective. Patient does not appear to be volume depleted, so continuation of baseline Lasix therapy is reasonable. No significant change in EKG 4. Hyperlipidemia/hypertension/advanced age Complicates care, management, recovery and prognosis. Holding antihypertensive medications secondary to problem #1. Okay to continue with statins for now. Patient is a full code. Inpatient E&M: 41640 Subs Hosp L2
--- NOTE | 2020-06-03 09:07 | PCM.DC ---
- Discharge Diagnoses Current Active Problems: Current Active and Chronic Problems (Last Updated 06/01/20 @ 16:[address] 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) Hyperlipidemia (Chronic) You will use the following diet at home:: Cardiac, Fluid restricted (specify 2000 mls, 1500 mls) - 1500 Your food should be the consistency of: Regular Your liquids should be the consistency of: Regular/Thin Discharge Activity: Return to Normal Activity Call your doctor if you observe: Fever of 101 or Higher, Shortness of breath, Dizziness, Fainting spells, Swelling in the ankles, Chest pain, Increased palpitations (irregular heartbeat) Allergies/Adverse Reactions: Allergies caffeine Allergy (Mild, Verified 06/01/20 12:16) Unknown bee venom protein (honey bee) Allergy (Verified 06/01/20 12:16) Swelling Penicillins Allergy (Verified 06/01/20 12:16) Hives Medications to take at Discharge levothyroxine 175 mcg tablet 175 mcg PO DAILY 90 Days #90 05/13/17 nitroglycerin 0.4 mg sublingual tablet 0.4 mg SUBLINGUAL PRN PRN 8 Days #25 05/13/17 pravastatin 40 mg tablet 40 mg PO QHS 90 Days #90 05/13/17 Acetaminophen [Tylenol] 1,000 mg PO Q4H PRN PRN 05/14/18 Albuterol IH (ProAir) [Proair Hfa] 1 puff INHALATION Q4H PRN PRN 05/14/18 Cholecalciferol (VIT D3) [Vitamin D3] 1,000 unit PO DAILY 05/14/18 Apixaban [Eliquis] 5 mg PO BID 02/17/20 Doxazosin Mesylate [Cardura] 4 mg PO QHS 02/17/20 furosemide 40 mg tablet 40 mg PO BID tablet 05/24/20 Budesonide/Formoterol Fumarate [Budesonide-Formoterol 160-4.5] 2 puff INHALATION Q12H 06/01/20 Carvedilol [Coreg (Beta Radha)] 3.125 mg PO BID 06/01/20 Ferrous Sulfate 325 mg PO 06/01/20 Amlodipine/Valsartan [Exforge 5-160 MG Tablet] 1 tablet PO DAILY 90 Days #90 06/03/20 Primary Care Physician: Renato Coyle DO [Primary Care Provider] - Please follow up with your Primary Care Physician in: 3-5 days Test Results: Test results from this visit will be discussed in further detail at your follow-up appointment, if applicable.
--- NOTE | 2020-06-03 09:54 | CASEMGMT ---
Polly aware to test pt on room air at rest and 2L w/ exertion as this is his home order. Per Polly, pt does not have an increased home oxygen need and is fine on his 2L w/ exertion. Pt ambulated in the [place] with no device and no concerns. Pt voices no further concerns/needs with going home. Starr JENSEN CM
--- NOTE | 2020-06-03 09:54 | PHA.DC.MR ---
Pharmacy Service has performed discharge medication reconciliation for this patient. The patient's discharge medication list was reviewed for discrepancies and discrepancies were resolved. Home Medications levothyroxine 175 mcg tablet 175 mcg PO DAILY 90 Days #90 05/13/17 nitroglycerin 0.4 mg sublingual tablet 0.4 mg SUBLINGUAL PRN PRN 8 Days #25 05/13/17 pravastatin 40 mg tablet 40 mg PO QHS 90 Days #90 05/13/17 Acetaminophen [Tylenol] 1,000 mg PO Q4H PRN PRN 05/14/18 Albuterol IH (ProAir) [Proair Hfa] 1 puff INHALATION Q4H PRN PRN 05/14/18 Cholecalciferol (VIT D3) [Vitamin D3] 1,000 unit PO DAILY 05/14/18 Apixaban [Eliquis] 5 mg PO BID 02/17/20 Doxazosin Mesylate [Cardura] 4 mg PO QHS 02/17/20 furosemide 40 mg tablet 40 mg PO BID tablet 05/24/20 Budesonide/Formoterol Fumarate [Budesonide-Formoterol 160-4.5] 2 puff INHALATION Q12H 06/01/20 Carvedilol [Coreg (Beta Radha)] 3.125 mg PO BID 06/01/20 Ferrous Sulfate 325 mg PO 06/01/20 Amlodipine/Valsartan [Exforge 5-160 MG Tablet] 1 tablet PO DAILY 90 Days #90 06/03/20
[2020-06-03] MEDS: APIXABAN 5 MG TABLET PO (09:59)
[2020-06-03] MEDS: Furosemide 40 MG Tablet PO (09:59)
[2020-06-03] MEDS: Cholecalciferol (VIT D3) 25 MCG TABLET (1,000 UNITS) PO (10:00)
[2020-06-03] MEDS: Carvedilol 3.125 MG TABLET PO (10:00)
--- NOTE | 2020-06-03 11:36 | PCM.DC.SUM ---
Discharge Date and Diagnosis Date of Admission: 06/01/20 Date of Discharge: 06/03/20 - Secondary Discharge Diagnosis Chronic Problems: Chronic Problems (Last Updated 06/01/20 @ 16:[address] 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 Electronically Signed: Chase Ruff MD at 13:46 EDT , Service support , Chest X-Ray 06/01/20 12:40 IMPRESSION: Stable examination. Stable pleural parenchymal changes at both lung bases. Electronically Signed: Chase Ruff MD at 12:54 EDT , Service support , Consults: ICU Operations: None Procedures: None Summary of Care Provided: Per HPI: The patient is a 80 year old M with past medical history as mentioned above presented to the emergency room because of dizziness and lightheadedness. Patient was discharged from [facility] yesterday after admission for acute on chronic respiratory failure, had right-sided thoracentesis for right pleural effusion and he was discharged yesterday. Patient mentioned that yesterday, he felt okay, breathing was fine and he remained on 3 L of oxygen which is his baseline at home. Today, he woke up and felt lightheaded, dizzy and about to pass out. He denied syncope or loss of consciousness. He denied chest pain, palpitation or worsening shortness of breath. He mentioned that his breathing is at his baseline and he did not need to go up on his oxygen. He reported mild cough with minimal sputum. Denies fever or chills. He denied abdominal pain, nausea or vomiting. He had a history of COPD and chronic respiratory failure and he has been on oxygen at 3 L. He was discharged from [facility] yesterday on 3 L as well. He had a history of CAD status post CABG and he has been on aspirin, Coreg, nitrate and Lasix. He has history of hypothyroidism and he has been on levothyroxine, TSH was normal on February,. In the emergency department, patient was hypotensive, heart rate was stable, was afebrile and pulse ox was 86% on 5 L. He was put on BiPAP because his serum bicarb was more than 45 and PCO2 on blood gas was 68 which is probably venous blood gas. Routine blood work was remarkable for hemoglobin of 9.4 g/dL, potassium is 3.2, serum bicarb is more than 45. Lactic acid was 2.1. EKG revealed normal sinus rhythm, chronic LBBB, no acute ischemic changes. Troponin was 0.383. BNP was 724. Urinalysis was unremarkable. Chest x-ray showed minimal right lower effusion, no acute infiltrate, consolidation or CHF. Patient is being admitted for hypotension, probable acute on chronic hypoxic and hypercapnic respiratory failure and compensatory metabolic alkalosis. Hospital Course: 1. Hypotension status post overdiuresis and thoracentesis for pleural effusion/elevated lactic rael-66-[id number]-old male who was discharged the day prior to admission here at this hospital from [facility] after having a thoracentesis for right pleural effusion. He was also aggressively diuresed and on admission here he had a bicarb of over 45. He was given fluid and his Lasix were initially held on admission. He had orthostatic vital signs which were unremarkable and his home blood pressure medications including Coreg and Lasix were restarted. His Norvasc and valsartan were discontinued and it also appeared that he was on losartan as well which was also discontinued. His blood pressure here in the hospital was well managed on just his Coreg and Lasix, I do recommend that he follow-up with his PCP in 3 to 5 days to evaluate his blood pressure and potentially reinstitute some of the blood pressure medications which were discontinued on discharge. For complete evaluation, it was unsure whether or not he had been on any steroids secondary to his chronic respiratory failure and his history of COPD therefore a cortisol level was obtained which was actually elevated therefore he did not have any adrenal insufficiency as a cause for his hypotension and dizziness. I discussed with him the plan for discharge today and he expressed understanding of the risks and benefits of going home and would like to go home today. He did have an ambulatory pulse ox prior to discharge which demonstrate that he needed 2 L. 2. Chronic respiratory failure, recently drained pleural effusion, COPD, coronary artery disease status post CABG, paroxysmal A. fib, hypertension, hyperlipidemia, iron deficiency anemia, hypothyroidism are all chronic medical conditions which complicate his care. His home medications were continued where appropriate - Physical Exam Vitals/I&O's: Vital Signs Temp Pulse Resp BP Pulse Ox 98.2 F 72 20 H 110/51 L 94 06/03/20 05:34 06/03/20 06:56 06/03/20 06:38 06/03/20 05:44 06/03/20 10:03 Oxygen Flow Rate (L/min) [ 2 AMBULATING with Oxygen #1] Oxygen Flow Rate (L/min) 3 Oxygen Delivery Method Nasal Cannula Weight: 159 lb 13.362 oz Body Mass Index (BMI) 25.9 Finger Stick Blood Glucose 103 Orthostatic Vital Signs Start: 06/02/20 08:12 Freq: q24h Status: Active Protocol: Activity Type Activity Date Activity User E-Sign Co-Sign Detail Recorded Client Recorded Date Recorded By Document 06/03/20 05:44 [id number] 06/03/20 05:47 [facility] 06/03/20 05:44 Orthostatic Vitals Standing -Blood Pressure (90/60-120/80) 127/55 H -Extremity Use Right Arm -Pulse Rate (60-100) 91 Sitting -Blood Pressure (90/60-120/80) 114/60 -Extremity Use Right Arm -Pulse Rate (60-100) 89 Lying -Blood Pressure (90/60-120/80) 110/51 L -Extremity Use Right Arm -Pulse Rate (60-100) 72 Intake and Output for Last 24 Hours 03/06/02/20 06/03/20 23:59 23:59 23:59 Intake Total 620 / 620 400 / 500 150 / 150 Output Total 300 / 400 1050 / 1050 200 / 200 Balance 320 / 220 -650 / -550 -50 / -50 General: Alert, Oriented x3, Cooperative, No apparent distress HEENT: Atraumatic, PERRLA, EOMI, Normocephalic Oral: Moist Mucosa Neck: Supple, No JVD Lungs: Clear to auscultation, Normal air movement, No rhonchi, No wheeze, No rales, Diminished Cardiovascular: Regular rate, Regular Rhythm, Normal S1, Normal S2, Murmur - 2 out of 6 DAX LUSB Abdomen: Soft, Non Tender, Non-Distended, No Hepato-splenomegaly Extremities: No edema, Capillary Refill Less than 3 Seconds Skin: No rashes, No breakdown Neurological: Neuro grossly intact, Sensory exam intact to light touch and pain Psych/Mental Status: Normal Affect, Appropriate Laboratory Results 06/03/20 05:10: WBC 11.6 H, RBC 3.88 L, Hgb 9.2 L, Hct 31.8 L, MCV 82.0, MCH 23.7 L, MCHC 28.9 L, RDW Std Deviation 50.2 H, RDW Coeff of Dominic 17.9 H, Plt Count 397, MPV 10.4, Immature Gran % (Auto) 0.500, Neut % (Auto) 76.8 H, Lymph % (Auto) 11.2 L, [place] % (Auto) 9.6, Eos % (Auto) 1.6, Baso % (Auto) 0.3, Absolute Neuts (auto) 8.9 H, Absolute Lymphs (auto) 1.30, Nucleated RBC % 0 06/03/20 05:10: Sodium 137, Potassium 3.8, Chloride 96 L, Carbon Dioxide 40.0 H, Anion Gap 1 L, BUN 35 H, Creatinine 0.96, Estim Creat Clear Calc 57.23, Est GFR (MDRD) Af Amer 97, Est GFR (MDRD) Non-Af 80, BUN/Creatinine Ratio 36.3 H, Glucose 100, Calcium 8.7 Current Medications Acetaminophen (Acetaminophen 325 Mg Tablet) 650 mg PO Q6H PRN PRN PRN Reason: Pain Score 1-10/Temp > 100.7 F Last Admin: 06/02/20 05:54 Dose: 650 mg Documented by: Albuterol Sulfate (Albuterol 2.5 Mg/3 Ml Vial.Neb.) 2.5 mg INHALATION Q4H PRN PRN PRN Reason: Shortness of breath, wheezing Albuterol/Ipratropium (Ipratropium/Albuterol Sulfate 3 Ml Ampul.Neb) 3 ml INHALATION Q6H.RT [facility] Last Admin: 06/03/20 06:38 Dose: 3 ml Documented by: Apixaban (Apixaban 5 Mg Tablet) 5 mg PO BID [facility] Last Admin: 06/03/20 09:59 Dose: 5 mg Documented by: Carvedilol (Carvedilol 3.125 Mg Tablet) 3.125 mg PO BID [facility] Last Admin: 06/03/20 10:00 Dose: 3.125 mg Documented by: Cholecalciferol (Cholecalciferol (Vit D3) 25 Mcg Tablet (1,000 Units)) 25 mcg PO DAILY [facility] Last Admin: 06/03/20 10:00 Dose: 25 mcg Documented by: Doxazosin Mesylate (Doxazosin 4 Mg Tablet) 4 mg PO QHS [facility] Last Admin: 06/02/20 21:01 Dose: Not Given Documented by: Furosemide (Furosemide 40 Mg Tablet) 40 mg PO BIDLX [facility] Last Admin: 06/03/20 09:59 Dose: 40 mg Documented by: Sodium Chloride () 250 mls @ 15 mls/hr IV .[id number] PRN PRN Reason: Saline Flush Sodium Chloride () 250 mls @ 15 mls/hr IV .[id number] PRN PRN Reason: Additional IVPB Infusion Levothyroxine Sodium (Levothyroxine 175 Mcg Tablet) 175 mcg PO DAILY@0600 [facility] Last Admin: 06/03/20 05:29 Dose: 175 mcg Documented by: Ondansetron HCl (Ondansetron 4 Mg/2 Ml Vial) 4 mg IV Q8H PRN PRN PRN Reason: NAUSEA/VOMITING Pravastatin Sodium (Pravastatin 40 Mg Tablet) 40 mg PO QHS [facility] Last Admin: 06/02/20 21:03 Dose: 40 mg Documented by: Senna/Docusate Sodium (Senna/Docusate Sodium 1 Tablet) 2 tablet PO BID PRN PRN Reason: Constipation Sodium Chloride (0.9% Saline Lock 10 Ml Syringe) 10 - 40 ml IV UD PRN PRN Reason: SALINE FLUSH Last Admin: 06/02/20 09:52 Dose: 40 ml Documented by: Zolpidem Tartrate (Zolpidem Tartrate 5 Mg Tablet) 5 mg PO QHS PRN PRN PRN Reason: INSOMNIA Discharge Activity: Return to Normal Activity Call your doctor if you observe: Fever of 101 or Higher, Shortness of breath, Dizziness, Fainting spells, Swelling in the ankles, Chest pain, Increased palpitations (irregular heartbeat) Home Medications: Medications to take at Discharge levothyroxine 175 mcg tablet 175 mcg PO DAILY 90 Days #90 05/13/17 nitroglycerin 0.4 mg sublingual tablet 0.4 mg SUBLINGUAL PRN PRN 8 Days #25 05/13/17 pravastatin 40 mg tablet 40 mg PO QHS 90 Days #90 05/13/17 Acetaminophen [Tylenol] 1,000 mg PO Q4H PRN PRN 05/14/18 Albuterol IH (ProAir) [Proair Hfa] 1 puff INHALATION Q4H PRN PRN 05/14/18 Cholecalciferol (VIT D3) [Vitamin D3] 1,000 unit PO DAILY 05/14/18 Apixaban [Eliquis] 5 mg PO BID 02/17/20 Doxazosin Mesylate [Cardura] 4 mg PO QHS 02/17/20 furosemide 40 mg tablet 40 mg PO BID tablet 05/24/20 Budesonide/Formoterol Fumarate [Budesonide-Formoterol 160-4.5] 2 puff INHALATION Q12H 06/01/20 Carvedilol [Coreg (Beta Radha)] 3.125 mg PO BID 06/01/20 Ferrous Sulfate 325 mg PO 06/01/20 Amlodipine/Valsartan [Exforge 5-160 MG Tablet] 1 tablet PO DAILY 90 Days #90 06/03/20 Primary Care Physician: Renato Coyle DO [Primary Care Provider] - Please follow up with your Primary Care Physician in: 3-5 days Please Follow Up With: Renato Coyle DO Disposition: Home Minutes spent on discharge:: 35 Patient Condition:: Stable Medical Necessity - Tobacco Use Smoking Status: Never smoker Meaningful Use Info Meaningful Use Diagnoses (Choose all that apply): None applicable Inpatient E&M: 21619 Disch Hosp
--- NOTE | 2020-06-06 14:56 | CASEMGMT ---
MIKEY ANNE Discharge Follow-up Phone Call: ABRAHAM: Gray [place]: 3 Call Date: 06/06/20 Discharge Date: 06/03/20 Time of Call: 1455 Duration: 3 min Admitting Diagnosis: hypotension, acute on chronic resp failure MIKEY ANNE completed follow-up phone call after recent hospitalization. Patient states he is doing well and he is breathing well off his home oxygen. Patient had no questions or concerns regarding discharge instructions. Patient was able to fill prescriptions without any issues. Patient has follow-up appt scheduled with PCP tomorrow. Patient had no further needs or concerns at this time.
== END 2020-06-03 15:22 | disposition home or self-care (01) | DRG 315 ==
LOC: ED 15:52 → ICU 16:55 → PCU 06-02 14:39
PROVIDERS: Internal Medicine Critical Care Medicine; Admitting Provider Hospitalist; Emergency Provider Emergency Medicine; PCP Student in an Organized Health Care Education/Training Program; Visit Provider Family Medicine
DX: I95.9 Hypotension, unspecified (principal); E87.2 Acidosis; J96.11 Chronic respiratory failure with hypoxia; E86.0 Dehydration; J44.9 Chronic obstructive pulmonary disease, unspecified; I25.10 Atherosclerotic heart disease of native coronary artery without angina pectoris; Z95.1 Presence of aortocoronary bypass graft; I48.0 Paroxysmal atrial fibrillation; I10 Essential (primary) hypertension; E78.5 Hyperlipidemia, unspecified; D50.9 Iron deficiency anemia, unspecified; E03.9 Hypothyroidism, unspecified; Z99.81 Dependence on supplemental oxygen; Z79.02 Long term (current) use of antithrombotics/antiplatelets; Z79.899 Other long term (current) drug therapy; R79.89 Other specified abnormal findings of blood chemistry; Z98.890 Other specified postprocedural states
CPT/HCPCS: 36415; 36600; 51702; 70450; 71045; 80048; 80053; 81001; 82533; 82803; 83605; 83880; 84484; 85025; 85610; 85730; 87040; 93005; 94002; 94003; 94640; 97161; 97166; 97535; 99251; 99285; J7030; J7040; A4216; G0463

== ENCOUNTER → 2020-06-29 06:20 | Outpatient (CLI) | payer MEDICARE, OTHER, SELFPAY ==
[2020-06-01 17:40] VITALS: BMI 25.9
[2020-06-22 10:36] VITALS: BMI 23.8
[2020-06-29 07:28] LABS: Anion Gap 4 (5-15); BUN 18 mg/dL (7-18); BUN/Creat Ratio 19.3 RATIO (10-20); Calcium,Total 8.6 mg/dL (8.5-10.1); Chloride 105 mmol/L (98-107); Creatinine, Serum 0.94 mg/dL (0.70-1.30); EST Glomerular Filtration Rate 83 mL/min (>60); Est Glom Filt Rate - Afr Amer 100 mL/min (>60); Glucose 94 mg/dL (74-106); Potassium 3.3 mmol/L (3.5-5.1); Sodium Level 142 mmol/L (136-145)
== END ==
PROVIDERS: PCP Student in an Organized Health Care Education/Training Program
DX: U07.1 COVID-19 (principal); I11.0 Hypertensive heart disease with heart failure; I50.30 Unspecified diastolic (congestive) heart failure; J96.11 Chronic respiratory failure with hypoxia; I27.20 Pulmonary hypertension, unspecified
CPT/HCPCS: 36415; 80048

== ENCOUNTER → 2020-07-21 06:50 | Outpatient (CLI) | payer MEDICARE, OTHER, SELFPAY ==
[2020-06-22 10:36] VITALS: BMI 23.8
[2020-07-21 08:06] LABS: Free T3 2.2 pg/mL (2.18-3.98); T4 Free Direct 1.37 ng/dL (0.76-1.46); Thyroid Stim Hormone (TSH) 3.62 uIU/mL (0.358-3.74)
== END ==
PROVIDERS: PCP Student in an Organized Health Care Education/Training Program; Visit Provider Student in an Organized Health Care Education/Training Program
DX: E03.9 Hypothyroidism, unspecified (principal)
CPT/HCPCS: 36415; 84439; 84443; 84481